=== PATIENT | male | born 1960 | race Caucasian/White ===

== ENCOUNTER 2017-02-18 04:40 | Inpatient (IN) | payer BC ==
[2017-02-18] MEDS ORDERED: SODIUM CHLORIDE 0.9% 500 ML INFUS.BAG IV ONE (05:04)
--- NOTE | 2017-02-18 05:05 | PDOC ---
History of Present Illness - General Stated Complaint: ABD PAIN Time Seen by Provider: 02/18/17 04:48 - History of Present Illness Initial Comments: 02/18/17 04:58 CHIEF COMPLAINT: abd pain HISTORY OF PRESENT ILLNESS: 56 yo M with hx of HTN, HLD, and recurrent alcohol induced pancreatitis presents emergency department with epigastric pain similar to his previous bouts of pancreatitis. Patient admits that he has been drinking again, "a few a day" and had 4-5 beers yesterday. Patient denies any nausea, vomiting, diarrhea, rectal bleeding, fever, shortness of breath, or chest pain. Patient also reports a baseline HR "in the 40s." PAST MEDICAL HISTORY: as per HPI FAMILY HISTORY: Denies SOCIAL HISTORY: Denies tobacco, alcohol, illicit drug use. SURGICAL HISTORY: Denies ALLERGIES: No known drug allergies REVIEW OF SYSTEMS General/Constitutional: Chills. Denies fever. Denies weakness, weight change. HEENT: Denies change in vision. Denies ear pain or discharge. Denies sore throat. Cardiovascular: Denies chest pain or shortness of breath. Respiratory: Denies cough, wheezing, or hemoptysis. Gastrointestinal: Epigastric abdominal pain. Denies nausea, vomiting, diarrhea or constipation. Denies rectal bleeding. Genitourinary: Denies dysuria, frequency, or change in urination. Musculoskeletal: Denies joint or muscle swelling or pain. Denies neck or back pain. Skin and breasts: Denies rash or easy bruising. Neurologic: Denies headache, vertigo, loss of consciousness, or loss of sensation. PHYSICAL EXAM General Appearance: Well-appearing, appropriately dressed. No apparent distress , no intoxication. HEENT: EOMI, PERRLA, normal ENT inspection, normal voice, TMs normal, pharynx normal. No conjunctival pallor. No photophobia, scleral icterus. Neck: Supple. Trachea midline. No tenderness, rigidity, carotid bruit, stridor , lymphadenopathy, or thyromegaly. Respiratory/Chest: Lungs CTAB. No shortness of breath, chest tenderness, respiratory distress, accessory muscle use. No crackles, rales, rhonchi, stridor , wheezing, dullness Cardiovascular: Bradycardic to 40s. RRR. S1, S2. No JVD, murmur, tachycardia. Vascular Pulses: Dorsalis-Pedis (R): 2+, Dorsalis-Pedis (L): 2+ Gastrointestinal/Abdominal: Marked epigastric tenderness. Normal bowel sounds. Abdomen soft, non-distended. No organomegaly, pulsatile mass, guarding, hernia, hepatomegaly, splenomegaly. Musculoskeletal/Extremities: Normal inspection. FROM of all extremities, normal capillary refill. Pelvis Stable. No CVA tenderness. No tenderness to extremities, pedal edema, swelling, erythema or deformity. Integumentary: Appropriate color, dry, warm. 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 Fully oriented, alert. Appropriate mood/affect. Motor strength 5/5. No appreciable EOM palsy, facial droop or sensory deficit. Past History - Past Medical History Allergies/Adverse Reactions: Allergies Allergy/AdvReac Type Severity Reaction Status Date / Time No Known Allergies Allergy Verified 02/18/17 05:17 Home Medications: Ambulatory Orders Propranolol HCl 80 mg PO 02/18/17 Anemia: No Asthma: No Cancer: No Cardiac Disorders: No CVA: No COPD: No CHF: No Dementia: No Diabetes: No GI Disorders: Yes (pancreatitis) Disorders: No HTN: Yes Hypercholesterolemia: Yes Liver Disease: No Suicide Attempt (Hx): No Seizures: No Thyroid Disease: No - Surgical History Abdominal Surgery: No Appendectomy: No Cardiac Surgery: No Cholecystectomy: No Lung Surgery: No Neurologic Surgery: No Orthopedic Surgery: No - Immunization History Td Vaccination: Yes Immunization Up to Date: No - Psycho/Social/Smoking Cessation Hx Anxiety: No Suicidal Ideation: No Smoking Status: No Smoking History: Former smoker Have you smoked in the past 12 months: No Number of Cigarettes Smoked Daily: 0 If you are a former smoker, when did you quit?: LONG TIME AGO Hx Alcohol Use: Yes (quit drinking in Jul) Drug/Substance Use Hx: No Substance Use Type: None Hx Substance Use Treatment: No ED Treatment Course - LABORATORY CBC & Chemistry Diagram: 02/18/17 04:55 02/18/17 04:55 Medical Decision Making - Medical Decision Making 02/18/17 05:36 56 yo M with hx of HTN, HLD, and recurrent alcohol induced pancreatitis presents emergency department with epigastric pain similar to his previous bouts of pancreatitis. Patient is bradycardic but at his baseline. Patient is also hypertensive to 180s/110s. Patient states he has not taken his Valsartan in "maybe two days" -CBC, CMP, lipase -IVF -Valsartan 80 mg po Patient complains of severe pain. -0.5 mg Dilaudid -Atropine at bedside -Abdomen & pelvis CT 02/18/17 06:20 Patient continues to c/o severe pain. BP continues to be in 180s/110s. -1 mg Dilaudid, will reassess BP after administration. Case discussed with MD Orlando covering for PCP Cam. Will admit to med/surg for inpatient services. 02/18/17 07:05 Repeat BP 147/86. Patient stable at time of admission. *DC/Admit/Observation/Transfer Diagnosis at time of Disposition: ETOH abuse Pancreatitis Qualifiers: Chronicity: acute Pancreatitis type: alcohol induced Acute pancreatitis complication: unspecified Qualified Code(s): K85.20 - Alcohol induced acute pancreatitis without necrosis or infection - Discharge Dispostion Admit: Yes - Referrals Referrals: Sharmila Levy MD [Primary Care Provider] -
[2017-02-18] MEDS ORDERED: VALSARTAN 80 MG TABLET (UD) PO ONE (05:25)
[2017-02-18 05:33] LABS: BASOPHIL 0.5 % (0-2.0); EOSINOPHIL 4.2 % (0-4.5); MCH 30.9 pg (25.7-33.7); MCHC 34.5 g/dl (32.0-35.9); MEAN CELL VOLUME 89.7 fl (80-96); MEAN PLT VOLUME 9.7 fl (7.5-11.1); NEUTROPHILS 66.6 % (42.8-82.8); PLATELET COUNT 144 K/MM3 (134-434); RDW 13.5 % (11.9-15.9); WHITE BLOOD COUNT 8.9 K/mm3 (4.0-10.0)
[2017-02-18] MEDS ORDERED: ATROPINE SO4 0.4 MG/1 ML VIAL IVPUSH ONE (05:34)
[2017-02-18] MEDS ORDERED: HYDROmorphone HCL CARPU-JECT 1 MG/1 ML DISP.SYRIN IVPUSH ONE ×2 (05:34→06:42)
[2017-02-18] MEDS ORDERED: VALSARTAN 80 MG TABLET (UD) ONE (05:35)
[2017-02-18] MEDS ORDERED: ATROPINE SULFATE 1 MG/10 ML DISP.SYRIN ONE (05:36)
[2017-02-18] MEDS ORDERED: HYDROmorphone HCL CARPU-JECT 1 MG/1 ML DISP.SYRIN ONE ×3 (05:39→10:27)
[2017-02-18 05:44] LABS: ALBUMIN 4.1 g/dl (3.4-5.0); ANION GAP 12 (8-16); BILIRUBIN,TOTAL 0.6 mg/dL (0.2-1.0); CALCIUM 8.8 mg/dL (8.5-10.1); CO2 23 mmol/L (21-32); CREATININE 1.3 mg/dL (0.7-1.3); GLUCOSE,RANDOM 110 mg/dL (74-106); SGOT/AST 36 U/L (15-37); SGPT/ALT 37 U/L (12-78); TOT PROT 7.2 g/dl (6.4-8.2)
[2017-02-18 05:45] LABS: ALK PHOS 68 U/L (45-117)
[2017-02-18] MEDS ORDERED: HYDROmorphone HCL CARPU-JECT 1 MG/1 ML DISP.SYRIN IVPB PRN (10:11)
[2017-02-18] MEDS ORDERED: SODIUM CHLORIDE 1,000 ML IV SCH (10:15)
[2017-02-18 10:59] VITALS: BMI 38.2
[2017-02-18] MEDS: HEPARIN NA (PORCINE) 5,000 UNITS/ML 1ML VIAL SQ SCH ×2 (11:32→22:09)
--- NOTE | 2017-02-18 12:35 | CON.GI ---
Consult Consult Specialty:: Gastroenterology Referred by:: Dr Levy Reason for Consultation:: Abdominal pain - History of Present Illness Chief Complaint: Severe epigastric pain began last PM reminiscent of previous bouts with pancreatitis History of Present Illness: 56M developed severe epigastric pain radiating into the back with nausea but bno vomiting last evening that awoke him from sleep. He drank a 6 pack of beer earlier in the day. He has a past h/o recurring alcoholic pancreatitis. His last bout was 2 years ago when he managed to quit drinking alcohol for about 9 months. He then started to resume alcohol slowly with a beer daily but has been drinking a six-pack of beer daily for over a year. He had a colonoscopy with my associate Dr Raymundo about 3 years ago which he reports as normal. He also describes having had an EGD that revealed GERD but no varices. He denies ever having had alcoholic hepatitis. He has a past h/o a cyst in the uncinate process of the pancreas for which he was repeated referred for endoscopic ultrasound by Dr. Payton but failed to follow through with it. That cyst is no longer evident of his current CT which does reveal pancreatitis. 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 Cardio/Vascular: Yes: HTN, Hyperlipdemia, Other (MVP, had normal cardiac cath in 01/31) Gastrointestinal: Yes: Gastritis, GERD, Pancreatitis, Other (resolved cyst of the pancreas ) Hepatobiliary: Yes: Other (fattyliver) - Past Surgical History Past Surgical History: Yes: None, Colonoscopy, Upper Endoscopy - Alcohol/Substance Use Hx Alcohol Use: Yes (5-6 BEERS-daily) History of Substance Use: reports: None - Smoking History Smoking history: Former smoker Have you smoked in the past 12 months: No Aproximately how many cigarettes per day: 0 If you are a former smoker, when did you quit?: LONG TIME AGO - Social History Usual Living Arrangement: Alone ADL: Independent 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 Place of : [facility] History of Recent Travel: No Home Medications - Allergies Allergies/Adverse Reactions: Allergies Allergy/AdvReac Type Severity Reaction Status Date / Time No Known Allergies Allergy Verified 02/18/17 05:17 - Home Medications Home Medications: Ambulatory Orders Acetaminophen [Tylenol -] 500 mg PO Q6H PRN 02/18/17 Alprazolam [Xanax] 0.25 mg PO DAILY PRN 02/18/17 Fenofibric Acid (Choline) [Trilipix] 135 mg PO DAILY 02/18/17 Propranolol HCl 80 mg PO 02/18/17 Ranitidine HCl [Zantac] 300 mg PO DAILY 02/18/17 Rosuvastatin Calcium [Crestor] mg PO HS 02/18/17 Valsartan 80 mg PO DAILY 02/18/17 Family Disease History - Family Disease History Family Disease History: Heart Disease: Father ( age 49 of [place]), Other: Mother (alive 85 with OMS) Review of Systems - Review of Systems Constitutional: reports: No Symptoms Eyes: reports: No Symptoms HENT: reports: No Symptoms Neck: reports: No Symptoms Cardiovascular: reports: Chest Pain (had cardiac cath WNL in 01/[address] Fields) Respiratory: reports: No Symptoms Gastrointestinal: reports: Abdominal Pain, Nausea, Other (acid reflux) Genitourinary: reports: No Symptoms Musculoskeletal: reports: No Symptoms Neurological: reports: No Symptoms Psychiatric: reports: No Symptoms Physical Exam-GI Vital Signs: Vital Signs Temperature 97.3 F L 02/18/17 10:30 Pulse Rate 48 L 02/18/17 10:30 Respiratory Rate 18 02/18/17 10:30 Blood Pressure 140/95 02/18/17 10:30 O2 Sat by Pulse Oximetry (%) 97 02/18/17 10:30 CBC,CMP WBC 8.9 K/mm3 (4.0-10.0) D 02/18/17 04:55 RBC 5.16 M/mm3 (4.00-5.60) 02/18/17 04:55 Hgb 16.0 GM/dL (11.7-16.9) D 02/18/17 04:55 Hct 46.3 % (35.4-49) D 02/18/17 04:55 MCV 89.7 fl (80-96) 02/18/17 04:55 MCH 30.9 pg (25.7-33.7) 02/18/17 04:55 MCHC 34.5 g/dl (32.0-35.9) 02/18/17 04:55 RDW 13.5 % (11.9-15.9) D 02/18/17 04:55 Plt Count 144 K/MM3 (134-434) D 02/18/17 04:55 MPV 9.7 fl (7.5-11.1) 02/18/17 04:55 Neutrophils % 66.6 % (42.8-82.8) 02/18/17 04:55 Lymphocytes % 20.7 % (8-40) D 02/18/17 04:55 Monocytes % 8.0 % (3.8-10.2) 02/18/17 04:55 Eosinophils % 4.2 % (0-4.5) D 02/18/17 04:55 Basophils % 0.5 % (0-2.0) 02/18/17 04:55 Sodium 139 mmol/L (136-145) 02/18/17 04:55 Potassium 4.0 mmol/L (3.5-5.1) 02/18/17 04:55 Chloride 104 mmol/L (98-107) 02/18/17 04:55 Carbon Dioxide 23 mmol/L (21-32) 02/18/17 04:55 Anion Gap 12 (8-16) 02/18/17 04:55 BUN 12 mg/dL (7-18) D 02/18/17 04:55 Creatinine 1.3 mg/dL (0.7-1.3) D 02/18/17 04:55 Creat Clearance w eGFR 57.53 (>60) 02/18/17 04:55 Random Glucose 110 mg/dL (74-106) H 02/18/17 04:55 Calcium 8.8 mg/dL (8.5-10.1) 02/18/17 04:55 Total Bilirubin 0.6 mg/dL (0.2-1.0) D 02/18/17 04:55 AST 36 U/L (15-37) D 02/18/17 04:55 ALT 37 U/L (12-78) D 02/18/17 04:55 Alkaline Phosphatase 68 U/L (45-117) 02/18/17 04:55 Total Protein 7.2 g/dl (6.4-8.2) 02/18/17 04:55 Albumin 4.1 g/dl (3.4-5.0) 02/18/17 04:55 Lipase 2966 U/L (73-393) H 02/18/17 04:55 Current Medications Generic Name Dose Route Start Last Admin Trade Name Freq PRN Reason Stop Dose Admin Heparin Sodium (Porcine) 5,000 unit 02/18/17 10:15 02/18/17 11:32 Heparin - SQ 5,000 unit BID MARIA ISABEL Administration Hydromorphone HCl 1 mg 02/18/17 10:11 02/18/17 10:36 Dilaudid Injection - IVPB 1 mg Q4H PRN Administration PAIN Sodium Chloride 1,000 mls @ 75 mls/hr 02/18/17 10:15 02/18/17 11:34 Normal Saline - IV 75 mls/hr ASDIR MARIA ISABEL Administration Constitutional: Yes: Calm Eyes: Yes: Conjunctiva Clear HENT: Yes: Atraumatic Neck: Yes: Supple Cardiovascular: Yes: Regular Rate and Rhythm Respiratory: Yes: CTA Bilaterally ...Auscultate: Yes: Hypoactive Bowel Sounds ...Palpate: Yes: Soft, Tenderness, Epigastium, Other (no masses or peritoneal signs) ...Rectal Exam: Yes: Guaiac Negative, Sphincter Tone Normal Genitourinary: Yes: Other (1+ prostate, normal testicles) Musculoskeletal: Yes: WNL Extremities: Yes: WNL Edema: No Integumentary: Yes: WNL Neurological: Yes: Alert, Oriented ...Motor Strength: WNL Psychiatric: Yes: Alert Labs: Laboratory Tests 09/25/14 02/18/17 02/18/17 07:15 04:55 04:55 Total Bilirubin 0.6 D AST 36 D ALT 37 D Alkaline Phosphatase 68 Lipase 2966 H CA 19-9 Antigen 7 Imaging - Results Cat Scan: Report Reviewed ([facility]ario Name: LEÓN PEGUERO DEPARTMENT OF RADIOLOGY Phys: LeggettNachoHinaluca RUSSELL : 1960 Age: 56 Sex: M [facility] Acct: [id number] Loc: [address] Exam Date: 02/18/17 Status: [place] [address] Unit Number: [id number] EXAM#: TYPE/EXAM: RESULT: CT/ABDOMEN PELVIS CT WITH CONTR Abdomen and pelvis CT (with intravenous contrast) Clinical information: pancreatitis multiplanar imaging was performed following the intravenous administration of nonionic contrast. Oral contrast was not administered. In comparison to an MRI exam of 11/13/2014 note is made of recurrent acute pancreatitis visualization of peripancreatic edema and fluid. Acute pancreatitis had been noted on a CT study of 09/25/2014. A small amount of free fluid is seen within the right paracolic space at the level of the mid to upper pelvis. There is no longer definite visualization of 1.3 cm cystic lesion within the head/uncinate process of the pancreas. Interval development of multifocal low-attenuation is seen within the left or right hepatic lobe which could be on the basis of focal fatty infiltration. No associated mass effect is noted. No evidence of pneumoperitoneum or bowel obstruction. The spleen, gallbladder, and adrenal glands and kidneys demonstrate no discrete abnormality. There is no aortic aneurysm. No definite lymphadenopathy is noted. Mild right basilar subpleural dependent atelectasis. Impression: Acute pancreatitis as described above. In comparison to a 2015 MRI study there is no longer definite visualization of a 1.3 cm pancreatic head/uncinate process cystic structure. Correlation with follow-up MRI is suggested following resolution of acute pancreatitis. Interval development of multifocal hepatic hypodensity is noted which may be on the basis of focal fatty infiltration. MRI follow-up is also suggested in this regard. Reported By: Wero Zuniga MD 02/18/17914 Technologist: Garret Hastings Transcribed Date/Time: 02/18 Animation Producer: Wero Zuniga Printed Date/Time: [ rep prt dt last] [ rep prt tm last] By: [ rep prt user last]) Problem List - Problems (1) Fatty (change of) liver, not elsewhere classified Code(s): K76.0 - FATTY (CHANGE OF) LIVER, NOT ELSEWHERE CLASSIFIED Assessment/Plan The picture is most consistent with recurrent alcoholic pancreatitis. I have again strongly advised León to completely absolutely abstain from any further alcohol intake given the strong likelihood of developing pancreatic insufficiency with diabetes and inability to digest nutrients. Need to watch for alcohol withdrawal. Keep NPO for now. Will increase analgesia and IV fluids. Will check Fibrosure to look for alcoholic liver disease as is suggested by his fatty liver. Continue PPI for GERD. His pancreatic cyst was likely a pseudocyst as it has resolved.
[2017-02-18] MEDS ORDERED: chlordiazePOXIDE HCL 25 MG CAPSULE PO PRN (13:29)
[2017-02-18 13:30] LABS: AMYLASE 195 U/L (25-115)
[2017-02-18] MEDS ORDERED: LACTATED RINGERS SOLUTION 1,000 ML IV SCH ×2 (13:30→19:30)
[2017-02-18] MEDS: chlordiazePOXIDE HCL 25 MG CAPSULE PO SCH ×3 (13:44→22:09)
[2017-02-18] MEDS: HYDROmorphone HCL CARPU-JECT 1 MG/1 ML DISP.SYRIN IVPB PRN ×2 (13:45→19:28)
--- NOTE | 2017-02-18 16:05 | CON.CARD ---
Consult Consult Specialty:: Cardiology Referred by:: Hosptalist Reason for Consultation:: Cardiac evaluation - History of Present Illness Chief Complaint: Abdominal pain History of Present Illness: Patient is a 56 year old male who was previously seen in the Hospital with underlying history of hypertension, mixed dyslipidemia and pancreatitis with ETOH dependency who presents again with epigastric pain after he started drinking ETOH and now again with pancreatitis. He has had cardiac evaluation including cardiac catheterization/coronary angiography recently which was unremarkable. He denies chest pain, shortness of breath or palpitations. He denies paroxysmal nocturnal dyspnea or orthopnea. He denies fever or chills. He denies headache or lightheadedness. Denies nausea, vomiting or diarrhea at this time. Cardiology consultation was called for further evaluation. 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 Cardio/Vascular: Yes: HTN, Hyperlipdemia Gastrointestinal: Yes: Gastritis, GERD, Pancreatitis, Other (resolved cyst of the pancreas ) Hepatobiliary: Yes: Other (fatty liver) - Past Surgical History Past Surgical History: Yes: None, Colonoscopy, Upper Endoscopy - Alcohol/Substance Use Hx Alcohol Use: Yes (5-6 BEERS-daily) History of Substance Use: reports: None - Smoking History Smoking history: Former smoker Have you smoked in the past 12 months: No Aproximately how many cigarettes per day: 0 If you are a former smoker, when did you quit?: LONG TIME AGO - Social History Usual Living Arrangement: Alone ADL: Independent 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 History of Recent Travel: No Home Medications - Allergies Allergies/Adverse Reactions: Allergies Allergy/AdvReac Type Severity Reaction Status Date / Time No Known Allergies Allergy Verified 02/18/17 05:17 - Home Medications Home Medications: Ambulatory Orders Acetaminophen [Tylenol -] 500 mg PO Q6H PRN 02/18/17 Alprazolam [Xanax] 0.25 mg PO DAILY PRN 02/18/17 Fenofibric Acid (Choline) [Trilipix] 135 mg PO DAILY 02/18/17 Propranolol HCl 80 mg PO DAILY 02/18/17 Ranitidine HCl [Zantac] 300 mg PO DAILY 02/18/17 Rosuvastatin Calcium [Crestor] mg PO HS 02/18/17 Valsartan 80 mg PO DAILY 02/18/17 Family Disease History - Family Disease History Family Disease History: Heart Disease: Father ( age 49 of [place]), Other: Mother (alive 85 with OMS) Review of Systems - Review of Systems Constitutional: denies: Chills, Fever Cardiovascular: denies: Chest Pain, Palpitations, Shortness of Breath Respiratory: denies: Cough, Hemoptysis, Orthopnea, PND, SOB, SOB on Exertion Gastrointestinal: reports: Abdominal Pain. denies: Constipation, Diarrhea, Melena, Nausea, Rectal Bleeding, Vomiting Musculoskeletal: denies: Joint Pain Neurological: denies: Dizziness, Headache, Seizure, Syncope Vital Signs: Vital Signs Temperature 98.1 F 02/18/17 15:56 Pulse Rate 50 L 02/18/17 15:56 Respiratory Rate 18 02/18/17 15:56 Blood Pressure 141/76 02/18/17 15:56 O2 Sat by Pulse Oximetry (%) 97 02/18/17 10:30 HENT: Yes: Atraumatic Neck: Yes: Supple Respiratory: Yes: CTA Bilaterally Gastrointestinal: Yes: Normal Bowel Sounds, Soft. No: Tenderness Cardiovascular: Yes: Regular Rate and Rhythm JVD: No Carotid Bruit: No PMI: Non-Displaced Heart Sounds: Yes: S1, S2 Edema: No - Other Data Labs, Other Data: CBCD WBC 8.9 K/mm3 (4.0-10.0) D 02/18/17 04:55 RBC 5.16 M/mm3 (4.00-5.60) 02/18/17 04:55 Hgb 16.0 GM/dL (11.7-16.9) D 02/18/17 04:55 Hct 46.3 % (35.4-49) D 02/18/17 04:55 MCV 89.7 fl (80-96) 02/18/17 04:55 MCHC 34.5 g/dl (32.0-35.9) 02/18/17 04:55 RDW 13.5 % (11.9-15.9) D 02/18/17 04:55 Plt Count 144 K/MM3 (134-434) D 02/18/17 04:55 MPV 9.7 fl (7.5-11.1) 02/18/17 04:55 CMP Sodium 139 mmol/L (136-145) 02/18/17 04:55 Potassium 4.0 mmol/L (3.5-5.1) 02/18/17 04:55 Chloride 104 mmol/L (98-107) 02/18/17 04:55 Carbon Dioxide 23 mmol/L (21-32) 02/18/17 04:55 Anion Gap 12 (8-16) 02/18/17 04:55 BUN 12 mg/dL (7-18) D 02/18/17 04:55 Creatinine 1.3 mg/dL (0.7-1.3) D 02/18/17 04:55 Creat Clearance w eGFR 57.53 (>60) 02/18/17 04:55 Random Glucose 110 mg/dL (74-106) H 02/18/17 04:55 Calcium 8.8 mg/dL (8.5-10.1) 02/18/17 04:55 Total Bilirubin 0.6 mg/dL (0.2-1.0) D 02/18/17 04:55 AST 36 U/L (15-37) D 02/18/17 04:55 ALT 37 U/L (12-78) D 02/18/17 04:55 Alkaline Phosphatase 68 U/L (45-117) 02/18/17 04:55 Total Protein 7.2 g/dl (6.4-8.2) 02/18/17 04:55 Albumin 4.1 g/dl (3.4-5.0) 02/18/17 04:55 Marked sinus bradycardia Imaging - Results Cat Scan: Report Reviewed (Abdominal CT acute pancreatitis) EKG: Report Reviewed Problem List - Problems (1) Alcoholic pancreatitis Code(s): K85.20 - ALCOHOL INDUCED ACUTE PANCREATITIS WITHOUT NECROSIS OR INFCT (2) ETOH abuse Code(s): F10.10 - ALCOHOL ABUSE, UNCOMPLICATED (3) Bradycardia Code(s): R00.1 - BRADYCARDIA, UNSPECIFIED (4) HLD (hyperlipidemia) Code(s): E78.5 - HYPERLIPIDEMIA, UNSPECIFIED (5) HTN (hypertension) Code(s): I10 - ESSENTIAL (PRIMARY) HYPERTENSION Qualifiers: Hypertension type: essential hypertension Qualified Code(s): I10 - Essential (primary) hypertension Assessment/Plan 1. Acute pancreatitis secondary to ETOH dependency 2. Hypertension 3. Hypercholesterolemia PLAN: 1. Keep NPO and keep pancrease at rest 2. Continue Valsartan as tolerated 3. Discontinue Propranolol until further instruction 4. Statin is being held until further instruction 5. GI input to follow Further plans are to follow Urbano Perez MD
--- NOTE | 2017-02-18 19:42 | HP ---
Admitting History and Physical - Primary Care Physician PCP: Sharmila Levy - Admission Chief Complaint: abdominal pain, Alcoholic acute pancreatitis History of Present Illness: 56 yo M with hx of HTN, HLD, and recurrent alcohol induced pancreatitis presented to [facility] emergency department with epigastric pain similar to his previous bouts of pancreatitis. Patient admits that he has been drinking again , "a few a day" and had 4-5 beers yesterday. Patient denies any nausea, vomiting, diarrhea, rectal bleeding, fever, shortness of breath, or chest pain. Patient also reports a baseline HR "in the 40s. Patient is known to non compliant, has not followed up with GI outpatient as recommended and doesn't abstain from drinking alcohol everyday. 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: Yes: Migraine Cardiovascular: Yes: HTN, Hyperlipdemia, Other (MVP, had normal cardiac cath in 01/31) Gastrointestinal: Yes: Gastritis, GERD, Pancreatitis, Other (resolved cyst of the pancreas ) Hepatobiliary: Yes: Other (fattyliver) - Past Surgical History Past Surgical History: Yes: None, Colonoscopy, Upper Endoscopy - Smoking History Smoking history: Former smoker Have you smoked in the past 12 months: No Aproximately how many cigarettes per day: 0 If you are a former smoker, when did you quit?: LONG TIME AGO - Alcohol/Substance Use Hx Alcohol Use: Yes (5-6 BEERS-daily) History of Substance Use: reports: None - Social History ADL: Independent 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 History of Recent Travel: No Home Medications - Allergies Allergies/Adverse Reactions: Allergies Allergy/AdvReac Type Severity Reaction Status Date / Time No Known Allergies Allergy Verified 02/18/17 05:17 - Home Medications Home Medications: Ambulatory Orders Acetaminophen [Tylenol -] 500 mg PO Q6H PRN 02/18/17 Alprazolam [Xanax] 0.25 mg PO DAILY PRN 02/18/17 Fenofibric Acid (Choline) [Trilipix] 135 mg PO DAILY 02/18/17 Propranolol HCl 80 mg PO DAILY 02/18/17 Ranitidine HCl [Zantac] 300 mg PO DAILY 02/18/17 Rosuvastatin Calcium [Crestor] mg PO HS 02/18/17 Valsartan 80 mg PO DAILY 02/18/17 Family Disease History - Family Disease History Family Disease History: Heart Disease: Father ( age 49 of [place]), Other: Mother (alive 85 with OMS) Review of Systems - Review of Systems Constitutional: reports: No Symptoms Eyes: reports: No Symptoms HENT: reports: No Symptoms Neck: reports: No Symptoms Cardiovascular: reports: No Symptoms Respiratory: reports: No Symptoms Gastrointestinal: reports: Abdominal Pain Genitourinary: reports: No Symptoms Breasts: reports: No Symptoms Reported Musculoskeletal: reports: No Symptoms Integumentary: reports: No Symptoms Neurological: reports: No Symptoms Endocrine: reports: No Symptoms Hematology/Lymphatic: reports: No Symptoms Psychiatric: reports: No Symptoms Pain Intensity: 8 Physical Examination Vital Signs: Vital Signs Temperature 98.1 F 02/18/17 15:56 Pulse Rate 50 L 02/18/17 15:56 Respiratory Rate 18 02/18/17 15:56 Blood Pressure 141/76 02/18/17 15:56 O2 Sat by Pulse Oximetry (%) 97 02/18/17 10:30 Constitutional: Yes: Well Nourished, No Distress, Calm Cardiovascular: Yes: Regular Rate and Rhythm Respiratory: Yes: Regular Gastrointestinal: Yes: Normal Bowel Sounds, Tenderness, Epigastrium Edema: No Peripheral Pulses WNL: Yes Neurological: Yes: Alert, Oriented Psychiatric: Yes: Alert, Oriented Problem List - Problems (1) ETOH abuse Code(s): F10.10 - ALCOHOL ABUSE, UNCOMPLICATED (2) Fatty (change of) liver, not elsewhere classified Code(s): K76.0 - FATTY (CHANGE OF) LIVER, NOT ELSEWHERE CLASSIFIED (3) Bradycardia Code(s): R00.1 - BRADYCARDIA, UNSPECIFIED (4) HTN (hypertension) Code(s): I10 - ESSENTIAL (PRIMARY) HYPERTENSION Qualifiers: Hypertension type: essential hypertension Qualified Code(s): I10 - Essential (primary) hypertension (5) Alcoholic pancreatitis Code(s): K85.20 - ALCOHOL INDUCED ACUTE PANCREATITIS WITHOUT NECROSIS OR INFCT Assessment/Plan -NPO -DVT prophylaxis -PPI -IVF -encouragement to abstain from alcohol -Pain management -alcohol withdrawal protocol -restart ARB, would hold BB due to bradycardia
[2017-02-18] MEDS ORDERED: PANTOPRAZOLE SODIUM 40 MG VIAL ONE (21:18)
[2017-02-18] MEDS ORDERED: SODIUM CHLORIDE 100 ML IVPB ONE (21:18)
[2017-02-18] MEDS: PANTOPRAZOLE SODIUM 40 MG in SODIUM CHLORIDE 100 ML IVPB SCH (22:09)
--- NOTE | 2017-02-18 22:10 | EKG ---
Test Reason : Blood Pressure : / mmHG Vent. Rate : 042 BPM Atrial Rate : 042 BPM P-R Int : 162 ms QRS Dur : 086 ms QT Int : 438 ms P-R-T Axes : 022 051 053 degrees QTc Int : 365 ms MARKED SINUS BRADYCARDIA HYPERACUTE T WAVE ABNORMAL ECG WHEN COMPARED WITH ECG OF 06-NOV-2014 11:43, SINUS RHYTHM HAS REPLACED ATRIAL FIBRILLATION Confirmed by TIRSO SIFUENTES MD ([id number]) on 02/18/2017 10:09:46 PM Referred By: Confirmed By:TIRSO SIFUENTES MD
[2017-02-19] MEDS: LACTATED RINGERS SOLUTION 1,000 ML IV SCH ×5 (00:45→16:43)
[2017-02-19] MEDS: chlordiazePOXIDE HCL 25 MG CAPSULE PO SCH ×3 (06:11→17:10)
[2017-02-19] MEDS: HYDROmorphone HCL CARPU-JECT 1 MG/1 ML DISP.SYRIN IVPB PRN ×2 (07:06→20:40)
[2017-02-19 07:43] LABS: FIBROSURE ASH COMMENT SEE FILE COPY
[2017-02-19 07:58] LABS: BASOPHIL 0.2 % (0-2.0); EOSINOPHIL 0.6 % (0-4.5); MCH 30.6 pg (25.7-33.7); MCHC 33.8 g/dl (32.0-35.9); MEAN CELL VOLUME 90.5 fl (80-96); MEAN PLT VOLUME 9.7 fl (7.5-11.1); NEUTROPHILS 74.6 % (42.8-82.8); PLATELET COUNT 93 K/MM3 (134-434); RDW 13.7 % (11.9-15.9); WHITE BLOOD COUNT 5.7 K/mm3 (4.0-10.0)
[2017-02-19 08:45] LABS: C-REACTIVE PROTEIN 12.5 MG/DL (0.00-0.3)
--- NOTE | 2017-02-19 08:49 | PN ---
Progress Note, Physician History of Present Illness: LESS ABD PAIN NOW AFTER PAIN MEDS NO CP OR SOB - Current Medication List Current Medications: Active Medications Chlordiazepoxide HCl (Librium -) 25 mg PO [id number] [facility]ABEL Stop: 02/20/17 05:01 Chlordiazepoxide HCl (Librium -) 15 mg PO [id number] MARIA ISABEL Stop: 02/21/17 05:01 Chlordiazepoxide HCl (Librium -) 25 mg PO Q4H PRN PRN Reason: WITHDRAWAL(CONT SUBST) Stop: 02/21/17 13:28 Heparin Sodium (Porcine) (Heparin -) 5,000 unit SQ BID MARIA ISABEL Last Admin: 02/18/17 22:09 Dose: 5,000 unit Hydromorphone HCl (Dilaudid Injection -) 2 mg IVPB Q4H PRN PRN Reason: PAIN Last Admin: 02/19/17 07:06 Dose: 2 mg Lactated Ringer's (Lactated Ringers Solution) 1,000 mls @ 175 mls/hr IV ASDIR [facility] Stop: 02/19/17 10:30 Last Admin: 02/19/17 06:10 Dose: Not Given Lactated Ringer's (Lactated Ringers Solution) 1,000 mls @ 150 mls/hr IV ASDIR [facility] ISABEL Stop: 02/19/17 16:30 Last Admin: 02/19/17 06:12 Dose: 150 mls/hr Lactated Ringer's (Lactated Ringers Solution) 1,000 mls @ 125 mls/hr IV ASDIR [facility] Pantoprazole Sodium 40 mg/ (Sodium Chloride) 100 mls @ 200 mls/hr IVPB DAILY [facility] Last Admin: 02/18/17 22:09 Dose: 200 mls/hr Valsartan (Diovan -) 80 mg PO DAILY [facility] - Objective Vital Signs: Vital Signs Temperature 99.8 F H 02/19/17 07:26 Pulse Rate 60 02/19/17 07:26 Respiratory Rate 20 02/19/17 07:26 Blood Pressure 142/88 02/19/17 07:26 O2 Sat by Pulse Oximetry (%) 96 02/18/17 21:00 Cardiovascular: Yes: Bradycardia, S1, S2 Respiratory: Yes: Regular, CTA Bilaterally Gastrointestinal: Yes: Normal Bowel Sounds, Soft, Tenderness, Epigastrium Labs: CBC, BMP 02/19/17 06:00 09/05/17 06:00 Problem List - Problems (1) Alcoholic pancreatitis Assessment/Plan: NPO IVF GI ON BOARD MONITOR LABS Code(s): K85.20 - ALCOHOL INDUCED ACUTE PANCREATITIS WITHOUT NECROSIS OR INFCT (2) ETOH abuse Assessment/Plan: ON LIBRIUM MONITOR ABSTINENCE DISCUSSED Code(s): F10.10 - ALCOHOL ABUSE, UNCOMPLICATED (3) Fatty (change of) liver, not elsewhere classified Assessment/Plan: AVOID ETOH COMPLIANCE Code(s): K76.0 - FATTY (CHANGE OF) LIVER, NOT ELSEWHERE CLASSIFIED (4) Bradycardia Assessment/Plan: CARDIO ON BOARD Code(s): R00.1 - BRADYCARDIA, UNSPECIFIED (5) HLD (hyperlipidemia) Assessment/Plan: AWAIT LIPIDS Code(s): E78.5 - HYPERLIPIDEMIA, UNSPECIFIED
[2017-02-19 08:50] LABS: ALBUMIN 2.8 g/dl (3.4-5.0); ALK PHOS 52 U/L (45-117); AMYLASE 617 U/L (25-115); ANION GAP 10 (8-16); BILIRUBIN,TOTAL 1.5 mg/dL (0.2-1.0); CALCIUM 7.8 mg/dL (8.5-10.1); CO2 26 mmol/L (21-32); CREATININE 0.9 mg/dL (0.7-1.3); GLUCOSE,RANDOM 96 mg/dL (74-106); SGOT/AST 24 U/L (15-37); SGPT/ALT 23 U/L (12-78); TOT PROT 5.4 g/dl (6.4-8.2)
[2017-02-19] MEDS ORDERED: SODIUM CHLORIDE 100 ML IVPB ONE (09:29)
[2017-02-19] MEDS ORDERED: PANTOPRAZOLE SODIUM 40 MG VIAL ONE (09:29)
[2017-02-19] MEDS: PANTOPRAZOLE SODIUM 40 MG in SODIUM CHLORIDE 100 ML IVPB SCH (09:33)
[2017-02-19] MEDS: VALSARTAN 80 MG TABLET (UD) PO SCH (09:33)
[2017-02-19] MEDS: HEPARIN NA (PORCINE) 5,000 UNITS/ML 1ML VIAL SQ SCH ×2 (09:33→21:01)
--- NOTE | 2017-02-19 09:37 | PN ---
Progress Note, Physician Chief Complaint: Less abdominal/epigastric pain History of Present Illness: Patient was seen and examined. Awake and alert. Chart was reviewed Denies chest pain, SOB or palpitations - Current Medication List Current Medications: Active Medications Chlordiazepoxide HCl (Librium -) 25 mg PO [id number] MARIA ISABEL Stop: 02/20/17 05:01 Chlordiazepoxide HCl (Librium -) 15 mg PO [id number] MARIA ISABEL Stop: 02/21/17 05:01 Chlordiazepoxide HCl (Librium -) 25 mg PO Q4H PRN PRN Reason: WITHDRAWAL(CONT SUBST) Stop: 02/21/17 13:28 Heparin Sodium (Porcine) (Heparin -) 5,000 unit SQ BID [facility] Last Admin: 02/19/17 09:33 Dose: 5,000 unit Hydromorphone HCl (Dilaudid Injection -) 2 mg IVPB Q4H PRN PRN Reason: PAIN Last Admin: 02/19/17 07:06 Dose: 2 mg Lactated Ringer's (Lactated Ringers Solution) 1,000 mls @ 175 mls/hr IV ASDIR [facility] Stop: 02/19/17 10:30 Last Admin: 02/19/17 06:10 Dose: Not Given Lactated Ringer's (Lactated Ringers Solution) 1,000 mls @ 150 mls/hr IV ASDIR [facility] Stop: 02/19/17 16:30 Last Admin: 02/19/17 06:12 Dose: 150 mls/hr Lactated Ringer's (Lactated Ringers Solution) 1,000 mls @ 125 mls/hr IV ASDIR [facility]CLUD[facility] Pantoprazole Sodium 40 mg/ (Sodium Chloride) 100 mls @ 200 mls/hr IVPB DAILY [facility] Last Admin: 02/19/17 09:33 Dose: 200 mls/hr Valsartan (Diovan -) 80 mg PO DAILY [facility] Last Admin: 02/19/17 09:33 Dose: 80 mg - Objective Vital Signs: Vital Signs Temperature 98.1 F 02/19/17 09:24 Pulse Rate 79 02/19/17 09:24 Respiratory Rate 22 02/19/17 09:24 Blood Pressure 126/83 02/19/17 09:24 O2 Sat by Pulse Oximetry (%) 96 02/18/17 21:00 Neck: Yes: Supple Cardiovascular: Yes: Regular Rate and Rhythm, S1, S2 Respiratory: Yes: CTA Bilaterally Gastrointestinal: Yes: Normal Bowel Sounds, Soft. No: Tenderness Edema: No Labs: CBC, BMP 02/19/17 06:00 02/19/17 06:00 Problem List - Problems (1) Alcoholic pancreatitis Code(s): K85.20 - ALCOHOL INDUCED ACUTE PANCREATITIS WITHOUT NECROSIS OR INFCT Qualifiers: Chronicity: acute Acute pancreatitis complication: unspecified Qualified Code(s): K85.20 - Alcohol induced acute pancreatitis without necrosis or infection (2) ETOH abuse Code(s): F10.10 - ALCOHOL ABUSE, UNCOMPLICATED (3) Bradycardia Code(s): R00.1 - BRADYCARDIA, UNSPECIFIED (4) HLD (hyperlipidemia) Code(s): E78.5 - HYPERLIPIDEMIA, UNSPECIFIED (5) HTN (hypertension) Code(s): I10 - ESSENTIAL (PRIMARY) HYPERTENSION Qualifiers: Hypertension type: essential hypertension Qualified Code(s): I10 - Essential (primary) hypertension Assessment/Plan 1. Acute pancreatitis secondary to ETOH dependency 2. Hypertension 3. Hypercholesterolemia PLAN: 1. Keep NPO and keep pancreas at rest 2. Continue Valsartan as tolerated 3. Discontinue Propranolol until further instruction 4. Statin is being held until further instruction 5. GI input noted 6. Analgesics PRN 7. K supplement Further plans are to follow Urbano Perez MD
--- NOTE | 2017-02-19 13:04 | PN ---
GI Progress Note Subjective: No acute events states that abdominal pain improved somewhat from yesterday but still gets worse when he sits up - Objective Vital Signs: Vital Signs Temperature 98.1 F 02/19/17 09:24 Pulse Rate 79 02/19/17 09:24 Respiratory Rate 22 02/19/17 09:24 Blood Pressure 126/83 02/19/17 09:24 O2 Sat by Pulse Oximetry (%) 93 L 02/19/17 09:00 Constitutional: Calm Eyes: Yes: Sclera Icterus Cardiovascular: Yes: Regular Rate and Rhythm. No: Murmur Respiratory: Yes: CTA Bilaterally Gastrointestinal Inspection: Yes: Scars. No: Distention ...Auscultate: Yes: Normoactive Bowel Sounds ...Palpate: Yes: Tenderness (TTP upper abdomen). No: Guarding, Hepatomegaly, Splenomegaly, Tenderness, Rebound ...Percussion: No: Tympanitic Edema: No Neurological: Yes: Alert, Oriented Labs: CBC, BMP 02/19/17 06:00 02/19/17 06:00 Hepatic Panel Total Bilirubin 1.5 mg/dL (0.2-1.0) H D 02/19/17 06:00 AST 24 U/L (15-37) D 02/19/17 06:00 ALT 23 U/L (12-78) D 02/19/17 06:00 Alkaline Phosphatase 52 U/L (45-117) D 02/19/17 06:00 Albumin 2.8 g/dl (3.4-5.0) L D 02/19/17 06:00 Laboratory Tests 02/19/17 02/19/17 06:00 06:00 Triglycerides 356 H D Total Amylase 617 H D Lipase 3680 H - ....Imaging Cat Scan: Report Reviewed Problem List - Problems (1) Alcoholic pancreatitis Assessment/Plan: Triglycerides are elevated but I suspect not causative of the pancreatitis and likely elevated from his alcohol consumption Still with tenderness to palpation on exam Continue IV hydration NPO Triple phase MRI of abdomen for follow-up of liver findings of multiple hypodensities as suggested by radiologist Urged the need for complete alcohol abstinence. Discussed potantial risks of recurrent pancreatitis including pancreatic insufficiency leading to poor quality of life, multiorgan failure leading to . Code(s): K85.20 - ALCOHOL INDUCED ACUTE PANCREATITIS WITHOUT NECROSIS OR INFCT Qualifiers: Chronicity: acute Acute pancreatitis complication: unspecified Qualified Code(s): K85.20 - Alcohol induced acute pancreatitis without necrosis or infection
[2017-02-19] MEDS ORDERED: PIPERACILLIN/TAZOB 3.375 GM 3.375 GM in DEXTROSE 5%-WATER - 50 ML IVPB ONE (16:15)
[2017-02-19] MEDS ORDERED: ACETAMINOPHEN 325 MG TABLET (FP) PO ONE (16:15)
[2017-02-19] MEDS ORDERED: PIPERACILLIN/TAZOBACTAM 3.375 GM VIAL IVPB ONE (16:16)
[2017-02-19] MEDS ORDERED: DEXTROSE 5%-WATER - 50 ML IVPB ONE (16:17)
--- NOTE | 2017-02-19 17:29 | PN ---
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 cxray cultures ua zosyn suspect can d/c antibiotics studies are reviewed
[2017-02-19] MEDS: PIPERACILLIN/TAZOB 3.375 GM 3.375 GM in DEXTROSE 5%-WATER - 50 ML IVPB SCH (17:53)
[2017-02-19] MEDS ORDERED: PIPERACILLIN/TAZOB 3.375 GM/50 ML PRE-DOCKED IVPB SCH (18:00)
--- NOTE | 2017-02-19 19:10 | CONS ---
INFECTIOUS DISEASE CONSULTATION DATE OF CONSULTATION: DATE OF DICTATION: 02/19/2017 REQUESTING PHYSICIAN: Sharmila Levy MD HISTORY OF PRESENT ILLNESS: This is a 56-year-old man with a prior history of pancreatitis. He was last hospitalized in 2014. He has done well since that time. He resumed drinking alcohol and has been drinking a 6-pack of beer daily for the last year. He presented to the emergency room on the with complaints of severe epigastric pain that started on the . He was found to have pancreatitis. He was evaluated by GI. He was given IV fluids and pain medications. He is n.p.o. I am asked to see him because he spiked a fever of 102.5. He denies headache. He denies sore throat. He notes he has continued abdominal pain. He states that he does not withdraw when he stops drinking and that there is no history of any travel. He has no sick contacts. PAST MEDICAL HISTORY: Notable for migraines, hypertension, hyperlipidemia, gastritis, GERD, pancreatitis. He has a resolved cyst of the pancreas, and he has had colonoscopy in the past. He is a former smoker. He quit many years ago. SOCIAL HISTORY: He lives alone. He drinks alcohol daily, approximately 5-6 beers. 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 There is no history of any travel or sick contacts. ALLERGIES: He has no known drug allergies. MEDICATIONS AT HOME: Include Xanax, fenofibric acid, propranolol, ranitidine, rosuvastatin, and valsartan. He states he takes propranolol for tremor. FAMILY HISTORY: Notable for heart disease and his mother is alive and well. Father at age 49. REVIEW OF SYSTEMS: He reports fevers with sweats. He denies any rigors. He notes his urine is dark. He denies any dysuria. He had a normal bowel movement yesterday. He reports abdominal pain and nausea, has not had any vomiting today. He is awake and alert. PHYSICAL EXAMINATION: Vital Signs: His current temperature is 101.5. T-max is 102.5. Pulse is 86, blood pressure 145/87, respiratory rate is 20, saturating 93% on room air. HEENT: He is normocephalic. His eyes are anicteric. Neck: Supple. He has no thrush or pharyngitis. Lungs: Diminished breath sounds at the bases. Heart: Regular rate and rhythm. Abdomen: Soft. He has mid-epigastric pain on palpation. He has positive bowel sounds. Extremities: without edema. DIAGNOSTIC DATA: White count this morning was 5.7, hemoglobin 15, platelets are 93,000. BUN is 7 and creatinine 0.9. Normal LFTs. CRP of 12.5. Amylase is 617 with a lipase of 3680. No UA or urine culture has been done. No chest x-ray has been sent. CAT scan findings are notable for acute pancreatitis, mild right basilar subpleural atelectasis. He has interval development of multi-focal hepatic hypodensities of unclear etiology. In summary, this is a 56-year-old man with acute pancreatitis, now with fever, possibly inflammatory from pancreatitis, possibly infectious. MRI has been ordered to evaluate these hepatic hypodensities. Would obtain a chest x-ray< UA, urine culture, and blood cultures for completeness. A dose of Zosyn has been ordered; would continue while awaiting the rest of his fever workup and abdominal imaging. ANISHA HERNANDEZ M.D. [id number]
[2017-02-19 20:39] LABS: URINE APPEARANCE SLCLOUDY; URINE BILIRUBIN NEGATIVE (NEGATIVE); URINE BLOOD 1+ (NEGATIVE); URINE COLOR DKYELLOW; URINE GLUCOSE (UA) NEGATIVE (NEGATIVE); URINE KETONE NEGATIVE (NEGATIVE); URINE LEUK ESTERASE NEGATIVE (NEGATIVE); URINE NITRITE NEGATIVE (NEGATIVE); URINE UROBILINOGEN NEGATIVE mg/dL (0.2-1.0)
[2017-02-19 20:40] LABS: URINE PROTEIN 1+ (NEGATIVE)
[2017-02-19 21:06] LABS: URINE BACTERIA RARE /hpf (NONE SEEN); URINE MUCUS RARE; URINE RBC <1 /hpf (0-3); URINE WBC 1 /hpf (3-5)
[2017-02-20] MEDS ORDERED: DEXTROSE 5%-WATER - 50 ML IVPB ONE ×3 (00:03→17:45)
[2017-02-20] MEDS ORDERED: PIPERACILLIN/TAZOBACTAM 3.375 GM VIAL IVPB ONE ×3 (00:03→17:44)
[2017-02-20] MEDS: chlordiazePOXIDE HCL 25 MG CAPSULE PO SCH ×2 (00:10→06:00)
[2017-02-20] MEDS: PIPERACILLIN/TAZOB 3.375 GM 3.375 GM in DEXTROSE 5%-WATER - 50 ML IVPB SCH ×3 (01:07→17:54)
[2017-02-20] MEDS: HYDROmorphone HCL CARPU-JECT 1 MG/1 ML DISP.SYRIN IVPB PRN ×3 (06:02→21:36)
[2017-02-20 08:48] LABS: MCH 30.9 pg (25.7-33.7); MCHC 34.1 g/dl (32.0-35.9); MEAN CELL VOLUME 90.6 fl (80-96); PLATELET COUNT 78 K/MM3 (134-434); RDW 13.3 % (11.9-15.9); WHITE BLOOD COUNT 5.3 K/mm3 (4.0-10.0)
[2017-02-20] MEDS ORDERED: SODIUM CHLORIDE 100 ML IVPB ONE (10:19)
[2017-02-20] MEDS ORDERED: PANTOPRAZOLE SODIUM 40 MG VIAL ONE (10:19)
--- NOTE | 2017-02-20 10:24 | PN ---
Progress Note, Physician Chief Complaint: Less abdominal/epigastric pain Not in distress History of Present Illness: Patient was seen and examined. Awake and alert. Chart was reviewed Denies chest pain, SOB or palpitations - Current Medication List Current Medications: Active Medications Chlordiazepoxide HCl (Librium -) 15 mg PO [id number] [facility]IA ISABEL Stop: 02/21/17 05:01 Chlordiazepoxide HCl (Librium -) 25 mg PO Q4H PRN PRN Reason: WITHDRAWAL(CONT SUBST) Stop: 02/21/17 13:28 Heparin Sodium (Porcine) (Heparin -) 5,000 unit SQ BID [facility]IA ISABEL Last Admin: 02/19/17 21:01 Dose: 5,000 unit Hydromorphone HCl (Dilaudid Injection -) 2 mg IVPB Q4H PRN PRN Reason: PAIN Last Admin: 02/20/17 06:02 Dose: 2 mg Lactated Ringer's (Lactated Ringers Solution) 1,000 mls @ 125 mls/hr IV ASDIR [facility] Last Admin: 02/20/17 00:00 Dose: 125 mls/hr Pantoprazole Sodium 40 mg/ (Sodium Chloride) 100 mls @ 200 mls/hr IVPB DAILY [facility] Last Admin: 02/19/17 09:33 Dose: 200 mls/hr Piperacillin Sod/Tazobactam (Sod 3.375 gm/ Dextrose) 50 mls @ 100 mls/hr IVPB Q8H-IV [facility] ISABEL Last Admin: 02/20/17 01:07 Dose: 100 mls/hr Valsartan (Diovan -) 80 mg PO DAILY [facility] Last Admin: 02/19/17 09:33 Dose: 80 mg - Objective Vital Signs: Vital Signs Temperature 99.0 F 02/20/17 10:15 Pulse Rate 70 02/20/17 10:15 Respiratory Rate 22 02/20/17 10:15 Blood Pressure 131/73 02/20/17 10:15 O2 Sat by Pulse Oximetry (%) 93 L 02/19/17 21:00 Neck: Yes: Supple Cardiovascular: Yes: Regular Rate and Rhythm, S1, S2. No: Murmur Respiratory: Yes: Regular, CTA Bilaterally Gastrointestinal: Yes: Normal Bowel Sounds, Soft. No: Tenderness Edema: No Labs: CBC, BMP 02/20/17 06:30 Problem List - Problems (1) Alcoholic pancreatitis Code(s): K85.20 - ALCOHOL INDUCED ACUTE PANCREATITIS WITHOUT NECROSIS OR INFCT Qualifiers: Chronicity: acute Acute pancreatitis complication: unspecified Qualified Code(s): K85.20 - Alcohol induced acute pancreatitis without necrosis or infection (2) ETOH abuse Code(s): F10.10 - ALCOHOL ABUSE, UNCOMPLICATED (3) Bradycardia Code(s): R00.1 - BRADYCARDIA, UNSPECIFIED (4) HLD (hyperlipidemia) Code(s): E78.5 - HYPERLIPIDEMIA, UNSPECIFIED (5) HTN (hypertension) Code(s): I10 - ESSENTIAL (PRIMARY) HYPERTENSION Qualifiers: Hypertension type: essential hypertension Qualified Code(s): I10 - Essential (primary) hypertension Assessment/Plan 1. Acute pancreatitis secondary to ETOH dependency 2. Hypertension 3. Hypercholesterolemia PLAN: 1. Keep NPO and keep pancreas at rest 2. Continue Valsartan as tolerated 3. Propranolol stopped until further instruction 4. Statin is being held until further instruction 5. Analgesics PRN Further plans are to follow Urbano Perez MD
[2017-02-20] MEDS: chlordiazePOXIDE 5 MG CAPSULE PO SCH ×2 (10:27→17:18)
[2017-02-20] MEDS: VALSARTAN 80 MG TABLET (UD) PO SCH (10:28)
[2017-02-20] MEDS: PANTOPRAZOLE SODIUM 40 MG in SODIUM CHLORIDE 100 ML IVPB SCH (10:29)
[2017-02-20] MEDS: HEPARIN NA (PORCINE) 5,000 UNITS/ML 1ML VIAL SQ SCH ×2 (10:29→21:36)
[2017-02-20 10:45] LABS: ALBUMIN 2.4 g/dl (3.4-5.0); ALK PHOS 49 U/L (45-117); ANION GAP 7 (8-16); BILIRUBIN,TOTAL 2.1 mg/dL (0.2-1.0); C-REACTIVE PROTEIN 25.2 MG/DL (0.00-0.3); CALCIUM 7.5 mg/dL (8.5-10.1); CO2 29 mmol/L (21-32); CREATININE 1.2 mg/dL (0.7-1.3); GLUCOSE,RANDOM 67 mg/dL (74-106); SGOT/AST 57 U/L (15-37); SGPT/ALT 26 U/L (12-78); TOT PROT 4.7 g/dl (6.4-8.2)
[2017-02-20] MEDS ORDERED: ACETAMINOPHEN 1000 MG/100 ML VIAL (NON FORMULARY) IVPB PRN (13:30)
[2017-02-20] MEDS ORDERED: POTASSIUM CHLORIDE ORAL LIQUID 20 MEQ/15 ML PO ONE (13:32)
--- NOTE | 2017-02-20 13:32 | PN ---
GI Progress Note Subjective: Fevers noted States feeling a little better today - Objective Vital Signs: Vital Signs Temperature 99.0 F 02/20/17 10:15 Pulse Rate 70 02/20/17 10:15 Respiratory Rate 22 02/20/17 10:15 Blood Pressure 131/73 02/20/17 10:15 O2 Sat by Pulse Oximetry (%) 97 02/20/17 09:00 Constitutional: Calm Eyes: No: Sclera Icterus Cardiovascular: Yes: Regular Rate and Rhythm Respiratory: Yes: CTA Bilaterally Gastrointestinal Inspection: No: Distention ...Auscultate: Yes: Normoactive Bowel Sounds ...Palpate: Yes: Tenderness (Mild TTP mid abdomen). No: Guarding, Splenomegaly ...Percussion: No: Tympanitic Edema: No Neurological: Yes: Tremors Labs: CBC, BMP 02/20/17 06:30 02/20/17 06:00 Problem List - Problems (1) Alcoholic pancreatitis Assessment/Plan: With suspected alcohol withdrawal Continue NPO, IV hydration. Would increase to 200cc/hr for now, trial of clears in AM if improving ETOH withdrawal precautions Monitor lytes Code(s): K85.20 - ALCOHOL INDUCED ACUTE PANCREATITIS WITHOUT NECROSIS OR INFCT Qualifiers: Chronicity: acute Acute pancreatitis complication: unspecified Qualified Code(s): K85.20 - Alcohol induced acute pancreatitis without necrosis or infection
--- NOTE | 2017-02-20 13:41 | PN ---
Progress Note, Physician Chief Complaint: Abdominal pain, acute pancreatitis - Current Medication List Current Medications: Active Medications Acetaminophen (Ofirmev Injection -) 1,000 mg IVPB Q6H PRN PRN Reason: FEVER OR PAIN Stop: 02/21/17 07:31 Chlordiazepoxide HCl (Librium -) 15 mg PO [id number] [facility]IA ISABEL Stop: 02/21/17 05:01 Last Admin: 02/20/17 10:27 Dose: 15 mg Chlordiazepoxide HCl (Librium -) 25 mg PO Q4H PRN PRN Reason: WITHDRAWAL(CONT SUBST) Stop: 02/21/17 13:28 Heparin Sodium (Porcine) (Heparin -) 5,000 unit SQ BID [facility] Last Admin: 02/20/17 10:29 Dose: 5,000 unit Hydromorphone HCl (Dilaudid Injection -) 2 mg IVPB Q4H PRN PRN Reason: PAIN Last Admin: 02/20/17 06:02 Dose: 2 mg Pantoprazole Sodium 40 mg/ (Sodium Chloride) 100 mls @ 200 mls/hr IVPB DAILY [facility] Last Admin: 02/20/17 10:29 Dose: 200 mls/hr Piperacillin Sod/Tazobactam (Sod 3.375 gm/ Dextrose) 50 mls @ 100 mls/hr IVPB Q8H-IV [facility] Last Admin: 02/20/17 10:28 Dose: 100 mls/hr Lactated Ringer's (Lactated Ringers Solution) 1,000 mls @ 150 mls/hr IV ASDIR [facility] Potassium Chloride (Potassium Chloride Oral Liquid) 40 meq PO ONCE ONE Stop: 02/20/17 13:33 Valsartan (Diovan -) 80 mg PO DAILY [facility] Last Admin: 02/20/17 10:28 Dose: 80 mg - Objective Vital Signs: Vital Signs Temperature 99.0 F 02/20/17 10:15 Pulse Rate 70 02/20/17 10:15 Respiratory Rate 22 02/20/17 10:15 Blood Pressure 131/73 02/20/17 10:15 O2 Sat by Pulse Oximetry (%) 97 02/20/17 09:00 Constitutional: Yes: Well Nourished, No Distress Cardiovascular: Yes: Regular Rate and Rhythm Respiratory: Yes: Regular Gastrointestinal: Yes: Soft, Abdomen, Obese, Hyperactive Bowel Sounds, Tenderness, Epigastrium Genitourinary: Yes: WNL Musculoskeletal: Yes: WNL Edema: No Peripheral Pulses WNL: Yes Neurological: Yes: Alert, Oriented Psychiatric: Yes: Alert, Oriented Labs: CBC, BMP 02/20/17 06:30 02/20/17 06:00 Problem List - Problems (1) ETOH abuse Code(s): F10.10 - ALCOHOL ABUSE, UNCOMPLICATED (2) Fatty (change of) liver, not elsewhere classified Code(s): K76.0 - FATTY (CHANGE OF) LIVER, NOT ELSEWHERE CLASSIFIED (3) Bradycardia Code(s): R00.1 - BRADYCARDIA, UNSPECIFIED (4) HTN (hypertension) Code(s): I10 - ESSENTIAL (PRIMARY) HYPERTENSION Qualifiers: Hypertension type: essential hypertension Qualified Code(s): I10 - Essential (primary) hypertension (5) Alcoholic pancreatitis Code(s): K85.20 - ALCOHOL INDUCED ACUTE PANCREATITIS WITHOUT NECROSIS OR INFCT Qualifiers: Chronicity: acute Acute pancreatitis complication: unspecified Qualified Code(s): K85.20 - Alcohol induced acute pancreatitis without necrosis or infection Assessment/Plan -still NPO, may start clear liquids in AM as per GI -DVT prophylaxis -PPI -IVF increased to 150cc/hr, -replenish Potassium with IV KCl -encouragement to abstain from alcohol, he has never joined AA, doesn't want to , thinks he can quit alcohol if he wants to. But at this time he doesn't wan't to. Says, he has a stressful job and he enjoys drinking after work. Explained the consequences, he is not sure about quitting at this time. -Pain management- abdominal pain is better. -alcohol withdrawal protocol -restart ARB, would hold BB due to bradycardia -fevers likely due to inflammatory, seen by ID -Acetaminophen prn for fever over 100.0F
[2017-02-20] MEDS: LACTATED RINGERS SOLUTION 1,000 ML IV SCH ×3 (13:53→17:55)
[2017-02-20] MEDS ORDERED: PT OWN MED DRAWER 7, Y5N ONE (13:58)
--- NOTE | 2017-02-20 15:56 | PN ---
Progress Note (short form) - Note Progress Note: feels about the same, pain unchanged Vital Signs Period Temp Pulse Resp BP Sys/Ojeda Pulse Ox Last 24 Hr 98.1 F-101.5 F 70-88 18-22 119-145/73-87 93-97 cor-rrr lungs clear abd soft, midepigastric tenderness to palpation ext no edema CBC, BMP 02/20/17 06:30 02/20/17 06:00 cultures pending mri- pancreatitis, fatty liver a/p fevers ?inflammatory from pancreatitis or infectious? cxray left lung atelectasis cultures ua zosyn suspect can d/c antibiotics after studies are reviewed progressive thrombocytopenia suspect seondary to pancreatitis but will ask hematology to see-predates zosyn f/u cultures can probably stop zosyn in am
[2017-02-21] MEDS ORDERED: PIPERACILLIN/TAZOBACTAM 3.375 GM VIAL IVPB ONE ×3 (00:10→17:31)
[2017-02-21] MEDS ORDERED: DEXTROSE 5%-WATER - 50 ML IVPB ONE ×3 (00:10→17:31)
[2017-02-21] MEDS: chlordiazePOXIDE 5 MG CAPSULE PO SCH ×2 (00:37→05:50)
[2017-02-21] MEDS: LACTATED RINGERS SOLUTION 1,000 ML IV SCH ×3 (00:41→10:16)
[2017-02-21] MEDS: PIPERACILLIN/TAZOB 3.375 GM 3.375 GM in DEXTROSE 5%-WATER - 50 ML IVPB SCH ×3 (01:00→18:00)
[2017-02-21] MEDS: HYDROmorphone HCL CARPU-JECT 1 MG/1 ML DISP.SYRIN IVPB PRN (05:50)
[2017-02-21] MEDS: ACETAMINOPHEN 325 MG TABLET (FP) PO PRN ×2 (06:38→15:40)
[2017-02-21 08:02] LABS: INR 1.26 (0.82-1.09); PROTHROMBIN TIME (PATIENT) 13.9 SEC (9.98-11.88)
[2017-02-21 08:05] LABS: ACTIVATED PTT 38.2 SECONDS (26.9-34.4)
[2017-02-21 08:17] LABS: LDH 184 U/L (87-241)
[2017-02-21 09:40] LABS: BASOPHIL 0.5 % (0-2.0); EOSINOPHIL 2.8 % (0-4.5); MCH 30.9 pg (25.7-33.7); MCHC 33.9 g/dl (32.0-35.9); MEAN CELL VOLUME 91.1 fl (80-96); NEUTROPHILS 68.2 % (42.8-82.8); PLATELET COUNT 80 K/MM3 (134-434); RDW 13.5 % (11.9-15.9); WHITE BLOOD COUNT 4.7 K/mm3 (4.0-10.0)
[2017-02-21] MEDS ORDERED: PANTOPRAZOLE SODIUM 40 MG VIAL ONE (09:51)
[2017-02-21] MEDS ORDERED: SODIUM CHLORIDE 100 ML IVPB ONE (09:52)
--- NOTE | 2017-02-21 09:54 | PN ---
GI Progress Note Subjective: No acute events Abdominal pain somewhat improved - Objective Vital Signs: Vital Signs Temperature 99.6 F 02/20/17 22:00 Pulse Rate 73 02/20/17 22:00 Respiratory Rate 20 02/20/17 22:00 Blood Pressure 123/73 02/20/17 22:00 O2 Sat by Pulse Oximetry (%) 94 L 02/20/17 21:00 Constitutional: Calm Eyes: No: Sclera Icterus Cardiovascular: Yes: Regular Rate and Rhythm Respiratory: Yes: CTA Bilaterally Gastrointestinal Inspection: No: Distention ...Auscultate: Yes: Normoactive Bowel Sounds ...Palpate: Yes: Tenderness (Mild TTP upper abdomen) ...Percussion: No: Tympanitic Edema: No Neurological: Yes: Alert, Oriented Labs: CBC, [facility] 02/21/17 06:00 INR, PTT INR 1.26 (0.82-1.09) H 02/21/17 06:00 CBC, [facility] 02/21/17 06:00 Hepatic Panel Total Bilirubin 2.1 mg/dL (0.2-1.0) H D 02/20/17 06:00 AST 57 U/L (15-37) H D 02/20/17 06:00 ALT 26 U/L (12-78) 02/20/17 06:00 Alkaline Phosphatase 49 U/L (45-117) 02/20/17 06:00 Albumin 2.4 g/dl (3.4-5.0) L 02/20/17 06:00 Laboratory Tests 02/20/17 02/21/17 06:00 06:00 C-Reactive Protein 25.2 H D Pending Problem List - Problems (1) Alcoholic pancreatitis Assessment/Plan: Clinical improvement: Trial of clears today then advance to full liquids Platelet count improved today. heme eval requested Decreased fluids to 100 cc/hr Code(s): K85.20 - ALCOHOL INDUCED ACUTE PANCREATITIS WITHOUT NECROSIS OR INFCT Qualifiers: Chronicity: acute Acute pancreatitis complication: unspecified Qualified Code(s): K85.20 - Alcohol induced acute pancreatitis without necrosis or infection
[2017-02-21 09:56] LABS: ALBUMIN 2.2 g/dl (3.4-5.0); ANION GAP 11 (8-16); BILIRUBIN,TOTAL 2.2 mg/dL (0.2-1.0); CALCIUM 7.4 mg/dL (8.5-10.1); CO2 24 mmol/L (21-32); CREATININE 1.1 mg/dL (0.7-1.3); GLUCOSE,RANDOM 68 mg/dL (74-106); SGOT/AST 44 U/L (15-37); SGPT/ALT 26 U/L (12-78); TOT PROT 4.8 g/dl (6.4-8.2)
[2017-02-21 10:02] LABS: ALK PHOS 53 U/L (45-117); C-REACTIVE PROTEIN 31.8 MG/DL (0.00-0.3)
[2017-02-21] MEDS: HEPARIN NA (PORCINE) 5,000 UNITS/ML 1ML VIAL SQ SCH ×2 (10:08→22:59)
[2017-02-21] MEDS: VALSARTAN 80 MG TABLET (UD) PO SCH (10:08)
[2017-02-21] MEDS: PANTOPRAZOLE SODIUM 40 MG in SODIUM CHLORIDE 100 ML IVPB SCH (10:11)
[2017-02-21 10:51] LABS: MAGNESIUM 1.8 mg/dL (1.8-2.4)
--- NOTE | 2017-02-21 11:00 | PN ---
Progress Note (short form) - Note Progress Note: ID Zosyn Selected Entries 02/20/17 02/20/17 16:30 22:00 Temperature 102 F H 99.6 F Pulse Rate 73 Respiratory 20 Rate Blood Pressure 123/73 Abd Soft tender Microbiology 02/19/17 19:05 Urine - Urine Clean Catch Urine Culture - Final NO GROWTH OBTAINED 02/19/17 16:48 Blood - Peripheral Venous Blood Culture - Preliminary NO GROWTH OBTAINED AFTER 24 HOURS, INCUBATION TO CONTINUE FOR 4 DAYS. 02/19/17 16:20 Blood - Peripheral Venous Blood Culture - Preliminary NO GROWTH OBTAINED AFTER 24 HOURS, INCUBATION TO CONTINUE FOR 4 DAYS. Laboratory Tests 02/21/17 02/21/17 06:00 06:00 WBC 4.7 Hgb 12.2 Hct 35.8 Plt Count 80 L BUN 8 Creatinine 1.1 Creat Clearance w eGFR > 60 AST 44 H D ALT 26 Alkaline Phosphatase 53 Assessment Alcoholic pancreatitis / fever Plan Continue current antibiotic
[2017-02-21 11:06] LABS: ALPHA 2 MACROGLOBULINS,QN 149 mg/dL (110-276); BILIRUBIN TOTAL 0.8 mg/dL (0.0-1.2); FIBROSIS SCORE- 0.48 (0.00-0.21); GGT= 116 IU/L (0-65); GLUCOSE SERUM 88 mg/dL (65-99); HAPTOGLOBIN= 143 mg/dL (34-200); HEIGHT 73 Inches (.); HEIGHT. 73 Inches (.); TRIGLYCERIDES= 363 mg/dL (0-149); WEIGHT. 190 LBS (.)
--- NOTE | 2017-02-21 11:39 | PN ---
Progress Note, Physician Chief Complaint: Less abdominal/epigastric pain Not in distress History of Present Illness: Patient was seen and examined. Awake and alert. Chart was reviewed Denies chest pain, SOB or palpitations - Current Medication List Current Medications: Active Medications Acetaminophen (Ofirmev Injection -) 1,000 mg IVPB Q6H PRN PRN Reason: FEVER OR PAIN Stop: 02/21/17 07:31 Acetaminophen (Tylenol -) 650 mg PO Q6H PRN PRN Reason: FEVER Last Admin: 02/21/17 06:38 Dose: 650 mg Chlordiazepoxide HCl (Librium -) 25 mg PO Q4H PRN PRN Reason: WITHDRAWAL(CONT SUBST) Stop: 02/21/17 13:28 Last Admin: 02/20/17 13:53 Dose: 25 mg Heparin Sodium (Porcine) (Heparin -) 5,000 unit SQ BID [facility] Last Admin: 02/21/17 10:08 Dose: 5,000 unit Hydromorphone HCl (Dilaudid Injection -) 2 mg IVPB Q4H PRN PRN Reason: PAIN Last Admin: 02/21/17 05:50 Dose: 2 mg Pantoprazole Sodium 40 mg/ (Sodium Chloride) 100 mls @ 200 mls/hr IVPB DAILY [facility] Last Admin: 02/21/17 10:11 Dose: 200 mls/hr Piperacillin Sod/Tazobactam (Sod 3.375 gm/ Dextrose) 50 mls @ 100 mls/hr IVPB Q8H-IV [facility] Last Admin: 02/21/17 10:12 Dose: 100 mls/hr Lactated Ringer's (Lactated Ringers Solution) 1,000 mls @ 100 mls/hr IV ASDIR [facility] Last Admin: 02/21/17 10:16 Dose: 100 mls/hr Potassium Chloride (Potassium Chloride Oral Liquid) 40 meq PO ONCE ONE Stop: 02/21/17 10:16 Valsartan (Diovan -) 80 mg PO DAILY [facility] Last Admin: 02/21/17 10:08 Dose: 80 mg - Objective Vital Signs: Vital Signs Temperature 99.6 F 02/20/17 22:00 Pulse Rate 73 02/20/17 22:00 Respiratory Rate 20 02/20/17 22:00 Blood Pressure 123/73 02/20/17 22:00 O2 Sat by Pulse Oximetry (%) 94 L 02/20/17 21:00 Neck: Yes: Supple Cardiovascular: Yes: Regular Rate and Rhythm, S1, S2. No: Murmur Respiratory: Yes: CTA Bilaterally Gastrointestinal: Yes: Normal Bowel Sounds, Soft. No: Tenderness Edema: No Labs: CBC, BMP 02/21/17 06:00 02/21/17 06:00 INR, PTT INR 1.26 (0.82-1.09) H 02/21/17 06:00 Problem List - Problems (1) Alcoholic pancreatitis Code(s): K85.20 - ALCOHOL INDUCED ACUTE PANCREATITIS WITHOUT NECROSIS OR INFCT Qualifiers: Chronicity: acute Acute pancreatitis complication: unspecified Qualified Code(s): K85.20 - Alcohol induced acute pancreatitis without necrosis or infection (2) ETOH abuse Code(s): F10.10 - ALCOHOL ABUSE, UNCOMPLICATED (3) Bradycardia Code(s): R00.1 - BRADYCARDIA, UNSPECIFIED (4) HLD (hyperlipidemia) Code(s): E78.5 - HYPERLIPIDEMIA, UNSPECIFIED (5) HTN (hypertension) Code(s): I10 - ESSENTIAL (PRIMARY) HYPERTENSION Qualifiers: Hypertension type: essential hypertension Qualified Code(s): I10 - Essential (primary) hypertension Assessment/Plan 1. Acute pancreatitis secondary to ETOH dependency 2. Hypertension 3. Hypercholesterolemia PLAN: 1. Keep NPO and keep pancreas at rest - advance diet as per GI service 2. Continue Valsartan as tolerated 3. Propranolol stopped until further instruction - he states that it was started for tremors. Will decide whether to restart it. 4. Statin is being held until further instruction 5. Analgesics PRN 6. Patient received tylenol for fever. If continues to have fever, he will probably need further fever work up. Continue antibiotic coverage Further plans are to follow Urbano Perez MD
--- NOTE | 2017-02-21 12:09 | PN ---
Progress Note, Physician Chief Complaint: patient had temp 102 last nite got tylenol today on clear liquid diet to continue iv abx - Current Medication List Current Medications: Active Medications Acetaminophen (Ofirmev Injection -) 1,000 mg IVPB Q6H PRN PRN Reason: FEVER OR PAIN Stop: 02/21/17 07:31 Acetaminophen (Tylenol -) 650 mg PO Q6H PRN PRN Reason: FEVER Last Admin: 02/21/17 06:38 Dose: 650 mg Chlordiazepoxide HCl (Librium -) 25 mg PO Q4H PRN PRN Reason: WITHDRAWAL(CONT SUBST) Stop: 02/21/17 13:28 Last Admin: 02/20/17 13:53 Dose: 25 mg Heparin Sodium (Porcine) (Heparin -) 5,000 unit SQ BID [facility] Last Admin: 02/21/17 10:08 Dose: 5,000 unit Hydromorphone HCl (Dilaudid Injection -) 2 mg IVPB Q4H PRN PRN Reason: PAIN Last Admin: 02/21/17 05:50 Dose: 2 mg Pantoprazole Sodium 40 mg/ (Sodium Chloride) 100 mls @ 200 mls/hr IVPB DAILY [facility] Last Admin: 02/21/17 10:11 Dose: 200 mls/hr Piperacillin Sod/Tazobactam (Sod 3.375 gm/ Dextrose) 50 mls @ 100 mls/hr IVPB Q8H-IV [facility] Last Admin: 02/21/17 10:12 Dose: 100 mls/hr Lactated Ringer's (Lactated Ringers Solution) 1,000 mls @ 100 mls/hr IV ASDIR [facility] Last Admin: 02/21/17 10:16 Dose: 100 mls/hr Potassium Chloride (Potassium Chloride Oral Liquid) 40 meq PO ONCE ONE Stop: 02/21/17 10:16 Valsartan (Diovan -) 80 mg PO DAILY [facility] Last Admin: 02/21/17 10:08 Dose: 80 mg - Objective Vital Signs: Vital Signs Temperature 99.6 F 02/20/17 22:00 Pulse Rate 73 02/20/17 22:00 Respiratory Rate 20 02/20/17 22:00 Blood Pressure 123/73 02/20/17 22:00 O2 Sat by Pulse Oximetry (%) 94 L 02/20/17 21:00 Constitutional: Yes: Calm Neck: Yes: Trachea Midline Cardiovascular: Yes: Regular Rate and Rhythm, S1, S2 Respiratory: Yes: CTA Bilaterally Gastrointestinal: Yes: Normal Bowel Sounds, Soft Edema: No Neurological: Yes: Alert, Oriented Labs: CBC, BMP 02/21/17 06:00 02/21/17 06:00 INR, PTT INR 1.26 (0.82-1.09) H 02/21/17 06:00 Problem List - Problems (1) Hypokalemia Assessment/Plan: repleted recheck in am l mgnesium is ok Code(s): E87.6 - HYPOKALEMIA (2) Alcoholic pancreatitis Assessment/Plan: clear liquid diet per GI ivf rate now 100cc /hr Code(s): K85.20 - ALCOHOL INDUCED ACUTE PANCREATITIS WITHOUT NECROSIS OR INFCT Qualifiers: Chronicity: acute Acute pancreatitis complication: unspecified Qualified Code(s): K85.20 - Alcohol induced acute pancreatitis without necrosis or infection (3) HLD (hyperlipidemia) Assessment/Plan: statin held for now given inc Code(s): E78.5 - HYPERLIPIDEMIA, UNSPECIFIED (4) HTN (hypertension) Assessment/Plan: diovan Code(s): I10 - ESSENTIAL (PRIMARY) HYPERTENSION Qualifiers: Hypertension type: essential hypertension Qualified Code(s): I10 - Essential (primary) hypertension (5) ETOH abuse Assessment/Plan: librium protocol Code(s): F10.10 - ALCOHOL ABUSE, UNCOMPLICATED (6) Thrombocytopenia Assessment/Plan: platelet improved a little heme eval Code(s): D69.6 - THROMBOCYTOPENIA, UNSPECIFIED (7) Fever Assessment/Plan: elevated C RP ID on case iv negro Code(s): R50.9 - FEVER, UNSPECIFIED
--- NOTE | 2017-02-21 12:30 | CONSULT ---
Consult Consult Specialty:: Hematology/Oncology Reason for Consultation:: thrombocytopenia - History of Present Illness History of Present Illness: 56 yo M with hx of HTN, HLD, and recurrent alcohol induced pancreatitis presented to [facility] emergency department with epigastric pain similar to his previous bouts of pancreatitis. followed by GI. Paresh called for thrombocytopenia. Pt seen and examined. family at bedside. Pt denies any complains. no bleeding. 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 Cardio/Vascular: Yes: HTN, Hyperlipdemia Gastrointestinal: Yes: Gastritis, GERD, Pancreatitis, Other (resolved cyst of the pancreas ) Hepatobiliary: Yes: Other (fatty liver) - Past Surgical History Past Surgical History: Yes: None, Colonoscopy, Upper Endoscopy - Alcohol/Substance Use Hx Alcohol Use: Yes (5-6 BEERS-daily) History of Substance Use: reports: None - Smoking History Smoking history: Former smoker Have you smoked in the past 12 months: No Aproximately how many cigarettes per day: 0 If you are a former smoker, when did you quit?: LONG TIME AGO - Social History Usual Living Arrangement: Alone ADL: Independent 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 History of Recent Travel: No Home Medications - Allergies Allergies/Adverse Reactions: Allergies Allergy/AdvReac Type Severity Reaction Status Date / Time No Known Allergies Allergy Verified 02/18/17 05:17 - Home Medications Home Medications: Ambulatory Orders Acetaminophen [Tylenol -] 500 mg PO Q6H PRN 02/18/17 Alprazolam [Xanax] 0.25 mg PO DAILY PRN 02/18/17 Fenofibric Acid (Choline) [Trilipix] 135 mg PO DAILY 02/18/17 Propranolol HCl 80 mg PO DAILY 02/18/17 Ranitidine HCl [Zantac] 300 mg PO DAILY 02/18/17 Rosuvastatin Calcium [Crestor] mg PO HS 02/18/17 Valsartan 80 mg PO DAILY 02/18/17 Family Disease History - Family Disease History Family Disease History: Heart Disease: Father ( age 49 of [place]), Other: Mother (alive 85 with OMS) Review of Systems - Review of Systems Constitutional: reports: Weakness. denies: Fever, Lethargy HENT: denies: Difficult Swallowing Neck: denies: Lumps Respiratory: denies: Cough, Exercise Intolerance Gastrointestinal: reports: Abdominal Pain Neurological: denies: Change in LOC Endocrine: reports: Other Hematology/Lymphatic: denies: Easily Bruised, Excessive Bleeding, Swollen Glands Physical Exam Vital Signs: Vital Signs Temperature 99.6 F 02/20/17 22:00 Pulse Rate 73 02/20/17 22:00 Respiratory Rate 20 02/20/17 22:00 Blood Pressure 123/73 02/20/17 22:00 O2 Sat by Pulse Oximetry (%) 94 L 02/20/17 21:00 Constitutional: Yes: Calm Eyes: No: Sclera Icterus HENT: Yes: Atraumatic, Normocephalic Neck: Yes: Supple, Trachea Midline Cardiovascular: Yes: Regular Rate and Rhythm Respiratory: Yes: Regular, CTA Bilaterally Gastrointestinal: Yes: Normal Bowel Sounds, Soft. No: Hepatomegaly, Splenomegaly Extremities: Yes: WNL Edema: No Labs: CBC, BMP 02/21/17 06:00 02/21/17 06:00 Imaging - Results Cat Scan: Report Reviewed MRI: Report Reviewed Problem List - Problems (1) Alcoholic pancreatitis Code(s): K85.20 - ALCOHOL INDUCED ACUTE PANCREATITIS WITHOUT NECROSIS OR INFCT Qualifiers: Chronicity: acute Acute pancreatitis complication: unspecified Qualified Code(s): K85.20 - Alcohol induced acute pancreatitis without necrosis or infection (2) ETOH abuse Code(s): F10.10 - ALCOHOL ABUSE, UNCOMPLICATED (3) Thrombocytopenia Code(s): D69.6 - THROMBOCYTOPENIA, UNSPECIFIED Assessment/Plan Thrombocytopenia alcohol intoxication acute alcohol induced pancreatitis -likely etiology of thrombocytopenia is alcohol induced, expect to trend up. -no evidence of hemolysis, HIT is unlikely. Nl B12 and folate. -advised on abstinence. -at risk for alcohol with-drawl. -will follow
[2017-02-21] MEDS ORDERED: POTASSIUM CHLORIDE ORAL LIQUID 20 MEQ/15 ML PO ONE (14:45)
[2017-02-21] MEDS: chlordiazePOXIDE HCL 25 MG CAPSULE PO PRN (17:25)
[2017-02-21] MEDS: HYDROmorphone HCL CARPU-JECT 2 MG/1 ML DISP.SYRIN IVPB PRN (18:46)
[2017-02-22] MEDS ORDERED: PIPERACILLIN/TAZOBACTAM 3.375 GM VIAL IVPB ONE ×3 (01:12→17:49)
[2017-02-22] MEDS ORDERED: DEXTROSE 5%-WATER - 50 ML IVPB ONE ×3 (01:12→17:49)
[2017-02-22] MEDS: PIPERACILLIN/TAZOB 3.375 GM 3.375 GM in DEXTROSE 5%-WATER - 50 ML IVPB SCH ×3 (01:19→18:08)
[2017-02-22] MEDS: HYDROmorphone HCL CARPU-JECT 2 MG/1 ML DISP.SYRIN IVPB PRN ×2 (06:22→22:20)
[2017-02-22 08:03] LABS: BASOPHIL 0.6 % (0-2.0); EOSINOPHIL 4.3 % (0-4.5); MCH 31.1 pg (25.7-33.7); MCHC 34.4 g/dl (32.0-35.9); MEAN CELL VOLUME 90.5 fl (80-96); MEAN PLT VOLUME 9.8 fl (7.5-11.1); NEUTROPHILS 63.1 % (42.8-82.8); PLATELET COUNT 95 K/MM3 (134-434); RDW 13.6 % (11.9-15.9); WHITE BLOOD COUNT 4.8 K/mm3 (4.0-10.0)
[2017-02-22 08:20] LABS: ALBUMIN 2.2 g/dl (3.4-5.0); ALK PHOS 70 U/L (45-117); ANION GAP 10 (8-16); BILIRUBIN,TOTAL 1.8 mg/dL (0.2-1.0); CALCIUM 7.8 mg/dL (8.5-10.1); CO2 25 mmol/L (21-32); GLUCOSE,RANDOM 87 mg/dL (74-106); SGOT/AST 128 U/L (15-37); SGPT/ALT 53 U/L (12-78); TOT PROT 4.9 g/dl (6.4-8.2)
--- NOTE | 2017-02-22 09:26 | PN ---
Progress Note, Physician Chief Complaint: Less abdominal/epigastric pain Not in distress, but had complained of a little more epigastric pain earlier History of Present Illness: Patient was seen and examined. Awake and alert. Chart was reviewed Denies chest pain, SOB or palpitations - Current Medication List Current Medications: Active Medications Acetaminophen (Tylenol -) 650 mg PO Q6H PRN PRN Reason: FEVER Last Admin: 02/21/17 15:40 Dose: 650 mg Chlordiazepoxide HCl (Librium -) 25 mg PO Q4H PRN PRN Reason: WITHDRAWAL(CONT SUBST) Last Admin: 02/21/17 17:25 Dose: 25 mg Heparin Sodium (Porcine) (Heparin -) 5,000 unit SQ BID [facility] Last Admin: 02/21/17 22:59 Dose: Not Given Hydromorphone HCl (Dilaudid Injection -) 2 mg IVPB Q4H PRN PRN Reason: PAIN Last Admin: 02/22/17 06:22 Dose: 2 mg Pantoprazole Sodium 40 mg/ (Sodium Chloride) 100 mls @ 200 mls/hr IVPB DAILY [facility] Last Admin: 02/21/17 10:11 Dose: 200 mls/hr Piperacillin Sod/Tazobactam (Sod 3.375 gm/ Dextrose) 50 mls @ 100 mls/hr IVPB Q8H-IV [facility] Last Admin: 02/22/17 01:19 Dose: 100 mls/hr Lactated Ringer's (Lactated Ringers Solution) 1,000 mls @ 100 mls/hr IV ASDIR [facility] Last Admin: 02/21/17 10:16 Dose: 100 mls/hr Valsartan (Diovan -) 80 mg PO DAILY [facility] Last Admin: 02/21/17 10:08 Dose: 80 mg - Objective Vital Signs: Vital Signs Temperature 99.1 F 02/22/17 06:50 Pulse Rate 64 02/22/17 06:50 Respiratory Rate 20 02/22/17 06:50 Blood Pressure 146/90 02/22/17 06:50 O2 Sat by Pulse Oximetry (%) 94 L 02/21/17 21:00 Neck: Yes: Supple Cardiovascular: Yes: Regular Rate and Rhythm, S1, S2 Respiratory: Yes: CTA Bilaterally Gastrointestinal: Yes: Normal Bowel Sounds, Soft. No: Tenderness Edema: No Labs: CBC, BMP 02/22/17 06:00 02/22/17 06:00 INR, PTT INR 1.26 (0.82-1.09) H 02/21/17 06:00 Problem List - Problems (1) Alcoholic pancreatitis Code(s): K85.20 - ALCOHOL INDUCED ACUTE PANCREATITIS WITHOUT NECROSIS OR INFCT Qualifiers: Chronicity: acute Acute pancreatitis complication: unspecified Qualified Code(s): K85.20 - Alcohol induced acute pancreatitis without necrosis or infection (2) ETOH abuse Code(s): F10.10 - ALCOHOL ABUSE, UNCOMPLICATED (3) Bradycardia Code(s): R00.1 - BRADYCARDIA, UNSPECIFIED (4) HLD (hyperlipidemia) Code(s): E78.5 - HYPERLIPIDEMIA, UNSPECIFIED (5) HTN (hypertension) Code(s): I10 - ESSENTIAL (PRIMARY) HYPERTENSION Qualifiers: Hypertension type: essential hypertension Qualified Code(s): I10 - Essential (primary) hypertension Assessment/Plan 1. Acute pancreatitis secondary to ETOH dependency 2. Hypertension 3. Hypercholesterolemia PLAN: 1. Advance diet as per GI service - currently getting clear fluid 2. Continue Valsartan as tolerated - if blood pressure remains elevated, consider increasing dose 3. Propranolol stopped until further instruction - he states that it was started for tremors. Will decide whether to restart it. 4. Statin is being held until further instruction 5. Analgesics PRN 6. Patient received tylenol for fever earlier. Still had low grade. If continues to have fever, he will probably need further fever work up. Continue antibiotic coverage Further plans are to follow Urbano Perez MD
--- NOTE | 2017-02-22 10:21 | PN ---
Progress Note, Physician Chief Complaint: patient continues to have fever and abdominal pain abdominal pain only relieved by pain meds once it wears off he is in severe pain again on clear liquid diet currently calm in bed got his pain medication earlier and thus has no pain right now - Current Medication List Current Medications: Active Medications Acetaminophen (Tylenol -) 650 mg PO Q6H PRN PRN Reason: FEVER Last Admin: 02/21/17 15:40 Dose: 650 mg Chlordiazepoxide HCl (Librium -) 25 mg PO Q4H PRN PRN Reason: WITHDRAWAL(CONT SUBST) Last Admin: 02/21/17 17:25 Dose: 25 mg Heparin Sodium (Porcine) (Heparin -) 5,000 unit SQ BID [facility] Last Admin: 02/21/17 22:59 Dose: Not Given Hydromorphone HCl (Dilaudid Injection -) 2 mg IVPB Q4H PRN PRN Reason: PAIN Last Admin: 02/22/17 06:22 Dose: 2 mg Pantoprazole Sodium 40 mg/ (Sodium Chloride) 100 mls @ 200 mls/hr IVPB DAILY [facility] Last Admin: 02/21/17 10:11 Dose: 200 mls/hr Piperacillin Sod/Tazobactam (Sod 3.375 gm/ Dextrose) 50 mls @ 100 mls/hr IVPB Q8H-IV [facility] Last Admin: 02/22/17 01:19 Dose: 100 mls/hr Lactated Ringer's (Lactated Ringers Solution) 1,000 mls @ 100 mls/hr IV ASDIR [facility] Last Admin: 02/21/17 10:16 Dose: 100 mls/hr Valsartan (Diovan -) 80 mg PO DAILY [facility] Last Admin: 02/21/17 10:08 Dose: 80 mg - Objective Vital Signs: Vital Signs Temperature 99.1 F 02/22/17 06:50 Pulse Rate 64 02/22/17 06:50 Respiratory Rate 20 02/22/17 06:50 Blood Pressure 146/90 02/22/17 06:50 O2 Sat by Pulse Oximetry (%) 94 L 02/21/17 21:00 Constitutional: Yes: Calm Neck: Yes: Trachea Midline Cardiovascular: Yes: Regular Rate and Rhythm, S1, S2 Respiratory: Yes: CTA Bilaterally Gastrointestinal: Yes: Normal Bowel Sounds, Soft Neurological: Yes: Alert, Oriented, Tremors (of hands) Labs: CBC, BMP 02/22/17 06:00 02/22/17 06:00 INR, PTT INR 1.26 (0.82-1.09) H 02/21/17 06:00 Problem List - Problems (1) Fever Assessment/Plan: elevated C RP ID on case iv negro continues to have fever 101-102 will reimage the abdomen given the patient is adalberto much pain ( off the pain meds ) to r/p pancreatic abscess Code(s): R50.9 - FEVER, UNSPECIFIED (2) Hypokalemia Assessment/Plan: 3.4 today will give extra 20meq now Code(s): E87.6 - HYPOKALEMIA (3) Alcoholic pancreatitis Assessment/Plan: clear liquid diet per GI ivf rate now 100cc /hr will reimage the abdomen and r/p pancreatic abscess Code(s): K85.20 - ALCOHOL INDUCED ACUTE PANCREATITIS WITHOUT NECROSIS OR INFCT Qualifiers: Chronicity: acute Acute pancreatitis complication: unspecified Qualified Code(s): K85.20 - Alcohol induced acute pancreatitis without necrosis or infection (4) HLD (hyperlipidemia) Assessment/Plan: statin held for now given inc Code(s): E78.5 - HYPERLIPIDEMIA, UNSPECIFIED (5) HTN (hypertension) Assessment/Plan: diovan Code(s): I10 - ESSENTIAL (PRIMARY) HYPERTENSION Qualifiers: Hypertension type: essential hypertension Qualified Code(s): I10 - Essential (primary) hypertension (6) ETOH abuse Assessment/Plan: librium protocol Code(s): F10.10 - ALCOHOL ABUSE, UNCOMPLICATED (7) Thrombocytopenia Assessment/Plan: platelet count improving heme eval noted Code(s): D69.6 - THROMBOCYTOPENIA, UNSPECIFIED (8) Tremor Assessment/Plan: hand tremor currently on librium propanolol on hold for now Code(s): R25.1 - TREMOR, UNSPECIFIED
[2017-02-22] MEDS ORDERED: PANTOPRAZOLE SODIUM 40 MG VIAL ONE (10:36)
[2017-02-22] MEDS ORDERED: SODIUM CHLORIDE 100 ML IVPB ONE (10:36)
[2017-02-22] MEDS: VALSARTAN 80 MG TABLET (UD) PO SCH (10:45)
[2017-02-22] MEDS: HEPARIN NA (PORCINE) 5,000 UNITS/ML 1ML VIAL SQ SCH ×2 (10:45→22:09)
[2017-02-22] MEDS ORDERED: POTASSIUM CHLORIDE TABS 20 MEQ TABLET.ER (FP) PO ONE (10:45)
[2017-02-22] MEDS: PANTOPRAZOLE SODIUM 40 MG in SODIUM CHLORIDE 100 ML IVPB SCH ×2 (10:46→20:00)
[2017-02-22] MEDS ORDERED: LACTATED RINGERS SOLUTION 1,000 ML IV SCH ×2 (10:47→21:00)
--- NOTE | 2017-02-22 10:49 | PN ---
Progress Note (short form) - Note Progress Note: feels about the same, pain unchanged continued fevers no sob requiring dilaudid Vital Signs Period Temp Pulse Resp BP Sys/Ojeda Pulse Ox Last 24 Hr 99.1 F-102.3 F 64-79 20-20 140-146/77-90 94 cor-rrr llungs clear abd soft,nt (just got pain meds) ext no edema CBC, BMP 02/22/17 06:00 02/22/17 06:00 Microbiology 02/19/17 16:20 Blood - Peripheral Venous Blood Culture - Preliminary NO GROWTH OBTAINED AFTER 48 HOURS, INCUBATION TO CONTINUE FOR 3 DAYS. 02/19/17 16:48 Blood - Peripheral Venous Blood Culture - Preliminary NO GROWTH OBTAINED AFTER 48 HOURS, INCUBATION TO CONTINUE FOR 3 DAYS. 02/19/17 19:05 Urine - Urine Clean Catch Urine Culture - Final NO GROWTH OBTAINED CRP 31 Current Medications Acetaminophen (Tylenol -) 650 mg PO Q6H PRN PRN Reason: FEVER Last Admin: 02/21/17 15:40 Dose: 650 mg Chlordiazepoxide HCl (Librium -) 25 mg PO Q4H PRN PRN Reason: WITHDRAWAL(CONT SUBST) Last Admin: 02/21/17 17:25 Dose: 25 mg Heparin Sodium (Porcine) (Heparin -) 5,000 unit SQ BID [facility] Last Admin: 02/21/17 22:59 Dose: Not Given Hydromorphone HCl (Dilaudid Injection -) 2 mg IVPB Q4H PRN PRN Reason: PAIN Last Admin: 02/22/17 06:22 Dose: 2 mg Pantoprazole Sodium 40 mg/ (Sodium Chloride) 100 mls @ 200 mls/hr IVPB DAILY [facility] Last Admin: 02/21/17 10:11 Dose: 200 mls/hr Piperacillin Sod/Tazobactam (Sod 3.375 gm/ Dextrose) 50 mls @ 100 mls/hr IVPB Q8H-IV [facility] Last Admin: 02/22/17 01:19 Dose: 100 mls/hr Lactated Ringer's (Lactated Ringers Solution) 1,000 mls @ 100 mls/hr IV ASDIR [facility] Last Admin: 02/21/17 10:16 Dose: 100 mls/hr Potassium Chloride (K-Dur -) 20 meq PO ONCE ONE Stop: 02/22/17 10:46 Valsartan (Diovan -) 80 mg PO DAILY [facility] Last Admin: 02/21/17 10:08 Dose: 80 mg a/p continued fevers - ?inflammatory from pancreatitis or infectious- r/o pancreatic abscess d/w Dr Farmer and GI- will get ct of abd/pelvis with contrast to r/o pancreatic abscess cxray left lung atelectasis continue zosyn for now thrombocytopenia improved etoh use
[2017-02-22] MEDS: LACTATED RINGERS SOLUTION 1,000 ML IV SCH (10:52)
--- NOTE | 2017-02-22 11:00 | PN ---
GI Progress Note Subjective: Complains of continued pain that is alleviated temporarily by IV analgesia No Vomiting He has had continued fevers - Objective Vital Signs: Vital Signs Temperature 99.1 F 02/22/17 06:50 Pulse Rate 64 02/22/17 06:50 Respiratory Rate 20 02/22/17 06:50 Blood Pressure 146/90 02/22/17 06:50 O2 Sat by Pulse Oximetry (%) 94 L 02/21/17 21:00 Constitutional: Calm Eyes: No: Sclera Icterus Cardiovascular: Yes: Regular Rate and Rhythm Respiratory: Yes: CTA Bilaterally Gastrointestinal Inspection: No: Distention ...Auscultate: Yes: Normoactive Bowel Sounds ...Palpate: Yes: Tenderness ...Percussion: No: Tympanitic Edema: No Neurological: Yes: Alert, Oriented Labs: CBC, BMP 02/22/17 06:00 02/22/17 06:00 INR, PTT INR 1.26 (0.82-1.09) H 02/21/17 06:00 Laboratory Tests 02/21/17 06:00 C-Reactive Protein 31.8 H D Problem List - Problems (1) Alcoholic pancreatitis Assessment/Plan: Patient remains stable however with continued fevers and pain. Not tachycardic with his fevers however his baseline HR in the past pre beta blockade has been bradycardic in the 40's-50's. I suspect 70's-80's is relative tachycardia for Mr. Burdick I have increased his IV hydration to 200cc/hr for 2 more liters followed by 150cc/hr Repeat CT scan of the abdomen has been ordered with and without contrast I explained to Mr. Burdick that if pain persists and CT scan reveals worsening pancreatitis, enteral feeding tube placement may need to be considered for saturday. Consider detox eval Changed to NPO Code(s): K85.20 - ALCOHOL INDUCED ACUTE PANCREATITIS WITHOUT NECROSIS OR INFCT Qualifiers: Chronicity: acute Acute pancreatitis complication: unspecified Qualified Code(s): K85.20 - Alcohol induced acute pancreatitis without necrosis or infection
[2017-02-22 11:06] LABS: C-REACTIVE PROTEIN 25.8 MG/DL (0.00-0.3)
[2017-02-22 11:55] LABS: MAGNESIUM 1.9 mg/dL (1.8-2.4); PHOSPHOROUS 1.2 mg/dL (2.5-4.9)
[2017-02-22] MEDS: THIAMINE HCL 100 MG TABLET (FP) PO SCH (12:00)
[2017-02-22] MEDS: FOLIC ACID 1 MG TABLET (FP) PO SCH (12:00)
[2017-02-22] MEDS: SODIUM CHLORIDE 1,000 ML IV SCH ×2 (12:03→20:30)
[2017-02-22 15:31] LABS: URINE APPEARANCE CLEAR; URINE BILIRUBIN NEGATIVE (NEGATIVE); URINE BLOOD 1+ (NEGATIVE); URINE COLOR YELLOW; URINE GLUCOSE (UA) NEGATIVE (NEGATIVE); URINE KETONE NEGATIVE (NEGATIVE); URINE LEUK ESTERASE NEGATIVE (NEGATIVE); URINE NITRITE NEGATIVE (NEGATIVE); URINE PROTEIN NEGATIVE (NEGATIVE); URINE UROBILINOGEN NEGATIVE mg/dL (0.2-1.0)
[2017-02-22 15:37] LABS: URINE MUCUS RARE; URINE WBC 1 /hpf (3-5)
[2017-02-22] MEDS: ACETAMINOPHEN 325 MG TABLET (FP) PO PRN (16:51)
--- NOTE | 2017-02-22 19:08 | CONSULT ---
Consult Detox [facility] Reason for Current Admission/Consult: Male pt with h/o chronic alcoholism admitted with acute pancreatitis. - History History of Present Illness: 56 y/o m pt with h/o chronic alcohol dependency . pt reports drinking coors beer 5-6 cans, !2 oz cans or greater /d. Pt states, having pancreatitis monthly x 7 months in 2014. He stopped drinking x 9 months . He felt he was doing better and started drinking again -1 can of beer /d, then he gradually advanced to 5-6 cans /d. 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 - Past Surgical History Past Surgical History: Yes: None, Colonoscopy, Upper Endoscopy - Significant Medical Findings: 56 y/o m pt aox3 , w/o hallucinations no diaphoresis no tremors at present CIWA Score - CIWA Score Nausea/Vomitin-Mild Nausea/No Vomiting Muscle Tremors: 1-None Visible, but [place] Anxiety: 1-Mildly Anxious Agitation: 0-Normal Activity Paroxysmal Sweats: 1-Minimal Palms Moist Orientation: 0-Oriented Tacttile Disturbances: 1-Very Mild Itch/Numbness Auditory Disturbances: 0-None Visual Disturbances: 0-None Headache: 0-None Present CIWA-Ar Total Score: 5 Assessment Plan - Diagnosis (1) Tremor Status: Chronic Comment: h/o essential tremors on propanolol . (2) Acute pancreatitis Status: Acute Qualifiers: Pancreatitis type: alcohol induced (3) HLD (hyperlipidemia) Status: Chronic (4) HTN (hypertension) Status: Chronic Qualifiers: Hypertension type: essential hypertension Qualified Code(s): I10 - Essential (primary) hypertension (5) Chronic alcoholism Status: Chronic Comment: pt has been treated with librium for alcohol detox and is presently on librium 25mg po q 6h prn .no further detox protocol indicated . p t states he doesn't want librium feels he can stop alcohol at any time . States tremors were not alcohol related but essential tremor. pt refuses any form of in pt or out pt rehab or treatment program for alcohol dependency. - Plan Plan: can cont. librium prn if needed . pt refused treatment for chronic alcoholism once he is d/c'ed . if pt. re considers he may be referred to [facility]/ new focus for tx. - Medication Detox Regimen/Protocol: Not Applicable
[2017-02-23 00:06] LABS: A/G RATIO 0.9 (0.7-1.7); ALBUMIN 2.1 g/dL (2.9-4.4); ALPHA-1-GLOBULIN 0.4 g/dL (0.0-0.4); BETA GLOBULIN 0.6 g/dL (0.7-1.3); GAMMA GLOBULIN 0.4 g/dL (0.4-1.8); GLOBULIN, TOTAL 2.4 g/dL (2.2-3.9); M-SPIKE Not Observed g/dL (Not Observed); TOTAL PROTEIN 4.5 g/dL (6.0-8.5)
[2017-02-23] MEDS ORDERED: PIPERACILLIN/TAZOBACTAM 3.375 GM VIAL IVPB ONE ×4 (01:19→22:05)
[2017-02-23] MEDS ORDERED: DEXTROSE 5%-WATER - 50 ML IVPB ONE ×4 (01:20→22:06)
[2017-02-23] MEDS: PIPERACILLIN/TAZOB 3.375 GM 3.375 GM in DEXTROSE 5%-WATER - 50 ML IVPB SCH ×3 (01:51→17:29)
[2017-02-23] MEDS: SODIUM CHLORIDE 1,000 ML IV SCH ×4 (01:52→23:02)
[2017-02-23] MEDS ORDERED: VALSARTAN 160 MG TABLET (UD) PO ONE (07:00)
[2017-02-23 08:02] LABS: BASOPHIL 0.5 % (0-2.0); EOSINOPHIL 4.4 % (0-4.5); MCHC 34.4 g/dl (32.0-35.9); MEAN CELL VOLUME 90.2 fl (80-96); MEAN PLT VOLUME 9.6 fl (7.5-11.1); NEUTROPHILS 68.4 % (42.8-82.8); PLATELET COUNT 113 K/MM3 (134-434); RDW 13.5 % (11.9-15.9); WHITE BLOOD COUNT 5.6 K/mm3 (4.0-10.0)
--- NOTE | 2017-02-23 08:08 | PN ---
Progress Note, Physician - Current Medication List Current Medications: Active Medications Acetaminophen (Tylenol -) 650 mg PO Q6H PRN PRN Reason: FEVER Last Admin: 02/22/17 16:51 Dose: 650 mg Chlordiazepoxide HCl (Librium -) 25 mg PO Q4H PRN PRN Reason: WITHDRAWAL(CONT SUBST) Last Admin: 02/21/17 17:25 Dose: 25 mg Folic Acid (Folic Acid -) 1 mg PO DAILY [facility] Last Admin: 02/22/17 12:00 Dose: 1 mg Heparin Sodium (Porcine) (Heparin -) 5,000 unit SQ BID [facility] Last Admin: 02/22/17 22:09 Dose: 5,000 unit Hydromorphone HCl (Dilaudid Injection -) 2 mg IVPB Q4H PRN PRN Reason: PAIN Last Admin: 02/22/17 22:20 Dose: 2 mg Pantoprazole Sodium 40 mg/ (Sodium Chloride) 100 mls @ 200 mls/hr IVPB DAILY [facility] Last Admin: 02/22/17 10:46 Dose: 200 mls/hr Piperacillin Sod/Tazobactam (Sod 3.375 gm/ Dextrose) 50 mls @ 100 mls/hr IVPB Q8H-IV [facility] Last Admin: 02/23/17 01:51 Dose: 100 mls/hr Sodium Chloride (Normal Saline -) 1,000 mls @ 200 mls/hr IV ASDIR [facility] Stop: 02/23/17 16:29 Last Admin: 02/22/17 20:30 Dose: 200 mls/hr Sodium Chloride (Normal Saline -) 1,000 mls @ 150 mls/hr IV ASDIR [facility] Last Admin: 02/23/17 01:52 Dose: 150 mls/hr Thiamine HCl (Vitamin B1 -) 100 mg PO DAILY [facility] Last Admin: 02/22/17 12:00 Dose: 100 mg Valsartan (Diovan -) 80 mg PO DAILY [facility] Last Admin: 02/22/17 10:45 Dose: 80 mg - Objective Vital Signs: Vital Signs Temperature 100.3 F H 02/23/17 06:00 Pulse Rate 74 02/23/17 06:30 Respiratory Rate 20 02/23/17 06:00 Blood Pressure 177/100 02/23/17 06:30 O2 Sat by Pulse Oximetry (%) 97 02/22/17 20:32 Labs: INR, PTT INR 1.26 (0.82-1.09) H 02/21/17 06:00 Problem List - Problems (1) Alcoholic pancreatitis Code(s): K85.20 - ALCOHOL INDUCED ACUTE PANCREATITIS WITHOUT NECROSIS OR INFCT Qualifiers: Chronicity: acute Acute pancreatitis complication: unspecified Qualified Code(s): K85.20 - Alcohol induced acute pancreatitis without necrosis or infection (2) ETOH abuse Code(s): F10.10 - ALCOHOL ABUSE, UNCOMPLICATED (3) Fatty (change of) liver, not elsewhere classified Code(s): K76.0 - FATTY (CHANGE OF) LIVER, NOT ELSEWHERE CLASSIFIED (4) Bradycardia Code(s): R00.1 - BRADYCARDIA, UNSPECIFIED (5) HLD (hyperlipidemia) Code(s): E78.5 - HYPERLIPIDEMIA, UNSPECIFIED Assessment/Plan - Problems (1) Fever Assessment/Plan: elevated CRP ID on case iv negro continues to have fever CT abdomen done given the patients pain ( off the pain meds) to r/0 pancreatic abscess--results pending Code(s): R50.9 - FEVER, UNSPECIFIED (2) Hypokalemia Assessment/Plan: follow labs and correct Code(s): E87.6 - HYPOKALEMIA (3) Alcoholic pancreatitis Assessment/Plan: clear liquid diet per GI ivf rate now 100cc /hr ct of the abdomen and r/p pancreatic abscess Code(s): K85.20 - ALCOHOL INDUCED ACUTE PANCREATITIS WITHOUT NECROSIS OR INFCT Qualifiers: Chronicity: acute Acute pancreatitis complication: unspecified Qualified Code(s): K85.20 - Alcohol induced acute pancreatitis without necrosis or infection (4) HLD (hyperlipidemia) Assessment/Plan: statin and fenofibrate resumed Code(s): E78.5 - HYPERLIPIDEMIA, UNSPECIFIED (5) HTN (hypertension) Assessment/Plan: diovan increased resume propanolol Code(s): I10 - ESSENTIAL (PRIMARY) HYPERTENSION Qualifiers: Hypertension type: essential hypertension Qualified Code(s): I10 - Essential (primary) hypertension (6) ETOH abuse Assessment/Plan: librium protocol Code(s): F10.10 - ALCOHOL ABUSE, UNCOMPLICATED (7) Thrombocytopenia Assessment/Plan: platelet count improving heme eval noted Code(s): D69.6 - THROMBOCYTOPENIA, UNSPECIFIED (8) Tremor Assessment/Plan: hand tremor currently on librium propanolol resumed Code(s): R25.1 - TREMOR, UNSPECIFIED
[2017-02-23 08:29] LABS: ALBUMIN 2.2 g/dl (3.4-5.0); ALK PHOS 76 U/L (45-117); ANION GAP 12 (8-16); BILIRUBIN,TOTAL 1.6 mg/dL (0.2-1.0); CALCIUM 7.6 mg/dL (8.5-10.1); CO2 22 mmol/L (21-32); GLUCOSE,RANDOM 82 mg/dL (74-106); SGOT/AST 75 U/L (15-37); SGPT/ALT 50 U/L (12-78); TOT PROT 5.2 g/dl (6.4-8.2)
[2017-02-23] MEDS ORDERED: PANTOPRAZOLE SODIUM 40 MG VIAL ONE (08:32)
[2017-02-23] MEDS ORDERED: SODIUM CHLORIDE 100 ML IVPB ONE (08:33)
[2017-02-23] MEDS: HYDROmorphone HCL CARPU-JECT 2 MG/1 ML DISP.SYRIN IVPB PRN (08:41)
[2017-02-23 09:31] LABS: AMYLASE 95 U/L (25-115); CHOLESTEROL 231 mg/dL (50-200)
[2017-02-23 09:39] LABS: C-REACTIVE PROTEIN 22.7 MG/DL (0.00-0.3)
[2017-02-23] MEDS: PANTOPRAZOLE SODIUM 40 MG in SODIUM CHLORIDE 100 ML IVPB SCH (09:51)
[2017-02-23] MEDS: HEPARIN NA (PORCINE) 5,000 UNITS/ML 1ML VIAL SQ SCH ×2 (09:51→23:02)
[2017-02-23] MEDS: THIAMINE HCL 100 MG TABLET (FP) PO SCH (09:51)
[2017-02-23] MEDS: FOLIC ACID 1 MG TABLET (FP) PO SCH (09:51)
[2017-02-23] MEDS: VALSARTAN 80 MG TABLET (UD) PO SCH ×3 (10:07→10:20)
--- NOTE | 2017-02-23 11:50 | PN ---
Progress Note, Physician History of Present Illness: Awake, alert No c/o abdominal pain at present (just received anagesics) No N/V + loose BMs Remains febrile WBC WNL CT A/P done, report pending - Current Medication List Current Medications: Active Medications Acetaminophen (Tylenol -) 650 mg PO Q6H PRN PRN Reason: FEVER Last Admin: 02/22/17 16:51 Dose: 650 mg Chlordiazepoxide HCl (Librium -) 25 mg PO Q4H PRN PRN Reason: WITHDRAWAL(CONT SUBST) Last Admin: 02/21/17 17:25 Dose: 25 mg Fenofibric Acid (Trilipix -) 135 mg PO DAILY [facility] Folic Acid (Folic Acid -) 1 mg PO DAILY [facility] Last Admin: 02/23/17 09:51 Dose: 1 mg Heparin Sodium (Porcine) (Heparin -) 5,000 unit SQ BID [facility] Last Admin: 02/23/17 09:51 Dose: 5,000 unit Hydromorphone HCl (Dilaudid Injection -) 2 mg IVPB Q4H PRN PRN Reason: PAIN Last Admin: 02/23/17 08:41 Dose: 2 mg Pantoprazole Sodium 40 mg/ (Sodium Chloride) 100 mls @ 200 mls/hr IVPB DAILY [facility] Last Admin: 02/23/17 09:51 Dose: 200 mls/hr Piperacillin Sod/Tazobactam (Sod 3.375 gm/ Dextrose) 50 mls @ 100 mls/hr IVPB Q8H-IV [facility] Last Admin: 02/23/17 09:50 Dose: 100 mls/hr Sodium Chloride (Normal Saline -) 1,000 mls @ 200 mls/hr IV ASDIR [facility] Stop: 02/23/17 16:29 Last Admin: 02/22/17 20:30 Dose: 200 mls/hr Sodium Chloride (Normal Saline -) 1,000 mls @ 150 mls/hr IV ASDIR [facility] Last Admin: 02/23/17 01:52 Dose: 150 mls/hr Propranolol HCl (Inderal La -) 80 mg PO DAILY [facility] Last Admin: 02/23/17 10:08 Dose: 80 mg Rosuvastatin Calcium (Crestor -) 5 mg PO HS [facility] Thiamine HCl (Vitamin B1 -) 100 mg PO DAILY [facility] Last Admin: 02/23/17 09:51 Dose: 100 mg Valsartan (Diovan -) 160 mg PO DAILY [facility] Last Admin: 02/23/17 10:20 Dose: Not Given - Objective Vital Signs: Vital Signs Temperature 100.3 F H 02/23/17 06:00 Pulse Rate 74 02/23/17 06:30 Respiratory Rate 20 02/23/17 06:00 Blood Pressure 177/100 02/23/17 06:30 O2 Sat by Pulse Oximetry (%) 97 02/22/17 20:32 Constitutional: Yes: No Distress Eyes: Yes: Conjunctiva Clear Cardiovascular: Yes: Regular Rate and Rhythm, S1, S2 Respiratory: Yes: CTA Bilaterally Gastrointestinal: Yes: Normal Bowel Sounds, Soft. No: Tenderness Edema: No Labs: CBC, BMP 02/23/17 06:00 02/23/17 06:00 INR, PTT INR 1.26 (0.82-1.09) H 02/21/17 06:00 Assessment/Plan Pancreatitis Fever Repeat BC no growth CT pending Continue empiric zosyn
[2017-02-23] MEDS ORDERED: PT OWN MED DRAWER 7, Y5N ONE ×2 (15:32→17:22)
--- NOTE | 2017-02-23 16:09 | PN ---
Progress Note (short form) - Note Progress Note: Chief Complaint: Events noted, notes reviewed, continues to report persistent abdominal/epigastric pain severity of which has decreased, not resolved History of Present Illness: Seen and examined. Events noted, notes reviewed, continues to report persistent abdominal/epigastric pain severity of which has decreased, not resolved - Current Medication List Current Medications Acetaminophen (Tylenol -) 650 mg PO Q6H PRN PRN Reason: FEVER Last Admin: 02/22/17 16:51 Dose: 650 mg Chlordiazepoxide HCl (Librium -) 25 mg PO Q4H PRN PRN Reason: WITHDRAWAL(CONT SUBST) Last Admin: 02/21/17 17:25 Dose: 25 mg Fenofibric Acid (Trilipix -) 135 mg PO DAILY [facility] Folic Acid (Folic Acid -) 1 mg PO DAILY [facility] Last Admin: 02/23/17 09:51 Dose: 1 mg Heparin Sodium (Porcine) (Heparin -) 5,000 unit SQ BID [facility] Last Admin: 02/23/17 09:51 Dose: 5,000 unit Hydromorphone HCl (Dilaudid Injection -) 2 mg IVPB Q4H PRN PRN Reason: PAIN Last Admin: 02/23/17 08:41 Dose: 2 mg Pantoprazole Sodium 40 mg/ (Sodium Chloride) 100 mls @ 200 mls/hr IVPB DAILY [facility] Last Admin: 02/23/17 09:51 Dose: 200 mls/hr Piperacillin Sod/Tazobactam (Sod 3.375 gm/ Dextrose) 50 mls @ 100 mls/hr IVPB Q8H-IV [facility] Last Admin: 02/23/17 09:50 Dose: 100 mls/hr Sodium Chloride (Normal Saline -) 1,000 mls @ 200 mls/hr IV ASDIR [facility] Stop: 02/23/17 16:29 Last Admin: 02/23/17 15:22 Dose: Not Given Sodium Chloride (Normal Saline -) 1,000 mls @ 150 mls/hr IV ASDIR [facility] Last Admin: 02/23/17 01:52 Dose: 150 mls/hr Propranolol HCl (Inderal La -) 80 mg PO DAILY [facility] Last Admin: 02/23/17 10:08 Dose: 80 mg Rosuvastatin Calcium (Crestor -) 5 mg PO HS [facility] Thiamine HCl (Vitamin B1 -) 100 mg PO DAILY [facility] Last Admin: 02/23/17 09:51 Dose: 100 mg Valsartan (Diovan -) 160 mg PO DAILY [facility] Last Admin: 02/23/17 10:20 Dose: Not Given - Objective Vital Signs: Last Vital Signs Temp Pulse Resp BP Pulse Ox 99.8 F H 68 18 149/86 97 02/23/17 10:00 02/23/17 10:00 02/23/17 10:00 02/23/17 10:00 02/22/17 20:32 Intake & Output 02/20/17 02/21/17 02/22/17 02/23/17 23:59 23:59 23:59 23:59 Intake Total 2975 2850 1790 2300 Output Total 1100 Balance 2975 2850 1790 1200 Neck: Supple Cardiovascular: S1 S2 Regular Rate and Rhythm Respiratory: Cear to A&P Bilaterally Gastrointestinal: Soft Normal Bowel Sounds Ext: No Edema Labs: CBC, BMP 02/23/17 06:00 02/23/17 06:00 Assessment/Plan ASSESSMENT: 1. Acute pancreatitis secondary to ETOH abuse/dependency (history of recurrent pancreatitis) 2. Asymptomatic sinus bradycardia 3. Hypertension 4. Hypercholesterolemia PLAN: 1. Continue Valsartan and titrate as needed and tolerated 2. Continue Propranolol as outlined above long standing history of asymptomatic sinus bradycardia 3. Continue Crestor 4. Analgesics as per the primary team Davina Fields MD
--- NOTE | 2017-02-23 16:18 | PN ---
GI Progress Note Subjective: GASTROENTEROLOGY (FOR DIGIORNO) TAKING PAIN MEDS EVERY 4 HOURS PAIN MEDS OFFER GOOD RELIEF OF PAIN MADE NPO YESTERDAY CT SCAN DONE YESTERDAY BUT NOT READING OF YET SEEN BY REHAB MD HAD FEVER TODAY - Objective Vital Signs: Vital Signs Temperature 99.8 F H 02/23/17 10:00 Pulse Rate 68 02/23/17 10:00 Respiratory Rate 18 02/23/17 10:00 Blood Pressure 149/86 02/23/17 10:00 O2 Sat by Pulse Oximetry (%) 97 02/22/17 20:32 Constitutional: No Distress Eyes: Yes: WNL HENT: Yes: WNL Cardiovascular: Yes: WNL Respiratory: Yes: WNL, Other (DECREASED SOUNDS AT BASE) ...Auscultate: Yes: Normoactive Bowel Sounds ...Palpate: Yes: Other (VERY MILD TENDERNESS EPIGASTRIC AND LUQ NO GUARDING OR REBOUND) Musculoskeletal: Yes: WNL Extremities: Yes: WNL Labs: CBC, BMP 02/23/17 06:00 02/23/17 06:00 INR, PTT INR 1.26 (0.82-1.09) H 02/21/17 06:00 Laboratory Tests 02/21/17 02/21/17 02/22/17 06:00 06:00 06:00 WBC RBC Hgb Hct MCV MCH MCHC RDW Plt Count MPV Neutrophils % Lymphocytes % Monocytes % Eosinophils % Basophils % Retic Count 1.55 H Haptoglobin 285 H Sodium Potassium Chloride Carbon Dioxide Anion Gap BUN Creatinine Creat Clearance w eGFR Random Glucose Calcium Total Bilirubin AST ALT Alkaline Phosphatase C-Reactive Protein 25.8 H D Triglycerides Lipase 418 H 02/23/17 02/23/17 06:00 06:00 WBC 5.6 RBC 3.81 L Hgb 11.8 Hct 34.4 L MCV 90.2 MCH 31.0 MCHC 34.4 RDW 13.5 Plt Count 113 L MPV 9.6 Neutrophils % 68.4 Lymphocytes % 15.4 Monocytes % 11.3 H Eosinophils % 4.4 Basophils % 0.5 Retic Count Haptoglobin Sodium 141 Potassium 3.5 Chloride 107 Carbon Dioxide 22 Anion Gap 12 BUN 4 L Creatinine 1.0 Creat Clearance w eGFR > 60 Random Glucose 82 Calcium 7.6 L Total Bilirubin 1.6 H AST 75 H D ALT 50 Alkaline Phosphatase 76 C-Reactive Protein 22.7 H D Triglycerides 524 H D Lipase 401 H - ....Imaging Cat Scan: Pending Problem List - Problems (1) Alcoholic pancreatitis Assessment/Plan: AWAIT CT SCAN READING THAT WAS DONE YESTERDAY STABLE NOW NPO AND IS STABLE BUT STILL WITH LOW GRADE TEMP CONTINUE SAME NEXT STEP BASED ON CT SCAN READING TANYA GAMBLE MD Code(s): K85.20 - ALCOHOL INDUCED ACUTE PANCREATITIS WITHOUT NECROSIS OR INFCT Qualifiers: Chronicity: acute Acute pancreatitis complication: unspecified Qualified Code(s): K85.20 - Alcohol induced acute pancreatitis without necrosis or infection (2) ETOH abuse Code(s): F10.10 - ALCOHOL ABUSE, UNCOMPLICATED (3) Fever Code(s): R50.9 - FEVER, UNSPECIFIED
[2017-02-23] MEDS: FENOFIBRIC ACID 135 MG CAP PO SCH (17:30)
[2017-02-23] MEDS: ACETAMINOPHEN 325 MG TABLET (FP) PO PRN (17:30)
[2017-02-23] MEDS: ROSUVASTATIN CA 5 MG TABLET (FP) PO SCH (23:03)
[2017-02-24] MEDS: PIPERACILLIN/TAZOB 3.375 GM 3.375 GM in DEXTROSE 5%-WATER - 50 ML IVPB SCH ×2 (02:13→10:10)
[2017-02-24] MEDS: ACETAMINOPHEN 325 MG TABLET (FP) PO PRN (05:43)
[2017-02-24 08:16] LABS: BASOPHIL 0.5 % (0-2.0); EOSINOPHIL 2.4 % (0-4.5); MCHC 34.1 g/dl (32.0-35.9); MEAN CELL VOLUME 90.7 fl (80-96); MEAN PLT VOLUME 9.1 fl (7.5-11.1); NEUTROPHILS 67.7 % (42.8-82.8); PLATELET COUNT 139 K/MM3 (134-434); RDW 13.9 % (11.9-15.9); WHITE BLOOD COUNT 6.2 K/mm3 (4.0-10.0)
[2017-02-24 08:38] LABS: ALBUMIN 2.2 g/dl (3.4-5.0); ALK PHOS 71 U/L (45-117); AMYLASE 74 U/L (25-115); ANION GAP 11 (8-16); BILIRUBIN,TOTAL 1.1 mg/dL (0.2-1.0); CALCIUM 7.8 mg/dL (8.5-10.1); CO2 23 mmol/L (21-32); CREATININE 0.9 mg/dL (0.7-1.3); GLUCOSE,RANDOM 79 mg/dL (74-106); SGOT/AST 45 U/L (15-37); SGPT/ALT 38 U/L (12-78); TOT PROT 5.2 g/dl (6.4-8.2)
--- NOTE | 2017-02-24 09:53 | PN ---
Progress Note, Physician History of Present Illness: LESS ABD PAIN NOW AFTER PAIN MEDS NO CP OR SOB - Current Medication List Current Medications: Active Medications Acetaminophen (Tylenol -) 650 mg PO Q6H PRN PRN Reason: FEVER Last Admin: 02/24/17 05:43 Dose: 650 mg Chlordiazepoxide HCl (Librium -) 25 mg PO Q4H PRN PRN Reason: WITHDRAWAL(CONT SUBST) Last Admin: 02/21/17 17:25 Dose: 25 mg Fenofibric Acid (Trilipix -) 135 mg PO DAILY [facility] Last Admin: 02/23/17 17:30 Dose: 135 mg Folic Acid (Folic Acid -) 1 mg PO DAILY [facility] Last Admin: 02/23/17 09:51 Dose: 1 mg Heparin Sodium (Porcine) (Heparin -) 5,000 unit SQ BID [facility] Last Admin: 02/23/17 23:02 Dose: 5,000 unit Hydromorphone HCl (Dilaudid Injection -) 2 mg IVPB Q4H PRN PRN Reason: PAIN Last Admin: 02/23/17 08:41 Dose: 2 mg Pantoprazole Sodium 40 mg/ (Sodium Chloride) 100 mls @ 200 mls/hr IVPB DAILY [facility] Last Admin: 02/23/17 09:51 Dose: 200 mls/hr Piperacillin Sod/Tazobactam (Sod 3.375 gm/ Dextrose) 50 mls @ 100 mls/hr IVPB Q8H-IV [facility] Last Admin: 02/24/17 02:13 Dose: 100 mls/hr Sodium Chloride (Normal Saline -) 1,000 mls @ 150 mls/hr IV ASDIR [facility] Last Admin: 02/23/17 23:02 Dose: 150 mls/hr Propranolol HCl (Inderal La -) 80 mg PO DAILY [facility] Last Admin: 02/23/17 10:08 Dose: 80 mg Rosuvastatin Calcium (Crestor -) 5 mg PO HS [facility] Last Admin: 02/23/17 23:03 Dose: Not Given Thiamine HCl (Vitamin B1 -) 100 mg PO DAILY [facility] Last Admin: 02/23/17 09:51 Dose: 100 mg Valsartan (Diovan -) 160 mg PO DAILY [facility] Last Admin: 02/23/17 10:20 Dose: Not Given - Objective Vital Signs: Vital Signs Temperature 102.1 F H 02/24/17 05:44 Pulse Rate 62 09/10/17 05:44 Respiratory Rate 20 02/24/17 05:44 Blood Pressure 156/95 02/24/17 05:44 O2 Sat by Pulse Oximetry (%) 97 02/22/17 20:32 Cardiovascular: Yes: Regular Rate and Rhythm Respiratory: Yes: Regular, CTA Bilaterally Gastrointestinal: Yes: Normal Bowel Sounds, Soft. No: Tenderness Labs: CBC, BMP 02/24/17 06:00 02/24/17 06:45 INR, PTT INR 1.26 (0.82-1.09) H 02/21/17 06:00 Problem List - Problems (1) Alcoholic pancreatitis Assessment/Plan: NPO---CLEAR CT SCAN D/W RADIOLOGIST--NO ABSCESS IVF GI ON BOARD MONITOR LABS Code(s): K85.20 - ALCOHOL INDUCED ACUTE PANCREATITIS WITHOUT NECROSIS OR INFCT Qualifiers: Chronicity: acute Acute pancreatitis complication: unspecified Qualified Code(s): K85.20 - Alcohol induced acute pancreatitis without necrosis or infection (2) ETOH abuse Assessment/Plan: ON LIBRIUM MONITOR ABSTINENCE DISCUSSED Code(s): F10.10 - ALCOHOL ABUSE, UNCOMPLICATED (3) Fatty (change of) liver, not elsewhere classified Assessment/Plan: AVOID ETOH COMPLIANCE Code(s): K76.0 - FATTY (CHANGE OF) LIVER, NOT ELSEWHERE CLASSIFIED (4) Bradycardia Assessment/Plan: CARDIO ON BOARD Code(s): R00.1 - BRADYCARDIA, UNSPECIFIED (5) HLD (hyperlipidemia) Assessment/Plan: AWAIT LIPIDS Code(s): E78.5 - HYPERLIPIDEMIA, UNSPECIFIED
[2017-02-24] MEDS ORDERED: PANTOPRAZOLE SODIUM 40 MG VIAL ONE (09:56)
[2017-02-24] MEDS ORDERED: PIPERACILLIN/TAZOBACTAM 3.375 GM VIAL IVPB ONE (09:56)
[2017-02-24] MEDS ORDERED: PT OWN MED DRAWER 7, Y5N ONE ×2 (09:56→21:08)
[2017-02-24] MEDS ORDERED: SODIUM CHLORIDE 100 ML IVPB ONE (09:56)
[2017-02-24] MEDS ORDERED: DEXTROSE 5%-WATER - 50 ML IVPB ONE (09:57)
[2017-02-24] MEDS: FOLIC ACID 1 MG TABLET (FP) PO SCH (10:09)
[2017-02-24] MEDS: THIAMINE HCL 100 MG TABLET (FP) PO SCH (10:09)
[2017-02-24] MEDS: VALSARTAN 80 MG TABLET (UD) PO SCH (10:09)
[2017-02-24] MEDS: FENOFIBRIC ACID 135 MG CAP PO SCH (10:10)
[2017-02-24] MEDS: PANTOPRAZOLE SODIUM 40 MG in SODIUM CHLORIDE 100 ML IVPB SCH (10:10)
[2017-02-24] MEDS: HEPARIN NA (PORCINE) 5,000 UNITS/ML 1ML VIAL SQ SCH ×2 (10:10→21:24)
--- NOTE | 2017-02-24 12:35 | PN ---
GI Progress Note Subjective: GASTROENTEROLOGY (FOR DIGIORNO) CALLED BY NURSE ABOUT CT SCAN READING. NO READING IN COMPUTER. HAD TO CALL TO RADIOLOGY DEPARTMENT TO GET PAPER REPORT FROM [facility] [employer] ARCHITECT, FAXED REPORT FROM RADIOLOGY STATES "POSSIBLITY OF EVOLVING ABSCESS..WITH A FLUID COLLECTION APROXIMATELY 4.4CM IN DIAMETER". PATIENT FEELS A LITTLE BETTER STILL HAS FEVER THIS AM OF 102 - Objective Vital Signs: Vital Signs Temperature 102.1 F H 02/24/17 05:44 Pulse Rate 62 02/24/17 05:44 Respiratory Rate 20 02/24/17 05:44 Blood Pressure 156/95 02/24/17 05:44 O2 Sat by Pulse Oximetry (%) 97 02/22/17 20:32 Constitutional: No Distress Eyes: Yes: Conjunctiva Clear HENT: Yes: Atraumatic Cardiovascular: Yes: Regular Rate and Rhythm Respiratory: Yes: Regular Gastrointestinal Inspection: Yes: WNL ...Auscultate: Yes: Normoactive Bowel Sounds ...Palpate: Yes: Tenderness (LESS TENDER TODAY) Extremities: Yes: WNL Labs: CBC, BMP 02/24/17 06:00 02/24/17 06:45 INR, PTT INR 1.26 (0.82-1.09) H 02/21/17 06:00 Laboratory Tests 02/23/17 02/24/17 06:00 06:45 Lipase 401 H 315 Problem List - Problems (1) Pancreatic abscess Assessment/Plan: THE CT SCAN REPORT IS NOW AVAILABLE IN THE PAPER CHART. . THERE IS A SUGGESTION OF PANCREATIC ABSCESS AND WITH THE CLINICAL SCENARIO, I WILL TREAT IT SUCH: I HAVE ADDED METRONIDAZOLE AND SPOKE WITH DR KELLY TO CHANGE TO ANOTHER ANTIBIOTIC SUCH A CEFEPINE FOR BETTER PANCREATIC PENETRATION. I WOULD NOT DRAIN THIS FLUID COLLECTION BUT PLACE ON ANTIBIOTICS AND OBSERVE. PLACING A NEEDLE IN THE COLLECTION FOR CULTURE WILL PROBABLY HAVE A LOW YIELD GIVEN HE HAS BEEN ON ABX. I WOULD REPEAT THE CT SCAN IN ONE WEEK. I HAVE DISCUSSED THIS WITH THE PATIENT AND HER AGREES WITHY THE PLAN. Code(s): K85.90 - ACUTE PANCREATITIS WITHOUT NECROSIS OR INFECTION, UNSP (2) Fluid collection of pancreas Code(s): K86.89 - OTHER SPECIFIED DISEASES OF PANCREAS (3) Alcoholic pancreatitis Code(s): K85.20 - ALCOHOL INDUCED ACUTE PANCREATITIS WITHOUT NECROSIS OR INFCT Qualifiers: Chronicity: acute Acute pancreatitis complication: unspecified Qualified Code(s): K85.20 - Alcohol induced acute pancreatitis without necrosis or infection (4) ETOH abuse Code(s): F10.10 - ALCOHOL ABUSE, UNCOMPLICATED (5) Fever Code(s): R50.9 - FEVER, UNSPECIFIED
--- NOTE | 2017-02-24 12:41 | PN ---
Progress Note (short form) - Note Progress Note: Chief Complaint: Events noted, notes reviewed, continues to report persistent abdominal/epigastric pain severity of which has decreased, not resolved History of Present Illness: Seen and examined. Events noted, notes reviewed, continues to report persistent abdominal/epigastric pain severity of which has decreased, not resolved GI note noted - Current Medication List Current Medications Acetaminophen (Tylenol -) 650 mg PO Q6H PRN PRN Reason: FEVER Last Admin: 02/24/17 05:43 Dose: 650 mg Chlordiazepoxide HCl (Librium -) 25 mg PO Q4H PRN PRN Reason: WITHDRAWAL(CONT SUBST) Last Admin: 02/21/17 17:25 Dose: 25 mg Fenofibric Acid (Trilipix -) 135 mg PO DAILY [facility] Last Admin: 02/24/17 10:10 Dose: 135 mg Folic Acid (Folic Acid -) 1 mg PO DAILY [facility] Last Admin: 02/24/17 10:09 Dose: 1 mg Heparin Sodium (Porcine) (Heparin -) 5,000 unit SQ BID [facility] Last Admin: 02/24/17 10:10 Dose: 5,000 unit Hydromorphone HCl (Dilaudid Injection -) 2 mg IVPB Q4H PRN PRN Reason: PAIN Last Admin: 02/23/17 08:41 Dose: 2 mg Pantoprazole Sodium 40 mg/ (Sodium Chloride) 100 mls @ 200 mls/hr IVPB DAILY [facility] Last Admin: 02/24/17 10:10 Dose: 200 mls/hr Piperacillin Sod/Tazobactam (Sod 3.375 gm/ Dextrose) 50 mls @ 100 mls/hr IVPB Q8H-IV [facility] Last Admin: 02/24/17 10:10 Dose: 100 mls/hr Sodium Chloride (Normal Saline -) 1,000 mls @ 150 mls/hr IV ASDIR [facility] Last Admin: 02/23/17 23:02 Dose: 150 mls/hr Metronidazole (Flagyl 500mg Premixed Ivpb -) 100 mls @ 100 mls/hr IVPB Q8H-IV [facility] Propranolol HCl (Inderal La -) 80 mg PO DAILY [facility] Last Admin: 02/24/17 10:09 Dose: 80 mg Rosuvastatin Calcium (Crestor -) 5 mg PO HS [facility] Last Admin: 02/23/17 23:03 Dose: Not Given Thiamine HCl (Vitamin B1 -) 100 mg PO DAILY [facility] Last Admin: 02/24/17 10:09 Dose: 100 mg Valsartan (Diovan -) 160 mg PO DAILY [facility] Last Admin: 02/24/17 10:09 Dose: 160 mg - Objective Vital Signs: Last Vital Signs Temp Pulse Resp BP Pulse Ox 102.1 F H 62 20 156/95 97 02/24/17 05:44 02/24/17 05:44 02/24/17 05:44 02/24/17 05:44 02/22/17 20:32 Intake & Output 02/21/17 02/22/17 02/23/17 02/24/17 23:59 23:59 23:59 23:59 Intake Total 2850 1790 5600 Output Total 1100 Balance 2850 1790 4500 Neck: Supple Negative JVD No Bruit Cardiovascular: S1 S2 Regular Rate and Rhythm Respiratory: Clear to A&P Bilaterally Gastrointestinal: Soft Normal Bowel Sounds Ext: No Edema Labs: CBC, BMP 02/24/17 06:00 02/24/17 06:45 Hepatic Panel Total Bilirubin 1.1 mg/dL (0.2-1.0) H D 02/24/17 06:45 AST 45 U/L (15-37) H D 02/24/17 06:45 ALT 38 U/L (12-78) D 02/24/17 06:45 Alkaline Phosphatase 71 U/L (45-117) 02/24/17 06:45 Albumin 2.2 g/dl (3.4-5.0) L 02/24/17 06:45 INR, PTT INR 1.26 (0.82-1.09) H 02/21/17 06:00 Assessment/Plan ASSESSMENT: 1. Acute pancreatitis secondary to ETOH abuse/dependency (history of recurrent pancreatitis), possible abscess formation 2. Asymptomatic sinus bradycardia 3. Hypertension 4. Hypercholesterolemia PLAN: 1. Continue Valsartan and titrate as needed and as tolerated 2. Continue Propranolol (as outlined in prior notes history of asymptomatic sinus bradycardia) 3. Continue Crestor 4. Analgesics as per the primary team 5. Further plans as per GI in reference to the above noted finding of possible pancreatic abscess formation Davina Fields MD
[2017-02-24] MEDS: HYDROmorphone HCL CARPU-JECT 2 MG/1 ML DISP.SYRIN IVPB PRN ×2 (12:58→21:23)
[2017-02-24] MEDS: chlordiazePOXIDE HCL 25 MG CAPSULE PO PRN (13:01)
[2017-02-24] MEDS: METRONIDAZOLE 500 MG PREMIXED 100 ML IVPB SCH ×2 (13:28→17:57)
--- NOTE | 2017-02-24 16:12 | PN ---
Progress Note, Physician History of Present Illness: Febrile to 102 No c/o abdo pain ( just medicated for pain ) CT report (verbal) noted - Current Medication List Current Medications: Active Medications Acetaminophen (Tylenol -) 650 mg PO Q6H PRN PRN Reason: FEVER Last Admin: 02/24/17 05:43 Dose: 650 mg Fenofibric Acid (Trilipix -) 135 mg PO DAILY [facility] Last Admin: 02/24/17 10:10 Dose: 135 mg Folic Acid (Folic Acid -) 1 mg PO DAILY [facility] Last Admin: 02/24/17 10:09 Dose: 1 mg Heparin Sodium (Porcine) (Heparin -) 5,000 unit SQ BID [facility] Last Admin: 02/24/17 10:10 Dose: 5,000 unit Pantoprazole Sodium 40 mg/ (Sodium Chloride) 100 mls @ 200 mls/hr IVPB DAILY [facility] Last Admin: 02/24/17 10:10 Dose: 200 mls/hr Piperacillin Sod/Tazobactam (Sod 3.375 gm/ Dextrose) 50 mls @ 100 mls/hr IVPB Q8H-IV [facility] Last Admin: 02/24/17 10:10 Dose: 100 mls/hr Sodium Chloride (Normal Saline -) 1,000 mls @ 150 mls/hr IV ASDIR [facility] Last Admin: 02/23/17 23:02 Dose: 150 mls/hr Metronidazole (Flagyl 500mg Premixed Ivpb -) 100 mls @ 100 mls/hr IVPB Q8H-IV [facility] Last Admin: 02/24/17 13:28 Dose: 100 mls/hr Propranolol HCl (Inderal La -) 80 mg PO DAILY [facility] Last Admin: 02/24/17 10:09 Dose: 80 mg Rosuvastatin Calcium (Crestor -) 5 mg PO HS [facility] Last Admin: 02/23/17 23:03 Dose: Not Given Thiamine HCl (Vitamin B1 -) 100 mg PO DAILY [facility] Last Admin: 02/24/17 10:09 Dose: 100 mg Valsartan (Diovan -) 160 mg PO DAILY [facility] Last Admin: 02/24/17 10:09 Dose: 160 mg - Objective Vital Signs: Vital Signs Temperature 99.3 F 02/24/17 09:00 Pulse Rate 52 L 02/24/17 09:00 Respiratory Rate 20 02/24/17 09:00 Blood Pressure 150/94 02/24/17 09:00 O2 Sat by Pulse Oximetry (%) 97 02/22/17 20:32 Constitutional: Yes: No Distress Eyes: Yes: Conjunctiva Clear Cardiovascular: Yes: Regular Rate and Rhythm, S1, S2 Respiratory: Yes: CTA Bilaterally Gastrointestinal: Yes: Normal Bowel Sounds, Soft. No: Tenderness Edema: No Labs: CBC, BMP 02/24/17 06:00 02/24/17 06:45 INR, PTT INR 1.26 (0.82-1.09) H 02/21/17 06:00 Assessment/Plan Pancreatitis Persistant Fever Possible abscess/infected pseudocyst Repeat BC no growth Discussed with GI Substitute imipenem
[2017-02-24] MEDS: IMIPENEM/CILASTATIN SODIUM 500 MG in SODIUM CHLORIDE 100 ML IVPB SCH (17:16)
[2017-02-24] MEDS: ROSUVASTATIN CA 5 MG TABLET (FP) PO SCH (22:00)
[2017-02-25] MEDS: SODIUM CHLORIDE 1,000 ML IV SCH ×4 (01:25→22:07)
[2017-02-25] MEDS: METRONIDAZOLE 500 MG PREMIXED 100 ML IVPB SCH ×3 (01:26→18:25)
[2017-02-25] MEDS: IMIPENEM/CILASTATIN SODIUM 500 MG in SODIUM CHLORIDE 100 ML IVPB SCH ×3 (02:00→18:25)
[2017-02-25 08:04] LABS: BASOPHIL 0.9 % (0-2.0); EOSINOPHIL 2.9 % (0-4.5); MCHC 34.4 g/dl (32.0-35.9); MEAN CELL VOLUME 90.1 fl (80-96); MEAN PLT VOLUME 8.5 fl (7.5-11.1); NEUTROPHILS 65.6 % (42.8-82.8); PLATELET COUNT 166 K/MM3 (134-434); RDW 13.7 % (11.9-15.9); WHITE BLOOD COUNT 5.9 K/mm3 (4.0-10.0)
[2017-02-25 08:20] LABS: ALBUMIN 2.1 g/dl (3.4-5.0); ANION GAP 10 (8-16); BILIRUBIN,TOTAL 0.7 mg/dL (0.2-1.0); CALCIUM 7.6 mg/dL (8.5-10.1); CO2 25 mmol/L (21-32); CREATININE 0.9 mg/dL (0.7-1.3); GLUCOSE,RANDOM 85 mg/dL (74-106); SGOT/AST 30 U/L (15-37); SGPT/ALT 30 U/L (12-78)
[2017-02-25 08:21] LABS: ALK PHOS 75 U/L (45-117)
[2017-02-25] MEDS ORDERED: PT OWN MED DRAWER 7, Y5N ONE ×4 (08:36→18:23)
[2017-02-25] MEDS: HYDROmorphone HCL CARPU-JECT 2 MG/1 ML DISP.SYRIN IVPB PRN ×3 (08:52→23:47)
[2017-02-25] MEDS ORDERED: PANTOPRAZOLE SODIUM 40 MG VIAL ONE (09:12)
[2017-02-25] MEDS ORDERED: SODIUM CHLORIDE 100 ML IVPB ONE (09:12)
[2017-02-25] MEDS: VALSARTAN 80 MG TABLET (UD) PO SCH (09:17)
[2017-02-25] MEDS: PANTOPRAZOLE SODIUM 40 MG in SODIUM CHLORIDE 100 ML IVPB SCH (09:17)
[2017-02-25] MEDS: FOLIC ACID 1 MG TABLET (FP) PO SCH (09:18)
[2017-02-25] MEDS: HEPARIN NA (PORCINE) 5,000 UNITS/ML 1ML VIAL SQ SCH ×2 (09:18→21:12)
[2017-02-25] MEDS: FENOFIBRIC ACID 135 MG CAP PO SCH (09:19)
[2017-02-25] MEDS: THIAMINE HCL 100 MG TABLET (FP) PO SCH (09:20)
--- NOTE | 2017-02-25 10:44 | PN ---
GI Progress Note Subjective: No acute events Mr. Burdick states that when he gets pain medication, the pain in his abdomen and back improves Repeat CT scan revealed peripancreatic fluid w/ ? developing collection at pancreatic tail He was started on clear liquids last night and seems to be tolerating - Objective Vital Signs: Vital Signs Temperature 99.5 F 02/25/17 06:00 Pulse Rate 61 02/25/17 06:00 Respiratory Rate 20 02/25/17 06:00 Blood Pressure 153/97 02/25/17 06:00 O2 Sat by Pulse Oximetry (%) 97 02/22/17 20:32 Constitutional: Calm Cardiovascular: Yes: Bradycardia Respiratory: Yes: CTA Bilaterally Gastrointestinal Inspection: No: Distention ...Auscultate: Yes: Normoactive Bowel Sounds ...Palpate: Yes: Soft. No: Guarding, Tenderness, Tenderness, Rebound ...Percussion: No: Tympanitic Edema: No Neurological: Yes: Alert, Oriented Labs: CBC, BMP 02/25/17 07:15 02/25/17 07:15 INR, PTT INR 1.26 (0.82-1.09) H 02/21/17 06:00 Problem List - Problems (1) Alcoholic pancreatitis Assessment/Plan: ? of evolving fluid collection at pancreatic tail. This will need to be followed closely Abdominal exam benign however this was after analgesia this morning. Seems to be tolerating clear liquids. If continued pain, fevers, post pyloric feeding tube. This was discussed with Mr. Burdick AM labs Code(s): K85.20 - ALCOHOL INDUCED ACUTE PANCREATITIS WITHOUT NECROSIS OR INFCT Qualifiers: Chronicity: acute Acute pancreatitis complication: unspecified Qualified Code(s): K85.20 - Alcohol induced acute pancreatitis without necrosis or infection
[2017-02-25 11:13] LABS: C-REACTIVE PROTEIN 17.9 MG/DL (0.00-0.3)
--- NOTE | 2017-02-25 11:26 | PN ---
Progress Note, Physician History of Present Illness: Low grade fevers, tolerating clear liquid diet, still with some epigastric pain requiring analgesia. - Current Medication List Current Medications: Active Medications Acetaminophen (Tylenol -) 650 mg PO Q6H PRN PRN Reason: FEVER Last Admin: 02/24/17 05:43 Dose: 650 mg Fenofibric Acid (Trilipix -) 135 mg PO DAILY [facility] Last Admin: 02/25/17 09:19 Dose: 135 mg Folic Acid (Folic Acid -) 1 mg PO DAILY [facility] Last Admin: 02/25/17 09:18 Dose: 1 mg Hydromorphone HCl (Dilaudid Injection -) 2 mg IVPB Q4H PRN PRN Reason: PAIN Last Admin: 02/25/17 08:52 Dose: 2 mg Pantoprazole Sodium 40 mg/ (Sodium Chloride) 100 mls @ 200 mls/hr IVPB DAILY [facility] Last Admin: 02/25/17 09:17 Dose: 200 mls/hr Sodium Chloride (Normal Saline -) 1,000 mls @ 150 mls/hr IV ASDIR [facility] Last Admin: 02/25/17 08:01 Dose: Not Given Metronidazole (Flagyl 500mg Premixed Ivpb -) 100 mls @ 100 mls/hr IVPB Q8H-IV [facility] Last Admin: 02/25/17 09:16 Dose: 100 mls/hr Imipenem/Cilastatin Sodium 500 (mg/ Sodium Chloride) 100 mls @ 100 mls/hr IVPB Q8H-IV [facility] PRN Reason: Protocol Last Admin: 02/25/17 09:16 Dose: 100 mls/hr Propranolol HCl (Inderal La -) 80 mg PO DAILY [facility] Last Admin: 02/25/17 09:18 Dose: 80 mg Rosuvastatin Calcium (Crestor -) 5 mg PO HS [facility] Last Admin: 02/24/17 22:00 Dose: Not Given Thiamine HCl (Vitamin B1 -) 100 mg PO DAILY [facility] Last Admin: 02/25/17 09:20 Dose: 100 mg Valsartan (Diovan -) 160 mg PO DAILY [facility] Last Admin: 02/25/17 09:17 Dose: 160 mg - Objective Vital Signs: Vital Signs Temperature 99.2 F 02/25/17 10:00 Pulse Rate 67 02/25/17 10:00 Respiratory Rate 20 02/25/17 10:00 Blood Pressure 148/91 09/11/17 10:00 O2 Sat by Pulse Oximetry (%) 97 02/22/17 20:32 Constitutional: Yes: No Distress, Calm Neck: Yes: Supple Cardiovascular: Yes: Regular Rate and Rhythm Respiratory: Yes: Regular, Diminished Gastrointestinal: Yes: Soft, Hypoactive Bowel Sounds, Tenderness, Epigastrium Edema: No Labs: CBC, BMP 02/25/17 07:15 02/25/17 07:15 INR, PTT INR 1.26 (0.82-1.09) H 02/21/17 06:00 Problem List - Problems (1) Alcoholic pancreatitis Code(s): K85.20 - ALCOHOL INDUCED ACUTE PANCREATITIS WITHOUT NECROSIS OR INFCT Qualifiers: Chronicity: acute Acute pancreatitis complication: unspecified Qualified Code(s): K85.20 - Alcohol induced acute pancreatitis without necrosis or infection (2) Fluid collection of pancreas Code(s): K86.89 - OTHER SPECIFIED DISEASES OF PANCREAS (3) Chronic alcoholism Code(s): F10.20 - ALCOHOL DEPENDENCE, UNCOMPLICATED (4) HLD (hyperlipidemia) Code(s): E78.5 - HYPERLIPIDEMIA, UNSPECIFIED Qualifiers: Hyperlipidemia type: mixed hyperlipidemia Qualified Code(s): E78.2 - Mixed hyperlipidemia (5) HTN (hypertension) Code(s): I10 - ESSENTIAL (PRIMARY) HYPERTENSION Qualifiers: Hypertension type: essential hypertension Qualified Code(s): I10 - Essential (primary) hypertension (6) Hypokalemia Code(s): E87.6 - HYPOKALEMIA Assessment/Plan 1. Acute pancreatitis secondary to ETOH abuse/dependency (history of recurrent pancreatitis), with possible abscess formation 2. Asymptomatic sinus bradycardia 3. Hypertension 4. Mixed Hyperlipidemia PLAN: 1. Continue Valsartan 160 qd and titrate as needed 2. Continue Propranolol 80 qd (as outlined in prior notes history of asymptomatic sinus bradycardia) 3. Continue Crestor 5 qhs and Trilipix 135 qd 4. Analgesics and diet as per the primary team, replete K 5. Abx course per GI and ID in reference to the above noted finding of possible pancreatic abscess formation
[2017-02-25] MEDS ORDERED: POTASSIUM CHLORIDE ORAL LIQUID 20 MEQ/15 ML PO ONE (11:37)
--- NOTE | 2017-02-25 12:49 | PN ---
Progress Note (short form) - Note Progress Note: feels about the same, pain unchanged less fevers tolerating clears no vomiting Vital Signs Period Temp Pulse Resp BP Sys/Ojeda Pulse Ox Last 24 Hr 97.7 F-99.5 F 61-68 20-20 141-153/76-97 cor-rrr lungs clear abd soft, midepigastric discomfort to palpation ext no edema CBC, BMP 02/25/17 07:15 02/25/17 07:15 Microbiology 02/22/17 10:50 Blood - Peripheral Venous Blood Culture - Preliminary NO GROWTH OBTAINED AFTER 72 HOURS, INCUBATION TO CONTINUE FOR 2 DAYS. 02/22/17 10:45 Blood - Peripheral Venous Blood Culture - Preliminary NO GROWTH OBTAINED AFTER 72 HOURS, INCUBATION TO CONTINUE FOR 2 DAYS. 02/19/17 16:20 Blood - Peripheral Venous Blood Culture - Final NO GROWTH AFTER 5 DAYS INCUBATION 02/19/17 16:48 Blood - Peripheral Venous Blood Culture - Final NO GROWTH AFTER 5 DAYS INCUBATION 02/22/17 15:00 Urine - Urine Clean Catch Urine Culture - Final NO GROWTH OBTAINED 02/19/17 19:05 Urine - Urine Clean Catch Urine Culture - Final NO GROWTH OBTAINED Laboratory Tests 02/19/17 02/20/17 02/21/17 06:00 06:00 06:00 C-Reactive Protein 12.5 H 25.2 H D 31.8 H D 02/22/17 02/23/17 02/25/17 06:00 06:00 07:15 C-Reactive Protein 25.8 H D 22.7 H D 17.9 H D Current Medications Acetaminophen (Tylenol -) 650 mg PO Q6H PRN PRN Reason: FEVER Last Admin: 02/24/17 05:43 Dose: 650 mg Fenofibric Acid (Trilipix -) 135 mg PO DAILY [facility] Last Admin: 02/25/17 09:19 Dose: 135 mg Folic Acid (Folic Acid -) 1 mg PO DAILY [facility] Last Admin: 02/25/17 09:18 Dose: 1 mg Hydromorphone HCl (Dilaudid Injection -) 2 mg IVPB Q4H PRN PRN Reason: PAIN Last Admin: 02/25/17 08:52 Dose: 2 mg Pantoprazole Sodium 40 mg/ (Sodium Chloride) 100 mls @ 200 mls/hr IVPB DAILY [facility] Last Admin: 02/25/17 09:17 Dose: 200 mls/hr Sodium Chloride (Normal Saline -) 1,000 mls @ 150 mls/hr IV ASDIR [facility] Last Admin: 02/25/17 08:01 Dose: Not Given Metronidazole (Flagyl 500mg Premixed Ivpb -) 100 mls @ 100 mls/hr IVPB Q8H-IV [facility] Last Admin: 02/25/17 09:16 Dose: 100 mls/hr Imipenem/Cilastatin Sodium 500 (mg/ Sodium Chloride) 100 mls @ 100 mls/hr IVPB Q8H-IV [facility] PRN Reason: Protocol Last Admin: 02/25/17 09:16 Dose: 100 mls/hr Propranolol HCl (Inderal La -) 80 mg PO DAILY [facility] Last Admin: 02/25/17 09:18 Dose: 80 mg Rosuvastatin Calcium (Crestor -) 5 mg PO HS [facility] Last Admin: 02/24/17 22:00 Dose: Not Given Thiamine HCl (Vitamin B1 -) 100 mg PO DAILY [facility] Last Admin: 02/25/17 09:20 Dose: 100 mg Valsartan (Diovan -) 160 mg PO DAILY [facility] Last Admin: 02/25/17 09:17 Dose: [address] scan- ?collection tail of pancreas a/p pancreatitis- suspect improving with decreasing crp and resolved thrombocytopenia on imipenem, repeat imaging per GI etoh use Problem List - Problems (1) Alcoholic pancreatitis Code(s): K85.20 - ALCOHOL INDUCED ACUTE PANCREATITIS WITHOUT NECROSIS OR INFCT Qualifiers: Chronicity: acute Acute pancreatitis complication: unspecified Qualified Code(s): K85.20 - Alcohol induced acute pancreatitis without necrosis or infection (2) Fever Code(s): R50.9 - FEVER, UNSPECIFIED
--- NOTE | 2017-02-25 16:52 | PN ---
Progress Note (short form) - Note Progress Note: Along with a CBC/CMP/CRP, magnesium and phosphorous were ordered for the morning (last phosphorous level was 1.2). If they are low, will need repletion by PMD. If clinically improved, advance to full liquids Problem List - Problems (1) Alcoholic pancreatitis Code(s): K85.20 - ALCOHOL INDUCED ACUTE PANCREATITIS WITHOUT NECROSIS OR INFCT Qualifiers: Chronicity: acute Acute pancreatitis complication: unspecified Qualified Code(s): K85.20 - Alcohol induced acute pancreatitis without necrosis or infection
[2017-02-25] MEDS ORDERED: VALSARTAN 160 MG TABLET (UD) PO ONE (19:00)
--- NOTE | 2017-02-25 20:02 | PN ---
Progress Note, Physician Chief Complaint: Abdominal pain, acute pancreatitis, pancreatic abscess? History of Present Illness: NAD, hx of etoh use, pain improved upon analgesia admin, mid epigastric pain, CT abd showed possible abscess at pancreatic tail. seen by GI on IV abx low grade temps asymptomatic bradycardia, seen by Cardiology tolerating clear liquids - Current Medication List Current Medications: Active Medications Acetaminophen (Tylenol -) 650 mg PO Q6H PRN PRN Reason: FEVER Last Admin: 02/24/17 05:43 Dose: 650 mg Fenofibric Acid (Trilipix -) 135 mg PO DAILY [facility] Last Admin: 02/25/17 09:19 Dose: 135 mg Folic Acid (Folic Acid -) 1 mg PO DAILY [facility] Last Admin: 02/25/17 09:18 Dose: 1 mg Hydromorphone HCl (Dilaudid Injection -) 2 mg IVPB Q4H PRN PRN Reason: PAIN Last Admin: 02/25/17 17:10 Dose: 2 mg Pantoprazole Sodium 40 mg/ (Sodium Chloride) 100 mls @ 200 mls/hr IVPB DAILY [facility] Last Admin: 02/25/17 09:17 Dose: 200 mls/hr Sodium Chloride (Normal Saline -) 1,000 mls @ 75 mls/hr IV ASDIR [facility] Last Admin: 02/25/17 14:48 Dose: 150 mls/hr Metronidazole (Flagyl 500mg Premixed Ivpb -) 100 mls @ 100 mls/hr IVPB Q8H-IV [facility] Last Admin: 02/25/17 18:25 Dose: 100 mls/hr Imipenem/Cilastatin Sodium 500 (mg/ Sodium Chloride) 100 mls @ 100 mls/hr IVPB Q8H-IV [facility] PRN Reason: Protocol Last Admin: 02/25/17 18:25 Dose: 100 mls/hr Propranolol HCl (Inderal La -) 80 mg PO DAILY [facility] Last Admin: 02/25/17 09:18 Dose: 80 mg Rosuvastatin Calcium (Crestor -) 5 mg PO HS [facility] Last Admin: 02/24/17 22:00 Dose: Not Given Thiamine HCl (Vitamin B1 -) 100 mg PO DAILY [facility] Last Admin: 02/25/17 09:20 Dose: 100 mg Valsartan (Diovan -) 160 mg PO DAILY [facility] Last Admin: 02/25/17 09:17 Dose: 160 mg - Objective Vital Signs: Vital Signs Temperature 99.6 F 02/25/17 18:00 Pulse Rate 54 L 02/25/17 18:00 Respiratory Rate 20 02/25/17 18:00 Blood Pressure 155/107 02/25/17 18:00 O2 Sat by Pulse Oximetry (%) 95 02/25/17 09:00 Constitutional: Yes: Well Nourished, No Distress, Calm Cardiovascular: Yes: Bradycardia Respiratory: Yes: Regular Gastrointestinal: Yes: Normal Bowel Sounds, Soft, Tenderness, Epigastrium Genitourinary: Yes: WNL Musculoskeletal: Yes: WNL Extremities: Yes: WNL Edema: No Peripheral Pulses WNL: Yes Neurological: Yes: Alert, Oriented Psychiatric: Yes: Alert, Oriented Labs: CBC, BMP 02/25/17 07:15 02/25/17 07:15 INR, PTT INR 1.26 (0.82-1.09) H 02/21/17 06:00 Problem List - Problems (1) ETOH abuse Code(s): F10.10 - ALCOHOL ABUSE, UNCOMPLICATED (2) Fatty (change of) liver, not elsewhere classified Code(s): K76.0 - FATTY (CHANGE OF) LIVER, NOT ELSEWHERE CLASSIFIED (3) Bradycardia Code(s): R00.1 - BRADYCARDIA, UNSPECIFIED (4) HTN (hypertension) Code(s): I10 - ESSENTIAL (PRIMARY) HYPERTENSION Qualifiers: Hypertension type: essential hypertension Qualified Code(s): I10 - Essential (primary) hypertension (5) Alcoholic pancreatitis Code(s): K85.20 - ALCOHOL INDUCED ACUTE PANCREATITIS WITHOUT NECROSIS OR INFCT Qualifiers: Chronicity: acute Acute pancreatitis complication: unspecified Qualified Code(s): K85.20 - Alcohol induced acute pancreatitis without necrosis or infection (6) Pancreatic abscess Code(s): K85.90 - ACUTE PANCREATITIS WITHOUT NECROSIS OR INFECTION, UNSP Assessment/Plan -clear liquids, advance diet as per GI -DVT prophylaxis -PPI -IVF -IV abx -replenish Potassium with KCl po -Pain management- abdominal pain is better. -alcohol withdrawal protocol- seen by psychiatry to establish need for rehabilitation- patient refuses at this time -bradycardia addressed by cardiology, appreciated -fevers likely due to inflammatory, seen by ID -Acetaminophen prn for fever over 100.0F
[2017-02-25] MEDS: ROSUVASTATIN CA 5 MG TABLET (FP) PO SCH (21:12)
[2017-02-26] MEDS: IMIPENEM/CILASTATIN SODIUM 500 MG in SODIUM CHLORIDE 100 ML IVPB SCH ×3 (01:07→17:36)
[2017-02-26] MEDS: METRONIDAZOLE 500 MG PREMIXED 100 ML IVPB SCH ×3 (01:47→17:36)
[2017-02-26 07:26] LABS: BASOPHIL 0.8 % (0-2.0); EOSINOPHIL 3.5 % (0-4.5); MCH 30.8 pg (25.7-33.7); MEAN CELL VOLUME 90.5 fl (80-96); MEAN PLT VOLUME 8.7 fl (7.5-11.1); NEUTROPHILS 60.4 % (42.8-82.8); PLATELET COUNT 175 K/MM3 (134-434); RDW 14.3 % (11.9-15.9); WHITE BLOOD COUNT 5.6 K/mm3 (4.0-10.0)
[2017-02-26 08:00] LABS: ALBUMIN 2.2 g/dl (3.4-5.0); ALK PHOS 67 U/L (45-117); ANION GAP 9 (8-16); BILIRUBIN,TOTAL 0.9 mg/dL (0.2-1.0); C-REACTIVE PROTEIN 16.2 MG/DL (0.00-0.3); CALCIUM 7.7 mg/dL (8.5-10.1); CO2 26 mmol/L (21-32); CREATININE 0.8 mg/dL (0.7-1.3); GLUCOSE,RANDOM 85 mg/dL (74-106); SGOT/AST 21 U/L (15-37); SGPT/ALT 23 U/L (12-78); TOT PROT 4.9 g/dl (6.4-8.2)
[2017-02-26] MEDS ORDERED: PANTOPRAZOLE SODIUM 40 MG VIAL ONE (08:42)
[2017-02-26] MEDS ORDERED: SODIUM CHLORIDE 100 ML IVPB ONE (08:43)
[2017-02-26] MEDS: HYDROmorphone HCL CARPU-JECT 2 MG/1 ML DISP.SYRIN IVPB PRN ×2 (09:22→16:22)
[2017-02-26] MEDS: HEPARIN NA (PORCINE) 5,000 UNITS/ML 1ML VIAL SQ SCH ×2 (09:24→21:16)
[2017-02-26] MEDS: POTASSIUM CHLORIDE TABS 20 MEQ TABLET.ER (FP) PO SCH (09:24)
[2017-02-26] MEDS: VALSARTAN 80 MG TABLET (UD) PO SCH (09:24)
[2017-02-26] MEDS: FOLIC ACID 1 MG TABLET (FP) PO SCH (09:24)
[2017-02-26] MEDS: THIAMINE HCL 100 MG TABLET (FP) PO SCH (09:25)
[2017-02-26] MEDS: PANTOPRAZOLE SODIUM 40 MG in SODIUM CHLORIDE 100 ML IVPB SCH (09:25)
[2017-02-26] MEDS: FENOFIBRIC ACID 135 MG CAP PO SCH (09:29)
--- NOTE | 2017-02-26 12:21 | PN ---
Progress Note, Physician Chief Complaint: Abdominal pain, acute pancreatitis, pancreatic abscess? History of Present Illness: NAD, hx of etoh use, pain improved upon analgesia admin, mid epigastric pain, CT abd showed possible abscess at pancreatic tail. seen by GI on IV abx still having low grade temps asymptomatic bradycardia, seen by Cardiology Complains of abdominal pain after consuming clear liquids requiring pain medication denies nausea, vomiting, has diarrhea-watery OOB independently - Current Medication List Current Medications: Active Medications Acetaminophen (Tylenol -) 650 mg PO Q6H PRN PRN Reason: FEVER Last Admin: 02/24/17 05:43 Dose: 650 mg Fenofibric Acid (Trilipix -) 135 mg PO DAILY [facility] Last Admin: 02/26/17 09:29 Dose: 135 mg Folic Acid (Folic Acid -) 1 mg PO DAILY [facility] Last Admin: 02/26/17 09:24 Dose: 1 mg Heparin Sodium (Porcine) (Heparin -) 5,000 unit SQ BID [facility] Last Admin: 02/26/17 09:24 Dose: 5,000 unit Hydromorphone HCl (Dilaudid Injection -) 2 mg IVPB Q4H PRN PRN Reason: PAIN Last Admin: 02/26/17 09:22 Dose: 2 mg Pantoprazole Sodium 40 mg/ (Sodium Chloride) 100 mls @ 200 mls/hr IVPB DAILY [facility] Last Admin: 02/26/17 09:25 Dose: 200 mls/hr Sodium Chloride (Normal Saline -) 1,000 mls @ 75 mls/hr IV ASDIR [facility] Last Admin: 02/25/17 22:07 Dose: Not Given Metronidazole (Flagyl 500mg Premixed Ivpb -) 100 mls @ 100 mls/hr IVPB Q8H-IV [facility] Last Admin: 02/26/17 09:24 Dose: 100 mls/hr Imipenem/Cilastatin Sodium 500 (mg/ Sodium Chloride) 100 mls @ 100 mls/hr IVPB Q8H-IV [facility] PRN Reason: Protocol Last Admin: 02/26/17 12:02 Dose: 100 mls/hr Potassium Chloride (K-Dur -) 40 meq PO DAILY [facility] Last Admin: 02/26/17 09:24 Dose: 40 meq Propranolol HCl (Inderal La -) 80 mg PO DAILY [facility] Last Admin: 02/26/17 09:25 Dose: 80 mg Rosuvastatin Calcium (Crestor -) 5 mg PO [facility] Last Admin: 02/25/17 21:12 Dose: 5 mg Thiamine HCl (Vitamin B1 -) 100 mg PO DAILY [facility] Last Admin: 02/26/17 09:25 Dose: 100 mg Valsartan (Diovan -) 160 mg PO DAILY [facility] Last Admin: 02/26/17 09:24 Dose: 160 mg - Objective Vital Signs: Vital Signs Temperature 99.7 F H 02/26/17 12:14 Pulse Rate 60 02/26/17 12:14 Respiratory Rate 20 02/26/17 12:14 Blood Pressure 155/98 02/26/17 12:14 O2 Sat by Pulse Oximetry (%) 95 02/26/17 09:00 Constitutional: Yes: Well Nourished, No Distress, Calm Cardiovascular: Yes: Regular Rate and Rhythm Respiratory: Yes: Regular Gastrointestinal: Yes: Tenderness, Epigastrium Musculoskeletal: Yes: WNL Extremities: Yes: WNL Edema: No Peripheral Pulses WNL: Yes Neurological: Yes: Alert, Oriented Psychiatric: Yes: Alert, Oriented Labs: CBC, BMP 02/26/17 06:00 02/26/17 06:00 INR, PTT INR 1.26 (0.82-1.09) H 02/21/17 06:00 Problem List - Problems (1) ETOH abuse Code(s): F10.10 - ALCOHOL ABUSE, UNCOMPLICATED (2) Fatty (change of) liver, not elsewhere classified Code(s): K76.0 - FATTY (CHANGE OF) LIVER, NOT ELSEWHERE CLASSIFIED (3) Bradycardia Code(s): R00.1 - BRADYCARDIA, UNSPECIFIED (4) HTN (hypertension) Code(s): I10 - ESSENTIAL (PRIMARY) HYPERTENSION Qualifiers: Hypertension type: essential hypertension Qualified Code(s): I10 - Essential (primary) hypertension (5) Alcoholic pancreatitis Code(s): K85.20 - ALCOHOL INDUCED ACUTE PANCREATITIS WITHOUT NECROSIS OR INFCT Qualifiers: Chronicity: acute Acute pancreatitis complication: unspecified Qualified Code(s): K85.20 - Alcohol induced acute pancreatitis without necrosis or infection (6) Pancreatic abscess Code(s): K85.90 - ACUTE PANCREATITIS WITHOUT NECROSIS OR INFECTION, UNSP Assessment/Plan -clear liquids, advance diet as per GI -DVT prophylaxis -PPI -IVF -IV abx -replenish Potassium with KCl po -Pain management- abdominal pain this am after consuming clear liquids. -alcohol withdrawal protocol- seen by psychiatry to establish need for rehabilitation- patient refuses at this time -bradycardia addressed by cardiology, appreciated -fevers likely due to inflammatory, seen by ID -Acetaminophen prn for fever over 100.0F -GI suggesting post pyloric feeding tube if abdominal pain and fevers continue.
--- NOTE | 2017-02-26 12:37 | PN ---
GI Progress Note Subjective: States that he wakes up with pain, the pain medication helps alleviate it for a short time and that he had more pain this morning after having his clear liquid breakfast. Temp 100 overnight - Objective Vital Signs: Vital Signs Temperature 99.7 F H 02/26/17 12:14 Pulse Rate 60 02/26/17 12:14 Respiratory Rate 20 02/26/17 12:14 Blood Pressure 155/98 02/26/17 12:14 O2 Sat by Pulse Oximetry (%) 95 02/26/17 09:00 Constitutional: Calm Eyes: No: Sclera Icterus Cardiovascular: Yes: Bradycardia. No: Murmur Respiratory: Yes: CTA Bilaterally Gastrointestinal Inspection: No: Distention ...Auscultate: Yes: Normoactive Bowel Sounds ...Palpate: Yes: Tenderness (TTP in epigastrium). No: Guarding, Splenomegaly Edema: No Neurological: Yes: Alert, Oriented Labs: CBC, BMP 02/26/17 06:00 02/26/17 06:00 INR, PTT INR 1.26 (0.82-1.09) H 02/21/17 06:00 Laboratory Tests 02/22/17 02/23/17 02/25/17 06:00 06:00 07:15 C-Reactive Protein 25.8 H D 22.7 H D 17.9 H D 02/26/17 06:00 C-Reactive Protein 16.2 H D Problem List - Problems (1) Alcoholic pancreatitis Assessment/Plan: with unorganized fluid collection on recent CT scan. No obvious necrosis noted While CRP is alma trending in a downward direction and WBC remains normal, Mr. Burdick still complains of epigastric pain that worsened after clear liquids. As I explained to him last week, given the prolonged nature of continued pain, development of pain after clear liquid diet and worsened CT scan findings, endoscopically placed post-pyloric feeding tube should be considered as a means of Mr. Burdick obtaining the necessary nutrition while resting the pancreas. I explained that nutrition is a palumbo element to continued recovery from pancreatitis. While I offered to perform this today, he seemed frustrated regarding the matter and asked to speak to both Dr. Avelar and Dr. Bingham prior to making a decision. he called Dr. Levy's office himself and I spoke to Dr. Bingham directly regarding this. Dr. Bingham advised that he would speak to Mr. Burdick later today. For now: Continue clears if he can tolerate. Added clear ensure to his diet. Post pyloric feeding tube if Mr. Burdick is amenable I again reenfocred the need for continued alcophol cessation. Mr. Burdick said "that would be hard". Consider a psych evaluation for further management of his alcoholism Code(s): K85.20 - ALCOHOL INDUCED ACUTE PANCREATITIS WITHOUT NECROSIS OR INFCT Qualifiers: Chronicity: acute Acute pancreatitis complication: unspecified Qualified Code(s): K85.20 - Alcohol induced acute pancreatitis without necrosis or infection
[2017-02-26 13:03] LABS: AMYLASE 63 U/L (25-115)
[2017-02-26] MEDS: amLODIPine BESYLATE 5 MG TABLET (FP) PO SCH (13:56)
--- NOTE | 2017-02-26 14:23 | PN ---
Progress Note (short form) - Note Progress Note: feels about the same, pain unchanged less fevers tolerating clears no vomiting no SOB Vital Signs Period Temp Pulse Resp BP Sys/Ojeda Pulse Ox Last 24 Hr 98.4 F-100.0 F 54-66 18-20 151-174/90-107 95-95 cor-rrr lungs clear abd soft,nt ext no edema CBC, BMP 02/26/17 06:00 02/26/17 06:00 Laboratory Tests 02/19/17 02/20/17 02/20/17 06:00 06:00 06:30 Plt Count 78 L C-Reactive Protein 12.5 H 25.2 H D 02/21/17 02/22/17 02/23/17 06:00 06:00 06:00 Plt Count C-Reactive Protein 31.8 H D 25.8 H D 22.7 H D 02/25/17 02/26/17 07:15 06:00 Plt Count C-Reactive Protein 17.9 H D 16.2 H D Current Medications Acetaminophen (Tylenol -) 650 mg PO Q6H PRN PRN Reason: FEVER Last Admin: 02/24/17 05:43 Dose: 650 mg Fenofibric Acid (Trilipix -) 135 mg PO DAILY [facility] Last Admin: 02/25/17 09:19 Dose: 135 mg Folic Acid (Folic Acid -) 1 mg PO DAILY [facility] Last Admin: 02/25/17 09:18 Dose: 1 mg Hydromorphone HCl (Dilaudid Injection -) 2 mg IVPB Q4H PRN PRN Reason: PAIN Last Admin: 02/25/17 08:52 Dose: 2 mg Pantoprazole Sodium 40 mg/ (Sodium Chloride) 100 mls @ 200 mls/hr IVPB DAILY [facility] Last Admin: 02/25/17 09:17 Dose: 200 mls/hr Sodium Chloride (Normal Saline -) 1,000 mls @ 150 mls/hr IV ASDIR [facility] Last Admin: 02/25/17 08:01 Dose: Not Given Metronidazole (Flagyl 500mg Premixed Ivpb -) 100 mls @ 100 mls/hr IVPB Q8H-IV [facility] Last Admin: 02/25/17 09:16 Dose: 100 mls/hr Imipenem/Cilastatin Sodium 500 (mg/ Sodium Chloride) 100 mls @ 100 mls/hr IVPB Q8H-IV [facility] PRN Reason: Protocol Last Admin: 02/25/17 09:16 Dose: 100 mls/hr Propranolol HCl (Inderal La -) 80 mg PO DAILY [facility] Last Admin: 02/25/17 09:18 Dose: 80 mg Rosuvastatin Calcium (Crestor -) 5 mg PO HS [facility] Last Admin: 02/24/17 22:00 Dose: Not Given Thiamine HCl (Vitamin B1 -) 100 mg PO DAILY [facility] Last Admin: 02/25/17 09:20 Dose: 100 mg Valsartan (Diovan -) 160 mg PO DAILY [facility] Last Admin: 02/25/17 09:17 Dose: [address] scan- ?collection tail of pancreas a/p pancreatitis- suspect improving with decreasing crp and resolved thrombocytopenia on imipenem, repeat imaging per GI etoh use Problem List - Problems (1) Alcoholic pancreatitis Code(s): K85.20 - ALCOHOL INDUCED ACUTE PANCREATITIS WITHOUT NECROSIS OR INFCT Qualifiers: Chronicity: acute Acute pancreatitis complication: unspecified Qualified Code(s): K85.20 - Alcohol induced acute pancreatitis without necrosis or infection (2) Fever Code(s): R50.9 - FEVER, UNSPECIFIED
--- NOTE | 2017-02-26 14:55 | PN ---
Progress Note (short form) - Note Progress Note: patient seen and examined. chart reviewed. c/o pain. On abx. Constitutional: Yes: Calm Eyes: No: Sclera Icterus HENT: Yes: Atraumatic, Normocephalic Neck: Yes: Supple, Trachea Midline Cardiovascular: Yes: Regular Rate and Rhythm Respiratory: Yes: Regular, CTA Bilaterally Gastrointestinal: Yes: Normal Bowel Sounds, +TTP. No: Hepatomegaly, Splenomegaly Extremities: Yes: WNL Edema: No Last Vital Signs Temp Pulse Resp BP Pulse Ox 99.7 F H 60 20 155/98 95 02/26/17 12:14 02/26/17 12:14 02/26/17 12:14 02/26/17 12:14 02/26/17 09:00 CBC, BMP 02/26/17 06:00 02/26/17 06:00 Current Medications Generic Name Dose Route Start Last Admin Trade Name Freq PRN Reason Stop Dose Admin Acetaminophen 650 mg 02/20/17 17:24 02/24/17 05:43 Tylenol - PO 650 mg Q6H PRN Administration FEVER Amlodipine Besylate 5 mg 02/26/17 12:30 02/26/17 13:56 Norvasc - PO 5 mg DAILY [facility] Administration Fenofibric Acid 135 mg 02/23/17 11:00 02/26/17 09:29 Trilipix - PO 135 mg DAILY [facility] Administration Folic Acid 1 mg 02/22/17 11:30 02/26/17 09:24 Folic Acid - PO 1 mg DAILY [facility] Administration Heparin Sodium (Porcine) 5,000 unit 02/25/17 22:00 02/26/17 09:24 Heparin - SQ 5,000 unit BID [facility] Administration Hydromorphone HCl 2 mg 02/24/17 21:14 02/26/17 09:22 Dilaudid Injection - IVPB 2 mg Q4H PRN Administration PAIN Pantoprazole Sodium 40 mg/ 100 mls @ 200 mls/hr 02/18/17 20:00 02/26/17 09:25 Sodium Chloride IVPB 200 mls/hr DAILY [facility] Administration Sodium Chloride 1,000 mls @ 75 mls/hr 02/22/17 20:00 02/25/17 22:07 Normal Saline - IV Not Given ASDIR [facility] Metronidazole 100 mls @ 100 mls/hr 02/24/17 12:00 02/26/17 09:24 Flagyl 500mg Premixed Ivpb - IVPB 100 mls/hr Q8H-IV [facility] Administration Imipenem/Cilastatin Sodium 500 100 mls @ 100 mls/hr 02/24/17 18:00 02/26/17 12: 02 mg/ Sodium Chloride IVPB 100 mls/hr Q8H-IV [facility] Administration Protocol Potassium Chloride 40 meq 02/26/17 10:00 02/26/17 09:24 K-Dur - PO 40 meq DAILY [facility] Administration Propranolol HCl 80 mg 02/23/17 10:00 02/26/17 09:25 Inderal La - PO 80 mg DAILY [facility] Administration Rosuvastatin Calcium 5 mg 02/23/17 22:00 02/25/17 21:12 Crestor - PO 5 mg HS [facility] Administration Thiamine HCl 100 mg 02/22/17 11:30 02/26/17 09:25 Vitamin B1 - PO 100 mg DAILY [facility] Administration Valsartan 160 mg 02/23/17 09:00 02/26/17 09:24 Diovan - PO 160 mg DAILY [facility] Administration Assessment/Plan: Thrombocytopenia alcohol intoxication acute alcohol induced pancreatitis Poor nutrition -thrombocytopenia, resolved. -no evidence of hemolysis, HIT is unlikely. Nl B12 and folate. -spleen unremarkable in the CT scan -advised on abstinence. -monitor Hgb, likely decreased in the acute setting, continue to monitor for now. -ID/GI notes noted. Problem List - Problems (1) Alcoholic pancreatitis Code(s): K85.20 - ALCOHOL INDUCED ACUTE PANCREATITIS WITHOUT NECROSIS OR INFCT Qualifiers: Chronicity: acute Acute pancreatitis complication: unspecified Qualified Code(s): K85.20 - Alcohol induced acute pancreatitis without necrosis or infection (2) ETOH abuse Code(s): F10.10 - ALCOHOL ABUSE, UNCOMPLICATED (3) Thrombocytopenia Code(s): D69.6 - THROMBOCYTOPENIA, UNSPECIFIED
[2017-02-26] MEDS ORDERED: PT OWN MED DRAWER 7, Y5N ONE ×2 (17:18→20:37)
--- NOTE | 2017-02-26 18:14 | PN ---
Progress Note, Physician Chief Complaint: Intermittent abdominal/epigastric pain Fluid collection suggests abscess History of Present Illness: Patient was seen and examined. Awake and alert. Chart was reviewed Denies chest pain, SOB or palpitations As outlined above - Current Medication List Current Medications: Active Medications Acetaminophen (Tylenol -) 650 mg PO Q6H PRN PRN Reason: FEVER Last Admin: 02/24/17 05:43 Dose: 650 mg Amlodipine Besylate (Norvasc -) 5 mg PO DAILY [facility] Last Admin: 02/26/17 13:56 Dose: 5 mg Fenofibric Acid (Trilipix -) 135 mg PO DAILY [facility] Last Admin: 02/26/17 09:29 Dose: 135 mg Folic Acid (Folic Acid -) 1 mg PO DAILY [facility] Last Admin: 02/26/17 09:24 Dose: 1 mg Heparin Sodium (Porcine) (Heparin -) 5,000 unit SQ BID [facility] Last Admin: 02/26/17 09:24 Dose: 5,000 unit Hydromorphone HCl (Dilaudid Injection -) 2 mg IVPB Q4H PRN PRN Reason: PAIN Last Admin: 02/26/17 16:22 Dose: 2 mg Pantoprazole Sodium 40 mg/ (Sodium Chloride) 100 mls @ 200 mls/hr IVPB DAILY [facility] Last Admin: 02/26/17 09:25 Dose: 200 mls/hr Sodium Chloride (Normal Saline -) 1,000 mls @ 75 mls/hr IV ASDIR [facility] Last Admin: 02/25/17 22:07 Dose: Not Given Metronidazole (Flagyl 500mg Premixed Ivpb -) 100 mls @ 100 mls/hr IVPB Q8H-IV [facility] Last Admin: 02/26/17 17:36 Dose: 100 mls/hr Imipenem/Cilastatin Sodium 500 (mg/ Sodium Chloride) 100 mls @ 100 mls/hr IVPB Q8H-IV [facility] PRN Reason: Protocol Last Admin: 02/26/17 17:36 Dose: 100 mls/hr Potassium Chloride (K-Dur -) 40 meq PO DAILY [facility] Last Admin: 02/26/17 09:24 Dose: 40 meq Propranolol HCl (Inderal La -) 80 mg PO DAILY [facility] Last Admin: 02/26/17 09:25 Dose: 80 mg Rosuvastatin Calcium (Crestor -) 5 mg PO HS [facility] Last Admin: 02/25/17 21:12 Dose: 5 mg Thiamine HCl (Vitamin B1 -) 100 mg PO DAILY [facility] Last Admin: 02/26/17 09:25 Dose: 100 mg Valsartan (Diovan -) 160 mg PO DAILY [facility] Last Admin: 02/26/17 09:24 Dose: 160 mg - Objective Vital Signs: Vital Signs Temperature 100 F H 02/26/17 17:21 Pulse Rate 67 02/26/17 17:21 Respiratory Rate 20 02/26/17 17:21 Blood Pressure 145/88 02/26/17 17:21 O2 Sat by Pulse Oximetry (%) 95 02/26/17 09:00 Neck: Yes: Supple Cardiovascular: Yes: Regular Rate and Rhythm, S1, S2 Respiratory: Yes: CTA Bilaterally Gastrointestinal: Yes: Normal Bowel Sounds, Soft. No: Tenderness Edema: No Additional Findings/Remarks: - Review of Systems Constitutional: denies: Chills, Fever Cardiovascular: denies: Chest Pain, Palpitations, Shortness of Breath Respiratory: denies: Cough, Hemoptysis, Orthopnea, PND, SOB, SOB on Exertion Gastrointestinal: reports: Abdominal Pain. denies: Constipation, Diarrhea, Melena, Nausea, Rectal Bleeding, Vomiting Musculoskeletal: denies: Joint Pain Neurological: denies: Dizziness, Headache, Seizure, Syncope Labs: CBC, BMP 02/26/17 06:00 02/26/17 06:00 Problem List - Problems (1) Alcoholic pancreatitis Code(s): K85.20 - ALCOHOL INDUCED ACUTE PANCREATITIS WITHOUT NECROSIS OR INFCT Qualifiers: Chronicity: acute Acute pancreatitis complication: unspecified Qualified Code(s): K85.20 - Alcohol induced acute pancreatitis without necrosis or infection (2) ETOH abuse Code(s): F10.10 - ALCOHOL ABUSE, UNCOMPLICATED (3) Bradycardia Code(s): R00.1 - BRADYCARDIA, UNSPECIFIED (4) HLD (hyperlipidemia) Code(s): E78.5 - HYPERLIPIDEMIA, UNSPECIFIED Qualifiers: Hyperlipidemia type: mixed hyperlipidemia Qualified Code(s): E78.2 - Mixed hyperlipidemia (5) HTN (hypertension) Code(s): I10 - ESSENTIAL (PRIMARY) HYPERTENSION Qualifiers: Hypertension type: essential hypertension Qualified Code(s): I10 - Essential (primary) hypertension Assessment/Plan 1. Acute pancreatitis secondary to ETOH dependency now with probable abscess and fluid collection 2. Hypertension 3. Hypercholesterolemia PLAN: 1. GI input noted. Possible further intervention to be decided 2. Continue Valsartan as tolerated - Also patient was given Amlodipine ( uptitrate as needed) 3. Currently restarted on Propranolol - monitor HR 4. Currently patient is on Crestor. 5. Analgesics PRN 6. Continue antibiotic coverage Further plans are to follow Urbano Perez MD
[2017-02-26] MEDS: SODIUM CHLORIDE 1,000 ML IV SCH ×2 (21:09→21:13)
[2017-02-26] MEDS: ROSUVASTATIN CA 5 MG TABLET (FP) PO SCH (22:13)
[2017-02-27] MEDS: IMIPENEM/CILASTATIN SODIUM 500 MG in SODIUM CHLORIDE 100 ML IVPB SCH ×3 (01:30→17:17)
[2017-02-27] MEDS: HYDROmorphone HCL CARPU-JECT 2 MG/1 ML DISP.SYRIN IVPB PRN ×3 (02:04→20:02)
[2017-02-27] MEDS: METRONIDAZOLE 500 MG PREMIXED 100 ML IVPB SCH ×3 (02:35→17:18)
--- NOTE | 2017-02-27 08:11 | PN ---
Progress Note, Physician History of Present Illness: INTERMITTENT PAIN AFTER EATING NO CP OR SOB - Current Medication List Current Medications: Active Medications Acetaminophen (Tylenol -) 650 mg PO Q6H PRN PRN Reason: FEVER Last Admin: 02/24/17 05:43 Dose: 650 mg Amlodipine Besylate (Norvasc -) 5 mg PO DAILY [facility] Last Admin: 02/26/17 13:56 Dose: 5 mg Fenofibric Acid (Trilipix -) 135 mg PO DAILY [facility] Last Admin: 02/26/17 09:29 Dose: 135 mg Folic Acid (Folic Acid -) 1 mg PO DAILY [facility] Last Admin: 02/26/17 09:24 Dose: 1 mg Heparin Sodium (Porcine) (Heparin -) 5,000 unit SQ BID [facility] Last Admin: 02/26/17 21:16 Dose: 5,000 unit Hydromorphone HCl (Dilaudid Injection -) 2 mg IVPB Q4H PRN PRN Reason: PAIN Last Admin: 02/27/17 02:04 Dose: 2 mg Pantoprazole Sodium 40 mg/ (Sodium Chloride) 100 mls @ 200 mls/hr IVPB DAILY [facility] Last Admin: 02/26/17 09:25 Dose: 200 mls/hr Sodium Chloride (Normal Saline -) 1,000 mls @ 75 mls/hr IV ASDIR [facility] Last Admin: 02/26/17 21:13 Dose: Not Given Metronidazole (Flagyl 500mg Premixed Ivpb -) 100 mls @ 100 mls/hr IVPB Q8H-IV [facility] Last Admin: 02/27/17 02:35 Dose: 100 mls/hr Imipenem/Cilastatin Sodium 500 (mg/ Sodium Chloride) 100 mls @ 100 mls/hr IVPB Q8H-IV [facility] PRN Reason: Protocol Last Admin: 02/27/17 01:30 Dose: 100 mls/hr Potassium Chloride (K-Dur -) 40 meq PO DAILY [facility] Last Admin: 02/26/17 09:24 Dose: 40 meq Propranolol HCl (Inderal La -) 80 mg PO DAILY [facility] Last Admin: 02/26/17 09:25 Dose: 80 mg Rosuvastatin Calcium (Crestor -) 5 mg PO HS [facility] Last Admin: 02/26/17 22:13 Dose: 5 mg Thiamine HCl (Vitamin B1 -) 100 mg PO DAILY [facility] Last Admin: 02/26/17 09:25 Dose: 100 mg Valsartan (Diovan -) 160 mg PO DAILY [facility] Last Admin: 02/26/17 09:24 Dose: 160 mg - Objective Vital Signs: Vital Signs Temperature 97.8 F 02/27/17 06:45 Pulse Rate 53 L 02/27/17 06:45 Respiratory Rate 18 02/27/17 06:45 Blood Pressure 145/91 02/27/17 06:45 O2 Sat by Pulse Oximetry (%) 96 02/26/17 21:00 Cardiovascular: Yes: Regular Rate and Rhythm Respiratory: Yes: Regular, CTA Bilaterally Gastrointestinal: Yes: Normal Bowel Sounds, Soft, Tenderness, Epigastrium Edema: No Labs: CBC, BMP 02/26/17 06:00 02/26/17 06:00 INR, PTT INR 1.26 (0.82-1.09) H 02/21/17 06:00 Problem List - Problems (1) Alcoholic pancreatitis Assessment/Plan: NPO--- CT SCAN D/W RADIOLOGIST--NO ABSCESS--FLUID AROUND PANCREAS IVF/AV ABX GI ON BOARD with unorganized fluid collection on recent CT scan. No obvious necrosis noted While CRP is alma trending in a downward direction and WBC remains normal, Mr. Burdick still complains of epigastric pain that worsened after clear liquids. As I explained to him last week, given the prolonged nature of continued pain, development of pain after clear liquid diet and worsened CT scan findings, endoscopically placed post-pyloric feeding tube should be considered as a means of Mr. Burdick obtaining the necessary nutrition while resting the pancreas. I explained that nutrition is a palumbo element to continued recovery from pancreatitis MONITOR LABS Code(s): K85.20 - ALCOHOL INDUCED ACUTE PANCREATITIS WITHOUT NECROSIS OR INFCT Qualifiers: Chronicity: acute Acute pancreatitis complication: unspecified Qualified Code(s): K85.20 - Alcohol induced acute pancreatitis without necrosis or infection (2) ETOH abuse Assessment/Plan: MONITOR ABSTINENCE DISCUSSED Code(s): F10.10 - ALCOHOL ABUSE, UNCOMPLICATED (3) Fatty (change of) liver, not elsewhere classified Assessment/Plan: AVOID ETOH COMPLIANCE Code(s): K76.0 - FATTY (CHANGE OF) LIVER, NOT ELSEWHERE CLASSIFIED (4) Bradycardia Assessment/Plan: CARDIO ON BOARD Code(s): R00.1 - BRADYCARDIA, UNSPECIFIED (5) HLD (hyperlipidemia) Assessment/Plan: AWAIT LIPIDS Code(s): E78.5 - HYPERLIPIDEMIA, UNSPECIFIED Qualifiers: Hyperlipidemia type: mixed hyperlipidemia Qualified Code(s): E78.2 - Mixed hyperlipidemia (6) HTN (hypertension) Assessment/Plan: MONITOR ON CURRENT MEDS NORVASC ADDED Code(s): I10 - ESSENTIAL (PRIMARY) HYPERTENSION Qualifiers: Hypertension type: essential hypertension Qualified Code(s): I10 - Essential (primary) hypertension
[2017-02-27] MEDS ORDERED: PT OWN MED DRAWER 7, Y5N ONE ×3 (09:10→21:59)
[2017-02-27] MEDS: VALSARTAN 80 MG TABLET (UD) PO SCH (09:18)
[2017-02-27] MEDS: POTASSIUM CHLORIDE TABS 20 MEQ TABLET.ER (FP) PO SCH (09:19)
[2017-02-27] MEDS: amLODIPine BESYLATE 5 MG TABLET (FP) PO SCH (09:19)
[2017-02-27] MEDS: THIAMINE HCL 100 MG TABLET (FP) PO SCH (09:19)
[2017-02-27] MEDS: FOLIC ACID 1 MG TABLET (FP) PO SCH (09:20)
[2017-02-27] MEDS: PANTOPRAZOLE SODIUM 40 MG in SODIUM CHLORIDE 100 ML IVPB SCH (09:20)
[2017-02-27] MEDS: FENOFIBRIC ACID 135 MG CAP PO SCH (09:20)
[2017-02-27] MEDS: HEPARIN NA (PORCINE) 5,000 UNITS/ML 1ML VIAL SQ SCH ×2 (09:21→22:01)
[2017-02-27] MEDS: SODIUM CHLORIDE 1,000 ML IV SCH (10:00)
[2017-02-27 10:25] LABS: BASOPHIL 0.6 % (0-2.0); EOSINOPHIL 3.3 % (0-4.5); MCH 30.4 pg (25.7-33.7); MCHC 33.6 g/dl (32.0-35.9); MEAN CELL VOLUME 90.5 fl (80-96); MEAN PLT VOLUME 8.3 fl (7.5-11.1); NEUTROPHILS 65.4 % (42.8-82.8); PLATELET COUNT 203 K/MM3 (134-434); RDW 14.5 % (11.9-15.9); WHITE BLOOD COUNT 5.3 K/mm3 (4.0-10.0)
[2017-02-27 10:55] LABS: ANION GAP 10 (8-16); CO2 26 mmol/L (21-32); CREATININE 0.9 mg/dL (0.7-1.3); GLUCOSE,RANDOM 90 mg/dL (74-106)
--- NOTE | 2017-02-27 11:50 | PN ---
Progress Note, Physician History of Present Illness: Continued post-prandial epigastric pain requiring analgesia. - Current Medication List Current Medications: Active Medications Acetaminophen (Tylenol -) 650 mg PO Q6H PRN PRN Reason: FEVER Last Admin: 02/24/17 05:43 Dose: 650 mg Amlodipine Besylate (Norvasc -) 5 mg PO DAILY [facility] Last Admin: 02/27/17 09:19 Dose: 5 mg Fenofibric Acid (Trilipix -) 135 mg PO DAILY [facility] Last Admin: 02/27/17 09:20 Dose: 135 mg Folic Acid (Folic Acid -) 1 mg PO DAILY [facility] Last Admin: 02/27/17 09:20 Dose: 1 mg Heparin Sodium (Porcine) (Heparin -) 5,000 unit SQ BID [facility] Last Admin: 02/27/17 09:21 Dose: Not Given Hydromorphone HCl (Dilaudid Injection -) 2 mg IVPB Q4H PRN PRN Reason: PAIN Last Admin: 02/27/17 09:28 Dose: 2 mg Pantoprazole Sodium 40 mg/ (Sodium Chloride) 100 mls @ 200 mls/hr IVPB DAILY [facility] Last Admin: 02/27/17 09:20 Dose: 200 mls/hr Metronidazole (Flagyl 500mg Premixed Ivpb -) 100 mls @ 100 mls/hr IVPB Q8H-IV [facility] Last Admin: 02/27/17 09:17 Dose: 100 mls/hr Imipenem/Cilastatin Sodium 500 (mg/ Sodium Chloride) 100 mls @ 100 mls/hr IVPB Q8H-IV [facility] PRN Reason: Protocol Last Admin: 02/27/17 09:20 Dose: 100 mls/hr Sodium Chloride (Normal Saline -) 1,000 mls @ 150 mls/hr IV ASDIR [facility] Potassium Chloride (K-Dur -) 40 meq PO DAILY [facility] Last Admin: 02/27/17 09:19 Dose: 40 meq Propranolol HCl (Inderal La -) 80 mg PO DAILY [facility] Last Admin: 02/27/17 09:18 Dose: 80 mg Rosuvastatin Calcium (Crestor -) 5 mg PO HS [facility] Last Admin: 02/26/17 22:13 Dose: 5 mg Thiamine HCl (Vitamin B1 -) 100 mg PO DAILY [facility] Last Admin: 02/27/17 09:19 Dose: 100 mg Valsartan (Diovan -) 160 mg PO DAILY [facility] Last Admin: 02/27/17 09:18 Dose: 160 mg - Objective Vital Signs: Vital Signs Temperature 97.8 F 02/27/17 06:45 Pulse Rate 53 L 02/27/17 06:45 Respiratory Rate 18 02/27/17 06:45 Blood Pressure 145/91 02/27/17 06:45 O2 Sat by Pulse Oximetry (%) 96 02/27/17 09:00 Constitutional: Yes: No Distress, Calm Neck: Yes: Supple Cardiovascular: Yes: Regular Rate and Rhythm Respiratory: Yes: Regular, Diminished Gastrointestinal: Yes: Soft, Hypoactive Bowel Sounds, Tenderness, Epigastrium Edema: No Labs: CBC, BMP 02/27/17 09:53 02/27/17 09:53 INR, PTT INR 1.26 (0.82-1.09) H 02/21/17 06:00 Problem List - Problems (1) Alcoholic pancreatitis Code(s): K85.20 - ALCOHOL INDUCED ACUTE PANCREATITIS WITHOUT NECROSIS OR INFCT Qualifiers: Chronicity: acute Acute pancreatitis complication: unspecified Qualified Code(s): K85.20 - Alcohol induced acute pancreatitis without necrosis or infection (2) Fluid collection of pancreas Code(s): K86.89 - OTHER SPECIFIED DISEASES OF PANCREAS (3) Chronic alcoholism Code(s): F10.20 - ALCOHOL DEPENDENCE, UNCOMPLICATED (4) HLD (hyperlipidemia) Code(s): E78.5 - HYPERLIPIDEMIA, UNSPECIFIED Qualifiers: Hyperlipidemia type: mixed hyperlipidemia Qualified Code(s): E78.2 - Mixed hyperlipidemia (5) HTN (hypertension) Code(s): I10 - ESSENTIAL (PRIMARY) HYPERTENSION Qualifiers: Hypertension type: essential hypertension Qualified Code(s): I10 - Essential (primary) hypertension (6) Hypokalemia Code(s): E87.6 - HYPOKALEMIA Assessment/Plan 1. Acute pancreatitis secondary to ETOH abuse/dependency (history of recurrent pancreatitis), with possible abscess formation 2. Hypertension 3. Mixed Hyperlipidemia PLAN: 1. Continue Valsartan 160 qd and titrate as needed 2. Continue Propranolol 80 qd (as outlined in prior notes history of asymptomatic sinus bradycardia) 3. Continue Crestor 5 qhs and Trilipix 135 qd 4. Analgesics and diet as per the primary team, replete K 5. Abx course per GI and ID in reference to the above noted finding of possible pancreatic abscess formation, planned for post-pyloric feeding to rest pancreas
--- NOTE | 2017-02-27 12:38 | PN ---
Progress Note (short form) - Note Progress Note: Patient amenable to enteral tube placement. Continued abdominal pain, pain after clear liquid diet / tenderness to palpation in the upper abdomen. We discussed potential risks of the procedure like but not limited to bleeding, perforation requiring surgery to repair, infection, sedation medication effects all of which could be potentially life threatening. Problem List - Problems (1) Alcoholic pancreatitis Code(s): K85.20 - ALCOHOL INDUCED ACUTE PANCREATITIS WITHOUT NECROSIS OR INFCT Qualifiers: Chronicity: acute Acute pancreatitis complication: unspecified Qualified Code(s): K85.20 - Alcohol induced acute pancreatitis without necrosis or infection
[2017-02-27] MEDS ORDERED: PROPOFOL 20 ML ONE ×2 (12:50)
[2017-02-27] MEDS ORDERED: LIDOCAINE HCL/PF 2% SDV 5ML VIAL ONE (12:50)
--- NOTE | 2017-02-27 13:32 | PN ---
Progress Note (short form) - Note Progress Note: EGD complete Enteral tube endoscopically guided into 3rd portion duodenum Problem List - Problems (1) Alcoholic pancreatitis Code(s): K85.20 - ALCOHOL INDUCED ACUTE PANCREATITIS WITHOUT NECROSIS OR INFCT Qualifiers: Chronicity: acute Acute pancreatitis complication: unspecified Qualified Code(s): K85.20 - Alcohol induced acute pancreatitis without necrosis or infection
--- NOTE | 2017-02-27 16:02 | PN ---
Progress Note (short form) - Note Progress Note: Spoke with Dr. Whitney re: enteral tube position. appeared to be terminating at the level of the junction of 1st/2nd portion duodenum. Stylet removed and orders placed to initiate tube feeds Problem List - Problems (1) Alcoholic pancreatitis Code(s): K85.20 - ALCOHOL INDUCED ACUTE PANCREATITIS WITHOUT NECROSIS OR INFCT Qualifiers: Chronicity: acute Acute pancreatitis complication: unspecified Qualified Code(s): K85.20 - Alcohol induced acute pancreatitis without necrosis or infection
[2017-02-27] MEDS: BENZOCAINE/MENTH/CETYLPYRD CL 1 EACH LOZENGE MM PRN (17:18)
[2017-02-27] MEDS: ROSUVASTATIN CA 5 MG TABLET (FP) PO SCH (22:01)
[2017-02-28] MEDS: IMIPENEM/CILASTATIN SODIUM 500 MG in SODIUM CHLORIDE 100 ML IVPB SCH ×5 (01:37→21:24)
[2017-02-28] MEDS: METRONIDAZOLE 500 MG PREMIXED 100 ML IVPB SCH ×2 (02:15→09:37)
[2017-02-28] MEDS: ACETAMINOPHEN 325 MG TABLET (FP) PO PRN (02:43)
[2017-02-28] MEDS: SODIUM CHLORIDE 1,000 ML IV SCH ×2 (02:57→15:42)
--- NOTE | 2017-02-28 08:37 | PN ---
Progress Note, Physician - Current Medication List Current Medications: Active Medications Acetaminophen (Tylenol -) 650 mg PO Q6H PRN PRN Reason: FEVER Last Admin: 02/28/17 02:43 Dose: 650 mg Amlodipine Besylate (Norvasc -) 5 mg PO DAILY [facility] Last Admin: 02/27/17 09:19 Dose: 5 mg Benzocaine/Menthol (Cepacol Lozenge -) 1 each MM Q6H PRN PRN Reason: SORE THROAT Last Admin: 02/27/17 17:18 Dose: 1 each Fenofibric Acid (Trilipix -) 135 mg PO DAILY [facility] Last Admin: 02/27/17 09:20 Dose: 135 mg Folic Acid (Folic Acid -) 1 mg PO DAILY [facility] Last Admin: 02/27/17 09:20 Dose: 1 mg Heparin Sodium (Porcine) (Heparin -) 5,000 unit SQ BID [facility] Last Admin: 02/27/17 22:01 Dose: 5,000 unit Pantoprazole Sodium 40 mg/ (Sodium Chloride) 100 mls @ 200 mls/hr IVPB DAILY [facility] Last Admin: 02/27/17 09:20 Dose: 200 mls/hr Metronidazole (Flagyl 500mg Premixed Ivpb -) 100 mls @ 100 mls/hr IVPB Q8H-IV [facility] Last Admin: 02/28/17 02:15 Dose: 100 mls/hr Imipenem/Cilastatin Sodium 500 (mg/ Sodium Chloride) 100 mls @ 100 mls/hr IVPB Q8H-IV [facility] PRN Reason: Protocol Last Admin: 02/28/17 01:37 Dose: 100 mls/hr Sodium Chloride (Normal Saline -) 1,000 mls @ 150 mls/hr IV ASDIR [facility] Last Admin: 02/28/17 02:57 Dose: 150 mls/hr Potassium Chloride (K-Dur -) 40 meq PO DAILY [facility] Last Admin: 02/27/17 09:19 Dose: 40 meq Propranolol HCl (Inderal La -) 80 mg PO DAILY [facility] Last Admin: 02/27/17 09:18 Dose: 80 mg Rosuvastatin Calcium (Crestor -) 5 mg PO HS [facility] Last Admin: 02/27/17 22:01 Dose: 5 mg Thiamine HCl (Vitamin B1 -) 100 mg PO DAILY [facility] Last Admin: 02/27/17 09:19 Dose: 100 mg Valsartan (Diovan -) 160 mg PO DAILY [facility] Last Admin: 02/27/17 09:18 Dose: 160 mg - Objective Vital Signs: Vital Signs Temperature 97.6 F 02/28/17 06:00 Pulse Rate 62 02/28/17 06:00 Respiratory Rate 18 02/28/17 06:00 Blood Pressure 140/81 02/28/17 06:00 O2 Sat by Pulse Oximetry (%) 97 02/27/17 21:00 Cardiovascular: Yes: Regular Rate and Rhythm Respiratory: Yes: Regular, CTA Bilaterally Gastrointestinal: Yes: Normal Bowel Sounds, Soft, Tenderness, Epigastrium ( minimal) Labs: CBC, BMP 02/27/17 09:53 02/27/17 09:53 INR, PTT INR 1.26 (0.82-1.09) H 02/21/17 06:00 Problem List - Problems (1) Alcoholic pancreatitis Code(s): K85.20 - ALCOHOL INDUCED ACUTE PANCREATITIS WITHOUT NECROSIS OR INFCT Qualifiers: Chronicity: acute Acute pancreatitis complication: unspecified Qualified Code(s): K85.20 - Alcohol induced acute pancreatitis without necrosis or infection (2) ETOH abuse Code(s): F10.10 - ALCOHOL ABUSE, UNCOMPLICATED (3) Fatty (change of) liver, not elsewhere classified Code(s): K76.0 - FATTY (CHANGE OF) LIVER, NOT ELSEWHERE CLASSIFIED (4) Bradycardia Code(s): R00.1 - BRADYCARDIA, UNSPECIFIED (5) HLD (hyperlipidemia) Code(s): E78.5 - HYPERLIPIDEMIA, UNSPECIFIED Qualifiers: Hyperlipidemia type: mixed hyperlipidemia Qualified Code(s): E78.2 - Mixed hyperlipidemia (6) HTN (hypertension) Code(s): I10 - ESSENTIAL (PRIMARY) HYPERTENSION Qualifiers: Hypertension type: essential hypertension Qualified Code(s): I10 - Essential (primary) hypertension Assessment/Plan - Problems (1) Fever Assessment/Plan: elevated CRP ID on case iv negro continues to have fever CT abdomen done given the patients pain ( off the pain meds) to r/0 pancreatic abscess--results pending Code(s): R50.9 - FEVER, UNSPECIFIED (2) Hypokalemia Assessment/Plan: follow labs and correct Code(s): E87.6 - HYPOKALEMIA (3) Alcoholic pancreatitis Assessment/Plan: Enteral tube endoscopically guided into 3rd portion duodenum ivf rate now 100cc /hr ct of the abdomen -d/w pt Code(s): K85.20 - ALCOHOL INDUCED ACUTE PANCREATITIS WITHOUT NECROSIS OR INFCT Qualifiers: Chronicity: acute Acute pancreatitis complication: unspecified Qualified Code(s): K85.20 - Alcohol induced acute pancreatitis without necrosis or infection (4) HLD (hyperlipidemia) Assessment/Plan: statin and fenofibrate resumed Code(s): E78.5 - HYPERLIPIDEMIA, UNSPECIFIED (5) HTN (hypertension) Assessment/Plan: diovan increased resume propanolol Code(s): I10 - ESSENTIAL (PRIMARY) HYPERTENSION Qualifiers: Hypertension type: essential hypertension Qualified Code(s): I10 - Essential (primary) hypertension (6) ETOH abuse Assessment/Plan: librium protocol Code(s): F10.10 - ALCOHOL ABUSE, UNCOMPLICATED (7) Thrombocytopenia Assessment/Plan: platelet count improving heme eval noted Code(s): D69.6 - THROMBOCYTOPENIA, UNSPECIFIED (8) Tremor Assessment/Plan: hand tremor currently on librium propanolol resumed Code(s): R25.1 - TREMOR, UNSPECIFIED
[2017-02-28] MEDS ORDERED: PT OWN MED DRAWER 7, Y5N ONE ×2 (09:24→15:33)
[2017-02-28] MEDS: VALSARTAN 80 MG TABLET (UD) PO SCH (09:38)
[2017-02-28] MEDS: FOLIC ACID 1 MG TABLET (FP) PO SCH (09:38)
[2017-02-28] MEDS: POTASSIUM CHLORIDE TABS 20 MEQ TABLET.ER (FP) PO SCH (09:38)
[2017-02-28] MEDS: FENOFIBRIC ACID 135 MG CAP PO SCH (09:38)
[2017-02-28] MEDS: THIAMINE HCL 100 MG TABLET (FP) PO SCH (09:38)
[2017-02-28] MEDS: HEPARIN NA (PORCINE) 5,000 UNITS/ML 1ML VIAL SQ SCH ×2 (09:39→21:23)
[2017-02-28] MEDS: amLODIPine BESYLATE 5 MG TABLET (FP) PO SCH (09:39)
[2017-02-28 09:49] LABS: BASOPHIL 0.7 % (0-2.0); EOSINOPHIL 4.9 % (0-4.5); MCH 30.3 pg (25.7-33.7); MCHC 33.5 g/dl (32.0-35.9); MEAN CELL VOLUME 90.5 fl (80-96); MEAN PLT VOLUME 8.6 fl (7.5-11.1); PLATELET COUNT 244 K/MM3 (134-434); RDW 14.5 % (11.9-15.9); WHITE BLOOD COUNT 4.4 K/mm3 (4.0-10.0)
[2017-02-28 10:27] LABS: ALBUMIN 2.4 g/dl (3.4-5.0); ANION GAP 9 (8-16); CO2 25 mmol/L (21-32); GLUCOSE,RANDOM 120 mg/dL (74-106)
[2017-02-28 10:31] LABS: ALK PHOS 62 U/L (45-117); BILIRUBIN,TOTAL 0.4 mg/dL (0.2-1.0); CREATININE 0.8 mg/dL (0.7-1.3); SGOT/AST 18 U/L (15-37); SGPT/ALT 19 U/L (12-78); TOT PROT 5.3 g/dl (6.4-8.2)
--- NOTE | 2017-02-28 10:55 | PN ---
Progress Note (short form) - Note Progress Note: ID Placement of tube as noted Feels better Imipenem and metronidazole Selected Entries 02/28/17 06:00 Temperature 97.6 F Pulse Rate 62 Respiratory 18 Rate Blood Pressure 140/81 Abd distended soft tender Laboratory Tests 02/26/17 02/28/17 06:00 09:19 WBC 4.4 Hgb 10.7 L Plt Count 244 D C-Reactive Protein 16.2 H D Assessment Alcoholic pancreatitis Plan Continue Imipenem 500mg IVPB q 6H
--- NOTE | 2017-02-28 11:18 | PN ---
Progress Note, Physician Chief Complaint: Currently has feeding tube inserted History of Present Illness: Patient was seen and examined. Awake and alert. Chart was reviewed Denies chest pain, SOB or palpitations As outlined above - Current Medication List Current Medications: Active Medications Acetaminophen (Tylenol -) 650 mg PO Q6H PRN PRN Reason: FEVER Last Admin: 02/28/17 02:43 Dose: 650 mg Amlodipine Besylate (Norvasc -) 5 mg PO DAILY [facility] Last Admin: 02/28/17 09:39 Dose: 5 mg Benzocaine/Menthol (Cepacol Lozenge -) 1 each MM Q6H PRN PRN Reason: SORE THROAT Last Admin: 02/27/17 17:18 Dose: 1 each Fenofibric Acid (Trilipix -) 135 mg PO DAILY [facility] Last Admin: 02/28/17 09:38 Dose: 135 mg Folic Acid (Folic Acid -) 1 mg PO DAILY [facility] Last Admin: 02/28/17 09:38 Dose: 1 mg Heparin Sodium (Porcine) (Heparin -) 5,000 unit SQ BID [facility] Last Admin: 02/28/17 09:39 Dose: 5,000 unit Hydromorphone HCl (Dilaudid Injection -) 1 mg IVPB Q4H PRN PRN Reason: PAIN Pantoprazole Sodium 40 mg/ (Sodium Chloride) 100 mls @ 200 mls/hr IVPB DAILY [facility] Last Admin: 02/27/17 09:20 Dose: 200 mls/hr Sodium Chloride (Normal Saline -) 1,000 mls @ 150 mls/hr IV ASDIR [facility] Last Admin: 02/28/17 02:57 Dose: 150 mls/hr Imipenem/Cilastatin Sodium 500 (mg/ Sodium Chloride) 100 mls @ 200 mls/hr IVPB Q6H-IV [facility] PRN Reason: Protocol Last Admin: 02/28/17 11:06 Dose: 200 mls/hr Potassium Chloride (K-Dur -) 40 meq PO DAILY [facility] Last Admin: 02/28/17 09:38 Dose: 40 meq Propranolol HCl (Inderal La -) 80 mg PO DAILY [facility] Last Admin: 02/28/17 09:37 Dose: 80 mg Rosuvastatin Calcium (Crestor -) 5 mg PO HS [facility] Last Admin: 02/27/17 22:01 Dose: 5 mg Thiamine HCl (Vitamin B1 -) 100 mg PO DAILY [facility] Last Admin: 02/28/17 09:38 Dose: 100 mg Valsartan (Diovan -) 160 mg PO DAILY [facility] Last Admin: 02/28/17 09:38 Dose: 160 mg - Objective Vital Signs: Vital Signs Temperature 97.6 F 02/28/17 06:00 Pulse Rate 62 02/28/17 06:00 Respiratory Rate 18 02/28/17 06:00 Blood Pressure 140/81 02/28/17 06:00 O2 Sat by Pulse Oximetry (%) 97 02/27/17 21:00 Neck: Yes: Supple Cardiovascular: Yes: Regular Rate and Rhythm, S1, S2 Respiratory: Yes: CTA Bilaterally Gastrointestinal: Yes: Normal Bowel Sounds, Soft. No: Tenderness Edema: No Additional Findings/Remarks: - Review of Systems Constitutional: denies: Chills, Fever Cardiovascular: denies: Chest Pain, Palpitations, Shortness of Breath Respiratory: denies: Cough, Hemoptysis, Orthopnea, PND, SOB, SOB on Exertion Gastrointestinal: reports: Abdominal Pain. denies: Constipation, Diarrhea, Melena, Nausea, Rectal Bleeding, Vomiting Musculoskeletal: denies: Joint Pain Neurological: denies: Dizziness, Headache, Seizure, Syncope Labs: CBC, BMP 02/28/17 09:19 02/28/17 09:19 Problem List - Problems (1) Alcoholic pancreatitis Code(s): K85.20 - ALCOHOL INDUCED ACUTE PANCREATITIS WITHOUT NECROSIS OR INFCT Qualifiers: Chronicity: acute Acute pancreatitis complication: unspecified Qualified Code(s): K85.20 - Alcohol induced acute pancreatitis without necrosis or infection (2) ETOH abuse Code(s): F10.10 - ALCOHOL ABUSE, UNCOMPLICATED (3) Bradycardia Code(s): R00.1 - BRADYCARDIA, UNSPECIFIED (4) HLD (hyperlipidemia) Code(s): E78.5 - HYPERLIPIDEMIA, UNSPECIFIED Qualifiers: Hyperlipidemia type: mixed hyperlipidemia Qualified Code(s): E78.2 - Mixed hyperlipidemia (5) HTN (hypertension) Code(s): I10 - ESSENTIAL (PRIMARY) HYPERTENSION Qualifiers: Hypertension type: essential hypertension Qualified Code(s): I10 - Essential (primary) hypertension Assessment/Plan 1. Acute pancreatitis secondary to ETOH dependency now with probable abscess and fluid collection - post feeding tube insertion 2. Hypertension 3. Hypercholesterolemia PLAN: 1. GI input noted. Continue feeds 2. Continue Valsartan and Amlodipine (uptitrate as needed) 3. Continue Propranolol - monitor HR 4. Currently patient is on Crestor. 5. Analgesics PRN 6. Continue antibiotic coverage Further plans are to follow Urbano Perez MD
[2017-02-28] MEDS: HYDROmorphone HCL CARPU-JECT 1 MG/1 ML DISP.SYRIN IVPB PRN ×3 (11:19→21:22)
[2017-02-28] MEDS: PANTOPRAZOLE SODIUM 40 MG in SODIUM CHLORIDE 100 ML IVPB SCH (12:22)
--- NOTE | 2017-02-28 13:40 | PN ---
GI Progress Note Subjective: No pain med requests until about an hour ago Afebrile overnight Overall states feeling well. Possibly somewhat better today Tolerating tube feeds. Feeds do not seem to be making his pain worse - Objective Vital Signs: Vital Signs Temperature 97.6 F 02/28/17 06:00 Pulse Rate 62 02/28/17 06:00 Respiratory Rate 18 02/28/17 06:00 Blood Pressure 140/81 02/28/17 06:00 O2 Sat by Pulse Oximetry (%) 97 02/27/17 21:00 Constitutional: Calm Eyes: No: Sclera Icterus Cardiovascular: Yes: Bradycardia Respiratory: Yes: CTA Bilaterally Gastrointestinal Inspection: No: Distention ...Auscultate: Yes: Normoactive Bowel Sounds ...Palpate: Yes: Soft, Tenderness (Improved TTP epigastrium). No: Tenderness, Rebound ...Percussion: No: Tympanitic Edema: No Neurological: Yes: Alert, Oriented Labs: CBC, BMP 02/28/17 09:19 02/28/17 09:19 INR, PTT INR 1.26 (0.82-1.09) H 02/21/17 06:00 Problem List - Problems (1) Alcoholic pancreatitis Assessment/Plan: I think Mr. Burdick's abdominal exam is improved from previous Continuing tube feeds decrease IV fluids then D/C. water through enteral tube will need to be adjusted accordingly as per note from joinery setter out For repeat CT scan of abdomen and pelvis with pancreatic protocol tomorrow ( ordered) Code(s): K85.20 - ALCOHOL INDUCED ACUTE PANCREATITIS WITHOUT NECROSIS OR INFCT Qualifiers: Chronicity: acute Acute pancreatitis complication: unspecified Qualified Code(s): K85.20 - Alcohol induced acute pancreatitis without necrosis or infection
[2017-02-28] MEDS ORDERED: ARTIFICIAL TEARS (POLYVINYL ALCOHOL 1.4%) OPTH DROPS OS PRN (16:50)
[2017-02-28] MEDS: ROSUVASTATIN CA 5 MG TABLET (FP) PO SCH (21:24)
[2017-02-28] MEDS: ZOLPIDEM TARTRATE 5 MG TABLET PO PRN (21:29)
[2017-03-01] MEDS ORDERED: PT OWN MED DRAWER 7, Y5N ONE ×3 (01:44→21:17)
[2017-03-01] MEDS: IMIPENEM/CILASTATIN SODIUM 500 MG in SODIUM CHLORIDE 100 ML IVPB SCH ×2 (02:04→11:41)
[2017-03-01] MEDS: HYDROmorphone HCL CARPU-JECT 1 MG/1 ML DISP.SYRIN IVPB PRN ×2 (05:21→21:23)
[2017-03-01] MEDS: BENZOCAINE/MENTH/CETYLPYRD CL 1 EACH LOZENGE MM PRN (05:23)
--- NOTE | 2017-03-01 08:02 | PN ---
Progress Note, Physician History of Present Illness: INTERMITTENT PAIN NO CP OR SOB - Current Medication List Current Medications: Active Medications Acetaminophen (Tylenol -) 650 mg PO Q6H PRN PRN Reason: FEVER Last Admin: 02/28/17 02:43 Dose: 650 mg Amlodipine Besylate (Norvasc -) 5 mg PO DAILY [facility] Last Admin: 02/28/17 09:39 Dose: 5 mg Artificial Tears (Artificial Tears) 1 drop OS Q4H PRN PRN Reason: DRY EYES Last Admin: 02/28/17 17:21 Dose: 1 drop Benzocaine/Menthol (Cepacol Lozenge -) 1 each MM Q6H PRN PRN Reason: SORE THROAT Last Admin: 03/01/17 05:23 Dose: 1 each Fenofibric Acid (Trilipix -) 135 mg PO DAILY [facility] Last Admin: 02/28/17 09:38 Dose: 135 mg Folic Acid (Folic Acid -) 1 mg PO DAILY [facility] Last Admin: 02/28/17 09:38 Dose: 1 mg Heparin Sodium (Porcine) (Heparin -) 5,000 unit SQ BID [facility] Last Admin: 02/28/17 21:23 Dose: 5,000 unit Hydromorphone HCl (Dilaudid Injection -) 1 mg IVPB Q4H PRN PRN Reason: PAIN Last Admin: 03/01/17 05:21 Dose: 1 mg Pantoprazole Sodium 40 mg/ (Sodium Chloride) 100 mls @ 200 mls/hr IVPB DAILY [facility] Last Admin: 02/28/17 12:22 Dose: 200 mls/hr Sodium Chloride (Normal Saline -) 1,000 mls @ 150 mls/hr IV ASDIR [facility] Last Admin: 02/28/17 15:42 Dose: 150 mls/hr Imipenem/Cilastatin Sodium 500 (mg/ Sodium Chloride) 100 mls @ 200 mls/hr IVPB Q6H-IV [facility] PRN Reason: Protocol Last Admin: 03/01/17 02:04 Dose: 200 mls/hr Potassium Chloride (K-Dur -) 40 meq PO DAILY [facility] Last Admin: 02/28/17 09:38 Dose: 40 meq Propranolol HCl (Inderal La -) 80 mg PO DAILY [facility] Last Admin: 02/28/17 09:37 Dose: 80 mg Rosuvastatin Calcium (Crestor -) 5 mg PO HS [facility] Last Admin: 02/28/17 21:24 Dose: 5 mg Thiamine HCl (Vitamin B1 -) 100 mg PO DAILY [facility] Last Admin: 02/28/17 09:38 Dose: 100 mg Valsartan (Diovan -) 160 mg PO DAILY [facility] Last Admin: 02/28/17 09:38 Dose: 160 mg Zolpidem Tartrate (Ambien -) 5 mg PO HS PRN Last Admin: 02/28/17 21:29 Dose: 5 mg - Objective Vital Signs: Vital Signs Temperature 97.6 F 03/01/17 00:52 Pulse Rate 64 03/01/17 00:52 Respiratory Rate 18 03/01/17 00:52 Blood Pressure 148/91 03/01/17 00:52 O2 Sat by Pulse Oximetry (%) 99 02/28/17 21:00 Cardiovascular: Yes: Regular Rate and Rhythm Respiratory: Yes: Regular, CTA Bilaterally Gastrointestinal: Yes: Normal Bowel Sounds, Soft. No: Tenderness Labs: CBC, BMP 02/28/17 09:19 02/28/17 09:19 INR, PTT INR 1.26 (0.82-1.09) H 02/21/17 06:00 Problem List - Problems (1) Alcoholic pancreatitis Assessment/Plan: NPO--- CT SCAN D/W RADIOLOGIST--NO ABSCESS--FLUID AROUND PANCREAS IVF/AV ABX GI ON BOARD with unorganized fluid collection on recent CT scan. No obvious necrosis noted While CRP is alma trending in a downward direction and WBC remains normal, Mr. Burdick still complains of epigastric pain that worsened after clear liquids. As I explained to him last week, given the prolonged nature of continued pain, development of pain after clear liquid diet and worsened CT scan findings, endoscopically placed post-pyloric feeding tube should be considered as a means of Mr. Burdick obtaining the necessary nutrition while resting the pancreas. I explained that nutrition is a palumbo element to continued recovery from pancreatitis MONITOR LABS CT SCAN TODAY Code(s): K85.20 - ALCOHOL INDUCED ACUTE PANCREATITIS WITHOUT NECROSIS OR INFCT Qualifiers: Chronicity: acute Acute pancreatitis complication: unspecified Qualified Code(s): K85.20 - Alcohol induced acute pancreatitis without necrosis or infection (2) ETOH abuse Assessment/Plan: MONITOR ABSTINENCE DISCUSSED Code(s): F10.10 - ALCOHOL ABUSE, UNCOMPLICATED (3) Fatty (change of) liver, not elsewhere classified Assessment/Plan: AVOID ETOH COMPLIANCE Code(s): K76.0 - FATTY (CHANGE OF) LIVER, NOT ELSEWHERE CLASSIFIED (4) Bradycardia Assessment/Plan: CARDIO ON BOARD Code(s): R00.1 - BRADYCARDIA, UNSPECIFIED (5) HLD (hyperlipidemia) Assessment/Plan: AWAIT LIPIDS Laboratory Tests 02/23/17 06:00 Triglycerides 524 H D Cholesterol 231 H Total LDL Cholesterol 137 H HDL Cholesterol 8 L D Code(s): E78.5 - HYPERLIPIDEMIA, UNSPECIFIED Qualifiers: Hyperlipidemia type: mixed hyperlipidemia Qualified Code(s): E78.2 - Mixed hyperlipidemia (6) HTN (hypertension) Assessment/Plan: MONITOR ON CURRENT MEDS NORVASC ADDED Vital Signs Period Temp Pulse Resp BP Sys/Ojeda Pulse Ox Last 24 Hr 97.6 F-99.1 F 61-64 18-20 148-148/86-91 99 Code(s): I10 - ESSENTIAL (PRIMARY) HYPERTENSION Qualifiers: Hypertension type: essential hypertension Qualified Code(s): I10 - Essential (primary) hypertension
[2017-03-01 08:43] LABS: MCH 30.3 pg (25.7-33.7); MCHC 33.5 g/dl (32.0-35.9); MEAN CELL VOLUME 90.4 fl (80-96); MEAN PLT VOLUME 8.5 fl (7.5-11.1); PLATELET COUNT 327 K/MM3 (134-434); RDW 14.9 % (11.9-15.9); WHITE BLOOD COUNT 6.3 K/mm3 (4.0-10.0)
[2017-03-01 09:13] LABS: ALBUMIN 2.8 g/dl (3.4-5.0); ANION GAP 10 (8-16); CALCIUM 8.2 mg/dL (8.5-10.1); CO2 25 mmol/L (21-32); CREATININE 0.8 mg/dL (0.7-1.3); GLUCOSE,RANDOM 98 mg/dL (74-106); SGOT/AST 17 U/L (15-37); SGPT/ALT 19 U/L (12-78)
[2017-03-01 09:16] LABS: ALK PHOS 67 U/L (45-117); BILIRUBIN,TOTAL 0.4 mg/dL (0.2-1.0); TOT PROT 5.8 g/dl (6.4-8.2)
[2017-03-01] MEDS: HEPARIN NA (PORCINE) 5,000 UNITS/ML 1ML VIAL SQ SCH ×2 (09:31→21:24)
[2017-03-01] MEDS: THIAMINE HCL 100 MG TABLET (FP) PO SCH (09:32)
[2017-03-01] MEDS: FOLIC ACID 1 MG TABLET (FP) PO SCH (09:32)
[2017-03-01] MEDS: PANTOPRAZOLE SODIUM 40 MG in SODIUM CHLORIDE 100 ML IVPB SCH (09:32)
[2017-03-01] MEDS: POTASSIUM CHLORIDE TABS 20 MEQ TABLET.ER (FP) PO SCH (09:32)
[2017-03-01] MEDS: amLODIPine BESYLATE 5 MG TABLET (FP) PO SCH (09:32)
[2017-03-01] MEDS: VALSARTAN 80 MG TABLET (UD) PO SCH (09:32)
[2017-03-01] MEDS: SODIUM CHLORIDE 1,000 ML IV SCH (09:33)
[2017-03-01] MEDS: FENOFIBRIC ACID 135 MG CAP PO SCH (09:34)
--- NOTE | 2017-03-01 11:55 | PN ---
Progress Note (short form) - Note Progress Note: now with feeding tube, still intermittent pain requiring dilaudid afebrile Vital Signs Period Temp Pulse Resp BP Sys/Ojeda Pulse Ox Last 24 Hr 97.6 F-99.1 F 61-65 18-20 142-148/86-92 99 cor-rrr lungs clear abd soft,nt ext no edema CBC, BMP 03/01/17 08:35 03/01/17 08:35 ct scan- pseudocyst formation Microbiology 02/22/17 10:50 Blood - Peripheral Venous Blood Culture - Final NO GROWTH AFTER 5 DAYS INCUBATION 02/22/17 10:45 Blood - Peripheral Venous Blood Culture - Final NO GROWTH AFTER 5 DAYS INCUBATION 02/19/17 16:20 Blood - Peripheral Venous Blood Culture - Final NO GROWTH AFTER 5 DAYS INCUBATION 02/19/17 16:48 Blood - Peripheral Venous Blood Culture - Final NO GROWTH AFTER 5 DAYS INCUBATION 02/22/17 15:00 Urine - Urine Clean Catch Urine Culture - Final NO GROWTH OBTAINED 02/19/17 19:05 Urine - Urine Clean Catch Urine Culture - Final NO GROWTH OBTAINED a/p pancreatitis- suspect improving with decreasing crp and resolved thrombocytopenia d/c imipenem nutrition per GI etoh use Problem List - Problems (1) Alcoholic pancreatitis Code(s): K85.20 - ALCOHOL INDUCED ACUTE PANCREATITIS WITHOUT NECROSIS OR INFCT Qualifiers: Chronicity: acute Acute pancreatitis complication: unspecified Qualified Code(s): K85.20 - Alcohol induced acute pancreatitis without necrosis or infection (2) Fever Code(s): R50.9 - FEVER, UNSPECIFIED
--- NOTE | 2017-03-01 12:23 | PN ---
Progress Note, Physician History of Present Illness: Epigastric pain slowly improving with post-pyloric feeds. - Current Medication List Current Medications: Active Medications Acetaminophen (Tylenol -) 650 mg PO Q6H PRN PRN Reason: FEVER Last Admin: 02/28/17 02:43 Dose: 650 mg Amlodipine Besylate (Norvasc -) 5 mg PO DAILY [facility] Last Admin: 03/01/17 09:32 Dose: 5 mg Artificial Tears (Artificial Tears) 1 drop OS Q4H PRN PRN Reason: DRY EYES Last Admin: 02/28/17 17:21 Dose: 1 drop Benzocaine/Menthol (Cepacol Lozenge -) 1 each MM Q6H PRN PRN Reason: SORE THROAT Last Admin: 03/01/17 05:23 Dose: 1 each Fenofibric Acid (Trilipix -) 135 mg PO DAILY [facility] Last Admin: 03/01/17 09:34 Dose: 135 mg Folic Acid (Folic Acid -) 1 mg PO DAILY [facility] Last Admin: 03/01/17 09:32 Dose: 1 mg Heparin Sodium (Porcine) (Heparin -) 5,000 unit SQ BID [facility] Last Admin: 03/01/17 09:31 Dose: 5,000 unit Hydromorphone HCl (Dilaudid Injection -) 1 mg IVPB Q4H PRN PRN Reason: PAIN Last Admin: 03/01/17 05:21 Dose: 1 mg Pantoprazole Sodium 40 mg/ (Sodium Chloride) 100 mls @ 200 mls/hr IVPB DAILY [facility] Last Admin: 03/01/17 09:32 Dose: 200 mls/hr Sodium Chloride (Normal Saline -) 1,000 mls @ 150 mls/hr IV ASDIR [facility] Last Admin: 03/01/17 09:33 Dose: 150 mls/hr Potassium Chloride (K-Dur -) 40 meq PO DAILY [facility] Last Admin: 03/01/17 09:32 Dose: 40 meq Propranolol HCl (Inderal La -) 80 mg PO DAILY [facility] Last Admin: 03/01/17 09:32 Dose: 80 mg Rosuvastatin Calcium (Crestor -) 5 mg PO HS [facility] Last Admin: 02/28/17 21:24 Dose: 5 mg Thiamine HCl (Vitamin B1 -) 100 mg PO DAILY [facility] Last Admin: 03/01/17 09:32 Dose: 100 mg Valsartan (Diovan -) 160 mg PO DAILY [facility] Last Admin: 03/01/17 09:32 Dose: 160 mg Zolpidem Tartrate (Ambien -) 5 mg PO HS PRN Last Admin: 02/28/17 21:29 Dose: 5 mg - Objective Vital Signs: Vital Signs Temperature 97.6 F 03/01/17 00:52 Pulse Rate 65 03/01/17 10:00 Respiratory Rate 18 03/01/17 10:00 Blood Pressure 142/92 03/01/17 10:00 O2 Sat by Pulse Oximetry (%) 99 02/28/17 21:00 Constitutional: Yes: No Distress, Calm Neck: Yes: Supple Cardiovascular: Yes: Regular Rate and Rhythm Respiratory: Yes: Regular, Diminished Gastrointestinal: Yes: Soft, Hypoactive Bowel Sounds, Tenderness, Epigastrium Edema: No Labs: CBC, BMP 03/01/17 08:35 03/01/17 08:35 INR, PTT INR 1.26 (0.82-1.09) H 02/21/17 06:00 - ....Imaging Cat Scan: Report Reviewed (Early pseudocysts in body and tail of pancreas) Problem List - Problems (1) Alcoholic pancreatitis Code(s): K85.20 - ALCOHOL INDUCED ACUTE PANCREATITIS WITHOUT NECROSIS OR INFCT Qualifiers: Chronicity: acute Acute pancreatitis complication: unspecified Qualified Code(s): K85.20 - Alcohol induced acute pancreatitis without necrosis or infection (2) Fluid collection of pancreas Code(s): K86.89 - OTHER SPECIFIED DISEASES OF PANCREAS (3) Chronic alcoholism Code(s): F10.20 - ALCOHOL DEPENDENCE, UNCOMPLICATED (4) HLD (hyperlipidemia) Code(s): E78.5 - HYPERLIPIDEMIA, UNSPECIFIED Qualifiers: Hyperlipidemia type: mixed hyperlipidemia Qualified Code(s): E78.2 - Mixed hyperlipidemia (5) HTN (hypertension) Code(s): I10 - ESSENTIAL (PRIMARY) HYPERTENSION Qualifiers: Hypertension type: essential hypertension Qualified Code(s): I10 - Essential (primary) hypertension Assessment/Plan 1. Acute pancreatitis secondary to ETOH abuse/dependency (history of recurrent pancreatitis), with early pseudocyst formation 2. Hypertension 3. Mixed Hyperlipidemia PLAN: 1. Continue Valsartan 160 qd and Norvasc 5 qd 2. Continue Propranolol 80 qd (as outlined in prior notes history of asymptomatic sinus bradycardia) 3. Continue Crestor 5 qhs and Trilipix 135 qd 4. Analgesics and diet as per the primary team 5. Abx course completed 6. DVT and GI prophylaxis
[2017-03-01 12:39] LABS: TOTAL CELLS COUNTED 100
--- NOTE | 2017-03-01 14:59 | PN ---
GI Progress Note Subjective: No acute events Explains that he had pain 3am requiring analgesia, none today. Per his nurse Mr. Burdick was telling her that he overall felt better. No fevers overnight reported - Objective Vital Signs: Vital Signs Temperature 97.8 F 03/01/17 13:37 Pulse Rate 63 03/01/17 13:37 Respiratory Rate 18 03/01/17 13:37 Blood Pressure 139/87 03/01/17 13:37 O2 Sat by Pulse Oximetry (%) 99 02/28/17 21:00 Constitutional: Calm Eyes: No: Sclera Icterus Cardiovascular: Yes: Regular Rate and Rhythm Respiratory: Yes: CTA Bilaterally ...Auscultate: Yes: Normoactive Bowel Sounds ...Palpate: No: Hepatomegaly, Tenderness (Much improved from previous exam) ...Percussion: No: Tympanitic Edema: No Neurological: Yes: Alert, Oriented Labs: CBC, BMP 03/01/17 08:35 03/01/17 08:35 INR, PTT INR 1.26 (0.82-1.09) H 02/21/17 06:00 - ....Imaging Cat Scan: Report Reviewed, Image Reviewed Problem List - Problems (1) Alcoholic pancreatitis Assessment/Plan: Overall, Mr. Burdick appears to be improved clinically with CRP trending downwards as well. Repeat CT scan of the abdomen does reveal unorganized fluid collection and this will need to be followed closely to see if this progresses to pseudocyst. Pancreatic necrosis not mentioned in the study. Will discuss with radiologist Continue tube feeds as these seem to be tolerated. He is at goal rate Decrease IV fluids Code(s): K85.20 - ALCOHOL INDUCED ACUTE PANCREATITIS WITHOUT NECROSIS OR INFCT Qualifiers: Chronicity: acute Acute pancreatitis complication: unspecified Qualified Code(s): K85.20 - Alcohol induced acute pancreatitis without necrosis or infection
--- NOTE | 2017-03-01 16:54 | PN ---
Progress Note (short form) - Note Progress Note: reviewed CT scan with Dr. Angel. tip if enteral tube in duodenal bulb/1st portion. No significant worsening changes in pancreatic findings Problem List - Problems (1) Alcoholic pancreatitis Code(s): K85.20 - ALCOHOL INDUCED ACUTE PANCREATITIS WITHOUT NECROSIS OR INFCT Qualifiers: Chronicity: acute Acute pancreatitis complication: unspecified Qualified Code(s): K85.20 - Alcohol induced acute pancreatitis without necrosis or infection
--- NOTE | 2017-03-01 17:44 | PN ---
Progress Note (short form) - Note Progress Note: discussed CT scan findings with Mr. Burdick after reviewed with Dr. Angel. he requested that I clarify with his nurse that he has an ambien order as needed and pain medication order as needed. I explained that Dr. bower manages those medications for him and let his nurse know about his medication concerns. He was also irate because of the time it took for me to discuss things with him re : my review with the radiologist. I had explained this to his nurse earlier who in turn advised me that she had explained this to him as well. Dr. Raymundo covering from to saturday morning Problem List - Problems (1) Alcoholic pancreatitis Code(s): K85.20 - ALCOHOL INDUCED ACUTE PANCREATITIS WITHOUT NECROSIS OR INFCT Qualifiers: Chronicity: acute Acute pancreatitis complication: unspecified Qualified Code(s): K85.20 - Alcohol induced acute pancreatitis without necrosis or infection
[2017-03-01] MEDS: ZOLPIDEM TARTRATE 5 MG TABLET PO PRN (21:24)
[2017-03-01] MEDS: ROSUVASTATIN CA 5 MG TABLET (FP) PO SCH (21:35)
[2017-03-02 07:41] LABS: BASOPHIL 0.7 % (0-2.0); MCH 30.4 pg (25.7-33.7); MCHC 33.6 g/dl (32.0-35.9); MEAN CELL VOLUME 90.6 fl (80-96); MEAN PLT VOLUME 8.3 fl (7.5-11.1); NEUTROPHILS 64.5 % (42.8-82.8); PLATELET COUNT 288 K/MM3 (134-434); WHITE BLOOD COUNT 5.8 K/mm3 (4.0-10.0)
[2017-03-02 07:56] LABS: ALBUMIN 2.7 g/dl (3.4-5.0); ALK PHOS 61 U/L (45-117); ANION GAP 10 (8-16); BILIRUBIN,TOTAL 0.4 mg/dL (0.2-1.0); CALCIUM 8.7 mg/dL (8.5-10.1); CO2 27 mmol/L (21-32); CREATININE 0.9 mg/dL (0.7-1.3); GLUCOSE,RANDOM 106 mg/dL (74-106); SGOT/AST 16 U/L (15-37); SGPT/ALT 17 U/L (12-78); TOT PROT 5.7 g/dl (6.4-8.2)
[2017-03-02] MEDS ORDERED: hydrOXYzine HCL 25 MG TABLET (FP) PO PRN ×2 (08:48→08:53)
--- NOTE | 2017-03-02 08:52 | PN ---
Progress Note, Physician Chief Complaint: AWAKE ALERT NGT IN PLACE FEEDS STOPPED B/C OF NAUSEA - Current Medication List Current Medications: Active Medications Acetaminophen (Tylenol -) 650 mg PO Q6H PRN PRN Reason: FEVER Last Admin: 02/28/17 02:43 Dose: 650 mg Amlodipine Besylate (Norvasc -) 5 mg PO DAILY [facility] Last Admin: 03/01/17 09:32 Dose: 5 mg Artificial Tears (Artificial Tears) 1 drop OS Q4H PRN PRN Reason: DRY EYES Last Admin: 02/28/17 17:21 Dose: 1 drop Benzocaine/Menthol (Cepacol Lozenge -) 1 each MM Q6H PRN PRN Reason: SORE THROAT Last Admin: 03/01/17 05:23 Dose: 1 each Fenofibric Acid (Trilipix -) 135 mg PO DAILY [facility] Last Admin: 03/01/17 09:34 Dose: 135 mg Folic Acid (Folic Acid -) 1 mg PO DAILY [facility] Last Admin: 03/01/17 09:32 Dose: 1 mg Heparin Sodium (Porcine) (Heparin -) 5,000 unit SQ BID [facility] Last Admin: 03/01/17 21:24 Dose: 5,000 unit Hydromorphone HCl (Dilaudid Injection -) 1 mg IVPB Q4H PRN PRN Reason: PAIN Last Admin: 03/01/17 21:23 Dose: 1 mg Hydroxyzine HCl (Atarax -) 25 mg PO TID PRN PRN Reason: FOR ITCHING Pantoprazole Sodium 40 mg/ (Sodium Chloride) 100 mls @ 200 mls/hr IVPB DAILY [facility] Last Admin: 03/01/17 09:32 Dose: 200 mls/hr Potassium Chloride (K-Dur -) 40 meq PO DAILY [facility] Last Admin: 03/01/17 09:32 Dose: 40 meq Propranolol HCl (Inderal La -) 80 mg PO DAILY [facility] Last Admin: 03/01/17 09:32 Dose: 80 mg Rosuvastatin Calcium (Crestor -) 5 mg PO HS [facility] Last Admin: 03/01/17 21:35 Dose: 5 mg Thiamine HCl (Vitamin B1 -) 100 mg PO DAILY [facility] Last Admin: 03/01/17 09:32 Dose: 100 mg Valsartan (Diovan -) 160 mg PO DAILY [facility] Last Admin: 03/01/17 09:32 Dose: 160 mg - Objective Vital Signs: Vital Signs Temperature 98.1 F 03/02/17 06:00 Pulse Rate 74 03/02/17 06:00 Respiratory Rate 20 03/02/17 06:00 Blood Pressure 166/94 03/02/17 06:00 O2 Sat by Pulse Oximetry (%) 99 03/01/17 21:00 Constitutional: Yes: Mild Distress Eyes: Yes: WNL HENT: Yes: WNL Neck: Yes: WNL Cardiovascular: Yes: WNL Respiratory: Yes: WNL Gastrointestinal: Yes: Tenderness Musculoskeletal: Yes: WNL Extremities: Yes: WNL Edema: No Peripheral Pulses WNL: Yes Integumentary: Yes: WNL Wound/Incision: Yes: Clean/Dry Neurological: Yes: WNL ...Motor Strength: WNL Psychiatric: Yes: WNL Labs: CBC, BMP 03/02/17 06:30 03/02/17 06:30 INR, PTT INR 1.26 (0.82-1.09) H 02/21/17 06:00 Problem List - Problems (1) Alcoholic pancreatitis Code(s): K85.20 - ALCOHOL INDUCED ACUTE PANCREATITIS WITHOUT NECROSIS OR INFCT Qualifiers: Chronicity: acute Acute pancreatitis complication: unspecified Qualified Code(s): K85.20 - Alcohol induced acute pancreatitis without necrosis or infection (2) ETOH abuse Code(s): F10.10 - ALCOHOL ABUSE, UNCOMPLICATED (3) Fatty (change of) liver, not elsewhere classified Code(s): K76.0 - FATTY (CHANGE OF) LIVER, NOT ELSEWHERE CLASSIFIED (4) Fluid collection of pancreas Code(s): K86.89 - OTHER SPECIFIED DISEASES OF PANCREAS (5) HLD (hyperlipidemia) Code(s): E78.5 - HYPERLIPIDEMIA, UNSPECIFIED Qualifiers: Hyperlipidemia type: mixed hyperlipidemia Qualified Code(s): E78.2 - Mixed hyperlipidemia (6) HTN (hypertension) Code(s): I10 - ESSENTIAL (PRIMARY) HYPERTENSION Qualifiers: Hypertension type: essential hypertension Qualified Code(s): I10 - Essential (primary) hypertension Assessment/Plan START CLEAR LIQUIDS IF TOLERATED WILL ADVANCE TO FULL LIQUID FOR DINNER ATARAX 3 X DAY FOR ANXIETY AND SLEEP PRN PER [facility] GUIDELINES. STOP AMBIEN. PAIN CONTROL OOB TO CHAIR
[2017-03-02 08:53] LABS: CHOLESTEROL 229 mg/dL (50-200)
[2017-03-02] MEDS ORDERED: PT OWN MED DRAWER 7, Y5N ONE (10:40)
[2017-03-02] MEDS: VALSARTAN 80 MG TABLET (UD) PO SCH (10:54)
[2017-03-02] MEDS: FOLIC ACID 1 MG TABLET (FP) PO SCH (10:55)
[2017-03-02] MEDS: HEPARIN NA (PORCINE) 5,000 UNITS/ML 1ML VIAL SQ SCH ×2 (10:55→21:22)
[2017-03-02] MEDS: PANTOPRAZOLE SODIUM 40 MG in SODIUM CHLORIDE 100 ML IVPB SCH (10:55)
[2017-03-02] MEDS: amLODIPine BESYLATE 5 MG TABLET (FP) PO SCH (10:55)
[2017-03-02] MEDS: THIAMINE HCL 100 MG TABLET (FP) PO SCH (10:56)
[2017-03-02] MEDS: FENOFIBRIC ACID 135 MG CAP PO SCH (10:56)
[2017-03-02] MEDS: POTASSIUM CHLORIDE TABS 20 MEQ TABLET.ER (FP) PO SCH (10:56)
--- NOTE | 2017-03-02 13:06 | PN ---
Progress Note (short form) - Note Progress Note: now with feeding tube, still intermittent pain requiring dilaudid afebrile Vital Signs Period Temp Pulse Resp BP Sys/Ojeda Pulse Ox Last 24 Hr 97.8 F-98.7 F 59-74 18-20 139-166/87-102 99 cor-rrr lungs clear abd firm, nt ext no edema CBC, BMP 03/02/17 06:30 03/02/17 06:30 Microbiology 02/22/17 10:50 Blood - Peripheral Venous Blood Culture - Final NO GROWTH AFTER 5 DAYS INCUBATION 02/22/17 10:45 Blood - Peripheral Venous Blood Culture - Final NO GROWTH AFTER 5 DAYS INCUBATION 02/19/17 16:20 Blood - Peripheral Venous Blood Culture - Final NO GROWTH AFTER 5 DAYS INCUBATION 02/19/17 16:48 Blood - Peripheral Venous Blood Culture - Final NO GROWTH AFTER 5 DAYS INCUBATION 02/22/17 15:00 Urine - Urine Clean Catch Urine Culture - Final NO GROWTH OBTAINED 02/19/17 19:05 Urine - Urine Clean Catch Urine Culture - Final NO GROWTH OBTAINED Laboratory Tests 02/19/17 02/20/17 02/21/17 06:00 06:00 06:00 C-Reactive Protein 12.5 H 25.2 H D 31.8 H D 02/22/17 02/23/17 02/25/17 06:00 06:00 07:15 C-Reactive Protein 25.8 H D 22.7 H D 17.9 H D 02/26/17 03/02/17 06:00 06:30 C-Reactive Protein 16.2 H D 4.[address] scan- pseudocyst formation, no necrosis Microbiology 02/22/17 10:50 Blood - Peripheral Venous Blood Culture - Final NO GROWTH AFTER 5 DAYS INCUBATION 02/22/17 10:45 Blood - Peripheral Venous Blood Culture - Final NO GROWTH AFTER 5 DAYS INCUBATION 02/19/17 16:20 Blood - Peripheral Venous Blood Culture - Final NO GROWTH AFTER 5 DAYS INCUBATION 02/19/17 16:48 Blood - Peripheral Venous Blood Culture - Final NO GROWTH AFTER 5 DAYS INCUBATION 02/22/17 15:00 Urine - Urine Clean Catch Urine Culture - Final NO GROWTH OBTAINED 02/19/17 19:05 Urine - Urine Clean Catch Urine Culture - Final NO GROWTH OBTAINED a/p pancreatitis- suspect improving with decreasing crp and resolved thrombocytopenia-crp 4! stable off antibiotics nutrition per GI etoh use please call back if needed Problem List - Problems (1) Alcoholic pancreatitis Code(s): K85.20 - ALCOHOL INDUCED ACUTE PANCREATITIS WITHOUT NECROSIS OR INFCT Qualifiers: Chronicity: acute Acute pancreatitis complication: unspecified Qualified Code(s): K85.20 - Alcohol induced acute pancreatitis without necrosis or infection (2) Fever Code(s): R50.9 - FEVER, UNSPECIFIED
[2017-03-02] MEDS: BENZOCAINE/MENTH/CETYLPYRD CL 1 EACH LOZENGE MM PRN (18:31)
[2017-03-02] MEDS: ROSUVASTATIN CA 5 MG TABLET (FP) PO SCH (21:23)
[2017-03-03] MEDS: THIAMINE HCL 100 MG TABLET (FP) PO SCH (10:16)
[2017-03-03] MEDS: FOLIC ACID 1 MG TABLET (FP) PO SCH (10:16)
[2017-03-03] MEDS: amLODIPine BESYLATE 5 MG TABLET (FP) PO SCH (10:16)
[2017-03-03] MEDS: VALSARTAN 80 MG TABLET (UD) PO SCH (10:16)
[2017-03-03] MEDS: HEPARIN NA (PORCINE) 5,000 UNITS/ML 1ML VIAL SQ SCH ×2 (10:17→22:11)
[2017-03-03] MEDS: POTASSIUM CHLORIDE TABS 20 MEQ TABLET.ER (FP) PO SCH (10:17)
[2017-03-03] MEDS: PANTOPRAZOLE SODIUM 40 MG in SODIUM CHLORIDE 100 ML IVPB SCH (10:17)
[2017-03-03] MEDS: FENOFIBRIC ACID 135 MG CAP PO SCH (10:18)
--- NOTE | 2017-03-03 10:35 | PN ---
Progress Note, Physician Chief Complaint: AWAKE ALERT TOLERATING CLEAR LIQUID DIET DENIES PAIN OR NAUSEA/VOMITING - Current Medication List Current Medications: Active Medications Acetaminophen (Tylenol -) 650 mg PO Q6H PRN PRN Reason: FEVER Last Admin: 02/28/17 02:43 Dose: 650 mg Amlodipine Besylate (Norvasc -) 5 mg PO DAILY [facility] Last Admin: 03/03/17 10:16 Dose: 5 mg Artificial Tears (Artificial Tears) 1 drop OS Q4H PRN PRN Reason: DRY EYES Last Admin: 02/28/17 17:21 Dose: 1 drop Benzocaine/Menthol (Cepacol Lozenge -) 1 each MM Q6H PRN PRN Reason: SORE THROAT Last Admin: 03/02/17 18:31 Dose: 1 each Fenofibric Acid (Trilipix -) 135 mg PO DAILY [facility] Last Admin: 03/03/17 10:18 Dose: 135 mg Folic Acid (Folic Acid -) 1 mg PO DAILY [facility] Last Admin: 03/03/17 10:16 Dose: 1 mg Heparin Sodium (Porcine) (Heparin -) 5,000 unit SQ BID [facility] Last Admin: 03/03/17 10:17 Dose: 5,000 unit Hydromorphone HCl (Dilaudid Injection -) 1 mg IVPB Q4H PRN PRN Reason: PAIN Last Admin: 03/01/17 21:23 Dose: 1 mg Hydroxyzine HCl (Atarax -) 25 mg PO TID PRN PRN Reason: ANXIETY Pantoprazole Sodium 40 mg/ (Sodium Chloride) 100 mls @ 200 mls/hr IVPB DAILY [facility] Last Admin: 03/03/17 10:17 Dose: 200 mls/hr Potassium Chloride (K-Dur -) 40 meq PO DAILY [facility] Last Admin: 03/03/17 10:17 Dose: 40 meq Propranolol HCl (Inderal La -) 80 mg PO DAILY [facility] Last Admin: 03/03/17 10:17 Dose: 80 mg Rosuvastatin Calcium (Crestor -) 5 mg PO HS [facility] Last Admin: 03/02/17 21:23 Dose: 5 mg Thiamine HCl (Vitamin B1 -) 100 mg PO DAILY [facility] Last Admin: 03/03/17 10:16 Dose: 100 mg Valsartan (Diovan -) 160 mg PO DAILY [facility] Last Admin: 03/03/17 10:16 Dose: 160 mg - Objective Vital Signs: Vital Signs Temperature 98.1 F 03/03/17 06:00 Pulse Rate 58 L 03/03/17 06:00 Respiratory Rate 18 03/03/17 06:00 Blood Pressure 155/102 03/03/17 06:00 O2 Sat by Pulse Oximetry (%) 99 03/02/17 21:00 Constitutional: Yes: No Distress Eyes: Yes: WNL HENT: Yes: WNL Neck: Yes: WNL Cardiovascular: Yes: WNL Respiratory: Yes: WNL Gastrointestinal: Yes: WNL Genitourinary: Yes: WNL Musculoskeletal: Yes: WNL Extremities: Yes: WNL Edema: No Peripheral Pulses WNL: Yes Integumentary: Yes: WNL Wound/Incision: Yes: Clean/Dry Neurological: Yes: WNL ...Motor Strength: WNL Psychiatric: Yes: WNL Labs: CBC, BMP 03/02/17 06:30 03/02/17 06:30 INR, PTT INR 1.26 (0.82-1.09) H 02/21/17 06:00 Problem List - Problems (1) Alcoholic pancreatitis Code(s): K85.20 - ALCOHOL INDUCED ACUTE PANCREATITIS WITHOUT NECROSIS OR INFCT Qualifiers: Chronicity: acute Acute pancreatitis complication: unspecified Qualified Code(s): K85.20 - Alcohol induced acute pancreatitis without necrosis or infection (2) ETOH abuse Code(s): F10.10 - ALCOHOL ABUSE, UNCOMPLICATED (3) Fatty (change of) liver, not elsewhere classified Code(s): K76.0 - FATTY (CHANGE OF) LIVER, NOT ELSEWHERE CLASSIFIED (4) Fluid collection of pancreas Code(s): K86.89 - OTHER SPECIFIED DISEASES OF PANCREAS (5) HLD (hyperlipidemia) Code(s): E78.5 - HYPERLIPIDEMIA, UNSPECIFIED Qualifiers: Hyperlipidemia type: mixed hyperlipidemia Qualified Code(s): E78.2 - Mixed hyperlipidemia (6) HTN (hypertension) Code(s): I10 - ESSENTIAL (PRIMARY) HYPERTENSION Qualifiers: Hypertension type: essential hypertension Qualified Code(s): I10 - Essential (primary) hypertension Assessment/Plan ADVANCE DIET TO FULL LIQUIDS IV ABX IF DIET TOLERATED WILL DC NGT OOB TO CHAIR ETOH SUPPORT GROUP OUT PATIENT
--- NOTE | 2017-03-03 10:53 | PN ---
Progress Note, Physician History of Present Illness: Epigastric pain improved with post-pyloric feeds. - Current Medication List Current Medications: Active Medications Acetaminophen (Tylenol -) 650 mg PO Q6H PRN PRN Reason: FEVER Last Admin: 02/28/17 02:43 Dose: 650 mg Amlodipine Besylate (Norvasc -) 5 mg PO DAILY [facility] Last Admin: 03/03/17 10:16 Dose: 5 mg Artificial Tears (Artificial Tears) 1 drop OS Q4H PRN PRN Reason: DRY EYES Last Admin: 02/28/17 17:21 Dose: 1 drop Benzocaine/Menthol (Cepacol Lozenge -) 1 each MM Q6H PRN PRN Reason: SORE THROAT Last Admin: 03/02/17 18:31 Dose: 1 each Fenofibric Acid (Trilipix -) 135 mg PO DAILY [facility] Last Admin: 03/03/17 10:18 Dose: 135 mg Folic Acid (Folic Acid -) 1 mg PO DAILY [facility] Last Admin: 03/03/17 10:16 Dose: 1 mg Heparin Sodium (Porcine) (Heparin -) 5,000 unit SQ BID [facility] Last Admin: 03/03/17 10:17 Dose: 5,000 unit Hydromorphone HCl (Dilaudid Injection -) 1 mg IVPB Q4H PRN PRN Reason: PAIN Last Admin: 03/01/17 21:23 Dose: 1 mg Hydroxyzine HCl (Atarax -) 25 mg PO TID PRN PRN Reason: ANXIETY Pantoprazole Sodium 40 mg/ (Sodium Chloride) 100 mls @ 200 mls/hr IVPB DAILY [facility] Last Admin: 03/03/17 10:17 Dose: 200 mls/hr Potassium Chloride (K-Dur -) 40 meq PO DAILY [facility] Last Admin: 03/03/17 10:17 Dose: 40 meq Propranolol HCl (Inderal La -) 80 mg PO DAILY [facility] Last Admin: 03/03/17 10:17 Dose: 80 mg Rosuvastatin Calcium (Crestor -) 5 mg PO HS [facility] Last Admin: 03/02/17 21:23 Dose: 5 mg Thiamine HCl (Vitamin B1 -) 100 mg PO DAILY [facility] Last Admin: 03/03/17 10:16 Dose: 100 mg Valsartan (Diovan -) 160 mg PO DAILY [facility] Last Admin: 03/03/17 10:16 Dose: 160 mg - Objective Vital Signs: Vital Signs Temperature 98.1 F 03/03/17 06:00 Pulse Rate 58 L 03/03/17 06:00 Respiratory Rate 18 03/03/17 06:00 Blood Pressure 155/102 03/03/17 06:00 O2 Sat by Pulse Oximetry (%) 99 03/02/17 21:00 Constitutional: Yes: No Distress, Calm Neck: Yes: Supple Cardiovascular: Yes: Regular Rate and Rhythm Respiratory: Yes: Regular, Diminished Gastrointestinal: Yes: Soft, Hypoactive Bowel Sounds Edema: No Labs: CBC, BMP 03/02/17 06:30 03/02/17 06:30 INR, PTT INR 1.26 (0.82-1.09) H 02/21/17 06:00 Problem List - Problems (1) Alcoholic pancreatitis Code(s): K85.20 - ALCOHOL INDUCED ACUTE PANCREATITIS WITHOUT NECROSIS OR INFCT Qualifiers: Chronicity: acute Acute pancreatitis complication: unspecified Qualified Code(s): K85.20 - Alcohol induced acute pancreatitis without necrosis or infection (2) Fluid collection of pancreas Code(s): K86.89 - OTHER SPECIFIED DISEASES OF PANCREAS (3) Chronic alcoholism Code(s): F10.20 - ALCOHOL DEPENDENCE, UNCOMPLICATED (4) HLD (hyperlipidemia) Code(s): E78.5 - HYPERLIPIDEMIA, UNSPECIFIED Qualifiers: Hyperlipidemia type: mixed hyperlipidemia Qualified Code(s): E78.2 - Mixed hyperlipidemia (5) HTN (hypertension) Code(s): I10 - ESSENTIAL (PRIMARY) HYPERTENSION Qualifiers: Hypertension type: essential hypertension Qualified Code(s): I10 - Essential (primary) hypertension Assessment/Plan 1. Acute pancreatitis secondary to ETOH abuse/dependency (history of recurrent pancreatitis), with early pseudocyst formation resolving 2. Hypertension 3. Mixed Hyperlipidemia PLAN: 1. Continue Valsartan 160 qd and Norvasc 5 qd 2. Continue Propranolol 80 qd (as outlined in prior notes history of asymptomatic sinus bradycardia) 3. Continue Crestor 5 qhs and Trilipix 135 qd 4. Analgesics and diet as per the primary team 5. Abx course completed 6. DVT and GI prophylaxis
--- NOTE | 2017-03-03 13:45 | PN ---
GI Progress Note Subjective: GI F/U NO COPMPLAINTS TOLERATING SOLID FOOD NO N/V/F/C/S NOABD PAIN - Objective Vital Signs: Vital Signs Temperature 98.1 F 03/03/17 06:00 Pulse Rate 58 L 03/03/17 06:00 Respiratory Rate 18 03/03/17 06:00 Blood Pressure 155/102 03/03/17 06:00 O2 Sat by Pulse Oximetry (%) 99 03/02/17 21:00 Constitutional: Well Nourished, No Distress, Calm Eyes: Yes: WNL HENT: Yes: WNL (+BS/ SOFT/NT TO MASSES OR REBOUND) Labs: CBC, BMP 03/02/17 06:30 03/02/17 06:30 INR, PTT INR 1.26 (0.82-1.09) H 02/21/17 06:00 Assessment/Plan PANCREATITIS--CLINICAL AND BIOCHENMICAL IMPROVEMENT HAVE REMOVED NGT TOLERATING SOLID FOOD THUS FAR ADVANCE DIET SLOWLY AND OBSERVE MD EVERARDO
[2017-03-03] MEDS ORDERED: PT OWN MED DRAWER 7, Y5N ONE (22:13)
[2017-03-03] MEDS: ROSUVASTATIN CA 5 MG TABLET (FP) PO SCH (22:13)
--- NOTE | 2017-03-04 10:15 | PN ---
Progress Note, Physician Chief Complaint: Not in distress Feels better History of Present Illness: Patient was seen and examined. Awake and alert. Chart was reviewed Denies chest pain, SOB or palpitations As outlined above - Current Medication List Current Medications: Active Medications Acetaminophen (Tylenol -) 650 mg PO Q6H PRN PRN Reason: FEVER Last Admin: 02/28/17 02:43 Dose: 650 mg Amlodipine Besylate (Norvasc -) 5 mg PO DAILY [facility] Last Admin: 03/03/17 10:16 Dose: 5 mg Artificial Tears (Artificial Tears) 1 drop OS Q4H PRN PRN Reason: DRY EYES Last Admin: 02/28/17 17:21 Dose: 1 drop Benzocaine/Menthol (Cepacol Lozenge -) 1 each MM Q6H PRN PRN Reason: SORE THROAT Last Admin: 03/02/17 18:31 Dose: 1 each Fenofibric Acid (Trilipix -) 135 mg PO DAILY [facility] Last Admin: 03/03/17 10:18 Dose: 135 mg Folic Acid (Folic Acid -) 1 mg PO DAILY [facility] Last Admin: 03/03/17 10:16 Dose: 1 mg Heparin Sodium (Porcine) (Heparin -) 5,000 unit SQ BID [facility] Last Admin: 03/03/17 22:11 Dose: 5,000 unit Hydromorphone HCl (Dilaudid Injection -) 1 mg IVPB Q4H PRN PRN Reason: PAIN Last Admin: 03/01/17 21:23 Dose: 1 mg Hydroxyzine HCl (Atarax -) 25 mg PO TID PRN PRN Reason: ANXIETY Pantoprazole Sodium 40 mg/ (Sodium Chloride) 100 mls @ 200 mls/hr IVPB DAILY [facility] Last Admin: 03/03/17 10:17 Dose: 200 mls/hr Potassium Chloride (K-Dur -) 40 meq PO DAILY [facility] Last Admin: 03/03/17 10:17 Dose: 40 meq Propranolol HCl (Inderal La -) 80 mg PO DAILY [facility] Last Admin: 03/03/17 10:17 Dose: 80 mg Rosuvastatin Calcium (Crestor -) 5 mg PO HS [facility] Last Admin: 03/03/17 22:13 Dose: 5 mg Thiamine HCl (Vitamin B1 -) 100 mg PO DAILY [facility] Last Admin: 03/03/17 10:16 Dose: 100 mg Valsartan (Diovan -) 160 mg PO DAILY [facility] Last Admin: 03/03/17 10:16 Dose: 160 mg - Objective Vital Signs: Vital Signs Temperature 98.1 F 03/04/17 07:17 Pulse Rate 48 L 03/04/17 07:17 Respiratory Rate 20 03/04/17 07:17 Blood Pressure 140/101 03/04/17 07:17 O2 Sat by Pulse Oximetry (%) 94 L 03/03/17 21:00 Neck: Yes: Supple Cardiovascular: Yes: Regular Rate and Rhythm, S1, S2 Respiratory: Yes: CTA Bilaterally Gastrointestinal: Yes: Normal Bowel Sounds, Soft. No: Tenderness Edema: No Labs: Problem List - Problems (1) Alcoholic pancreatitis Code(s): K85.20 - ALCOHOL INDUCED ACUTE PANCREATITIS WITHOUT NECROSIS OR INFCT Qualifiers: Chronicity: acute Acute pancreatitis complication: unspecified Qualified Code(s): K85.20 - Alcohol induced acute pancreatitis without necrosis or infection (2) ETOH abuse Code(s): F10.10 - ALCOHOL ABUSE, UNCOMPLICATED (3) Bradycardia Code(s): R00.1 - BRADYCARDIA, UNSPECIFIED (4) HLD (hyperlipidemia) Code(s): E78.5 - HYPERLIPIDEMIA, UNSPECIFIED Qualifiers: Hyperlipidemia type: mixed hyperlipidemia Qualified Code(s): E78.2 - Mixed hyperlipidemia (5) HTN (hypertension) Code(s): I10 - ESSENTIAL (PRIMARY) HYPERTENSION Qualifiers: Hypertension type: essential hypertension Qualified Code(s): I10 - Essential (primary) hypertension Assessment/Plan 1. Acute pancreatitis secondary to ETOH dependency now with probable abscess and fluid collection - clinically improved 2. Hypertension 3. Hypercholesterolemia PLAN: 1. Continue Valsartan and Amlodipine (uptitrate as needed) 2. Continue Propranolol - monitor HR 3. Currently patient is on Crestor and trilipix. Monitor LFT closely 4. Analgesics PRN 5. Continue antibiotic coverage Further plans are to follow Urbano Perez MD
--- NOTE | 2017-03-04 11:12 | PN ---
GI Progress Note Subjective: No acute events States vomiting on saturday when receiving tube feeds Started on PO yesterday. Toleraitng well and states feeling well - Objective Vital Signs: Vital Signs Temperature 98.1 F 03/04/17 07:17 Pulse Rate 48 L 03/04/17 07:17 Respiratory Rate 20 03/04/17 07:17 Blood Pressure 140/101 03/04/17 07:17 O2 Sat by Pulse Oximetry (%) 94 L 03/03/17 21:00 Constitutional: Calm Eyes: No: Sclera Icterus Cardiovascular: Yes: Regular Rate and Rhythm Gastrointestinal Inspection: No: Distention ...Auscultate: Yes: Normoactive Bowel Sounds ...Palpate: No: Hepatomegaly, Splenomegaly, Tenderness Edema: No Neurological: Yes: Tremors Labs: CBC, BMP 03/02/17 06:30 03/02/17 06:30 INR, PTT INR 1.26 (0.82-1.09) H 02/21/17 06:00 Problem List - Problems (1) Alcoholic pancreatitis Assessment/Plan: Clinically much improved and tolerating PO From GI standpoint no objection to D/C home Advised: Continued low fat diet Complete avoidance of alcohol. I explained that continued bouts of pancreatitis can lead to debilitating / life threatening sequelae. Remainder of care per PMD Follow-up with Dr. Bingham as outpatient. I advised Mr. Burdick to call the office to arrange this Will sign off. Recall as needed Code(s): K85.20 - ALCOHOL INDUCED ACUTE PANCREATITIS WITHOUT NECROSIS OR INFCT Qualifiers: Chronicity: acute Acute pancreatitis complication: unspecified Qualified Code(s): K85.20 - Alcohol induced acute pancreatitis without necrosis or infection
[2017-03-04] MEDS ORDERED: PT OWN MED DRAWER 7, Y5N ONE ×3 (11:17→20:49)
[2017-03-04] MEDS: amLODIPine BESYLATE 5 MG TABLET (FP) PO SCH (11:23)
[2017-03-04] MEDS: POTASSIUM CHLORIDE TABS 20 MEQ TABLET.ER (FP) PO SCH (11:23)
[2017-03-04] MEDS: VALSARTAN 80 MG TABLET (UD) PO SCH (11:23)
[2017-03-04] MEDS: FENOFIBRIC ACID 135 MG CAP PO SCH (11:24)
[2017-03-04] MEDS: HEPARIN NA (PORCINE) 5,000 UNITS/ML 1ML VIAL SQ SCH ×2 (11:24→21:39)
[2017-03-04] MEDS: FOLIC ACID 1 MG TABLET (FP) PO SCH (11:28)
[2017-03-04] MEDS: PANTOPRAZOLE SODIUM 40 MG in SODIUM CHLORIDE 100 ML IVPB SCH (11:28)
[2017-03-04] MEDS: THIAMINE HCL 100 MG TABLET (FP) PO SCH (11:29)
--- NOTE | 2017-03-04 16:09 | PN ---
Progress Note, Physician Chief Complaint: Abdominal pain, acute pancreatitis, pancreatic abscess? History of Present Illness: NAD, OOB Pain improved, only on deep palpation No N/V, loose stools 2-3 x day -tolerating solid foods -seen by GI -NGT discontinued yesterday - Current Medication List Current Medications: Active Medications Acetaminophen (Tylenol -) 650 mg PO Q6H PRN PRN Reason: FEVER Last Admin: 02/28/17 02:43 Dose: 650 mg Amlodipine Besylate (Norvasc -) 5 mg PO DAILY [facility] Last Admin: 03/04/17 11:23 Dose: 5 mg Artificial Tears (Artificial Tears) 1 drop OS Q4H PRN PRN Reason: DRY EYES Last Admin: 02/28/17 17:21 Dose: 1 drop Benzocaine/Menthol (Cepacol Lozenge -) 1 each MM Q6H PRN PRN Reason: SORE THROAT Last Admin: 03/02/17 18:31 Dose: 1 each Fenofibric Acid (Trilipix -) 135 mg PO DAILY [facility] Last Admin: 03/04/17 11:24 Dose: 135 mg Heparin Sodium (Porcine) (Heparin -) 5,000 unit SQ BID [facility] Last Admin: 03/04/17 11:24 Dose: 5,000 unit Hydromorphone HCl (Dilaudid Injection -) 1 mg IVPB Q4H PRN PRN Reason: PAIN Last Admin: 03/01/17 21:23 Dose: 1 mg Hydroxyzine HCl (Atarax -) 25 mg PO TID PRN PRN Reason: ANXIETY Multivitamins/Minerals/Vitamin C (Tab-A-Vit -) 1 tab PO DAILY [facility] Potassium Chloride (K-Dur -) 40 meq PO DAILY [facility] Last Admin: 03/04/17 11:23 Dose: 40 meq Propranolol HCl (Inderal La -) 80 mg PO DAILY [facility] Last Admin: 03/04/17 12:40 Dose: 80 mg Rosuvastatin Calcium (Crestor -) 5 mg PO HS [facility] Last Admin: 03/03/17 22:13 Dose: 5 mg Valsartan (Diovan -) 160 mg PO DAILY [facility] Last Admin: 03/04/17 11:23 Dose: 160 mg - Objective Vital Signs: Vital Signs Temperature 98.3 F 03/04/17 15:00 Pulse Rate 60 03/04/17 15:00 Respiratory Rate 20 03/04/17 15:00 Blood Pressure 144/99 03/04/17 15:00 O2 Sat by Pulse Oximetry (%) 94 L 03/03/17 21:00 Constitutional: Yes: Well Nourished, No Distress, Calm Cardiovascular: Yes: Regular Rate and Rhythm Respiratory: Yes: Regular Musculoskeletal: Yes: WNL Extremities: Yes: WNL Edema: No Peripheral Pulses WNL: Yes Neurological: Yes: Alert, Oriented Psychiatric: Yes: Alert, Oriented Labs: CBC, BMP 03/02/17 06:30 03/02/17 06:30 INR, PTT INR 1.26 (0.82-1.09) H 02/21/17 06:00 Problem List - Problems (1) ETOH abuse Code(s): F10.10 - ALCOHOL ABUSE, UNCOMPLICATED (2) Fatty (change of) liver, not elsewhere classified Code(s): K76.0 - FATTY (CHANGE OF) LIVER, NOT ELSEWHERE CLASSIFIED (3) Bradycardia Code(s): R00.1 - BRADYCARDIA, UNSPECIFIED (4) HTN (hypertension) Code(s): I10 - ESSENTIAL (PRIMARY) HYPERTENSION Qualifiers: Qualified Code(s): I10 - Essential (primary) hypertension (5) Alcoholic pancreatitis Code(s): K85.20 - ALCOHOL INDUCED ACUTE PANCREATITIS WITHOUT NECROSIS OR INFCT Qualifiers: Qualified Code(s): K85.20 - Alcohol induced acute pancreatitis without necrosis or infection (6) Pancreatic abscess Code(s): K85.90 - ACUTE PANCREATITIS WITHOUT NECROSIS OR INFECTION, UNSP Assessment/Plan -cleared by GI to be discharged home in AM -DVT prophylaxis -reinforced abstinence from alcohol -will see GI outpatient, needs repeat CT abdomen to follow up on pancreatic abscess.
[2017-03-04] MEDS: ROSUVASTATIN CA 5 MG TABLET (FP) PO SCH (21:39)
--- NOTE | 2017-03-05 08:51 | DS ---
Physical Examination Vital Signs: Vital Signs Temperature 98.2 F 03/05/17 06:00 Pulse Rate 59 L 03/05/17 06:00 Respiratory Rate 20 03/05/17 06:00 Blood Pressure 144/93 03/05/17 06:00 O2 Sat by Pulse Oximetry (%) 97 03/04/17 21:00 Cardiovascular: Yes: Regular Rate and Rhythm Respiratory: Yes: Regular, CTA Bilaterally Gastrointestinal: Yes: Normal Bowel Sounds, Soft. No: Tenderness Labs: CBC, BMP 03/02/17 06:30 03/02/17 06:30 Discharge Summary Reason For Visit: ALCOHOL ABUSE,BRADYCARDIA,PANCREATITIS Current Active Problems Alcoholic pancreatitis (Acute) ETOH abuse (Acute) Fatty (change of) liver, not elsewhere classified (Acute) Fever (Acute) Fluid collection of pancreas (Acute) Hypokalemia (Acute) Pancreatic abscess (Acute) Pancreatitis (Acute) Thrombocytopenia (Acute) Chronic alcoholism (Chronic) Tremor (Chronic) Hospital Course: 56 yo M with hx of HTN, HLD, and recurrent alcohol induced pancreatitis presented to [facility] emergency department with epigastric pain similar to his previous bouts of pancreatitis. Patient admits that he has been drinking again , "a few a day" and had 4-5 beers yesterday. Patient denies any nausea, vomiting, diarrhea, rectal bleeding, fever, shortness of breath, or chest pain. Patient also reports a baseline HR "in the 40s. Patient is known to non compliant, has not followed up with GI outpatient as recommended and doesn't abstain from drinking alcohol everyday. 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 No obvious necrosis noted While CRP is alma trending in a downward direction and WBC remains normal, Mr. Burdick still complains of epigastric pain that worsened after clear liquids. As I explained to him last week, given the prolonged nature of continued pain, development of pain after clear liquid diet and worsened CT scan findings, endoscopically placed post-pyloric feeding tube should be considered as a means of Mr. Burdick obtaining the necessary nutrition while resting the pancreas. I explained that nutrition is a palumbo element to continued recovery from pancreatitis PT OFF NGT FEEDS--TOLERATING DIET--- MONITOR LABS CT SCAN TODAY Code(s): K85.20 - ALCOHOL INDUCED ACUTE PANCREATITIS WITHOUT NECROSIS OR INFCT Qualifiers: Chronicity: acute Acute pancreatitis complication: unspecified Qualified Code(s): K85.20 - Alcohol induced acute pancreatitis without necrosis or infection (2) ETOH abuse Assessment/Plan: MONITOR ABSTINENCE DISCUSSED Code(s): F10.10 - ALCOHOL ABUSE, UNCOMPLICATED (3) Fatty (change of) liver, not elsewhere classified Assessment/Plan: AVOID ETOH--PT UNDERSTANDS--STATES WILL BE HARD COMPLIANCE Code(s): K76.0 - FATTY (CHANGE OF) LIVER, NOT ELSEWHERE CLASSIFIED (4) Bradycardia Assessment/Plan: CARDIO ON BOARD Code(s): R00.1 - BRADYCARDIA, UNSPECIFIED (5) HLD (hyperlipidemia) Assessment/Plan: AWAIT LIPIDS Laboratory Tests 02/23/17 06:00 Triglycerides 524 H D Cholesterol 231 H Total LDL Cholesterol 137 H HDL Cholesterol 8 L D Code(s): E78.5 - HYPERLIPIDEMIA, UNSPECIFIED Qualifiers: Hyperlipidemia type: mixed hyperlipidemia Qualified Code(s): E78.2 - Mixed hyperlipidemia (6) HTN (hypertension) Assessment/Plan: MONITOR ON CURRENT MEDS NORVASC ADDED Vital Signs Period Temp Pulse Resp BP Sys/Ojeda Pulse Ox Last 24 Hr 97.6 F-99.1 F 61-64 18-20 148-148/86-91 99 Code(s): I10 - ESSENTIAL (PRIMARY) HYPERTENSION Qualifiers: Hypertension type: essential hypertension Qualified Code(s): I10 - Essential (primary) hypertension - Instructions Referrals: Sharmila Levy MD [Primary Care Provider] - 1 Week Abelardo Bingham MD [Staff Physician] - - Home Medications Comprehensive Discharge Medication List: Ambulatory Orders Acetaminophen [Tylenol .Extra-Strength -] 500 mg PO Q6H PRN 02/18/17 Alprazolam [Xanax] 0.25 mg PO DAILY PRN 02/18/17 Fenofibric Acid (Choline) [Trilipix] 135 mg PO DAILY 02/18/17 Propranolol HCl 80 mg PO DAILY 02/18/17 Ranitidine HCl [Zantac] 300 mg PO DAILY 02/18/17 Rosuvastatin Calcium [Crestor] mg PO HS 02/18/17 Amlodipine Besylate [Norvasc -] 5 mg PO DAILY #30 tablet 03/05/17 Multivitamins [Multivit ([facility] Formulary)] 1 tab PO DAILY tab 03/05/17 Pantoprazole Sodium [Protonix -] 40 mg PO DAILY #30 tablet.ec 03/05/17 Valsartan [Diovan] 160 mg PO DAILY #30 tablet 03/05/17
[2017-03-05] MEDS: amLODIPine BESYLATE 5 MG TABLET (FP) PO SCH (09:46)
[2017-03-05] MEDS: POTASSIUM CHLORIDE TABS 20 MEQ TABLET.ER (FP) PO SCH (09:46)
[2017-03-05] MEDS: VALSARTAN 80 MG TABLET (UD) PO SCH (09:46)
[2017-03-05] MEDS: FENOFIBRIC ACID 135 MG CAP PO SCH (09:47)
[2017-03-05 09:51] LABS: ANION GAP 10 (8-16); CALCIUM 9.3 mg/dL (8.5-10.1); CO2 26 mmol/L (21-32); CREATININE 1.1 mg/dL (0.7-1.3); GLUCOSE,RANDOM 101 mg/dL (74-106); MAGNESIUM 2.5 mg/dL (1.8-2.4)
[2017-03-05] MEDS ORDERED: MULTIVITAMINS (DAILY MVI) TABLET (FP) PO SCH (10:00)
--- NOTE | 2017-03-05 12:04 | PN ---
Progress Note (short form) - Note Progress Note: Chief Complaint: Events noted, notes reviewed, reports minimal abdominal/ epigastric pain, denies any chest pain or dyspnea History of Present Illness: Seen and examined. Events noted, notes reviewed, reports minimal abdominal/ epigastric pain, denies any chest pain or dyspnea - Current Medication List Current Medications Acetaminophen (Tylenol -) 650 mg PO Q6H PRN PRN Reason: FEVER Last Admin: 02/28/17 02:43 Dose: 650 mg Amlodipine Besylate (Norvasc -) 5 mg PO DAILY [facility] Last Admin: 03/05/17 09:46 Dose: 5 mg Artificial Tears (Artificial Tears) 1 drop OS Q4H PRN PRN Reason: DRY EYES Last Admin: 02/28/17 17:21 Dose: 1 drop Benzocaine/Menthol (Cepacol Lozenge -) 1 each MM Q6H PRN PRN Reason: SORE THROAT Last Admin: 03/02/17 18:31 Dose: 1 each Fenofibric Acid (Trilipix -) 135 mg PO DAILY [facility] Last Admin: 03/05/17 09:47 Dose: 135 mg Hydroxyzine HCl (Atarax -) 25 mg PO TID PRN PRN Reason: ANXIETY Multivitamins/Minerals/Vitamin C (Tab-A-Vit -) 1 tab PO DAILY [facility] Last Admin: 03/05/17 09:47 Dose: 1 tab Potassium Chloride (K-Dur -) 40 meq PO DAILY [facility] Last Admin: 03/05/17 09:46 Dose: 40 meq Propranolol HCl (Inderal La -) 80 mg PO DAILY [facility] Last Admin: 03/05/17 09:46 Dose: 80 mg Rosuvastatin Calcium (Crestor -) 5 mg PO HS [facility] Last Admin: 03/04/17 21:39 Dose: 5 mg Valsartan (Diovan -) 160 mg PO DAILY [facility] Last Admin: 03/05/17 09:46 Dose: 160 mg - Objective Vital Signs: Last Vital Signs Temp Pulse Resp BP Pulse Ox 98.2 F 59 L 20 144/93 97 03/05/17 06:00 03/05/17 06:00 03/05/17 06:00 03/05/17 06:00 03/04/17 21:00 Intake & Output 03/02/17 03/03/17 03/04/17 03/05/17 23:59 23:59 23:59 23:59 Intake Total 900 1080 800 120 Balance 900 1080 800 120 Neck: Supple Negative JVD No Bruit Cardiovascular: S1 S2 Regular Rate and Rhythm Respiratory: Clear to A&P Bilaterally Gastrointestinal: Soft Normal Bowel Sounds Ext: No Edema Labs: CBC, BMP 03/02/17 06:30 03/05/17 09:21 INR, PTT INR 1.26 (0.82-1.09) H 02/21/17 06:00 Assessment/Plan ASSESSMENT: 1. Acute pancreatitis secondary to ETOH abuse/dependency (history of recurrent pancreatitis), resolved 2. Asymptomatic sinus bradycardia 3. Hypertension 4. Hypercholesterolemia PLAN: 1. Continue Valsartan and titrate as needed and as tolerated 2. Continue Propranolol (as outlined in prior notes history of asymptomatic sinus bradycardia) 3. Continue Norvasc 4. Continue Crestor 5. D/C home as per the primary team and F/U in the office as scheduled Davina Fields MD
[2017-03-05 12:31] VITALS: BP 132/99; PULSE 62; TEMP 97.5
== END 2017-03-05 12:55 | disposition home or self-care (01) | DRG 439 ==
LOC: JER 04:40 → JERBED 07:03 → J8W 10:56
PROVIDERS: ADMIT Family Medicine; ATTEND Family Medicine
PROC: 0DH98UZ Insertion of Feeding Device into Duodenum, Via Natural or Artificial Opening Endoscopic (ICD-10-PCS; 2017-02-27)
PROC: HZ2ZZZZ Detoxification Services for Substance Abuse Treatment (ICD-10-PCS; principal; 2017-02-27 12:00)
DX: K85.20 Alcohol induced acute pancreatitis without necrosis or infection (principal); J98.11 Atelectasis; I10 Essential (primary) hypertension; E78.5 Hyperlipidemia, unspecified; G43.809 Other migraine, not intractable, without status migrainosus; K29.60 Other gastritis without bleeding; K21.9 Gastro-esophageal reflux disease without esophagitis; K76.0 Fatty (change of) liver, not elsewhere classified; Z87.891 Personal history of nicotine dependence; F10.20 Alcohol dependence, uncomplicated; R00.1 Bradycardia, unspecified; R50.9 Fever, unspecified; D69.6 Thrombocytopenia, unspecified; E87.6 Hypokalemia; R25.1 Tremor, unspecified; K86.89 Other specified diseases of pancreas
CPT/HCPCS: 36415; 71010-TC; 74000-TC; 74177-TC; 74178-TC; 74183-TC; 80048; 80053; 80061; 80307; 81003; 81015; 82150; 82172; 82247; 82465; 82607; 82746; 82784; 82947; 82977; 83010; 83615; 83690; 83721; 83735; 83883; 84100; 84155; 84165; 84450; 84460; 84478; 85025; 85027; 85044; 85610; 85730; 86140; 86334; 86880; 87040; 87086; 93005; 93010; 99284-25; J1644; Q9967

== ENCOUNTER 2017-06-15 15:45 | Emergency (ER) | payer BC ==
[2017-06-15 16:03] VITALS: BP 146/90; PULSE 48; TEMP 97.7; BMI 21.1
[2017-06-15] MEDS ORDERED: NAPROXEN 500 MG TABLET (FP) PO ONE (16:08)
[2017-06-15] MEDS ORDERED: NAPROXEN 500 MG TABLET (FP) ONE (16:16)
--- NOTE | 2017-06-15 16:19 | PDOC ---
History of Present Illness - General History Source: Patient Exam Limitations: No Limitations <David Doll - Last Filed: 06/15/17 17:33> - General History Source: Patient Exam Limitations: No Limitations - History of Present Illness Initial Comments: 06/15/17 16:55 The patient is a 56 year old female, with a significant PMH of HTN and hyperlipidemia who presents to the emergency department with right elbow pain and swelling s/p fall approximately 2 hours ago. He notes some radiation of his pain to the right wrist. The patient reports significant swelling in his right elbow, describing it as feeling like a baseball. He notes limited ROM secondary to pain. The patient reports walking in [employer] and losing his balance, falling and landing directly on his right elbow. He denies hitting his head or LOC. The patient denies chest pain, shortness of breath, headache and dizziness. Denies fever, chills, nausea, vomit, diarrhea and constipation. Denies dysuria, frequency, urgency and hematuria. Allergies: NKA Past surgical history: None reported. Social history: Alcohol use. No reported cigarette and drug use. PCP: None reported. <David Guerrero - Last Filed: 06/15/17 17:39> - General Chief Complaint: Injury Stated Complaint: SLIP AND FALL Time Seen by Provider: 06/15/17 16:04 Past History - Past Medical History Anemia: No Asthma: No Cancer: No Cardiac Disorders: No CVA: No COPD: No CHF: No Dementia: No Diabetes: No GI Disorders: Yes (pancreatitis) Disorders: No HTN: Yes Hypercholesterolemia: Yes Liver Disease: No Seizures: No Thyroid Disease: No - Surgical History Abdominal Surgery: No Appendectomy: No Cardiac Surgery: No Cholecystectomy: No Lung Surgery: No Neurologic Surgery: No Orthopedic Surgery: No - Immunization History Td Vaccination: Yes Immunization Up to Date: No - Suicide/Smoking/Psychosocial Hx Smoking Status: No Smoking History: Never smoked Have you smoked in the past 12 months: No Number of Cigarettes Smoked Daily: 0 If you are a former smoker, when did you quit?: LONG TIME AGO Information on smoking cessation initiated: No Hx Alcohol Use: No Drug/Substance Use Hx: No Substance Use Type: None Hx Substance Use Treatment: No <David Doll - Last Filed: 06/15/17 17:33> <David Guerrero - Last Filed: 06/15/17 17:39> - Past Medical History Allergies/Adverse Reactions: Allergies Allergy/AdvReac Type Severity Reaction Status Date / Time No Known Allergies Allergy Verified 06/15/17 16:01 Home Medications: Ambulatory Orders Acetaminophen [Tylenol .Extra-Strength -] 500 mg PO Q6H PRN 02/18/17 Alprazolam [Xanax] 0.25 mg PO DAILY PRN 02/18/17 Fenofibric Acid (Choline) [Trilipix] 135 mg PO DAILY 02/18/17 Propranolol HCl 80 mg PO DAILY 02/18/17 Ranitidine HCl [Zantac] 300 mg PO DAILY 02/18/17 Rosuvastatin Calcium [Crestor] mg PO HS 02/18/17 Amlodipine Besylate [Norvasc -] 5 mg PO DAILY #30 tablet 03/05/17 Multivitamins [Multivit ([facility] Formulary)] 1 tab PO DAILY tab 03/05/17 Pantoprazole Sodium [Protonix -] 40 mg PO DAILY #30 tablet.ec 03/05/17 Valsartan [Diovan] 160 mg PO DAILY #30 tablet 03/05/17 Naproxen 500 mg PO BID PRN #20 tablet. 06/15/17 Oxycodone HCl/Acetaminophen [Percocet 5-325 mg Tablet] 1 tab PO Q6H PRN #20 tablet MDD 4 06/15/17 Review of Systems - Review of Systems Able to Perform ROS?: Yes Comments:: 06/15/17 16:55 GENERAL/CONSTITUTIONAL: No fever or chills. No weakness. HEAD, EYES, EARS, NOSE AND THROAT: No change in vision. No ear pain or discharge. No sore throat. CARDIOVASCULAR: No chest pain or shortness of breath. RESPIRATORY: No cough, wheezing, or hemoptysis. GASTROINTESTINAL: No nausea, vomiting, diarrhea or constipation. GENITOURINARY: No dysuria, frequency, or change in urination. MUSCULOSKELETAL: (+) Right elbow pain and swelling. (+) Right wrist pain. No joint or muscle swelling or pain. No neck or back pain. SKIN: No rash NEUROLOGIC: No headache, vertigo, loss of consciousness, or change in strength/ sensation. ENDOCRINE: No increased thirst. No abnormal weight change. HEMATOLOGIC/LYMPHATIC: No anemia, easy bleeding, or history of blood clots. ALLERGIC/IMMUNOLOGIC: No hives or skin allergy. <David Guerrero - Last Filed: 06/15/17 17:39> *Physical Exam - Vital Signs Last Vital Signs Temp Pulse Resp BP Pulse Ox 97.7 F 48 L 18 146/90 97 06/15/17 15:56 06/15/17 15:56 06/15/17 15:56 06/15/17 15:56 06/15/17 15:56 <David Doll - Last Filed: 06/15/17 17:33> - Vital Signs Last Vital Signs Temp Pulse Resp BP Pulse Ox 97.7 F 48 L 18 146/90 97 06/15/17 15:56 06/15/17 15:56 06/15/17 15:56 06/15/17 15:56 06/15/17 15:56 - Physical Exam Comments: 06/15/17 16:55 GENERAL: Awake, alert, and fully oriented, in no acute distress HEAD: No signs of trauma EYES: PERRLA, EOMI, sclera anicteric, conjunctiva clear ENT: Auricles normal inspection, hearing grossly normal, nares patent, oropharynx clear without exudates. Moist mucosa NECK: Normal ROM, supple, no lymphadenopathy, JVD, or masses LUNGS: Breath sounds equal, clear to auscultation bilaterally. No wheezes, and no crackles HEART: Regular rate and rhythm, normal S1 and S2, no murmurs, rubs or gallops ABDOMEN: Soft, nontender, normoactive bowel sounds. No guarding, no rebound. No masses EXTREMITIES: (+) Right elbow deformity and swelling. (+) RUE ROM limited secondary to pain. 2+ radial pulses. No tenderness to wrist. No clubbing or cyanosis. No cords, erythema, or tenderness NEUROLOGICAL: Cranial nerves II through XII grossly intact. Median, radial, ulnar, neuro sensation intact. Normal speech, normal gait SKIN: Warm, Dry, normal turgor, no rashes or lesions noted. <David Guerrero - Last Filed: 06/15/17 17:39> Procedures - Splinting Splint Location: Right: Elbow Pre-Proc Neuro Vasc Exam: normal Hand-Made Type: orthoglass Splint Type: Yes: Posterior Post-Proc Neuro Vasc Exam: normal Dmitriy Bandage: 4" Sling: Yes Complications: No <David Doll - Last Filed: 06/15/17 17:33> ED Treatment Course - RADIOLOGY Radiology Studies Ordered: Category Date Time Status ELBOW-RIGHT [RAD] Stat Radiology 06/15/17 16:08 Ordered WRIST- RIGHT [RAD] Stat Radiology 06/15/17 16:08 Ordered <aDvid Doll - Last Filed: 06/15/17 17:33> - Medications Given in the ED: ED Medications Discontinued Medications Generic Name Dose Route Start Last Admin Trade Name Freq PRN Reason Stop Dose Admin Naproxen 500 mg 06/15/17 16:08 06/15/17 16:20 Naprosyn - PO 06/15/17 16:09 500 mg ONCE ONE Administration - Consult/PCP Time Called: 17:05 Case discussed with personal care physician: Rk Lacy (Tried calling, didn 't receive callback) <David Guerrero - Last Filed: 06/15/17 17:39> Medical Decision Making - Medical Decision Making 06/15/17 16:19 A portion of this note was documented by scribe services under my direction. I have reviewed the details of the note, within reason, and agree with the documentation with the following case summary and management plan written by me. Patient treated in the ED. Nursing notes are reviewed and incorporated into the medical decision-making. Vital signs reviewed. Vital Signs Temp Pulse Resp BP Pulse Ox 97.7 F 48 L 18 146/90 97 06/15/17 15:56 06/15/17 15:56 06/15/17 15:56 06/15/17 15:56 06/15/17 15:56 56-year-old male with past medical history of hypertension presents with mechanical fall onto right elbow. Patient tripped and fell and landed on his right elbow. Denies any numbness or weakness. Patient reported most pain at the right elbow and some right wrist discomfort that appears secondary to right elbow pain. Patient is right-hand dominant. He is neurovascular intact. Right wrist x-ray reviewed by me, awaiting official read. No acute fractures. Right elbow xray reviewed by me, pending official read. Displaced olecranon fracture. Will place patient in posterior elbow splint and sling. We will touch base with orthopedics and have patient follow up with ortho. Pain control. Elevation 06/15/17 17:33 Pt is requesting for outpatient follow up with Dr. Layc. Dr. Lacy's office paged. However, will have patient d/c'd while awaiting phone call back as pt needs to get back home I discussed the physical exam findings, ancillary test results and final diagnoses with the patient. I answered all of the patient's questions. The patient was satisfied with the care received and felt comfortable with the discharge plan and treatment plan. The patient will call their primary care physician within 24 hours to arrange follow-up and will return to the Emergency Department with any new, persistant or worsening symptoms. <David Doll - Last Filed: 06/15/17 17:33> *DC/Admit/Observation/Transfer - Discharge Dispostion Admit: No <David Doll - Last Filed: 06/15/17 17:33> - Attestations Scribe Attestion: 06/15/17 16:56 Documentation prepared by David Guerrero, acting as medical technologist hematology for David Doll MD. <David Guerrero - Last Filed: 06/15/17 17:39> Diagnosis at time of Disposition: Elbow fracture, right Qualifiers: Encounter type: initial encounter Fracture type: closed Qualified Code(s): S42.401A - Unspecified fracture of lower end of right humerus, initial encounter for closed fracture - Discharge Dispostion Disposition: HOME Condition at time of disposition: Stable - Prescriptions Prescriptions: Naproxen 500 mg PO BID PRN #20 tablet. PRN Reason: Pain Oxycodone HCl/Acetaminophen [Percocet 5-325 mg Tablet] 1 tab PO Q6H PRN #20 tablet MDD 4 PRN Reason: Severe Pain - Referrals Referrals: Rk Lacy MD [Staff Physician] - - Patient Instructions Printed Discharge Instructions: How to Use a Sling, DI for Elbow Fracture Additional Instructions: Take 500 mg naproxen every 12 hours as needed for pain. For additional relief, take a tablet of percocet every 6 hours as needed for severe pain. Elevate the arm to decrease swelling. Ice as needed. Please call and make an appointment with an orthopedist this week. Do not take off the splint.
== END 2017-06-15 17:52 | disposition home or self-care (01) ==
LOC: JER 15:45
PROC: 2W38X1Z Immobilization of Right Upper Extremity using Splint (ICD-10-PCS; principal; 2017-06-15)
DX: S42.401A Unspecified fracture of lower end of right humerus, initial encounter for closed fracture (principal); W01.0XXA Fall on same level from slipping, tripping and stumbling without subsequent striking against object, initial encounter; Y93.89 Activity, other specified; Y92.59 Other trade areas as the place of occurrence of the external cause; Y99.8 Other external cause status
CPT/HCPCS: 73070-TC-RT; 73110-TC-RT; 99282-25

== ENCOUNTER 2017-06-19 10:00 | Day surgery (SDC) | payer BC ==
[2017-06-18 16:10] VITALS: BMI 22.4
--- NOTE | 2017-06-19 08:20 | HP ---
Satellite 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 - Current Medications Current Medications: Home Medications Medication Instructions Recorded Acetaminophen [Tylenol 500 mg PO Q6H PRN 02/18/17 .Extra-Strength -] Alprazolam [Xanax] 0.25 mg PO DAILY PRN 02/18/17 Fenofibric Acid (Choline) 135 mg PO DAILY 02/18/17 [Trilipix] Propranolol HCl 80 mg PO DAILY 02/18/17 Ranitidine HCl [Zantac] 300 mg PO DAILY 02/18/17 Multivitamins [Multivit ([facility] 1 tab PO DAILY tab 03/05/17 Formulary)] Naproxen 500 mg PO BID PRN #20 tablet. 06/15/17 Oxycodone HCl/Acetaminophen 1 tab PO Q6H PRN #20 tablet MDD 4 06/15/17 [Percocet 5-325 mg Tablet] Rosuvastatin Calcium [Crestor] 20 mg PO DAILY 06/18/17 Valsartan [Diovan] 80 mg PO DAILY 06/18/17 Satellite Physical Exam - Physical Examination General Appearance: Well Nourished ENT: Clear Lung: Clear to auscultation Heart: Regular rate & rhythm Breasts: Soft Abdomen: Soft Extremities: No edema Satellite Impression/Plan - Impression/Plan Impression: right elbow displaced olecranon fracture Operative Procedure: ORIF right elbow olecranon Date to be Performed: 06/19/17
[2017-06-19] MEDS ORDERED: ROPIVACAINE HCL 0.5% 30ML VIAL ONE (12:06)
[2017-06-19] MEDS ORDERED: DEXAMETHASONE SOD PHOSPHATE/PF 10 MG/ML SDV ONE (12:06)
[2017-06-19] MEDS ORDERED: MIDAZOLAM HCL 2 MG/2 ML SINGLE DOSE VIAL ONE ×2 (12:11)
[2017-06-19] MEDS ORDERED: MIDAZOLAM HCL 2 MG/2 ML SINGLE DOSE VIAL IVPUSH ONE (12:41)
[2017-06-19] MEDS ORDERED: PROPOFOL 20 ML ONE (13:03)
[2017-06-19] MEDS ORDERED: SODIUM CHLORIDE 0.9% P/F 10 ML VIAL IJ ONE (13:42)
[2017-06-19] MEDS ORDERED: ceFAZolin SODIUM 1 GM VIAL ONE (13:42)
[2017-06-19] MEDS ORDERED: GLYCOPYRROLATE 0.2 MG/1 ML VIAL ONE ×2 (13:51→15:06)
[2017-06-19] MEDS ORDERED: ceFAZolin SODIUM 1 GM VIAL IVPB ONE (13:52)
[2017-06-19] MEDS ORDERED: ONDANSETRON 4 MG/2 ML VIAL ONE (13:52)
[2017-06-19] MEDS ORDERED: DEXAMETHASONE SOD PHOSPHATE 4 MG/1 ML VIAL ONE (13:52)
--- NOTE | 2017-06-19 15:11 | OP ---
Operative Note - Note: Operative Date: 06/19/17 ([facility]) Pre-Operative Diagnosis: right olecranon fx Operation: right olecranon ORIF Implants: gume cable pins Post-Operative Diagnosis: Same as Pre-op Surgeon: Rk Lacy Driller Multiple Spindle: Rob Gregg Anesthesia: General, Local Estimated Blood Loss (mls): 5 (tourniquet) Operative Report Dictated: Yes
[2017-06-19] MEDS ORDERED: ONDANSETRON 4 MG/2 ML VIAL IVPUSH PRN (15:58)
[2017-06-19] MEDS ORDERED: oxyCODONE HCL 5 MG TABLET PO PRN ×2 (15:58)
[2017-06-19] MEDS ORDERED: LACTATED RINGERS SOLUTION 1,000 ML IV SCH (16:00)
[2017-06-19] MEDS ORDERED: oxyCODONE HCL 5 MG TABLET ONE (16:37)
[2017-06-19 18:40] VITALS: BP 130/80; PULSE 70
[2017-06-19 19:44] VITALS: TEMP 98
--- NOTE | 2017-06-19 20:40 | OP ---
DATE OF OPERATION: 06/19/2017 PREOPERATIVE DIAGNOSIS: Displaced right olecranon fracture. POSTOPERATIVE DIAGNOSIS: Displaced right olecranon fracture. PROCEDURE: Right olecranon open reduction internal fixation. SURGEON: Trina Leone M.D. PERFORMANCE MAKEUP ARTIST: Amberly Flores ANESTHESIOLOGIST: Joaquín Aguilar M.D. ANESTHESIA: Right interscalene block. DRAINS: None. COMPLICATIONS: None. SPECIMEN: None. BLOOD LOSS: None. BLOOD GIVEN: None. FLUID REPLACEMENT: 1000 mL. INDICATION: This patient is a 56-year-old right hand dominant male with a preoperative diagnosis of displaced right olecranon fracture. After understanding the potential risks, complications, alternatives, benefits to surgery versus nonsurgical treatment, the patient elected to pursue this procedure. DESCRIPTION OF PROCEDURE: Patient brought to operating room, peripheral IV placed, IV sedation given, 1 g of IV Ancef was given. The right upper extremity was prepped and draped in sterile fashion, elevated, exsanguinated with an Esmarch bandage. Tourniquet inflated to 250 mmHg. A mini C-arm was brought in for a C-arm fluoroscopy documenting a displaced interarticular mildly comminuted right olecranon fracture. Next, a slightly curvilinear incision was marked out and then made with a number 15 scalpel blade over the posterolateral aspect of the right elbow. After subcutaneous hemostasis was achieved with the Bovie cautery, dissection done down through the superficial fascia down to the fracture site. Organized hematoma was removed with sterile saline and suctioned curet. This revealed an olecranon fracture, intraarticular displaced. Mostly it was 2 large pieces. The proximal fragment was smaller than what appeared on x-ray. That being said, using a large bone tenaculum it came together quite nicely. X-rays were taken of the AP, lateral and multiple planes documenting excellent basically anatomic reduction of the fracture fragment including of the articular surface. Next, I cauterized down through this distal triceps insertion in longitudinal fashion down to the bone in the standard fashion, drilled in two 45-mm partially threaded lag table pins, Corky. They compressed quite nicely. I hand tightened them in the end. There were no prominent components. X-rays were taken, overall looked quite good. Next, I used a 2.5-mm drill bit, drilled in a transverse fashion across the distal fragment, then fed one of the cable pins through this and brought it over the top in [id number] fashion, then used the standard crimper and credit card clerk turning the [id number] cables into the compression mode. It all came together quite nicely. We got excellent compression. The cable pins were quite tight. X-rays were taken and all look quite good. The crimper was used as mentioned, and the cables were cut at the level of the crimper. Next I used a small mallet trying to tamp down any sharp edges and tamp down the crimper and bone a bit. It all came together well. Patient had full flexion and extension. Next I used 0 Vicryl to close the periosteum and olecranon and distal triceps over the hardware as much as possible. I then used 2-0 Vicryl in the deep dermal layer, and final skin reapproximation was done with barbie. The area was then washed and dried, covered with Xeroform, 4x4 gauze, Webril, and a 6-inch posterior Ortho-Glass splint was applied with the elbow in 90 degrees with the forearm in neutral. This was wrapped with Dmitriy bandage. The tourniquet was taken down after a total tourniquet time of 50 minutes. There were no complications during the case. The patient tolerated the procedure quite well, was brought to the ambulatory recovery in stable condition. TRINA LEONE M.D. [id number]
== END 2017-06-19 18:30 | disposition home or self-care (01) ==
LOC: JASU-SURG 10:00
PROVIDERS: ATTEND Orthopaedic Surgery
PROC: 0PSK04Z Reposition Right Ulna with Internal Fixation Device, Open Approach (ICD-10-PCS; principal; 2017-06-19 11:30)
DX: S52.021A Displaced fracture of olecranon process without intraarticular extension of right ulna, initial encounter for closed fracture (principal); X58.XXXA Exposure to other specified factors, initial encounter; Y93.9 Activity, unspecified; Y92.9 Unspecified place or not applicable; Y99.9 Unspecified external cause status
CPT/HCPCS: 76000-TC; 94760

== ENCOUNTER 2018-05-02 10:11 | Inpatient (IN) | payer BC ==
[2018-05-02 10:22] VITALS: BMI 22.4
[2018-05-02] MEDS ORDERED: SODIUM CHLORIDE 1,000 ML IV STA ×2 (10:33→12:05)
--- NOTE | 2018-05-02 10:48 | PDOC ---
History of Present Illness <Ameena Gaffney - Last Filed: 05/02/18 13:39> - History of Present Illness Initial Comments: 05/02/18 11:34 The patient is a 57-year-old male with past medical history significant for HTN , HLD, GERD, Pancreatitis (dx 3 years ago due to etoh abuse, multiple admissions in the last 3 years, last admission Feb 18-2016), cardiac cath x2 with no stents presents to the emergency department with abdominal and back pain. The patient reports hes presenting today secondary to a pancreatitis flare up 2 days ago. The patient reports hes been having a sharp , constant mid-epigastric pain that radiates bilaterally to the lower back, states the back pain is a muscular spasm in quality. The patient reports the pain varies in severity, with the worse at the 9/10, currently at 8/10, thats worse at night with exacerbation after eating or when exerting himself, denies having difficulty eating or swallowing. The patient reports his last bowel movement was a day prior, denies green stool, melena or hematochezia. Denies any recent etoh use, states he quit drinking 1 year ago. Pt reports that he follows with Dr. Kj Fields every 6 months as his father from an [place] at age 51. Denies chest pain, shortness of breath, fever, nausea, vomiting, diarrhea, constipation, recent sickness, hx of chronic back pain, urinary symptoms. Allergies: NKA Social history: Former alcohol user, quit Feb 2017, used to drink 6 packs of beer a day. No past or present use of tobacco or recreational drugs. Surgical history: Right Olecranon ORIF by Dr. Lacy. PCP: Dr. Levy. <Delmi John - Last Filed: 05/02/18 14:29> - General Chief Complaint: Pain, Acute Stated Complaint: EPIGASTRIC PAIN Time Seen by Provider: 05/02/18 10:27 Past History <Ameena Gaffney - Last Filed: 05/02/18 13:39> - Past Medical History Anemia: No Asthma: No Cancer: No Cardiac Disorders: No CVA: No COPD: No CHF: No Dementia: No Diabetes: No GI Disorders: Yes (pancreatitis) Disorders: No HTN: Yes Hypercholesterolemia: Yes Liver Disease: No Seizures: No Thyroid Disease: No - Surgical History Abdominal Surgery: No Appendectomy: No Cardiac Surgery: No Cholecystectomy: No Lung Surgery: No Neurologic Surgery: No Orthopedic Surgery: No - Immunization History Td Vaccination: Yes Immunization Up to Date: No - Suicide/Smoking/Psychosocial Hx Smoking Status: No Smoking History: Never smoked Have you smoked in the past 12 months: No Number of Cigarettes Smoked Daily: 0 If you are a former smoker, when did you quit?: LONG TIME AGO Information on smoking cessation initiated: No Hx Alcohol Use: No Drug/Substance Use Hx: No Substance Use Type: None Hx Substance Use Treatment: No <Delmi John - Last Filed: 05/02/18 14:29> - Past Medical History Allergies/Adverse Reactions: Allergies Allergy/AdvReac Type Severity Reaction Status Date / Time No Known Allergies Allergy Verified 05/02/18 10:18 Home Medications: Ambulatory Orders Fenofibric Acid (Choline) [Trilipix] 135 mg PO DAILY 02/18/17 Propranolol HCl 80 mg PO DAILY 02/18/17 Ranitidine HCl [Zantac] 300 mg PO DAILY 02/18/17 Rosuvastatin Calcium [Crestor] 20 mg PO DAILY 06/18/17 Review of Systems - Review of Systems Comments:: 05/02/18 11:38 GENERAL/CONSTITUTIONAL: No fever or chills. No weakness. HEAD, EYES, EARS, NOSE AND THROAT: No change in vision. No ear pain or discharge. No sore throat. GASTROINTESTINAL: +epigastric pain. No nausea, vomiting, diarrhea or constipation. Denies hematochezia or green stool. GENITOURINARY: No dysuria, frequency, or change in urination. CARDIOVASCULAR: No chest pain or shortness of breath. RESPIRATORY: No cough, wheezing, or hemoptysis. MUSCULOSKELETAL: +Lower back muscular pain. No joint or muscle swelling or pain. No neck pain. SKIN: No rash NEUROLOGIC: No headache, vertigo, loss of consciousness, or change in strength/ sensation. ENDOCRINE: No increased thirst. No abnormal weight change. HEMATOLOGIC/LYMPHATIC: No anemia, easy bleeding, or history of blood clots. ALLERGIC/IMMUNOLOGIC: No hives or skin allergy. <Delmi John - Last Filed: 05/02/18 14:29> *Physical Exam - Vital Signs Last Vital Signs Temp Pulse Resp BP Pulse Ox 98.2 F 79 16 147/64 97 11/16/18 12:49 05/02/18 12:49 05/02/18 12:49 05/02/18 12:49 05/02/18 12:49 <Ameena Gaffney - Last Filed: 05/02/18 13:39> - Vital Signs Last Vital Signs Temp Pulse Resp BP Pulse Ox 97.7 F 52 L 18 130/75 99 05/02/18 10:18 05/02/18 10:18 05/02/18 10:18 05/02/18 10:18 05/02/18 10:18 - Physical Exam Comments: 05/02/18 11:38 GENERAL: Awake, alert, and fully oriented, in no acute distress EYES: PERRLA, EOMI, sclera anicteric, conjunctiva clear ENT: Oropharynx clear without exudates. Moist mucosa NECK: Normal ROM, supple, no lymphadenopathy, JVD, or masses LUNGS: Breath sounds equal, clear to auscultation bilaterally. No wheezes, and no crackles HEART: Regular rate and rhythm, normal S1 and S2, no murmurs, rubs or gallops ABDOMEN: Soft, Diffuse abd ttp, worse in epigastric region. No guarding, no rebound. No masses EXTREMITIES: Normal range of motion, no edema. No cords, erythema, or tenderness BACK: No midline spinal tenderness in cervical/thoracic/lumbar region NEUROLOGICAL: Normal speech, cranial nerves intact, 5/5 strength in all 4 extremities, normal sensation to light touch in all 4 extremities, normal cerebellar exam, normal gait, normal tone SKIN: Warm, Dry, normal turgor, no rashes or lesions noted. <Delmi John - Last Filed: 05/02/18 14:29> Heart Score/ECG Review #1 05/02/18 11:39 Twelve-lead EKG was performed and reviewed by me. Sinus bradycardia, rate 54. Normal axis. No ST elevations. Slightly peaked T waves in V2-V5, TWF in lead III. <Delmi John - Last Filed: 05/02/18 14:29> ED Treatment Course - LABORATORY CBC & Chemistry Diagram: 05/02/18 11:15 05/02/18 11:15 - ADDITIONAL ORDERS Additional order review: Laboratory Results 05/02/18 05/02/18 05/02/18 12:35 11:15 11:15 PT with INR INR PTT (Actin FS) Sodium 137 Potassium 3.9 Chloride 104 Carbon Dioxide 24 Anion Gap 9 BUN 23 H Creatinine 1.2 Creat Clearance w eGFR > 60 Random Glucose 79 Calcium 8.6 Total Bilirubin 0.7 AST 30 ALT 30 Alkaline Phosphatase 45 Troponin I 0.10 H Total Protein 7.0 Albumin 4.3 Lipase > 82178 H Urine Color Yellow Urine Appearance Clear Urine pH 5.0 Ur Specific [place] 1.030 Urine Protein 1+ H Urine Glucose (UA) Negative Urine Ketones Trace H Urine Blood 1+ H Urine Nitrite Negative Urine Bilirubin Negative Urine Urobilinogen Negative Ur Leukocyte Esterase Negative Urine WBC (Auto) 2 Urine RBC (Auto) 10 Urine Mucus Rare Blood Type A NEGATIVE Antibody Screen Negative 05/02/18 11:15 PT with INR 12.50 INR 1.06 PTT (Actin FS) 33.3 Sodium Potassium Chloride Carbon Dioxide Anion Gap BUN Creatinine Creat Clearance w eGFR Random Glucose Calcium Total Bilirubin AST ALT Alkaline Phosphatase Troponin I Total Protein Albumin Lipase Urine Color Urine Appearance Urine pH Ur Specific [place] Urine Protein Urine Glucose (UA) Urine Ketones Urine Blood Urine Nitrite Urine Bilirubin Urine Urobilinogen Ur Leukocyte Esterase Urine WBC (Auto) Urine RBC (Auto) Urine Mucus Blood Type Antibody Screen 05/02/18 11:15 RBC 4.21 MCV 86.7 MCHC 33.4 RDW 13.9 MPV 9.6 Neutrophils % 78.2 Lymphocytes % 12.7 D Monocytes % 7.4 Eosinophils % 1.4 Basophils % 0.3 - Medications Given in the ED: ED Medications Discontinued Medications Generic Name Dose Route Start Last Admin Trade Name Ang PRN Reason Stop Dose Admin Acetaminophen 1,000 mg 05/02/18 12:10 05/02/18 12:11 Ofirmev Injection - IVPB 05/02/18 12:11 1,000 mg ONCE ONE Administration Sodium Chloride 1,000 mls @ 1,000 mls/hr 05/02/18 10:33 05/02/18 11:06 Normal Saline - IV 05/02/18 11:32 1,000 mls/hr ASDIR STA Administration Sodium Chloride 1,000 mls @ 1,000 mls/hr 05/02/18 12:05 05/02/18 12:11 Normal Saline - IV 05/02/18 13:04 1,000 mls/hr ASDIR STA Administration Morphine Sulfate 4 mg 05/02/18 12:36 05/02/18 12:41 Morphine Injection - IVPUSH 05/02/18 12:37 4 mg ONCE ONE Administration <Ameena Gaffney - Last Filed: 05/02/18 13:39> - LABORATORY CBC & Chemistry Diagram: 05/02/18 11:15 05/02/18 11:15 - RADIOLOGY Radiology Studies Ordered: Category Date Time Status CHEST X-RAY PORTABLE* [RAD] Stat Radiology 05/02/18 10:32 Ordered <Kishor Johndeandre - Last Filed: 05/02/18 14:29> Medical Decision Making - Medical Decision Making 05/02/18 13:[address] Justus Fields (cardiology) at 12:08. Case discussed with the doctor on 12:16. Dr. Robins over head paged at 12:19, case discussed with Dr. Robins 12:20. Call placed to Dr. Bingham at 12:19, case discussed with Dr. Bingham at 12:21. Call placed to Dr. Perez at 12:23. 05/02/18 13:39 Second call placed to Dr. Perez at 1:27. Spoke with the secretary specialist, who states the patients information was already taken during the first call and shell relay the information to the doctor when hes done doing a procedure. <Ameena Gaffney - Last Filed: 05/02/18 13:39> - Medical Decision Making 05/02/18 11:41 57yo M hx HTN, HL, pancreatitis presents to the ED with 2 days of epigastric pain that feels like his previous pancreatitis. Vitals unremarkable. Exam with diffuse abd ttp. DDx is wide and includes but not limited to pancreatitis ( although pt states he no longer drinks) vs cholecystitis vs ACS vs gastritis. Aortic dissection is also a thought but pulses and BP are equal in both arms. Pt is comfortable at this time. Plan -labs -CXR -CTAP -pain control -IVF -reassess 05/02/18 12:19 Lipase >30K, trop elevated to 0.1 likely demand. Given pt is followed by Dr. Justus Carpenter as an outpt, case discussed with him Dr. Carpenter states this is not cardiac in nature and that it is demand due to pancreatitis He recommends we hold off on ASA and to call his partner Dr. Robins Case discussed with Dr. Robins who will see pt Case discussed with Dr. Bingham, requests we call Dr. Tammy Munoz called, doing procedure, awaiting call back 05/02/18 14:20 Dr. Robins at bedside Case discussed with Dr. Levy, pt accepted for admission Case discussed in detail with admitting physician including history, physical exam and ancillary studies. Admitting physician has assumed care for the patient, will follow all pending diagnostics and will complete the evaluation and treatment. <Delmi John - Last Filed: 05/02/18 14:29> *DC/Admit/Observation/Transfer <Ameena Gaffney - Last Filed: 05/02/18 13:39> - Discharge Dispostion Decision to Admit order: Yes - Attestations Physician Attestion: 05/02/18 14:26 I, Dr. Delmi John MD, attest that this document has been prepared under my direction and personally reviewed by me in its entirety. I further attest, that it accurately reflects all work, treatment, procedures and medical decision -making performed by me. <Delmi John - Last Filed: 05/02/18 14:29> Diagnosis at time of Disposition: Acute pancreatitis Qualifiers: Pancreatitis type: alcohol induced Qualified Code(s): K85.2 - - Discharge Dispostion Condition at time of disposition: Stable - Referrals Referrals: Sharmila Levy MD [Primary Care Provider] -
[2018-05-02 11:29] LABS: BASO % 0.3 % (0-2.0); EOS % 1.4 % (0-4.5); HEMATOCRIT 36.5 % (35.4-49); HEMOGLOBIN 12.2 GM/dL (11.7-16.9); LYMPH % 12.7 % (8-40); MCHC 33.4 g/dl (32.0-35.9); MEAN CELL VOLUME 86.7 fl (80-96); MEAN PLT VOLUME 9.6 fl (7.5-11.1); MONO % 7.4 % (3.8-10.2); NEUT % 78.2 % (42.8-82.8); PLATELET COUNT 122 K/MM3 (134-434); RBC 4.21 M/mm3 (4.00-5.60); RDW 13.9 % (11.9-15.9); WHITE BLOOD COUNT 6.8 K/mm3 (4.0-10.0)
[2018-05-02 11:36] LABS: INR 1.06 (0.83-1.09); PROTHROMBIN TIME (PATIENT) 12.5 SEC (9.7-13.0)
[2018-05-02 11:39] LABS: ACTIVATED PTT 33.3 SECONDS (25.2-36.5)
[2018-05-02 11:57] LABS: ALBUMIN 4.3 g/dl (3.4-5.0); ALK PHOS 45 U/L (45-117); ANION GAP 9 MMOL/L (8-16); BILIRUBIN,TOTAL 0.7 mg/dL (0.2-1); BLOOD UREA NITROGEN 23 mg/dL (7-18); CALCIUM 8.6 mg/dL (8.5-10.1); CHLORIDE 104 mmol/L (98-107); CO2 24 mmol/L (21-32); CREATININE 1.2 mg/dL (0.55-1.3); GLUCOSE,RANDOM 79 mg/dL (74-106); POTASSIUM 3.9 mmol/L (3.5-5.1); SGOT/AST 30 U/L (15-37); SGPT/ALT 30 U/L (13-61); SODIUM 137 mmol/L (136-145)
[2018-05-02] MEDS ORDERED: ACETAMINOPHEN INJECTION 100 ML IVPB ONE (12:09)
[2018-05-02] MEDS ORDERED: ACETAMINOPHEN 1000 MG/100 ML VIAL (NON FORMULARY) IVPB ONE (12:10)
[2018-05-02] MEDS ORDERED: morphine CARPU-JECT 4 MG/1 ML DISP.SYRIN IVPUSH ONE ×2 (12:36→15:42)
[2018-05-02] MEDS ORDERED: morphine SULFATE 4 MG/ML VIAL ONE (12:38)
--- NOTE | 2018-05-02 12:45 | CON.CARD ---
Consult Consult Specialty:: Cardiology Referred by:: ER Reason for Consultation:: Demand ischemia - History of Present Illness Chief Complaint: Epigastric discomfort History of Present Illness: Patient is a 57 year old male who was previously seen in the Hospital with underlying history of hypertension, mixed dyslipidemia and chroic pancreatitis with previous ETOH dependency last use 14 months ago presented with 2 days of epigastric pain radiating to back. He has had cardiac evaluation including cardiac catheterization/coronary angiography which was unremarkable. He denies chest pain, shortness of breath or palpitations. He denies paroxysmal nocturnal dyspnea or orthopnea. He denies fever or chills. He denies headache or lightheadedness. Denies nausea, vomiting or diarrhea at this time. CT scan shows acute on chronic pancreatitis. 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 History of Recent Travel: No Home Medications - Allergies Allergies/Adverse Reactions: Allergies Allergy/AdvReac Type Severity Reaction Status Date / Time No Known Allergies Allergy Verified 05/02/18 10:18 - Home Medications Home Medications: Ambulatory Orders Fenofibric Acid (Choline) [Trilipix] 135 mg PO DAILY 02/18/17 Propranolol HCl 80 mg PO DAILY 02/18/17 Ranitidine HCl [Zantac] 300 mg PO DAILY 02/18/17 Rosuvastatin Calcium [Crestor] 20 mg PO DAILY 06/18/17 Family Disease History - Family Disease History Family Disease History: Heart Disease: Father ( age 49 of [place]), Other: Mother (alive 85 with OMS) Review of Systems - Review of Systems Gastrointestinal: reports: Abdominal Pain Vital Signs: Vital Signs Temperature 97.7 F 05/02/18 10:18 Pulse Rate 52 L 05/02/18 10:18 Respiratory Rate 18 05/02/18 10:18 Blood Pressure 130/75 05/02/18 10:18 O2 Sat by Pulse Oximetry (%) 99 05/02/18 10:18 Constitutional: Yes: No Distress, Calm Neck: Yes: Supple Respiratory: Yes: Regular, CTA Bilaterally Gastrointestinal: Yes: Soft, Hypoactive Bowel Sounds, Tenderness, Epigastrium Cardiovascular: Yes: Regular Rate and Rhythm JVD: No Carotid Bruit: No Heart Sounds: Yes: S1, S2 Edema: No - Other Data Labs, Other Data: CBC, BMP 05/02/18 11:15 05/02/18 11:15 INR, PTT INR 1.06 (0.83-1.09) 05/02/18 11:15 Troponin, BNP 05/02/18 11:15 Troponin I 0.10 H Troponin, BNP 05/02/18 11:15 Troponin I 0.10 H Imaging - Results Chest X-ray: Report Reviewed (NAD) Cat Scan: Report Reviewed (Acute on chronic pancreatits involving pancreatic head) Problem List - Problems (1) HLD (hyperlipidemia) Code(s): E78.5 - HYPERLIPIDEMIA, UNSPECIFIED Qualifiers: Hyperlipidemia type: mixed hyperlipidemia Qualified Code(s): E78.2 - Mixed hyperlipidemia (2) HTN (hypertension) Code(s): I10 - ESSENTIAL (PRIMARY) HYPERTENSION Qualifiers: Hypertension type: essential hypertension Qualified Code(s): I10 - Essential (primary) hypertension (3) Acute pancreatitis Code(s): K85.9 - ACUTE PANCREATITIS, UNSPECIFIED * DO NOT USE * Qualifiers: Pancreatitis type: unspecified pancreatitis type Assessment/Plan 10/22/2016 C: Normal coronary angiogram, normal LVEF>50% with notmal LVEDP 09/17/2016 Stress echo: Apical septal and inferoapical ischemia, resting echo shows normal LV size and fxn LVEF 65%, mild LAE, tr MR 1. Acute on chronic pancreatitis previous h/o ETOH dependency 2. Hypertension 3. Mixed hyperlipidemia PLAN: 1. Continue Valsartan 80 qd and titrate as needed and as tolerated 2. Continue Propranolol LA 80 qd and resume Crestor 20 qd 3. RUQ U/S pending 4. IVF, analgesia as needed, bowel rest 5. Thank you for consultative opportunity
[2018-05-02 12:53] LABS: URINE APPEARANCE CLEAR; URINE BILIRUBIN NEGATIVE (<2.0 mg/dL); URINE COLOR YELLOW; URINE GLUCOSE (UA) NEGATIVE (NEGATIVE); URINE KETONE TRACE (NEGATIVE); URINE LEUK ESTERASE NEGATIVE (NEGATIVE); URINE NITRITE NEGATIVE (NEGATIVE); URINE PROTEIN 1+ (NEGATIVE); URINE UROBILINOGEN NEGATIVE mg/dL (0.2-1.0)
[2018-05-02 13:07] LABS: URINE MUCUS RARE
[2018-05-02 13:35] LABS: LIPASE 34840 U/L (73-393)
[2018-05-02] MEDS ORDERED: LACTATED RINGERS SOLUTION 1000 ML INFUS.BAG IV ONE (15:42)
[2018-05-02 15:55] LABS: CHOLESTEROL 204 mg/dL (50-200); HDL CHOLESTEROL 32 mg/dL (40-60); TRIGLYCERIDES 164 mg/dL (0-150)
--- NOTE | 2018-05-02 16:55 | CON.GI ---
Consult Consult Specialty:: Gastroenterology Referred by:: Dr Levy Reason for Consultation:: pancreatitis - History of Present Illness Chief Complaint: Abdominal pain radiating into the back History of Present Illness: 57M had worsening of epigastric pain yesterday which was associated with vomiting. He tells me that the pain that he had with his last bout with pancreatitis 14 months ago never completely resolved. He had a 1.3cm cyst in the uncinate process at one time which resolved, HIs 03/01/17 CT scan suggested that a pseudocyst was forming so he was referred referred to Dr Fofana to assess and drain as a pseudocyst. He tells me that nothing requiring intervention was found at her EUS or at a subsequent MRI. He reports that he has not had a drop of alcohol since that bout. He denies weight loss. His current CT reveals pancreatitis but no cyst. Pancreatic calcifications are evident. 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 Place of : [facility] History of Recent Travel: No Home Medications - Allergies Allergies/Adverse Reactions: Allergies Allergy/AdvReac Type Severity Reaction Status Date / Time No Known Allergies Allergy Verified 05/02/18 10:18 - Home Medications Home Medications: Ambulatory Orders Fenofibric Acid (Choline) [Trilipix] 135 mg PO DAILY 02/18/17 Propranolol HCl 80 mg PO DAILY 02/18/17 Ranitidine HCl [Zantac] 300 mg PO DAILY 02/18/17 Rosuvastatin Calcium [Crestor] 20 mg PO DAILY 06/18/17 Family Disease History - Family Disease History Family Disease History: Heart Disease: Father ( age 49 of [place]), Other: Mother (alive 85 with OMS) Review of Systems - Review of Systems Constitutional: reports: No Symptoms Eyes: reports: No Symptoms HENT: reports: No Symptoms Neck: reports: No Symptoms Cardiovascular: reports: No Symptoms Gastrointestinal: reports: Abdominal Pain Physical Exam-GI Vital Signs: Vital Signs Temperature 98.2 F 05/02/18 12:49 Pulse Rate 63 05/02/18 16:06 Respiratory Rate 16 05/02/18 16:06 Blood Pressure 144/81 05/02/18 16:06 O2 Sat by Pulse Oximetry (%) 98 05/02/18 16:06 CBC,CMP WBC 6.8 K/mm3 (4.0-10.0) 05/02/18 11:15 RBC 4.21 M/mm3 (4.00-5.60) 05/02/18 11:15 Hgb 12.2 GM/dL (11.7-16.9) 05/02/18 11:15 Hct 36.5 % (35.4-49) 05/02/18 11:15 MCV 86.7 fl (80-96) 05/02/18 11:15 MCH 29.0 pg (25.7-33.7) 05/02/18 11:15 MCHC 33.4 g/dl (32.0-35.9) 05/02/18 11:15 RDW 13.9 % (11.9-15.9) 05/02/18 11:15 Plt Count 122 K/MM3 (134-434) L 05/02/18 11:15 MPV 9.6 fl (7.5-11.1) 05/02/18 11:15 Absolute Neuts (auto) 5.3 K/mm3 (1.5-8.0) 05/02/18 11:15 Neutrophils % 78.2 % (42.8-82.8) 05/02/18 11:15 Lymphocytes % 12.7 % (8-40) D 05/02/18 11:15 Monocytes % 7.4 % (3.8-10.2) 05/02/18 11:15 Eosinophils % 1.4 % (0-4.5) 05/02/18 11:15 Basophils % 0.3 % (0-2.0) 05/02/18 11:15 Nucleated RBC % 0 % (0-0) 05/02/18 11:15 Sodium 137 mmol/L (136-145) 05/02/18 11:15 Potassium 3.9 mmol/L (3.5-5.1) 05/02/18 11:15 Chloride 104 mmol/L (98-107) 05/02/18 11:15 Carbon Dioxide 24 mmol/L (21-32) 05/02/18 11:15 Anion Gap 9 MMOL/L (8-16) 05/02/18 11:15 BUN 23 mg/dL (7-18) H 05/02/18 11:15 Creatinine 1.2 mg/dL (0.55-1.3) 05/02/18 11:15 Creat Clearance w eGFR > 60 (>60) 05/02/18 11:15 Random Glucose 79 mg/dL (74-106) 05/02/18 11:15 Calcium 8.6 mg/dL (8.5-10.1) 05/02/18 11:15 Total Bilirubin 0.7 mg/dL (0.2-1) 05/02/18 11:15 AST 30 U/L (15-37) 05/02/18 11:15 ALT 30 U/L (13-61) 05/02/18 11:15 Alkaline Phosphatase 45 U/L (45-117) 05/02/18 11:15 Troponin I 0.10 ng/ml (0.00-0.05) H 05/02/18 11:15 Total Protein 7.0 g/dl (6.4-8.2) 05/02/18 11:15 Albumin 4.3 g/dl (3.4-5.0) 05/02/18 11:15 Triglycerides 164 mg/dL (0-150) H 05/02/18 11:15 Cholesterol 204 mg/dL (50-200) H 05/02/18 11:15 Total LDL Cholesterol 152 mg/dL (5-100) H 05/02/18 11:15 HDL Cholesterol 32 mg/dL (40-60) L 05/02/18 11:15 Lipase 93448 U/L (73-393) H 05/02/18 11:15 Constitutional: Yes: Calm Eyes: Yes: Conjunctiva Clear HENT: Yes: Atraumatic Neck: Yes: Supple Cardiovascular: Yes: Regular Rate and Rhythm Respiratory: Yes: CTA Bilaterally Gastrointestinal Inspection: Yes: WNL ...Auscultate: Yes: Normoactive Bowel Sounds ...Palpate: Yes: Soft, Other (nontender) ...Rectal Exam: Yes: Guaiac Negative (1+ prostate, brown guaiac negative stool) Edema: No Neurological: Yes: Alert, Oriented Labs: CBC, BMP 05/02/18 11:15 05/02/18 11:15 INR, PTT INR 1.06 (0.83-1.09) 05/02/18 11:15 Imaging - Results Cat Scan: Report Reviewed ([place] Name: JE[facility] PEGU[facility] DEPARTMENT OF RADIOLOGY Phys: Delmi John MD : 1960 Age: 57 Sex: M [facility] Acct: [id number] Loc: [address] Exam Date: 05/02/18 Status: [facility] [place] [address] Unit Number: [id number] EXAM#: TYPE/EXAM: RESULT: [id number] CT/ABDOMEN PELVIS CT WITH CONTR Clinical history: History of pancreatitis. Now with severe abdominal pain. Comparison: 03/01/2017. Contiguous transaxial images were obtained from the diaphragmatic domes and pubic symphysis after the administration of IV contrast. Sagittal and coronal reconstructions were performed. Lung bases: Mild atelectatic changes. Bone: Scoliosis, mild degenerative changes and occasional bone islands. Liver: Negative. Gallbladder: Distended fluid-filled gallbladder without calcified stones seen. Biliary tree: Negative. Spleen: Mild splenomegaly. Pancreas: The pancreatic duct is dilated and there are multiple calcifications in the pancreatic head consistent with chronic pancreatitis. Additionally, there is moderate stranding in the soft tissues around the pancreatic head consistent with acute pancreatitis. There is mild inflammatory change in the soft tissues posterior to the stomach and anterior to both kidneys. There is mild dilatation and edema of the duodenal sweep. No evidence of pseudocyst or pancreatic necrosis seen. Adrenals: Negative. Kidneys: Normal right kidney. Calcified left renal stones. No hydronephrosis. Pelvis: Negative. Normal size prostate with calcifications. Bowel: Colonic diverticulosis. Appendix probably seen and, if so normal. Other: Small hiatal hernia. Bilateral inguinal hernias with fat. Impression: Findings consistent with chronic pancreatitis and superimposed acute pancreatitis involving the head. No pseudocyst or pancreatic necrosis seen. Some air-filled dilatation and mural edema of the duodenal sweep. No evidence of dilatation of the biliary tree or calcified gallstones. Left renal stones. Other findings as above. Clinical correlation advised. Reported By: Bg Yeager MD 05/02/18 8933 DELMI JOHN Technologist: Abraham Alcala Transcribed Date/Time: 05/02/18 1344 [employer]ounge Receptionist: Bg Yeager Printed Date/Time: By: Signed by: Bg Yeager Signed on: 02-May-2018 13:45) Ultrasound: Image Reviewed (preliminarily no GB stones) Assessment/Plan Chronic recurrent alcoholic panceatitis Brisk IV fluid resuscitation with RL Antibiotics if fever ensues Despite ETOH denial watch for DTs Analgesics prn Dr Bingham will be covering this weekend.
[2018-05-02] MEDS ORDERED: MORPHINE SULFATE 2 MG/ML VIAL ONE (16:57)
[2018-05-02] MEDS ORDERED: LACTATED RINGERS SOLUTION 1,000 ML/1,000 ML INFUS.BAG IV SCH ×2 (17:30→23:30)
[2018-05-03] MEDS ORDERED: LACTATED RINGERS SOLUTION 1,000 ML/1,000 ML INFUS.BAG IV SCH ×2 (05:30→12:30)
[2018-05-03 06:56] LABS: BASO % 0.3 % (0-2.0); EOS % 1.5 % (0-4.5); HEMATOCRIT 30.6 % (35.4-49); HEMOGLOBIN 10.2 GM/dL (11.7-16.9); LYMPH % 26.6 % (8-40); MCH 29.2 pg (25.7-33.7); MCHC 33.3 g/dl (32.0-35.9); MEAN CELL VOLUME 87.7 fl (80-96); MEAN PLT VOLUME 10.1 fl (7.5-11.1); MONO % 10.2 % (3.8-10.2); NEUT % 61.4 % (42.8-82.8); PLATELET COUNT 96 K/MM3 (134-434); RBC 3.49 M/mm3 (4.00-5.60); RDW 13.7 % (11.9-15.9); WHITE BLOOD COUNT 4.9 K/mm3 (4.0-10.0)
--- NOTE | 2018-05-03 10:04 | PN ---
Progress Note, Physician History of Present Illness: Epigastric pain improved, denies chest pain or dyspnea. - Current Medication List Current Medications: Active Medications Lactated Ringer's (Lactated Ringers Solution) 1,000 ml in 1,000 mls @ 175 mls/ hr IV ASDIR MARIA ISABEL Stop: 05/03/18 12:30 Last Admin: 05/03/18 08:32 Dose: 175 mls/hr Lactated Ringer's (Lactated Ringers Solution) 1,000 ml in 1,000 mls @ 150 mls/ hr IV ASDIR MARIA ISABEL - Objective Vital Signs: Vital Signs Temperature 98.6 F 05/03/18 06:00 Pulse Rate 69 05/03/18 06:00 Respiratory Rate 19 05/03/18 06:00 Blood Pressure 127/61 05/03/18 06:00 O2 Sat by Pulse Oximetry (%) 99 05/02/18 21:00 Constitutional: Yes: No Distress, Calm Neck: Yes: Supple Cardiovascular: Yes: Regular Rate and Rhythm Respiratory: Yes: Regular, CTA Bilaterally Gastrointestinal: Yes: Soft, Hypoactive Bowel Sounds, Tenderness, Epigastrium Edema: No Labs: CBC, BMP 05/03/18 05:30 INR, PTT INR 1.06 (0.83-1.09) 05/02/18 11:15 - ....Imaging Ultrasound: Report Reviewed (RUQ U/S: No stones or biliary ductal dilatation) EKG: Report Reviewed (Tele: NSR) Problem List - Problems (1) HLD (hyperlipidemia) Code(s): E78.5 - HYPERLIPIDEMIA, UNSPECIFIED Qualifiers: Hyperlipidemia type: mixed hyperlipidemia Qualified Code(s): E78.2 - Mixed hyperlipidemia (2) HTN (hypertension) Code(s): I10 - ESSENTIAL (PRIMARY) HYPERTENSION Qualifiers: Hypertension type: essential hypertension Qualified Code(s): I10 - Essential (primary) hypertension (3) Acute pancreatitis Code(s): K85.9 - ACUTE PANCREATITIS, UNSPECIFIED * DO NOT USE * Qualifiers: Pancreatitis type: unspecified pancreatitis type Assessment/Plan 10/22/2016 LHC: Normal coronary angiogram, normal LVEF>50% with notmal LVEDP 09/17/2016 Stress echo: Apical septal and inferoapical ischemia, resting echo shows normal LV size and fxn LVEF 65%, mild LAE, tr MR 1. Acute on chronic pancreatitis previous h/o ETOH dependency 2. Hypertension 3. Mixed hyperlipidemia PLAN: 1. IVF, analgesia as needed, bowel rest 2. Resume Valsartan 80 qd, Propranolol LA 80 qd and Crestor 20 qd once oral intake re-established 3. Antibiotics if fever ensues
[2018-05-03 10:22] LABS: BLOOD UREA NITROGEN 12 mg/dL (7-18); GLUCOSE,RANDOM 57 mg/dL (74-106)
[2018-05-03 10:23] LABS: ANION GAP 16 MMOL/L (8-16); CHLORIDE 109 mmol/L (98-107); CO2 19 mmol/L (21-32); CREATININE 1.1 mg/dL (0.55-1.3); POTASSIUM 3.6 mmol/L (3.5-5.1); SODIUM 144 mmol/L (136-145)
[2018-05-03 10:24] LABS: ALBUMIN 3.2 g/dl (3.4-5.0); CALCIUM 7.9 mg/dL (8.5-10.1); LIPASE 3932 U/L (73-393); MAGNESIUM 1.9 mg/dL (1.8-2.4); PHOSPHOROUS 2.6 mg/dL (2.5-4.9); SGOT/AST 24 U/L (15-37); TOT PROT 5.3 g/dl (6.4-8.2)
[2018-05-03 10:25] LABS: ALK PHOS 37 U/L (45-117); AMYLASE 1145 U/L (25-115); SGPT/ALT 24 U/L (13-61)
--- NOTE | 2018-05-03 12:18 | HP ---
Admitting History and Physical - Primary Care Physician PCP: Nikhil Fernandez - Admission Chief Complaint: ABD PAIN ACUTE ON CHRONIC PANCREATITIS History of Present Illness: The patient is a 57-year-old male with past medical history significant for HTN , HLD, GERD, Pancreatitis (dx 3 years ago due to etoh abuse, multiple admissions in the last 3 years, last admission Feb 18-2016), cardiac cath x2 with no stents presents to the emergency department with abdominal and back pain. The patient reports hes presenting today secondary to a pancreatitis flare up 2 days ago. The patient reports hes been having a sharp , constant mid-epigastric pain that radiates bilaterally to the lower back, states the back pain is a muscular spasm in quality. The patient reports the pain varies in severity, with the worse at the 9/10, currently at 8/10, thats worse at night with exacerbation after eating or when exerting himself, denies having difficulty eating or swallowing. The patient reports his last bowel movement was a day prior, denies green stool, melena or hematochezia. Denies any recent etoh use, states he quit drinking 1 year ago. Pt reports that he follows with Dr. Kj Fields every 6 months as his father from an [place] at age 49. History Source: Medical Record Limitations to Obtaining History: Clinical Condition - Past Medical History COMPRESSED GAS TESTER: Yes: Migraine Cardiovascular: Yes: HTN, Hyperlipdemia Gastrointestinal: Yes: Gastritis, GERD, Pancreatitis (recurring alcohol pancreatitis), Other (resolved cyst of the pancreas ) Hepatobiliary: Yes: Other (fatty liver) - Past Surgical History Past Surgical History: Yes: None, Colonoscopy, Upper Endoscopy - Smoking History Smoking history: Never smoked Have you smoked in the past 12 months: No Aproximately how many cigarettes per day: 0 If you are a former smoker, when did you quit?: LONG TIME AGO - Alcohol/Substance Use Hx Alcohol Use: No History of Substance Use: reports: None - Social History ADL: Independent 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 History of Recent Travel: No Home Medications - Allergies Allergies/Adverse Reactions: Allergies Allergy/AdvReac Type Severity Reaction Status Date / Time No Known Allergies Allergy Verified 05/02/18 10:18 - Home Medications Home Medications: Ambulatory Orders Fenofibric Acid (Choline) [Trilipix] 135 mg PO DAILY 02/18/17 Propranolol HCl 80 mg PO DAILY 02/18/17 Ranitidine HCl [Zantac] 300 mg PO DAILY 02/18/17 Rosuvastatin Calcium [Crestor] 20 mg PO DAILY 06/18/17 Family Disease History - Family Disease History Family Disease History: Heart Disease: Father ( age 49 of [place]), Other: Mother (alive 85 with OMS) Review of Systems - Review of Systems Constitutional: reports: Loss of Appetite Eyes: reports: No Symptoms HENT: reports: No Symptoms Neck: reports: No Symptoms Cardiovascular: reports: No Symptoms Respiratory: reports: No Symptoms Gastrointestinal: reports: Abdominal Pain Musculoskeletal: reports: No Symptoms Integumentary: reports: No Symptoms Neurological: reports: No Symptoms Endocrine: reports: No Symptoms Hematology/Lymphatic: reports: No Symptoms Psychiatric: reports: No Symptoms Physical Examination Vital Signs: Vital Signs Temperature 98.6 F 05/03/18 06:00 Pulse Rate 69 05/03/18 06:00 Respiratory Rate 19 05/03/18 06:00 Blood Pressure 127/61 05/03/18 06:00 O2 Sat by Pulse Oximetry (%) 99 05/03/18 09:00 Constitutional: Yes: Mild Distress Eyes: Yes: WNL HENT: Yes: WNL Neck: Yes: WNL Cardiovascular: Yes: WNL Respiratory: Yes: WNL Gastrointestinal: Yes: Soft, Tenderness Renal/: Yes: WNL Musculoskeletal: Yes: WNL Extremities: Yes: WNL Edema: No Peripheral Pulses WNL: Yes Integumentary: Yes: WNL Wound/Incision: Yes: Clean/Dry Neurological: Yes: WNL ...Motor Strength: WNL Psychiatric: Yes: WNL Labs: CBC, BMP 05/03/18 05:30 05/03/18 05:30 Imaging - Results Cat Scan: Report Reviewed Problem List - Problems (1) Acute pancreatitis Code(s): K85.9 - ACUTE PANCREATITIS, UNSPECIFIED * DO NOT USE * Qualifiers: Pancreatitis type: unspecified pancreatitis type (2) Alcoholic pancreatitis Code(s): K85.20 - ALCOHOL INDUCED ACUTE PANCREATITIS WITHOUT NECROSIS OR INFCT Qualifiers: Chronicity: acute Acute pancreatitis complication: unspecified Qualified Code(s): K85.20 - Alcohol induced acute pancreatitis without necrosis or infection (3) HLD (hyperlipidemia) Code(s): E78.5 - HYPERLIPIDEMIA, UNSPECIFIED Qualifiers: Hyperlipidemia type: mixed hyperlipidemia Qualified Code(s): E78.2 - Mixed hyperlipidemia Assessment/Plan DENIES ALCOHOL USE, HOWEVER KEEP ON TELEMETRY FOR DT MONITORING PAIN CONTROL IVF GI F/U APPRECIATED OOB TO CHAIR
[2018-05-03] MEDS: PANTOPRAZOLE SODIUM 40 MG VIAL IVPUSH SCH (13:17)
--- NOTE | 2018-05-03 14:34 | PN ---
Progress Note (short form) - Note Progress Note: Pt feels much improved. His labs also support the clinical improvement, with a drop in lipase from over 34,000 to approximately 4000. Lab Results WBC 4.9 K/mm3 (4.0-10.0) 05/03/18 05:30 RBC 3.49 M/mm3 (4.00-5.60) L 05/03/18 05:30 Hgb 10.2 GM/dL (11.7-16.9) L 05/03/18 05:30 Hct 30.6 % (35.4-49) L D 05/03/18 05:30 MCV 87.7 fl (80-96) 05/03/18 05:30 MCHC 33.3 g/dl (32.0-35.9) 05/03/18 05:30 RDW 13.7 % (11.9-15.9) 05/03/18 05:30 Plt Count 96 K/MM3 (134-434) L D 05/03/18 05:30 Sodium 144 mmol/L (136-145) 05/03/18 05:30 Potassium 3.6 mmol/L (3.5-5.1) 05/03/18 05:30 Chloride 109 mmol/L (98-107) H 05/03/18 05:30 Carbon Dioxide 19 mmol/L (21-32) L 05/03/18 05:30 Anion Gap 16 MMOL/L (8-16) 05/03/18 05:30 BUN 12 mg/dL (7-18) 05/03/18 05:30 Creatinine 1.1 mg/dL (0.55-1.3) 05/03/18 05:30 Random Glucose 57 mg/dL (74-106) L 05/03/18 05:30 Calcium 7.9 mg/dL (8.5-10.1) L 05/03/18 05:30 Blood Type A NEGATIVE 05/02/18 17:06 Antibody Screen Negative 05/02/18 11:15 INR 1.06 (0.83-1.09) 05/02/18 11:15 : CMP Sodium 144 mmol/L (136-145) 05/03/18 05:30 Potassium 3.6 mmol/L (3.5-5.1) 05/03/18 05:30 Chloride 109 mmol/L (98-107) H 05/03/18 05:30 Carbon Dioxide 19 mmol/L (21-32) L 05/03/18 05:30 Anion Gap 16 MMOL/L (8-16) 05/03/18 05:30 BUN 12 mg/dL (7-18) 05/03/18 05:30 Creatinine 1.1 mg/dL (0.55-1.3) 05/03/18 05:30 Creat Clearance w eGFR > 60 (>60) 05/03/18 05:30 Random Glucose 57 mg/dL (74-106) L 05/03/18 05:30 Calcium 7.9 mg/dL (8.5-10.1) L 05/03/18 05:30 Total Bilirubin 1.0 mg/dL (0.2-1) 05/03/18 05:30 AST 24 U/L (15-37) 05/03/18 05:30 ALT 24 U/L (13-61) 05/03/18 05:30 Alkaline Phosphatase 37 U/L (45-117) L 05/03/18 05:30 Total Protein 5.3 g/dl (6.4-8.2) L 05/03/18 05:30 Albumin 3.2 g/dl (3.4-5.0) L 05/03/18 05:30 Abdomen now soft, nontender. Of note, he was begun on olmesartan about a month ago. Angiotensin receptor blockers (as well as JAYESH inhibitors) have been shown to be occasional causes of pancreatitis. Would recommend an alternate choice of drug class on discharge for management of his hypertension. Should he get another attack of pancreatitis without known alcohol ingestion, we could consider pancreatic endotherapy (pancreatic sphincterotomy with temporary stent placement.)
[2018-05-04 07:36] LABS: ALBUMIN 3.2 g/dl (3.4-5.0); ALK PHOS 48 U/L (45-117); ANION GAP 10 MMOL/L (8-16); BILIRUBIN,TOTAL 0.6 mg/dL (0.2-1); BLOOD UREA NITROGEN 8 mg/dL (7-18); CALCIUM 8.3 mg/dL (8.5-10.1); CHLORIDE 108 mmol/L (98-107); CO2 25 mmol/L (21-32); GLUCOSE,RANDOM 65 mg/dL (74-106); LIPASE 512 U/L (73-393); POTASSIUM 3.8 mmol/L (3.5-5.1); SGOT/AST 28 U/L (15-37); SGPT/ALT 23 U/L (13-61); SODIUM 142 mmol/L (136-145); TOT PROT 5.6 g/dl (6.4-8.2)
[2018-05-04] MEDS: PANTOPRAZOLE SODIUM 40 MG VIAL IVPUSH SCH (09:45)
--- NOTE | 2018-05-04 10:56 | DS ---
Physical Examination Vital Signs: Vital Signs Temperature 98.6 F 05/04/18 02:00 Pulse Rate 66 05/04/18 05:55 Respiratory Rate 18 05/04/18 05:55 Blood Pressure 130/79 05/04/18 05:55 O2 Sat by Pulse Oximetry (%) 99 05/03/18 21:00 Constitutional: Yes: No Distress Eyes: Yes: WNL HENT: Yes: WNL Neck: Yes: WNL Cardiovascular: Yes: WNL Respiratory: Yes: WNL Gastrointestinal: Yes: WNL Renal/: Yes: WNL Musculoskeletal: Yes: WNL Extremities: Yes: WNL Edema: No Peripheral Pulses WNL: Yes Integumentary: Yes: WNL Wound/Incision: Yes: Clean/Dry Neurological: Yes: WNL ...Motor Strength: WNL Psychiatric: Yes: WNL Labs: CBC, BMP 05/03/18 05:30 05/04/18 05:30 Discharge Summary Reason For Visit: PANCREATITIS Current Active Problems Acute pancreatitis (Acute) Procedures: Principal: CT ABD Hospital Course: ADMITTED FOR IVF, PAIN CONTROL, PATIENT WAS ON BOWEL REST NOW FEELING BETTER Condition: Stable - Instructions Diet, Activity, Other Instructions: SEE YOUR DOCTOR IN 1-2 WEEKS ABSTAIN FROM ALCOHOL USE LOW FAT DIET Referrals: Sharmila Levy MD [Primary Care Provider] - Disposition: HOME - Home Medications Comprehensive Discharge Medication List: Ambulatory Orders Fenofibric Acid (Choline) [Trilipix] 135 mg PO DAILY 02/18/17 Propranolol HCl 80 mg PO DAILY 02/18/17 Ranitidine HCl [Zantac] 300 mg PO DAILY 02/18/17 Rosuvastatin Calcium [Crestor] 20 mg PO DAILY 06/18/17
[2018-05-04 11:28] VITALS: BP 136/76; PULSE 69; TEMP 99.2
--- NOTE | 2018-05-05 23:49 | EKG ---
Test Reason : Blood Pressure : / mmHG Vent. Rate : 054 BPM Atrial Rate : 054 BPM P-R Int : 182 ms QRS Dur : 100 ms QT Int : 432 ms P-R-T Axes : 060 038 034 degrees QTc Int : 409 ms SINUS BRADYCARDIA OTHERWISE NORMAL ECG WHEN COMPARED WITH ECG OF 18-FEB-2017 05:07, NO SIGNIFICANT CHANGE WAS FOUND Confirmed by TIRSO SIFUENTES MD ([id number]) on 05/05/2018 11:49:06 PM Referred By: Confirmed By:TIRSO SIFUENTES MD
== END 2018-05-04 12:32 | disposition home or self-care (01) | DRG 440 ==
LOC: JER 10:11 → JERBED 14:29 → J4W 18:15
PROVIDERS: ADMIT Family Medicine; ATTEND Family Medicine
DX: K85.90 Acute pancreatitis without necrosis or infection, unspecified (principal); I10 Essential (primary) hypertension; E78.5 Hyperlipidemia, unspecified; K21.9 Gastro-esophageal reflux disease without esophagitis; K29.70 Gastritis, unspecified, without bleeding; K76.0 Fatty (change of) liver, not elsewhere classified; G43.909 Migraine, unspecified, not intractable, without status migrainosus; K85.20 Alcohol induced acute pancreatitis without necrosis or infection
CPT/HCPCS: 36415; 71045-TC-FY; 74177-TC; 76705-TC; 80053; 80061; 81003; 81015; 82150; 83690; 83721; 83735; 84100; 84484; 85025; 85610; 85730; 86140; 86850; 86900; 86901; 87086; 93005; 93010; 99284-25; J0131; J7030

== ENCOUNTER 2019-01-13 12:23 | Inpatient (IN) | payer BC ==
[2019-01-13] MEDS ORDERED: morphine CARPU-JECT 4 MG/1 ML DISP.SYRIN IVPUSH ONE ×2 (12:33→14:27)
[2019-01-13] MEDS ORDERED: SODIUM CHLORIDE 1,000 ML IV STA (12:33)
--- NOTE | 2019-01-13 12:33 | PDOC ---
Rapid Medical Evaluation Time Seen by Provider: 01/13/19 12:31 Medical Evaluation: Allergies Allergy/AdvReac Type Severity Reaction Status Date / Time No Known Allergies Allergy Verified 05/02/18 10:18 01/13/19 12:31 I have performed a brief in-person evaluation of this patient. The patient presents with a chief complaint of: "I have pancreatitis." Pertinent physical exam findings: upper abdomen tenderness. (-)Hayley I have ordered the following: labs, urine, sonogram The patient will proceed to the ED for further evaluation. Discharge Disposition - Diagnosis Abdominal pain - Referrals - Patient Instructions - Post Discharge Activity
[2019-01-13] MEDS ORDERED: morphine SULFATE 4 MG/ML VIAL ONE (13:10)
--- NOTE | 2019-01-13 13:13 | PDOC ---
History of Present Illness - General Chief Complaint: Pain, Acute Stated Complaint: PANCREATITIS Time Seen by Provider: 01/13/19 12:31 History Source: Patient Exam Limitations: No Limitations - History of Present Illness Initial Comments: 01/13/19 13:55 Patient is a 58M with history of chronic pancreatitis 2/2 alcohol abuse, pseudocyst, HTN, HLD here today complaining of epigastric abdominal pain. Patient states that the pain has been more of an issue for the past several weeks, but states that it acutely worsened this morning. Denies fevers, chills, nausea, vomiting. Denies chest pain, shortness of breath. Patient states that this feels like his prior issues with pancreatitis. Denies dysuria. Patient states that his last drink was years ago. Past History - Past Medical History Allergies/Adverse Reactions: Allergies Allergy/AdvReac Type Severity Reaction Status Date / Time No Known Allergies Allergy Verified 01/13/19 12:31 Home Medications: Ambulatory Orders Fenofibric Acid (Choline) [Trilipix] 135 mg PO DAILY 02/18/17 Propranolol HCl 80 mg PO DAILY 02/18/17 Ranitidine HCl [Zantac] 300 mg PO DAILY 02/18/17 Rosuvastatin Calcium [Crestor] 20 mg PO DAILY 06/18/17 Amlodipine Besylate [Norvasc -] 5 mg PO DAILY 01/13/19 Ezetimibe [Zetia] 10 mg PO DAILY 01/13/19 Anemia: No Asthma: No Cancer: No Cardiac Disorders: No CVA: No COPD: No CHF: No Dementia: No Diabetes: No GI Disorders: Yes (pancreatitis/ GERD) Disorders: No HTN: Yes Hypercholesterolemia: Yes Liver Disease: No Seizures: No Thyroid Disease: No - Surgical History Abdominal Surgery: No Appendectomy: No Cardiac Surgery: No Cholecystectomy: No Lung Surgery: No Neurologic Surgery: No Orthopedic Surgery: No - Immunization History Td Vaccination: Yes Immunization Up to Date: No - Suicide/Smoking/Psychosocial Hx Smoking Status: No Smoking History: Never smoked Have you smoked in the past 12 months: No Number of Cigarettes Smoked Daily: 0 If you are a former smoker, when did you quit?: LONG TIME AGO Hx Alcohol Use: No Drug/Substance Use Hx: No Substance Use Type: None Hx Substance Use Treatment: No Review of Systems - Review of Systems Able to Perform ROS?: Yes Comments:: 01/13/19 13:57 GENERAL/CONSTITUTIONAL: No fever or chills. No weakness. HEAD, EYES, EARS, NOSE AND THROAT: No change in vision. No sore throat. CARDIOVASCULAR: No chest pain or shortness of breath RESPIRATORY: No cough, wheezing, or hemoptysis. GASTROINTESTINAL: No nausea, vomiting, diarrhea or constipation. +pain GENITOURINARY: No dysuria, frequency, or change in urination. MUSCULOSKELETAL: No joint or muscle swelling or pain. No neck or back pain. SKIN: No rash NEUROLOGIC: No headache, vertigo, loss of consciousness, or change in strength/ sensation. ENDOCRINE: No increased thirst. No abnormal weight change HEMATOLOGIC/LYMPHATIC: No anemia, easy bleeding, or history of blood clots. ALLERGIC/IMMUNOLOGIC: No hives or skin allergy. *Physical Exam - Vital Signs Last Vital Signs Temp Pulse Resp BP Pulse Ox 97.8 F 42 L 18 161/90 100 01/13/19 12:32 01/13/19 12:32 01/13/19 12:32 01/13/19 12:32 01/13/19 12:32 - Physical Exam Comments: 01/13/19 13:58 GENERAL: Awake, alert, and fully oriented, in no acute distress HEAD: No signs of trauma, normocephalic, atraumatic EYES: PERRLA, EOMI, sclera anicteric, conjunctiva clear ENT: Auricles normal inspection, hearing grossly normal, nares patent, oropharynx clear without exudates. Moist mucosa NECK: Normal ROM, supple, no lymphadenopathy, JVD, or masses LUNGS: No distress, speaks full sentences, clear to auscultation bilaterally HEART: Regular rate and rhythm, normal S1 and S2, no murmurs, rubs or gallops, peripheral pulses normal and equal bilaterally. ABDOMEN: Epigastric pain with voluntary guarding. no rebound. No masses EXTREMITIES: Normal inspection, Normal range of motion, no edema. No clubbing or cyanosis. NEUROLOGICAL: Cranial nerves II through XII grossly intact. Normal speech, no focal sensorimotor deficits SKIN: Warm, Dry, normal turgor, no rashes or lesions noted. ED Treatment Course - LABORATORY CBC & Chemistry Diagram: 01/13/19 13:16 01/13/19 13:09 Medical Decision Making - Medical Decision Making 01/13/19 13:58 Patient is a 58M with history of chronic pancreatitis, etoh abuse, htn, hld here today with epigastric pain. Vitals notable for bradycardia, patient on propranolol and is asymptomatic. DDx includes, but is not limited to: pancreatitis, cholecystitis, pyelonephritis. Will evaluate with abdominal labs, ct. Will treat with fluids and morphine. 01/13/19 14:50 CBC, CMP normal. Lipase 6.6k Patient's pain continued to require second dose of morphine, now improved. Vitals remain stable. Bedside US by Dr Agosto and Dr Villeda Fluids changed to LR. Dr Levy contacted for admission, accepted. 01/13/19 18:57 CT shows acute on chronic pancreatitis. *DC/Admit/Observation/Transfer Diagnosis at time of Disposition: Abdominal pain - Discharge Dispostion Condition at time of disposition: Stable Decision to Admit order: Yes - Referrals - Patient Instructions - Post Discharge Activity
[2019-01-13 13:38] LABS: BASO % 0.7 % (0-2.0); EOS % 2.2 % (0-4.5); EPI CELLS 1.1 /HPF (0-5/HPF); HEMATOCRIT 38.1 % (35.4-49); HEMOGLOBIN 13.1 GM/dL (11.7-16.9); HYALINE CASTS 6 /lpf (0-8); LYMPH % 21.9 % (8-40); MCH 29.1 pg (25.7-33.7); MCHC 34.3 g/dl (32.0-35.9); MEAN PLT VOLUME 9.2 fl (7.5-11.1); MONO % 7.4 % (3.8-10.2); NEUT % 67.8 % (42.8-82.8); PH,URINE 6.5 (5.0-8.0); PLATELET COUNT 154 K/MM3 (134-434); RBC 4.48 M/mm3 (4.00-5.60); URINE APPEARANCE CLEAR; URINE BACTERIA 0.3 /hpf (NEGATIVE); URINE BILIRUBIN NEGATIVE (NEGATIVE); URINE COLOR YELLOW; URINE GLUCOSE (UA) NEGATIVE (NEGATIVE); URINE KETONE NEGATIVE (NEGATIVE); URINE LEUK ESTERASE TRACE (NEGATIVE); URINE NITRITE NEGATIVE (NEGATIVE); URINE PROTEIN NEGATIVE (NEGATIVE); URINE RBC 1 /hpf (0-4); URINE UROBILINOGEN 0.2 mg/dL (0.2-1.0); URINE WBC 4 /hpf (0-5); WHITE BLOOD COUNT 7.8 K/mm3 (4.0-10.0)
[2019-01-13 14:06] LABS: ALBUMIN 4.4 g/dl (3.4-5.0); BILIRUBIN,TOTAL 0.7 mg/dL (0.2-1); CALCIUM 9.1 mg/dL (8.5-10.1); CREATININE 1.4 mg/dL (0.55-1.3); TOT PROT 7.3 g/dl (6.4-8.2)
[2019-01-13] MEDS ORDERED: HYDROmorphone HCL CARPU-JECT 2 MG/1 ML DISP.SYRIN IVPUSH ONE (14:08)
--- NOTE | 2019-01-13 14:09 | PDOC ---
Documentation entered by Jessica Black SCRIBE, acting as scribe for Mandeep Muro MD. Mandeep Muro MD: This documentation has been prepared by the scribe, Jessica Black SCRIBE, under my direction and personally reviewed by me in its entirety. I confirm that the documentation accurately reflects all work, treatment, procedures, and medical decision making performed by me. Attending Attestation - Resident Resident Name: KeraSharan - ED Attending Attestation I have performed the following: I have examined & evaluated the patient, The case was reviewed & discussed with the resident, I agree w/resident's findings & plan, Exceptions are as noted - HPI HPI: 01/13/19 13:18 The patient is a 58-year-old male, with a past medical history of HTN, HLD, chronic pancreatitis complicated by a pseudocyst, and alcohol abuse, who presents to the ED with progressively worsening epigastric pain. Patient states that the pain is typical for him due to his pancreatitis, but the pain has progressively worsened yesterday and in the last few hours. He describes the pain as constant and exacerbated when eating fatty foods. He reports taking Tylenol 500mg 2-3x a day with no relief and recently started taking Advil with mild relief of his symptoms. The patient denies fevers, chills, nausea, vomiting, diarrhea, or constipation. Denies any chest pain, palpitations or shortness of breath. Denies any weakness , dizziness, or changes in strength or sensation. Allergies: NKA Social History: Reports hx of alcohol abuse. Surgical History: None reported. - Physicial Exam PE: 01/13/19 13:20 GENERAL: The patient is awake, alert, and fully oriented, Nontoxic - in no acute distress. HEAD: Normocephalic, atraumatic. EYES: extraocular movements intact, sclera anicteric, conjunctiva clear. ENT: Normal voice, Moist mucous membranes. NECK: Normal range of motion, supple LUNGS: Breath sounds equal, clear to auscultation bilaterally. No wheezes, no rhonchi, no rales. HEART: Regular rate and rhythm, without murmur, rub or gallop. ABDOMEN: Soft, nontender, No guarding, no rebound.No CVA tenderness EXTREMITIES: Normal range of motion, no edema. No cyanosis. No erythema, or tenderness. NEUROLOGICAL: No facial assymetry, Normal speech, PSYCH: Normal mood, normal affect. SKIN: Warm, Dry, normal turgor, - Medical Decision Making 01/13/19 13:33 hx of chronic pancreatitis presents with worsening epigastric pain the past few days cw prior pancreaitits denies n/v, f/c, dysuria, sob, cp, fluids, morphine for supportive care 01/13/19 15:33 labs cw pancreatitis will admit for further management
[2019-01-13] MEDS ORDERED: LACTATED RINGERS SOLUTION 1000 ML INFUS.BAG IV ONE (14:32)
[2019-01-13] MEDS ORDERED: HYDROmorphone HCl 2 MG/ML VIAL ONE (14:32)
[2019-01-13] MEDS ORDERED: HYDROmorphone HCl 2 MG/ML VIAL IVPUSH PRN (16:57)
[2019-01-13] MEDS ORDERED: ONDANSETRON 4 MG/2 ML VIAL IVPUSH PRN (16:57)
[2019-01-13] MEDS ORDERED: D5-1/2NS+20 MEQ KCL - 20 MEQ/1,000 ML INFUS.BAG IV SCH (17:00)
[2019-01-13 17:43] VITALS: BMI 24.0
--- NOTE | 2019-01-13 21:01 | CON.GI ---
Consult Consult Specialty:: Gastroenterology Referred by:: Dr Levy Reason for Consultation:: Abdominal pain - History of Present Illness Chief Complaint: Flare of recurring pain History of Present Illness: 58M had worsening of epigastric pain yesterday but denies vomiting. He tells me that the pain that he has been having what he recognizes as his chonirc pancreatitits pain on a cyclical basis despite stopping the ARBs and JAYESH inhibitors about 4 months ago. He has not had any alcohol since 03/03. His current CT reveals acute superimposed on chronic calcific pancreatitis with a prominent pancreatic duct but no cyst. Pancreatic calcifications are evident. He had an EGD with Dr. Payton on 02/15/[address] an enteral tube. No abnormalities were found. 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 Place of : [facility] History of Recent Travel: No Home Medications - Allergies Allergies/Adverse Reactions: Allergies Allergy/AdvReac Type Severity Reaction Status Date / Time No Known Allergies Allergy Verified 01/13/19 12:31 - Home Medications Home Medications: Ambulatory Orders Fenofibric Acid (Choline) [Trilipix] 135 mg PO DAILY 02/18/17 Propranolol HCl 80 mg PO DAILY 02/18/17 Ranitidine HCl [Zantac] 300 mg PO DAILY 02/18/17 Rosuvastatin Calcium [Crestor] 20 mg PO DAILY 06/18/17 Amlodipine Besylate [Norvasc -] 5 mg PO DAILY 01/13/19 Ezetimibe [Zetia] 10 mg PO DAILY 01/13/19 Family Disease History - Family Disease History Family Disease History: Heart Disease: Father ( age 49 of [place]), Other: Mother (alive 85 with OMS) Review of Systems - Review of Systems Constitutional: reports: Unintentional Wgt. Loss (avoid eating when pancreatitis flares) HENT: reports: No Symptoms Neck: reports: No Symptoms Cardiovascular: reports: No Symptoms Respiratory: reports: No Symptoms Gastrointestinal: reports: Abdominal Pain Genitourinary: reports: Other (nocturia) Physical Exam-GI Vital Signs: Vital Signs Temperature 97.7 F 01/13/19 17:12 Pulse Rate 48 L 01/13/19 17:12 Respiratory Rate 20 01/13/19 17:12 Blood Pressure 149/76 01/13/19 17:12 O2 Sat by Pulse Oximetry (%) 99 01/13/19 17:12 CBC,CMP WBC 7.8 K/mm3 (4.0-10.0) 01/13/19 13:16 RBC 4.48 M/mm3 (4.00-5.60) 01/13/19 13:16 Hgb 13.1 GM/dL (11.7-16.9) 01/13/19 13:16 Hct 38.1 % (35.4-49) D 01/13/19 13:16 MCV 85.0 fl (80-96) 01/13/19 13:16 MCH 29.1 pg (25.7-33.7) 01/13/19 13:16 MCHC 34.3 g/dl (32.0-35.9) 01/13/19 13:16 RDW 14.0 % (11.9-15.9) 01/13/19 13:16 Plt Count 154 K/MM3 (134-434) D 01/13/19 13:16 MPV 9.2 fl (7.5-11.1) 01/13/19 13:16 Absolute Neuts (auto) 5.3 K/mm3 (1.5-8.0) 01/13/19 13:16 Neutrophils % 67.8 % (42.8-82.8) 01/13/19 13:16 Lymphocytes % 21.9 % (8-40) 01/13/19 13:16 Monocytes % 7.4 % (3.8-10.2) 01/13/19 13:16 Eosinophils % 2.2 % (0-4.5) 01/13/19 13:16 Basophils % 0.7 % (0-2.0) 01/13/19 13:16 Nucleated RBC % 0 % (0-0) 01/13/19 13:16 Sodium 140 mmol/L (136-145) 01/13/19 13:09 Potassium 4.0 mmol/L (3.5-5.1) 01/13/19 13:09 Chloride 107 mmol/L (98-107) 01/13/19 13:09 Carbon Dioxide 25 mmol/L (21-32) 01/13/19 13:09 Anion Gap 9 MMOL/L (8-16) 01/13/19 13:09 BUN 16.0 mg/dL (7-18) 01/13/19 13:09 Creatinine 1.4 mg/dL (0.55-1.3) H 01/13/19 13:09 Est GFR (CKD-EPI)AfAm 64.63 01/13/19 13:09 Est GFR (CKD-EPI)NonAf 55.77 01/13/19 13:09 Random Glucose 89 mg/dL (74-106) 01/13/19 13:09 Calcium 9.1 mg/dL (8.5-10.1) 01/13/19 13:09 Total Bilirubin 0.7 mg/dL (0.2-1) 01/13/19 13:09 AST 15 U/L (15-37) 01/13/19 13:09 ALT 23 U/L (13-61) 01/13/19 13:09 Alkaline Phosphatase 60 U/L (45-117) 01/13/19 13:09 Creatine Kinase 124 U/L (26-308) 01/13/19 13:16 Troponin I 0.05 ng/ml (0.00-0.05) 01/13/19 13:16 Total Protein 7.3 g/dl (6.4-8.2) 01/13/19 13:09 Albumin 4.4 g/dl (3.4-5.0) 01/13/19 13:09 Lipase 6640 U/L (73-393) H 01/13/19 13:16 Current Medications Generic Name Dose Route Start Last Admin Trade Name Freq PRN Reason Stop Dose Admin Heparin Sodium (Porcine) 5,000 unit 01/13/19 22:00 Heparin - SQ BID MARIA ISABEL Hydromorphone HCl 1 mg 01/13/19 16:57 Dilaudid Vial - IVPUSH Q4H PRN PAIN LEVEL 6-10 Potassium Chloride/Dextrose/Sod Cl 20 meq in 1,000 mls @ 125 mls/hr 01/13/19 17:00 01/13/19 18:06 D5-1/2ns+20 Meq Kcl - IV 125 mls/hr ASDIR MARIA ISABEL Administration Ondansetron HCl 4 mg 01/13/19 16:57 Zofran Injection IVPUSH Q6H PRN NAUSEA Propranolol HCl 80 mg 01/14/19 10:00 Inderal - PO DAILY MARIA ISABEL Constitutional: Yes: Anxious Eyes: Yes: Conjunctiva Clear HENT: Yes: Atraumatic Neck: Yes: Supple Cardiovascular: Yes: Regular Rate and Rhythm Respiratory: Yes: CTA Bilaterally Gastrointestinal Inspection: Yes: WNL ...Auscultate: Yes: Hypoactive Bowel Sounds ...Palpate: Yes: Soft, Tenderness (mild epigastric tenderness) ...Rectal Exam: Yes: Guaiac Negative (1+ prostate, brown guaiac negative stool) Edema: No Neurological: Yes: Alert, Oriented Labs: CBC, BMP 01/13/19 13:16 01/13/19 13:09 Imaging - Results Cat Scan: Report Reviewed ( Final Report CT ABDOMEN & PELVIS CT WITH CONTR Show Printer-Friendly Version Patient Name: Pancho Burdicksujey Correa : 1960 ID: [id number] Study Date: 13-Jan-2019 16:12 Rosa Pavililorrie Name: LEÓN BURDICK DEPARTMENT OF RADIOLOGY Phys: Sharan Cote RESIDENT : 1960 Age: 58 Sex: M [facility] Acct: [id number] Loc: J [address] [facility] Exam Date: 01/13/19 Status: [place] [address] Unit Number: [id number] EXAM#: TYPE/EXAM: RESULT: [id number] CT/ABDOMEN PELVIS CT WITH CONTR Abdomen and pelvis CT with contrast Clinical information: epigastric pain; history of chronic pancreatitis Multiplanar imaging was performed following intravenous administration of nonionic contrast. Enteric contrast was not administered. Mild peripancreatic edema and a very small amount of fluid is seen adjacent to the pancreatic head consistent with recurrent acute pancreatitis. As on the prior study pancreatic head calcifications are noted consistent with chronic calcific pancreatitis. No CT evidence of pancreatic necrosis. Note is again made of mild dilatation involving the main pancreatic duct. There is no definite biliary tract dilatation. The gallbladder demonstrates no definite CT pathology. No obvious radiopaque biliary calculus is visualized. As on prior study there is minimal stable splenomegaly. The splenic vein appears patent. The liver, adrenal glands and kidneys demonstrate no definite CT abnormality. There is no aortic aneurysm. No evidence of pneumoperitoneum, free intraperitoneal fluid, abscess or bowel obstruction. The appendix is not definitely visualized however there are no indirect CT signs of acute appendicitis. No CT evidence of acute diverticulitis. There is no gross noncontrast small bowel dramatic. Impression: Acute pancreatitis is seen superimposed upon chronic calcific pancreatitis as noted above. Mild dilatation of the main pancreatic duct is again visualized. Reported By: Wero Zuniga MD 01/13/191749 Technologist: Yung Gonsalez Transcribed Date/Time: 01/13/191749 Solar Sales Consultant: Wero Zuniga Printed Date/Time: By: Signed by: Wero Zuniga Signed on: 13-Jan-2019 17:52) Problem List - Problems (1) Chronic calcific pancreatitis Assessment/Plan: Acute pancreatitis superimposed on chronic calcific pancreatititis related to alcohol usage is without any obvious inciting agent. His pancreatic duct prominence suggests that there may be a component of obstruction that may benefit from a pancreatic stent Code(s): K86.1 - OTHER CHRONIC PANCREATITIS (2) Chronic alcoholic pancreatitis Code(s): K86.0 - ALCOHOL-INDUCED CHRONIC PANCREATITIS (3) Recovering alcoholic in remission Code(s): F10.21 - ALCOHOL DEPENDENCE, IN REMISSION (4) Acute pancreatitis Code(s): K85.9 - ACUTE PANCREATITIS, UNSPECIFIED * DO NOT USE * Qualifiers: Pancreatitis type: unspecified pancreatitis type (5) Fatty (change of) liver, not elsewhere classified Code(s): K76.0 - FATTY (CHANGE OF) LIVER, NOT ELSEWHERE CLASSIFIED (6) Pancreatic cyst Code(s): K86.2 - CYST OF PANCREAS (7) HLD (hyperlipidemia) Code(s): E78.5 - HYPERLIPIDEMIA, UNSPECIFIED Qualifiers: Hyperlipidemia type: mixed hyperlipidemia Qualified Code(s): E78.2 - Mixed hyperlipidemia (8) HTN (hypertension) Code(s): I10 - ESSENTIAL (PRIMARY) HYPERTENSION Qualifiers: Hypertension type: essential hypertension Qualified Code(s): I10 - Essential (primary) hypertension (9) Tremor Code(s): R25.1 - TREMOR, UNSPECIFIED Assessment/Plan Assessment: - Acute pancreatitis superimposed on chronic calcific pancreatititis related to alcohol usage is without any obvious inciting agent. His pancreatic duct prominence suggests that there may be a component of obstruction that may benefit from a pancreatic stent. I discussed ERCP for this purpose and informed Jv of the potential for such complication as perforation, hemorrhage and triggering even worse pancreatitis. He is reluctant. I offered to try to transfer him to [facility] where Dr Aldair Rodriguez has more expertise but he remains reluctant. - Recovering alcoholic Plan: -- IGG4 to exclude autoimmune pancreatitis -- Ca 19.9 as a neoplasm cannot be excluded -- IV hydration -- Analgesics -- Will attempt feedings as soon as possible, start with clear liquids in AM -- Watch for pseudocyst and abscess formation -- Pancreatic enzymes with solid food feeding
[2019-01-13] MEDS ORDERED: LACTATED RINGERS SOLUTION 1,000 ML/1,000 ML INFUS.BAG IV SCH (21:30)
[2019-01-13] MEDS: HEPARIN NA (PORCINE) 5,000 UNITS/ML 1ML VIAL SQ SCH (21:35)
[2019-01-13] MEDS: PANTOPRAZOLE SODIUM 40 MG VIAL IVPUSH SCH (22:38)
[2019-01-14] MEDS ORDERED: LACTATED RINGERS SOLUTION 1,000 ML/1,000 ML INFUS.BAG IV SCH (04:00)
[2019-01-14 07:42] LABS: BASO % 0.4 % (0-2.0); EOS % 2.2 % (0-4.5); HEMATOCRIT 36.4 % (35.4-49); HEMOGLOBIN 12.4 GM/dL (11.7-16.9); LYMPH % 28.1 % (8-40); MCH 29.3 pg (25.7-33.7); MCHC 34.1 g/dl (32.0-35.9); MEAN PLT VOLUME 9.2 fl (7.5-11.1); MONO % 6.3 % (3.8-10.2); PLATELET COUNT 116 K/MM3 (134-434); RBC 4.23 M/mm3 (4.00-5.60); WHITE BLOOD COUNT 3.9 K/mm3 (4.0-10.0)
[2019-01-14] MEDS: LACTATED RINGERS SOLUTION 1,000 ML/1,000 ML INFUS.BAG IV SCH ×3 (07:43→18:44)
[2019-01-14 08:38] LABS: ALBUMIN 3.8 g/dl (3.4-5.0); BILIRUBIN,TOTAL 0.5 mg/dL (0.2-1); BLOOD UREA NITROGEN 10.1 mg/dL (7-18); CALCIUM 8.5 mg/dL (8.5-10.1); CREATININE 1.2 mg/dL (0.55-1.3); MAGNESIUM 1.9 mg/dL (1.8-2.4); PHOSPHOROUS 3.2 mg/dL (2.5-4.9); POTASSIUM 3.8 mmol/L (3.5-5.1); TOT PROT 6.4 g/dl (6.4-8.2)
--- NOTE | 2019-01-14 09:22 | PN ---
Progress Note, Physician - Current Medication List Current Medications: Active Medications Heparin Sodium (Porcine) (Heparin -) 5,000 unit SQ BID [facility] Last Admin: 01/13/19 21:35 Dose: 5,000 unit Hydromorphone HCl (Dilaudid Vial -) 1 mg IVPUSH Q4H PRN PRN Reason: PAIN LEVEL 6-10 Last Admin: 01/13/19 21:32 Dose: 1 mg Lactated Ringer's (Lactated Ringers Solution) 1,000 ml in 1,000 mls @ 200 mls/ hr IV ASDIR [facility] Stop: 01/14/19 12:00 Last Admin: 01/14/19 02:59 Dose: 200 mls/hr Lactated Ringer's (Lactated Ringers Solution) 1,000 ml in 1,000 mls @ 175 mls/ hr IV ASDIR MARIA ISABEL Last Admin: 01/14/19 07:43 Dose: 175 mls/hr Ondansetron HCl (Zofran Injection) 4 mg IVPUSH Q6H PRN PRN Reason: NAUSEA Pantoprazole Sodium (Protonix Iv) 40 mg IVPUSH BID [facility] Last Admin: 01/13/19 22:38 Dose: 40 mg Propranolol HCl (Inderal -) 80 mg PO DAILY [facility] - Objective Vital Signs: Vital Signs Temperature 98.7 F 01/14/19 07:05 Pulse Rate 42 L 01/14/19 07:05 Respiratory Rate 21 H 01/14/19 07:05 Blood Pressure 133/76 01/14/19 07:05 O2 Sat by Pulse Oximetry (%) 99 01/13/19 21:00 Labs: CBC, BMP 01/14/19 07:06 01/14/19 07:06
[2019-01-14] MEDS ORDERED: PT OWN MED DRAWER 7, Y5N ONE (10:14)
[2019-01-14] MEDS: PANTOPRAZOLE SODIUM 40 MG VIAL IVPUSH SCH ×2 (10:15→21:43)
[2019-01-14] MEDS: HEPARIN NA (PORCINE) 5,000 UNITS/ML 1ML VIAL SQ SCH ×2 (10:15→21:43)
--- NOTE | 2019-01-14 11:56 | HP ---
Admitting History and Physical - Admission History of Present Illness: 58-year-old male, with a past medical history of HTN, HLD, chronic pancreatitis complicated by a pseudocyst, and alcohol abuse, who presents to the ED with progressively worsening epigastric pain. Patient states that the pain is typical for him due to his pancreatitis, but the pain has progressively worsened yesterday and in the last few hours. He describes the pain as constant and exacerbated when eating fatty foods. He reports taking Tylenol 500mg 2-3x a day with no relief and recently started taking Advil with mild relief of his symptoms. 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 Cardiovascular: Yes: HTN, Hyperlipdemia Gastrointestinal: Yes: Gastritis, GERD, Pancreatitis (recurring alcoholic pancreatitis), Other (resolved cyst of the pancreas ) Hepatobiliary: Yes: Other (fatty liver) Psych: Yes: Addictions (recovering alcoholic since 03/03) - Past Surgical History Past Surgical History: Yes: None, Colonoscopy, Upper Endoscopy - Smoking History Smoking history: Former smoker Have you smoked in the past 12 months: No Aproximately how many cigarettes per day: 0 If you are a former smoker, when did you quit?: 1998 - Alcohol/Substance Use Hx Alcohol Use: No (quit 03/03 recovering alcoholic) History of Substance Use: reports: None - Social History ADL: Independent 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 History of Recent Travel: No Home Medications - Allergies Allergies/Adverse Reactions: Allergies Allergy/AdvReac Type Severity Reaction Status Date / Time No Known Allergies Allergy Verified 01/13/19 12:31 - Home Medications Home Medications: Ambulatory Orders Fenofibric Acid (Choline) [Trilipix] 135 mg PO DAILY 02/18/17 Propranolol HCl 80 mg PO DAILY 02/18/17 Ranitidine HCl [Zantac] 300 mg PO DAILY 02/18/17 Rosuvastatin Calcium [Crestor] 20 mg PO DAILY 06/18/17 Amlodipine Besylate [Norvasc -] 5 mg PO DAILY 01/13/19 Ezetimibe [Zetia] 10 mg PO DAILY 01/13/19 Family Disease History - Family Disease History Family Disease History: Heart Disease: Father ( age 49 of [place]), Other: Mother (alive 85 with OMS) Review of Systems - Review of Systems Cardiovascular: denies: Chest Pain Respiratory: denies: SOB Gastrointestinal: reports: Abdominal Pain Genitourinary: reports: No Symptoms Physical Examination Vital Signs: Vital Signs Temperature 98.5 F 01/14/19 10:12 Pulse Rate 42 L 01/14/19 10:12 Respiratory Rate 19 01/14/19 10:12 Blood Pressure 136/82 01/14/19 10:12 O2 Sat by Pulse Oximetry (%) 99 01/13/19 21:00 Cardiovascular: Yes: Regular Rate and Rhythm Respiratory: Yes: Regular, CTA Bilaterally Gastrointestinal: Yes: Normal Bowel Sounds, Soft. No: Tenderness Labs: CBC, BMP 01/14/19 07:06 01/14/19 07:06 Imaging - Results Cat Scan: Report Reviewed Problem List - Problems (1) Acute pancreatitis Assessment/Plan: NPO IVF GI ON CASE AWAIT LABS Code(s): K85.9 - ACUTE PANCREATITIS, UNSPECIFIED * DO NOT USE * Qualifiers: Pancreatitis type: unspecified pancreatitis type (2) HLD (hyperlipidemia) Assessment/Plan: RESUME MEDS Code(s): E78.5 - HYPERLIPIDEMIA, UNSPECIFIED Qualifiers: Hyperlipidemia type: mixed hyperlipidemia Qualified Code(s): E78.2 - Mixed hyperlipidemia (3) HTN (hypertension) Assessment/Plan: MONITOR ON CURRENT MEDS Vital Signs Period Temp Pulse Resp BP Sys/Ojeda Pulse Ox Last 24 Hr 97.7 F-98.7 F 41-65 16-21 128-161/76-90 98-100 Code(s): I10 - ESSENTIAL (PRIMARY) HYPERTENSION Qualifiers: Hypertension type: essential hypertension Qualified Code(s): I10 - Essential (primary) hypertension
--- NOTE | 2019-01-14 14:32 | EKG ---
Test Reason : Blood Pressure : / mmHG Vent. Rate : 040 BPM Atrial Rate : 040 BPM P-R Int : 156 ms QRS Dur : 098 ms QT Int : 454 ms P-R-T Axes : 016 054 057 degrees QTc Int : 370 ms MARKED SINUS BRADYCARDIA ABNORMAL ECG WHEN COMPARED WITH ECG OF 02-MAY-2018 10:49, NO SIGNIFICANT CHANGE WAS FOUND Confirmed by DRISS CAPELLAN MD ([id number]) on 01/14/2019 2:32:02 PM Referred By: Confirmed By:DRISS CAPELLAN MD
[2019-01-14] MEDS ORDERED: ROSUVASTATIN CA 20 MG TABLET (FP) PO SCH (22:00)
[2019-01-15] MEDS: LACTATED RINGERS SOLUTION 1,000 ML/1,000 ML INFUS.BAG IV SCH ×3 (00:33→11:18)
[2019-01-15] MEDS: PANTOPRAZOLE SODIUM 40 MG VIAL IVPUSH SCH (10:00)
[2019-01-15] MEDS: HEPARIN NA (PORCINE) 5,000 UNITS/ML 1ML VIAL SQ SCH (10:01)
[2019-01-15] MEDS ORDERED: PT OWN MED DRAWER 7, Y5N ONE ×2 (10:03)
[2019-01-15 13:54] VITALS: BP 133/109; PULSE 66; TEMP 98.1
--- NOTE | 2019-01-15 15:05 | DS ---
Physical Examination Vital Signs: Vital Signs Temperature 98.1 F 01/15/19 13:51 Pulse Rate 66 01/15/19 13:51 Respiratory Rate 18 01/15/19 13:51 Blood Pressure 133/109 H 01/15/19 13:51 O2 Sat by Pulse Oximetry (%) 99 01/14/19 21:00 Constitutional: Yes: Calm Cardiovascular: Yes: Regular Rate and Rhythm, S1, S2 Respiratory: Yes: CTA Bilaterally Gastrointestinal: Yes: Normal Bowel Sounds, Soft Edema: No Neurological: Yes: Alert, Oriented Labs: CBC, BMP 01/14/19 07:06 01/14/19 07:06 Discharge Summary Reason For Visit: ACUTE PANCREATITIS Current Active Problems Abdominal pain (Acute) Chronic alcoholic pancreatitis (Acute) Chronic calcific pancreatitis (Acute) Recovering alcoholic in remission (Acute) Other Procedures: ct scan- acute on chronic panceatitis Hospital Course: 58-year-old male, with a past medical history of HTN, HLD, chronic pancreatitis complicated by a pseudocyst, and alcohol abuse, who presents to the ED with progressively worsening epigastric pain. Patient states that the pain is typical for him due to his pancreatitis, but the pain has progressively worsened yesterday and in the last few hours. He describes the pain as constant and exacerbated when eating fatty foods. He reports taking Tylenol 500mg 2-3x a day with no relief and recently started taking Advil with mild relief of his symptoms. patient got ct scan was on clear liquid diet started on creon tolerated regullar diet now feeling better Condition: Stable - Instructions Diet, Activity, Other Instructions: january 22 at 1;45pm at [facility]- see dr bower for repeat blood work Referrals: Shreyas Perez MD [Staff Physician] - 1 Week Sharmila Bower MD [Primary Care Provider] - 1 Week (to get blood work) Disposition: HOME - Home Medications Comprehensive Discharge Medication List: Ambulatory Orders Fenofibric Acid (Choline) [Trilipix] 135 mg PO DAILY 02/18/17 Propranolol HCl 80 mg PO DAILY 02/18/17 Ranitidine HCl [Zantac] 300 mg PO DAILY 02/18/17 Rosuvastatin Calcium [Crestor] 20 mg PO DAILY 06/18/17 Amlodipine Besylate [Norvasc -] 5 mg PO DAILY 01/13/19 Ezetimibe [Zetia] 10 mg PO DAILY 01/13/19 Lipase/Protease/Amylase [Alberto Goetz 6,000 Units Capsule] 1 cap PO TIDCM #30 capsule. 01/15/19
[2019-01-15] MEDS ORDERED: LIPASE/PROTEASE/AMYLASE 6,000 UNIT CAPSULE PO SCH (17:30)
== END 2019-01-15 15:45 | disposition home or self-care (01) | DRG 439 ==
LOC: JER 12:23 → JERBED 15:00 → J6S 16:55
PROVIDERS: ADMIT Family Medicine; ATTEND Family Medicine
DX: K85.20 Alcohol induced acute pancreatitis without necrosis or infection (principal); K86.3 Pseudocyst of pancreas; K86.0 Alcohol-induced chronic pancreatitis; F10.21 Alcohol dependence, in remission; I10 Essential (primary) hypertension; E78.5 Hyperlipidemia, unspecified; Z87.891 Personal history of nicotine dependence; R63.4 Abnormal weight loss; Z68.24 Body mass index [BMI] 24.0-24.9, adult; K76.0 Fatty (change of) liver, not elsewhere classified
CPT/HCPCS: 36415; 74177-TC; 80053; 80061; 81003; 82150; 82550; 82787; 83519; 83690; 83721; 83735; 84100; 84436; 84443; 84484; 85025; 86140; 86301; 87086; 93005; 93010; 99282-25; J1644; J7030

== ENCOUNTER 2019-02-17 06:12 | Inpatient (IN) | payer BC ==
--- NOTE | 2019-02-17 07:35 | PDOC ---
Attending Attestation - Resident Resident Name: Jaiden Zarate - ED Attending Attestation I have performed the following: I have examined & evaluated the patient, The case was reviewed & discussed with the resident, I agree w/resident's findings & plan, Exceptions are as noted - HPI HPI: 02/17/19 07:39 Mr. Srivastava is a 58 yo M h/o chronic pancreatitis, alcoholism (stopped drinking 2 years ago), HTN, HLD, GERD who presents to the ED with severe epigastric pain which began 4 days ago. He has been trying to manage his symptoms on his own - NPO, drinking only water. No vomiting or diarrhea. No history of CAD No fevers or chills - Physicial Exam PE: 02/17/19 07:34 GENERAL: The patient is in no acute distress. ENT: Dry mucous membranes NECK: Normal range of motion, supple LUNGS: Breath sounds equal, clear to auscultation bilaterally. No wheezes, and no crackles. HEART:Regular rate and rhythm, normal S1 and S2 ABDOMEN: Soft, RUQ tenderness, epigastric tenderness to palpation, (+) Jacobo' s sign EXTREMITIES: Normal range of motion, no edema. NEUROLOGICAL: Cranial nerves II through XII grossly intact. Normal speech. No focal neurological deficits. SKIN: Warm, Dry, normal turgor, no rashes or lesions noted. 02/17/19 07:43 - Medical Decision Making 02/17/19 07:44 58 yo M h/o chronic pancreatitis who presents with epigastric pain consistent with pancreatitis DD: Pancreatitis, Biliary colic, GERD/Gastritis Will do: Labs, Pepcid, Maalox, RUQ U/S 02/17/19 08:33 EKG - Twelve-lead EKG was performed and reviewed by me. There is normal sinus rhythm with a bradycardiac rate of 48 bpm. The axis is normal. The intervals are normal. There are no ST or T wave abnormalities. Impression: Sinus bradycardia Laboratory Tests 02/17/19 02/17/19 08:56 08:56 WBC 7.3 Hgb 12.1 Hct 35.6 Plt Count 112 L BUN 15.3 Creatinine 1.2 Lipase [id number] H U/S demonstrates GB filled with sludge, possible wall thickening Consult surgery Zosyn Admit consult GI Clinical impression: pancreatitis, initial presentation possible cholecystitis, initial presentation
[2019-02-17] MEDS ORDERED: FAMOTIDINE 20 MG/50 ML IVPB 20 MG/50 ML MG IVPB ONE ×2 (07:44→08:49)
[2019-02-17] MEDS ORDERED: SODIUM CHLORIDE 0.9% 500 ML INFUS.BAG IV ONE (07:44)
--- NOTE | 2019-02-17 08:00 | PDOC ---
History of Present Illness - General Chief Complaint: Pain Stated Complaint: PANCREATITIS Time Seen by Provider: 02/17/19 07:22 History Source: Patient Exam Limitations: No Limitations - History of Present Illness Initial Comments: 02/17/19 07:53 León Burdick is a 58M with H chronic pancreatitis presenting with epigastric abdominal pain consistent with his prior acute pancreatitis episodes. 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 Was recently in ED on 02/05/19 as well as the month before for the same issue. Was started on Creon and takes regularly but it is not helping to prevent flares. Tried to self-treat with NPO except water for 3 days and ibuprofen, but pain has persisted, which is unusual since it normally disappears after 2 days with conservative management. Denies fever/chills, N/V, C/D, headache, dizziness, weakness, urinary sx. Denies cardiac history but says he has baseline bradycardia that is known, denies chest pain/palpitations. Is celebrating 2 year anniversary of quitting all alcohol tomorrow, pancreatitis thought to be due to his alcohol use but he says that his doctors think that continued flares suggest fatty foods vs. HLD. Past History - Past Medical History Allergies/Adverse Reactions: Allergies Allergy/AdvReac Type Severity Reaction Status Date / Time No Known Allergies Allergy Verified 02/17/19 06:23 Home Medications: Ambulatory Orders Fenofibric Acid (Choline) [Trilipix] 135 mg PO DAILY 02/18/17 Propranolol HCl 80 mg PO DAILY 02/18/17 Ranitidine HCl [Zantac] 300 mg PO DAILY 02/18/17 Rosuvastatin Calcium [Crestor] 20 mg PO DAILY 06/18/17 Amlodipine Besylate [Norvasc -] 5 mg PO DAILY 01/13/19 Ezetimibe [Zetia] 10 mg PO DAILY 01/13/19 Lipase/Protease/Amylase [Alberto Dr 6,000 Units Capsule] 1 cap PO TIDCM #30 capsule. 01/15/19 Anemia: No Asthma: No Cancer: No Cardiac Disorders: No CVA: No COPD: No CHF: No Dementia: No Diabetes: No GI Disorders: Yes (pancreatitis/ GERD) Disorders: No HTN: Yes Hypercholesterolemia: Yes Liver Disease: No Seizures: No Thyroid Disease: No - Surgical History Abdominal Surgery: No Appendectomy: No Cardiac Surgery: No Cholecystectomy: No Lung Surgery: No Neurologic Surgery: No Orthopedic Surgery: Yes (RIGHT ELBOW SURGERY) - Family Disease History Family Disease History: Heart Disease: Father ([place]), [place]: Mother (breast Ca) - Immunization History Td Vaccination: Yes Immunization Up to Date: No - Suicide/Smoking/Psychosocial Hx Smoking Status: No Smoking History: Never smoked Have you smoked in the past 12 months: No Number of Cigarettes Smoked Daily: 0 If you are a former smoker, when did you quit?: 1998 Information on smoking cessation initiated: No Hx Alcohol Use: No Drug/Substance Use Hx: No Substance Use Type: None Hx Substance Use Treatment: No Review of Systems - Review of Systems Able to Perform ROS?: Yes Is the patient limited Japanese proficient: No Constitutional: No: Chills, Fever, Weakness HEENTM: No: Blurred Vision, Tinnitus, Hearing Loss, Throat Pain, Throat Swelling , Mouth Pain Respiratory: No: Cough, Shortness of Breath, Wheezing Cardiac (ROS): Yes: Irregular Heart Rate (slow heart rate at baseline). No: Chest Pain, Palpitations, Syncope ABD/GI: Yes: Poor Appetite. No: Constipated, Diarrhea, Nausea, Vomiting, Indigestion : No: Burning, Dysuria, Discharge, Frequency, Flank Pain, Hematuria, Incontinence, Pain Musculoskeletal: Yes: Back Pain (abd pain radiating to back). No: Muscle Pain, Muscle Weakness, Neck Pain Integumentary: No: Bruising, Change in Color, Rash Neurological: No: Headache, Numbness, Paresthesia, Weakness, Ataxia Endocrine: No: Symptoms Reported Hematologic/Lymphatic: No: Symptoms Reported All Other Systems: Reviewed and Negative *Physical Exam - Vital Signs Last Vital Signs Temp Pulse Resp BP Pulse Ox 98.4 F 57 L 19 122/88 99 02/17/19 06:24 02/17/19 06:24 02/17/19 06:24 02/17/19 06:24 02/17/19 06:24 - Physical Exam General Appearance: Yes: Nourished, Appropriately Dressed. No: Apparent Distress HEENT: positive: EOMI, LOI, Normal Voice, Symmetrical. negative: Pale Conjunctivae, Photophobia, Scleral Icterus (R), Scleral Icterus (L), Pharyngeal Erythema, Tonsillar Exudate, Tonsillar Erythema Neck: positive: Trachea midline, Normal Thyroid, Supple. negative: Tender, Lymphadenopathy (R), Lymphadenopathy (L) Respiratory/Chest: positive: Lungs Clear, Normal Breath Sounds, Respiratory Distress. negative: Crackles, Rales, Rhonchi Cardiovascular: positive: Regular Rhythm, Regular Rate, Bradycardia. negative: Murmur Gastrointestinal/Abdominal: positive: Normal Bowel Sounds, Tender (epigastric tenderness sharpest subxiphoid, as well as positive Jacobo's sign. Non-tender to rest of abdomen, no obvious signs of injury,), Flat, Soft. negative: Organomegaly, Pulsatile Mass Musculoskeletal: positive: Normal Inspection. negative: CVA Tenderness Extremity: positive: Normal Capillary Refill, Normal Inspection, Normal Range of Motion. negative: Tender Integumentary: positive: Normal Color, Dry, Warm. negative: Jaundice, Cold, Clammy, Diaphoresis Neurologic: positive: Fully Oriented, Alert, Normal Mood/Affect, Normal Response ED Treatment Course - LABORATORY CBC & Chemistry Diagram: 02/17/19 08:56 02/17/19 08:56 - RADIOLOGY Radiology Studies Ordered: Category Date Time Status ABDOMEN US -LIMITED [US] Stat Ultrasound 02/17/19 07:50 Ordered Medical Decision Making - Medical Decision Making 02/17/19 07:53 León Burdick is a 58M with PMH chronic pancreatitis presenting with epigastric abdominal pain consistent with his prior acute pancreatitis episodes. Presentation is consistent with acute pancreatitis given epigastric pain radiating to back that patient knows is identical to normal pancreatitis pain. Ddx includes AAA rupture, [place], as well as other abdominal pathologies such as choledocholithiasis/cholecystitis/cholangitis, appendicitis. However, afebrile, no unstable VS, no chest pain, no SOB. Will evaluate via: CMP CBC Lipase ECG RUQ US for r/o gallstones Giving 1L NS bolus Pepcid Maalox 02/17/19 09:27 US Read: IMPRESSION: Large gallbladder sludge with borderline thickening of its wall and without evidence of gallstones or pericholecystic free fluid. Correlate clinically to determine further evaluation. Dilated common bile duct measuring 6.7 mm in diameter for which further evaluation is needed. Top limits of normal is 6 mm. Questionable mild fatty infiltration of the liver. Read concerning for an acalculous cholecystitis vs. cholangitis vs. expected changes during pancreatitis. Will continue to evaluate via labs. 02/17/19 11:20 Lipase 77597 consistent with pancreatitis. Last GB UD CBD 0.5, now acutely enlarged with sludge that is likely cause of pancreatitis. Discussed case with surgery Dr. Moreira, will be admitted for HIDA/GI consult and will remove GB if negative. Discussed admission to Dr. Levy with MANAGER ZONE juan Bowles for Med-Surg and GI +surgery consult. *DC/Admit/Observation/Transfer Diagnosis at time of Disposition: Acute cholecystitis Acute pancreatitis Qualifiers: Pancreatitis type: biliary Acute pancreatitis complication: unspecified Qualified Code(s): K85.10 - Biliary acute pancreatitis without necrosis or infection - Referrals Referrals: Sharmila Levy MD [Primary Care Provider] - - Patient Instructions - Post Discharge Activity
[2019-02-17 09:06] LABS: BASO % 0.3 % (0-2.0); EOS % 3.4 % (0-4.5); HEMATOCRIT 35.6 % (35.4-49); HEMOGLOBIN 12.1 GM/dL (11.7-16.9); LYMPH % 13.8 % (8-40); MCH 28.9 pg (25.7-33.7); MCHC 33.9 g/dl (32.0-35.9); MEAN CELL VOLUME 85.2 fl (80-96); MEAN PLT VOLUME 9.9 fl (7.5-11.1); MONO % 10.3 % (3.8-10.2); NEUT % 72.2 % (42.8-82.8); PLATELET COUNT 112 K/MM3 (134-434); RBC 4.18 M/mm3 (4.00-5.60); RDW 14.1 % (11.9-15.9); WHITE BLOOD COUNT 7.3 K/mm3 (4.0-10.0)
[2019-02-17 09:34] LABS: ALBUMIN 3.8 g/dl (3.4-5.0); BILIRUBIN,TOTAL 1.1 mg/dL (0.2-1); BLOOD UREA NITROGEN 15.3 mg/dL (7-18); CALCIUM 8.7 mg/dL (8.5-10.1); CREATININE 1.2 mg/dL (0.55-1.3); POTASSIUM 3.7 mmol/L (3.5-5.1); TOT PROT 6.6 g/dl (6.4-8.2)
--- NOTE | 2019-02-17 11:34 | CONSULT ---
- Consultation REQUESTING PROVIDER: CONSULT REQUEST: We have been asked to surgically evaluate this patient for Gallbladder sludge/pancreatitis PCP: HISTORY OF PRESENT ILLNESS: 58yo M h/o chronic pancreatitis and alcoholism (quit 2 years ago) presented to the ED with complaints of Epigastric pain x 3 days. Pt denies any n/v, fever, chills. Pt was last in the hospital about a week ago for pancreatitis and then 1 month before that. Pt states pain feels like his typical pancreatitis flair ups. Pt see Dr. Bingham with GI for his pancreatitis. Pt denies any history of gallbladder stones or issues. Pt was found to have sludge and borderline CBD dilatation on RUQ US. PMHx: HLD, HTN, Chronic pancreatitis, Alcoholism (last drink 2 years ago) PSHx: Denies abd surgery Home Medications Medication Instructions Recorded Fenofibric Acid (Choline) 135 mg PO DAILY 02/18/17 [Trilipix] Propranolol HCl 80 mg PO DAILY 02/18/17 Ranitidine HCl [Zantac] 300 mg PO DAILY 02/18/17 Rosuvastatin Calcium [Crestor] 20 mg PO DAILY 06/18/17 Amlodipine Besylate [Norvasc -] 5 mg PO DAILY 01/13/19 Ezetimibe [Zetia] 10 mg PO DAILY 01/13/19 Lipase/Protease/Amylase [Alberto Goetz 1 cap PO TIDCM #30 capsule. 01/15/19 6,000 Units Capsule] Allergies Allergy/AdvReac Type Severity Reaction Status Date / Time No Known Allergies Allergy Verified 02/17/19 06:23 REVIEW OF SYSTEMS: CONSTITUTIONAL: Absent: fever, chills, diaphoresis, generalized weakness, malaise, loss of appetite, weight change CARDIOVASCULAR: Absent: chest pain, syncope, palpitations, irregular heart rate, lightheadedness , peripheral edema RESPIRATORY: Absent: cough, shortness of breath, dyspnea with exertion, wheezing, stridor, hemoptysis GASTROINTESTINAL: Absent: nausea, vomiting, diarrhea, constipation, melena, hematochezia GENITOURINARY: Absent: dysuria, frequency, urgency, hesitancy, hematuria, flank pain, genital pain PHYSICAL EXAM: GENERAL: Awake, alert, and fully oriented, in no acute distress. HEAD: Normal with no signs of trauma. EYES: PERRL, sclera anicteric, conjunctiva clear. NECK: Normal ROM LUNGS: Clear to auscultation bilat anteriorly. No wheezes, and no crackles. No accessory muscle use. HEART: Regular rate and rhythm. No murmurs ABDOMEN: Soft, mild epigastric tenderness, not distended, no guarding, no rebound, no masses. No organomegaly. MUSCULOSKELETAL: Normal ROM at all joints. No bony deformities or tenderness. No CVA tenderness. LOWER EXTREMITIES: warm, well-perfused. No calf tenderness. No peripheral edema. NEUROLOGICAL: Normal speech, gait not observed. PSYCH: Cooperative. Good eye contact. Appropriate mood and affect. SKIN: Warm, dry, normal turgor, no rashes or lesions noted. Vital Signs Temperature 98.4 F 02/17/19 06:24 Pulse Rate 57 L 02/17/19 06:24 Respiratory Rate 02/17/19 06:24 Blood Pressure 122/88 02/17/19 06:24 O2 Sat by Pulse Oximetry (%) 99 02/17/19 06:24 Lab Results WBC 7.3 K/mm3 (4.0-10.0) 02/17/19 08:56 RBC 4.18 M/mm3 (4.00-5.60) 02/17/19 08:56 Hgb 12.1 GM/dL (11.7-16.9) 02/17/19 08:56 Hct 35.6 % (35.4-49) 02/17/19 08:56 MCV 85.2 fl (80-96) 02/17/19 08:56 MCHC 33.9 g/dl (32.0-35.9) 02/17/19 08:56 RDW 14.1 % (11.9-15.9) 02/17/19 08:56 Plt Count 112 K/MM3 (134-434) L 02/17/19 08:56 Sodium 138 mmol/L (136-145) 02/17/19 08:56 Potassium 3.7 mmol/L (3.5-5.1) 02/17/19 08:56 Chloride 103 mmol/L (98-107) 02/17/19 08:56 Carbon Dioxide 25 mmol/L (21-32) 02/17/19 08:56 Anion Gap 11 MMOL/L (8-16) 02/17/19 08:56 BUN 15.3 mg/dL (7-18) 02/17/19 08:56 Creatinine 1.2 mg/dL (0.55-1.3) 02/17/19 08:56 Random Glucose 71 mg/dL (74-106) L 02/17/19 08:56 Calcium 8.7 mg/dL (8.5-10.1) 02/17/19 08:56 Problem List - Problems (1) Acute pancreatitis Assessment/Plan: Plan -at this point pt appears to be having another episode of pancreatitis, Abd US findings are borderline with no clinical evidence of acute cholecystitis. -recommend CT abd/pel with IV contrast evaluate further for pancreatitis -recommend GI consult with Dr. Bingham and treat for presumed pancreatitis, IV fluids, NPO -pt may follow up with Dr. Cotton/ Venkata as an outpatient for possible outpatient cholecystectomy if issues continue. -no indication for acute surgical intervention, if any changes please contact surgical team. Case discussed with Dr. Cotton who agrees with plan. Code(s): K85.9 - ACUTE PANCREATITIS, UNSPECIFIED * DO NOT USE * Qualifiers: Pancreatitis type: unspecified pancreatitis type Acute pancreatitis complication: unspecified Qualified Code(s): K85.90 - Acute pancreatitis without necrosis or infection, unspecified
--- NOTE | 2019-02-17 12:42 | EKG ---
Test Reason : Blood Pressure : / mmHG Vent. Rate : 048 BPM Atrial Rate : 048 BPM P-R Int : 180 ms QRS Dur : 104 ms QT Int : 444 ms P-R-T Axes : 064 051 035 degrees QTc Int : 396 ms SINUS BRADYCARDIA INCOMPLETE RIGHT BUNDLE BRANCH BLOCK BORDERLINE ECG WHEN COMPARED WITH ECG OF 05-FEB-2019 04:41, NO SIGNIFICANT CHANGE WAS FOUND Confirmed by Tramaine Matamoros MD ([id number]) on 02/17/2019 12:42:22 PM Referred By: Confirmed By:Tramaine Matamoros MD
[2019-02-17] MEDS ORDERED: PIPERACILLIN/TAZOB 3.375 GM 3.375 GM in DEXTROSE 5%-WATER - 50 ML IVPB ONE (12:44)
[2019-02-17] MEDS ORDERED: ONDANSETRON 4 MG/2 ML VIAL IVPUSH PRN (13:17)
[2019-02-17 13:20] VITALS: BMI 23.8
[2019-02-17] MEDS ORDERED: DEXTROSE 5%-NORMAL SALINE 1,000 ML IV SCH (13:30)
--- NOTE | 2019-02-17 13:58 | HP ---
Admitting History and Physical - Primary Care Physician PCP: Sharmila Levy - Admission Chief Complaint: Epigastric Pain History of Present Illness: Patient is a 58 y/o male with past medical history of chronic pancreatitis and alcoholism (no drinking in 2 years). Patient presented to ER with complaints of epigastric pain since Saturday. Patient states that on Saturday night he began experiencing sharp epigastric pain that radiates to his back, not accompanied with nausea, vomiting, diarrhea. He believed it was another pancreatitis flare up so he tried gut rest at home and increase hydration but felt it was getting progressively worse. In ER noted with elevated lipase and abnormal US. 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: Yes: Migraine Cardiovascular: Yes: HTN, Hyperlipdemia Gastrointestinal: Yes: Gastritis, GERD, Pancreatitis (recurring alcoholic pancreatitis), Other (resolved cyst of the pancreas ) Hepatobiliary: Yes: Other (fatty liver) Psych: Yes: Addictions (recovering alcoholic since 03/03) - Past Surgical History Past Surgical History: Yes: None, Colonoscopy, Upper Endoscopy - Smoking History Smoking history: Never smoked Have you smoked in the past 12 months: No Aproximately how many cigarettes per day: 0 If you are a former smoker, when did you quit?: 1998 - Alcohol/Substance Use Hx Alcohol Use: No History of Substance Use: reports: None - Social History Usual Living Arrangement: Yes: Alone ADL: Independent 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 History of Recent Travel: No Home Medications - Allergies Allergies/Adverse Reactions: Allergies Allergy/AdvReac Type Severity Reaction Status Date / Time No Known Allergies Allergy Verified 02/17/19 06:23 - Home Medications Home Medications: Ambulatory Orders Fenofibric Acid (Choline) [Trilipix] 135 mg PO DAILY 02/18/17 Propranolol HCl 80 mg PO DAILY 02/18/17 Ranitidine HCl [Zantac] 300 mg PO DAILY 02/18/17 Rosuvastatin Calcium [Crestor] 20 mg PO DAILY 06/18/17 Amlodipine Besylate [Norvasc -] 5 mg PO DAILY 01/13/19 Ezetimibe [Zetia] 10 mg PO DAILY 01/13/19 Lipase/Protease/Amylase [Alberto Goetz 6,000 Units Capsule] 1 cap PO TIDCM #30 capsule. 01/15/19 Family Disease History - Family Disease History Family Disease History: Heart Disease: Father ( age 49 of [place]), Other: Mother (alive 85 with OMS) Review of Systems - Review of Systems Constitutional: reports: No Symptoms Eyes: reports: No Symptoms HENT: reports: No Symptoms Neck: reports: No Symptoms Cardiovascular: reports: No Symptoms Respiratory: reports: No Symptoms Gastrointestinal: reports: Abdominal Pain Genitourinary: reports: No Symptoms Breasts: reports: No Symptoms Reported Musculoskeletal: reports: No Symptoms Integumentary: reports: No Symptoms Neurological: reports: Dizziness, Headache Endocrine: reports: No Symptoms Hematology/Lymphatic: reports: No Symptoms Psychiatric: reports: No Symptoms Physical Examination Vital Signs: Vital Signs Temperature 98.6 F 02/17/19 12:55 Pulse Rate 52 L 02/17/19 12:55 Respiratory Rate 18 02/17/19 12:55 Blood Pressure 140/75 02/17/19 12:55 O2 Sat by Pulse Oximetry (%) 98 02/17/19 12:55 Constitutional: Yes: No Distress, Calm Eyes: Yes: Conjunctiva Clear HENT: Yes: Atraumatic Neck: Yes: Supple Cardiovascular: Yes: Regular Rate and Rhythm Respiratory: Yes: Regular, CTA Bilaterally Gastrointestinal: Yes: Normal Bowel Sounds, Soft, Tenderness (RUQ and LUQ), Tenderness, Epigastrium Musculoskeletal: Yes: WNL Extremities: Yes: WNL Edema: No Neurological: Yes: Alert, Oriented Psychiatric: Yes: Alert, Oriented Labs: CBC, BMP 02/17/19 08:56 02/17/19 08:56 Imaging - Results Ultrasound: Report Reviewed Problem List - Problems (1) Acute pancreatitis Assessment/Plan: -Lipase 20908 -Abdominal US shows large gallbladder sludge with borderline thickening of its wall and without evidence of gallstones or pericholecystic free fluid, dilated CBD 6.7mm -Abdomen/Pelvic CT scan -GI consult -IV hydration -pain control Code(s): K85.9 - ACUTE PANCREATITIS, UNSPECIFIED * DO NOT USE * Qualifiers: Pancreatitis type: unspecified pancreatitis type Acute pancreatitis complication: unspecified Qualified Code(s): K85.90 - Acute pancreatitis without necrosis or infection, unspecified (2) Abdominal pain Assessment/Plan: -Lipase 01578 -Abdominal US shows large gallbladder sludge with borderline thickening of its wall and without evidence of gallstones or pericholecystic free fluid, dilated CBD 6.7mm -Abdomen/Pelvic CT scan ordered -NPO -surgery on board -GI consult -IV hydration -pain control Code(s): R10.9 - UNSPECIFIED ABDOMINAL PAIN (3) HLD (hyperlipidemia) Assessment/Plan: -atorvastatin when resume PO intake Code(s): E78.5 - HYPERLIPIDEMIA, UNSPECIFIED Qualifiers: Hyperlipidemia type: mixed hyperlipidemia Qualified Code(s): E78.2 - Mixed hyperlipidemia (4) HTN (hypertension) Assessment/Plan: -Amlodipine when resume PO intake Code(s): I10 - ESSENTIAL (PRIMARY) HYPERTENSION Qualifiers: Hypertension type: essential hypertension Qualified Code(s): I10 - Essential (primary) hypertension Assessment/Plan see problem list dvt ppx
[2019-02-17] MEDS ORDERED: PIPERACILLIN/TAZOBACTAM 3.375 GM VIAL IVPB ONE (14:20)
[2019-02-17] MEDS ORDERED: DEXTROSE 5%-WATER - 50 ML IVPB ONE (14:20)
[2019-02-17] MEDS: KETOROLAC TROMETHAMINE 30 MG/1 ML VIAL IVPUSH PRN (15:43)
--- NOTE | 2019-02-17 20:16 | CON.GI ---
Consult Consult Specialty:: Gastroenterology Referred by:: Alexandria Carracso NP Reason for Consultation:: Pancreatitis - History of Present Illness Chief Complaint: Epigastric pain since 02/13 AM got worse yesterday History of Present Illness: 58M is now admitted with his 3rd attack of pancreatitis within the past 5 weeks. He tried to treat it by food abstinence but the pain becames too severe yesterday. This time he feels it was triggered by having a cheeseburger and admits to failing to follow a strict low fat diet and to failing to take his Trilipix regularly ( he has had TGYs in the 500s in the past). 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 On this admission his common bile duct has dilated to 65mm and his gallbladder is distended with sludge. No stones have ever been found. He has had pseudocysts in the uncinate past in the past which resolved on their own. His IgG4 was 21 on 01/14/19 and no imaging has shown pancreas divisum. He stopped his JAYESH inhibitors and ARBs and despite this has had this recurrence. No FH of pancreatitis. He had a colonoscopy with Dr Raymundo about 5 years ago and an EGD with Dr Payton in [address] an enteral feeding tube, Neither revealed significant abnormalities. 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 Place of : [facility] History of Recent Travel: No Home Medications - Allergies Allergies/Adverse Reactions: Allergies Allergy/AdvReac Type Severity Reaction Status Date / Time No Known Allergies Allergy Verified 02/17/19 06:23 - Home Medications Home Medications: Ambulatory Orders Fenofibric Acid (Choline) [Trilipix] 135 mg PO DAILY 02/18/17 Propranolol HCl 80 mg PO DAILY 02/18/17 Ranitidine HCl [Zantac] 300 mg PO DAILY 02/18/17 Rosuvastatin Calcium [Crestor] 20 mg PO DAILY 06/18/17 Amlodipine Besylate [Norvasc -] 5 mg PO DAILY 01/13/19 Ezetimibe [Zetia] 10 mg PO DAILY 01/13/19 Lipase/Protease/Amylase [Alberto Goetz 6,000 Units Capsule] 1 cap PO TIDCM #30 capsule. 01/15/19 Family Disease History - Family Disease History Family Disease History: Heart Disease: Father ( age 49 of [place]), Other: Mother (alive 86 with OMS), Brother (x 2) Review of Systems - Review of Systems Constitutional: reports: Unintentional Wgt. Loss (3 recent bouts with pancreatitis) Eyes: reports: No Symptoms HENT: reports: No Symptoms Neck: reports: No Symptoms Cardiovascular: reports: No Symptoms Respiratory: reports: No Symptoms Gastrointestinal: reports: Abdominal Pain, Other (heartburn) Genitourinary: reports: No Symptoms Musculoskeletal: reports: No Symptoms Neurological: reports: No Symptoms Endocrine: reports: No Symptoms Physical Exam-GI Vital Signs: Vital Signs Temperature 98.4 F 02/17/19 18:00 Pulse Rate 52 L 02/17/19 18:00 Respiratory Rate 20 02/17/19 18:00 Blood Pressure 125/69 02/17/19 18:00 O2 Sat by Pulse Oximetry (%) 98 02/17/19 12:55 CBC,CMP WBC 7.3 K/mm3 (4.0-10.0) 02/17/19 08:56 RBC 4.18 M/mm3 (4.00-5.60) 02/17/19 08:56 Hgb 12.1 GM/dL (11.7-16.9) 02/17/19 08:56 Hct 35.6 % (35.4-49) 02/17/19 08:56 MCV 85.2 fl (80-96) 02/17/19 08:56 MCH 28.9 pg (25.7-33.7) 02/17/19 08:56 MCHC 33.9 g/dl (32.0-35.9) 02/17/19 08:56 RDW 14.1 % (11.9-15.9) 02/17/19 08:56 Plt Count 112 K/MM3 (134-434) L 02/17/19 08:56 MPV 9.9 fl (7.5-11.1) 02/17/19 08:56 Absolute Neuts (auto) 5.3 K/mm3 (1.5-8.0) 02/17/19 08:56 Neutrophils % 72.2 % (42.8-82.8) D 02/17/19 08:56 Lymphocytes % 13.8 % (8-40) D 02/17/19 08:56 Monocytes % 10.3 % (3.8-10.2) H 02/17/19 08:56 Eosinophils % 3.4 % (0-4.5) 02/17/19 08:56 Basophils % 0.3 % (0-2.0) 02/17/19 08:56 Nucleated RBC % 0 % (0-0) 02/17/19 08:56 Sodium 138 mmol/L (136-145) 02/17/19 08:56 Potassium 3.7 mmol/L (3.5-5.1) 02/17/19 08:56 Chloride 103 mmol/L (98-107) 02/17/19 08:56 Carbon Dioxide 25 mmol/L (21-32) 02/17/19 08:56 Anion Gap 11 MMOL/L (8-16) 02/17/19 08:56 BUN 15.3 mg/dL (7-18) 02/17/19 08:56 Creatinine 1.2 mg/dL (0.55-1.3) 02/17/19 08:56 Est GFR (CKD-EPI)AfAm 77.88 02/17/19 08:56 Est GFR (CKD-EPI)NonAf 67.19 02/17/19 08:56 POC Glucometer 73 UNITS (80-120) 02/17/19 17:15 Random Glucose 71 mg/dL (74-106) L 02/17/19 08:56 Calcium 8.7 mg/dL (8.5-10.1) 02/17/19 08:56 Total Bilirubin 1.1 mg/dL (0.2-1) H 02/17/19 08:56 AST 18 U/L (15-37) 02/17/19 08:56 ALT 21 U/L (13-61) 02/17/19 08:56 Alkaline Phosphatase 58 U/L (45-117) 02/17/19 08:56 Creatine Kinase 91 U/L (26-308) 02/17/19 08:56 Troponin I 0.03 ng/ml (0.00-0.05) 02/17/19 08:56 Total Protein 6.6 g/dl (6.4-8.2) 02/17/19 08:56 Albumin 3.8 g/dl (3.4-5.0) 02/17/19 08:56 Lipase 17969 U/L (73-393) H 02/17/19 08:56 Current Medications Generic Name Dose Route Start Last Admin Trade Name Freq PRN Reason Stop Dose Admin Heparin Sodium (Porcine) 5,000 unit 02/17/19 22:00 Heparin - SQ BID MARIA ISABEL Dextrose/Sodium Chloride 1,000 mls @ 75 mls/hr 02/17/19 13:30 02/17/19 14:24 D5-Ns - IV 75 mls/hr ASDIR MARIA ISABEL Administration Ketorolac Tromethamine 30 mg 02/17/19 15:06 02/17/19 15:43 Toradol Injection - IVPUSH 02/22/19 15:05 30 mg Q6H PRN Administration PAIN LEVEL 6-10 Ondansetron HCl 4 mg 02/17/19 13:17 Zofran Injection IVPUSH Q6H PRN NAUSEA Pantoprazole Sodium 40 mg 02/18/19 10:00 Protonix Iv IVPUSH DAILY [facility] Laboratory Tests 08/15/14 02/19/17 01/14/19 06:00 06:00 07:06 Liver Fibrosis Score 0.48 H Total Amylase 997 H CA 19-9 Antigen Pancreatic Polypeptide U Ethyl Glucuronide Hep Bs Antigen Negative Hepatitis C Ab (EIA) <0.1 07/31/19 08/23/19 07:06 12:00 Liver Fibrosis Score Total Amylase CA 19-9 Antigen 10 Pancreatic Polypeptide 197.6 U Ethyl Glucuronide Negative Hep Bs Antigen Hepatitis C Ab (EIA) Constitutional: Yes: Anxious Eyes: Yes: Conjunctiva Clear HENT: Yes: Atraumatic Neck: Yes: Trachea Midline Cardiovascular: Yes: Regular Rate and Rhythm Respiratory: Yes: CTA Bilaterally Gastrointestinal Inspection: Yes: WNL ...Auscultate: Yes: Hypoactive Bowel Sounds ...Palpate: Yes: Tenderness (mild epigastric tenderness) ...Percussion: Yes: Tympanitic ...Rectal Exam: Yes: Deferred (done 01/14/19 was g negative) Edema: No Neurological: Yes: Alert, Oriented Labs: CBC, BMP 02/17/19 08:56 02/17/19 08:56 Imaging - Results Cat Scan: Image Reviewed (pending) Ultrasound: Report Reviewed ( Final Report US ABDOMEN US -LIMITED Show Printer-Friendly Version with Image (1 of 1) Show Printer-Friendly Version without images Patient Name: León Burdick : 1960 ID: [id number] Study Date: 17-Feb-2019 08:35 [facility] Name: LEÓN BURDICK DEPARTMENT OF RADIOLOGY Phys: Jaiden Zarate RESIDENT : 1960 Age: 58 Sex: M [facility] Acct: [id number] Loc: [address] Exam Date: 02/17/19 Status: [place] [address] Unit Number: [id number] EXAM#: TYPE/EXAM: RESULT: [id number] US/ABDOMEN US -LIMITED History of pancreatitis. Rule out obstructing gallstones. Right upper abdomen ultrasound. The liver is within normal limits in size measuring 15.6 cm in sagittal length with a slightly coarse echotexture. The gallbladder is adequately distended with a large sludge layering posteriorly and borderline thickening of its wall. No gross stones or pericholecystic free fluid are identified. No intrahepatic bile duct dilatation seen. Common bile duct measures 6.7 mm The right kidney measures 12 cm sagittal length and appears unremarkable. Limited visualization of the pancreas likely due to overlying bowel gas. Visualized portion of the pancreatic body is within normal limits in size. Visualized portion of the proximal abdominal aorta and inferior vena cava appear unremarkable. Normal flow in the main portal vein. IMPRESSION: Large gallbladder sludge with borderline thickening of its wall and without evidence of gallstones or pericholecystic free fluid. Correlate clinically to determine further evaluation. Dilated common bile duct measuring 6.7 mm in diameter for which further evaluation is needed. Top limits of normal is 6 mm. Questionable mild fatty infiltration of the liver. Reported By: Mendoza Magallon MD 02/17/19916 Jaiden Zarate RESIDENT Technologist: Juana Medina Transcribed Date/Time: 02/17/19916 Last Remodeler Repairer: Mendoza Magallon Printed Date /Time: By: Signed by: Mendoza Magallon Signed on: 17-Feb-2019 09:17) Problem List - Problems (1) Acute pancreatitis Assessment/Plan: Now that suspected drugs such as JAYESH and ARBs have been removed, the rapidly recurring attacks mandate further intervention which for chronic calcific pancreatitis would be exchanging a series of pancreatitic stents over the course of a year after creating a pancreatic sphincterotomy.Before doing so I will repeat an MRCP to look for stones in the midst of the sludge and he now has CBD dilation. I have emphasized shae tijerinaed to controll al other factors by adopting a stricter low fat diet and to be compliant with his medications. I have provided him with the names of several GIs at the [facility] to seek their opinion and interventions Code(s): K85.9 - ACUTE PANCREATITIS, UNSPECIFIED * DO NOT USE * Qualifiers: Pancreatitis type: alcohol induced Acute pancreatitis complication: no infection or necrosis Qualified Code(s): K85.20 - Alcohol induced acute pancreatitis without necrosis or infection (2) Chronic alcoholic pancreatitis Code(s): K86.0 - ALCOHOL-INDUCED CHRONIC PANCREATITIS (3) Chronic calcific pancreatitis Code(s): K86.1 - OTHER CHRONIC PANCREATITIS (4) Fatty (change of) liver, not elsewhere classified Assessment/Plan: HPL and alcohol Code(s): K76.0 - FATTY (CHANGE OF) LIVER, NOT ELSEWHERE CLASSIFIED (5) Pancreatic cyst Assessment/Plan: resolved Code(s): K86.2 - CYST OF PANCREAS (6) Recovering alcoholic in remission Code(s): F10.21 - ALCOHOL DEPENDENCE, IN REMISSION (7) HLD (hyperlipidemia) Code(s): E78.5 - HYPERLIPIDEMIA, UNSPECIFIED Qualifiers: Hyperlipidemia type: mixed hyperlipidemia Qualified Code(s): E78.2 - Mixed hyperlipidemia (8) HTN (hypertension) Code(s): I10 - ESSENTIAL (PRIMARY) HYPERTENSION Qualifiers: Hypertension type: essential hypertension Qualified Code(s): I10 - Essential (primary) hypertension (9) Tremor Code(s): R25.1 - TREMOR, UNSPECIFIED Assessment/Plan Assessment: - Now that suspected drugs such as JAYESH and ARBs have been removed, the rapidly recurring attacks mandate further intervention which for chronic calcific pancreatitis would be exchanging a series of pancreatic stents over the course of a year after creating a pancreatic sphincterotomy. - Recovering alcoholic with a fatty liver Plan: -- Trial of clear liquids -- MRCP to look for stones in the midst of the sludge and now that he has CBD dilation. He has hiowever not had the expected LFTs fluctuations that are associated with stone passage -- I have emphasized that he needs to control all other factors by adopting a stricter low fat diet and to be compliant with his medications. -- I have provided him with the names of several GIs at the [facility] to seek their opinion and ERCP interventions
[2019-02-17] MEDS ORDERED: LACTATED RINGERS SOLUTION 1,000 ML/1,000 ML INFUS.BAG IV SCH ×2 (21:00)
[2019-02-17] MEDS: HEPARIN NA (PORCINE) 5,000 UNITS/ML 1ML VIAL SQ SCH (21:24)
[2019-02-18] MEDS ORDERED: LACTATED RINGERS SOLUTION 1,000 ML/1,000 ML INFUS.BAG IV SCH ×2 (03:00→11:00)
[2019-02-18 08:25] LABS: BASO % 0.8 % (0-2.0); EOS % 4.5 % (0-4.5); HEMATOCRIT 30.9 % (35.4-49); HEMOGLOBIN 10.7 GM/dL (11.7-16.9); LYMPH % 25.7 % (8-40); MCH 29.1 pg (25.7-33.7); MCHC 34.5 g/dl (32.0-35.9); MEAN CELL VOLUME 84.3 fl (80-96); MEAN PLT VOLUME 9.4 fl (7.5-11.1); MONO % 8.3 % (3.8-10.2); NEUT % 60.7 % (42.8-82.8); PLATELET COUNT 110 K/MM3 (134-434); RBC 3.67 M/mm3 (4.00-5.60); RDW 13.9 % (11.9-15.9); WHITE BLOOD COUNT 3.6 K/mm3 (4.0-10.0)
[2019-02-18 08:34] LABS: URIC ACID 4.4 mg/dL (2.6-7.2)
[2019-02-18 08:39] LABS: ALBUMIN 3.1 g/dl (3.4-5.0); BILIRUBIN,TOTAL 0.8 mg/dL (0.2-1); BLOOD UREA NITROGEN 9.1 mg/dL (7-18); CALCIUM 8.5 mg/dL (8.5-10.1); MAGNESIUM 2.1 mg/dL (1.8-2.4); PHOSPHOROUS 2.2 mg/dL (2.5-4.9); POTASSIUM 3.9 mmol/L (3.5-5.1); TOT PROT 5.6 g/dl (6.4-8.2)
[2019-02-18] MEDS ORDERED: PT OWN MED DRAWER 7, Y5N ONE ×3 (09:00→18:53)
--- NOTE | 2019-02-18 09:13 | PN ---
Progress Note, Physician - Current Medication List Current Medications: Active Medications Heparin Sodium (Porcine) (Heparin -) 5,000 unit SQ BID MARIA ISABEL Last Admin: 02/17/19 21:24 Dose: 5,000 unit Lactated Ringer's (Lactated Ringers Solution) 1,000 ml in 1,000 mls @ 200 mls/ hr IV ASDIR MARIA ISABEL Stop: 02/18/19 11:00 Last Admin: 02/18/19 02:24 Dose: 200 mls/hr Lactated Ringer's (Lactated Ringers Solution) 1,000 ml in 1,000 mls @ 175 mls/ hr IV ASDIR MARIA ISABEL Stop: 02/18/19 19:00 Lactated Ringer's (Lactated Ringers Solution) 1,000 ml in 1,000 mls @ 150 mls/ hr IV ASDIR MARIA ISABEL Ketorolac Tromethamine (Toradol Injection -) 30 mg IVPUSH Q6H PRN PRN Reason: PAIN LEVEL 6-10 Stop: 02/22/19 15:05 Last Admin: 02/17/19 15:43 Dose: 30 mg Ondansetron HCl (Zofran Injection) 4 mg IVPUSH Q6H PRN PRN Reason: NAUSEA Pancrelipase (Creon Dr 36,000 Units Capsule) 1 cap PO TIDCM MARIA ISABEL Pantoprazole Sodium (Protonix Iv) 40 mg IVPUSH DAILY [facility] - Objective Vital Signs: Vital Signs Temperature 98 F 02/18/19 05:38 Pulse Rate 56 L 02/18/19 05:38 Respiratory Rate 18 02/18/19 05:38 Blood Pressure 138/79 02/18/19 05:38 O2 Sat by Pulse Oximetry (%) 96 02/17/19 21:00 Cardiovascular: Yes: Regular Rate and Rhythm Respiratory: Yes: Regular, CTA Bilaterally Gastrointestinal: Yes: Normal Bowel Sounds, Soft, Tenderness (minmial) Labs: CBC, BMP 02/18/19 07:38 02/18/19 07:38 Assessment/Plan - Problems (1) Acute pancreatitis Assessment/Plan: -Lipase 21145 -Abdominal US shows large gallbladder sludge with borderline thickening of its wall and without evidence of gallstones or pericholecystic free fluid, dilated CBD 6.7mm -Abdomen/Pelvic CT scan -GI consult noted may need mrcp and referral to pancreatic center -IV hydration -pain control Code(s): K85.9 - ACUTE PANCREATITIS, UNSPECIFIED * DO NOT USE * Qualifiers: Pancreatitis type: unspecified pancreatitis type Acute pancreatitis complication: unspecified Qualified Code(s): K85.90 - Acute pancreatitis without necrosis or infection, unspecified (2) Abdominal pain Assessment/Plan: -Lipase 88205 -Abdominal US shows large gallbladder sludge with borderline thickening of its wall and without evidence of gallstones or pericholecystic free fluid, dilated CBD 6.7mm -Abdomen/Pelvic CT scan ordered -NPO -surgery on board -GI consult -IV hydration -pain control Code(s): R10.9 - UNSPECIFIED ABDOMINAL PAIN (3) HLD (hyperlipidemia) Assessment/Plan: -atorvastatin when resume PO intake Code(s): E78.5 - HYPERLIPIDEMIA, UNSPECIFIED Qualifiers: Hyperlipidemia type: mixed hyperlipidemia Qualified Code(s): E78.2 - Mixed hyperlipidemia (4) HTN (hypertension) Assessment/Plan: -Amlodipine when resume PO intake Code(s): I10 - ESSENTIAL (PRIMARY) HYPERTENSION Qualifiers: Hypertension type: essential hypertension Qualified Code(s): I10 - Essential (primary) hypertension
[2019-02-18] MEDS: HEPARIN NA (PORCINE) 5,000 UNITS/ML 1ML VIAL SQ SCH ×2 (09:51→21:35)
[2019-02-18] MEDS: PANTOPRAZOLE SODIUM 40 MG VIAL IVPUSH SCH (09:51)
[2019-02-18] MEDS: LIPASE/PROTEASE/AMYLASE 36,000 UNIT CAPSULE PO SCH ×3 (11:23→17:57)
--- NOTE | 2019-02-18 12:06 | PN.GI ---
GI Progress Note Subjective: GI Note: Tolerating full lilquids. Amylase dropping but CRP still 14. MRCP ordered. Will try low fat diet - Objective Vital Signs: Vital Signs Temperature 98.1 F 02/18/19 09:17 Pulse Rate 72 02/18/19 09:17 Respiratory Rate 20 02/18/19 09:17 Blood Pressure 136/79 02/18/19 09:17 O2 Sat by Pulse Oximetry (%) 96 02/17/19 21:00 Laboratory Tests 02/17/19 02/17/19 02/18/19 08:56 08:56 07:38 WBC 7.3 3.6 L Total Bilirubin AST ALT Alkaline Phosphatase C-Reactive Protein Triglycerides Cholesterol Lipase 99258 H 02/18/19 02/18/19 07:38 07:38 WBC Total Bilirubin 0.8 AST 20 ALT 19 Alkaline Phosphatase 53 C-Reactive Protein 14.8 H Triglycerides 181 H Cholesterol 219 H Lipase 550 H Constitutional: Calm ...Auscultate: Yes: Normoactive Bowel Sounds ...Palpate: Yes: Soft, Other (nontender) Labs: CBC, BMP 02/18/19 07:38 02/18/19 07:38 Assessment/Plan Assessment: - Papidly recurring attacks of pancreatitis mandate further intervention which for chronic calcific pancreatitis would be exchanging a series of pancreatic stents over the course of a year after creating a pancreatic sphincterotomy. - Recovering alcoholic with a fatty liver Plan: -- Trial of low fat diet -- MRCP to look for stones in the midst of the sludge and now that he has CBD dilation. He has hiowever not had the expected LFTs fluctuations that are associated with stone passage -- I have emphasized that he needs to control all other factors by adopting a stricter low fat diet and to be compliant with his medications. -- I have provided him with the names of several GIs at the [facility] to seek their opinion and ERCP interventions Problem List - Problems (1) Acute pancreatitis Code(s): K85.9 - ACUTE PANCREATITIS, UNSPECIFIED * DO NOT USE * Qualifiers: Pancreatitis type: alcohol induced Acute pancreatitis complication: no infection or necrosis Qualified Code(s): K85.20 - Alcohol induced acute pancreatitis without necrosis or infection (2) Chronic alcoholic pancreatitis Code(s): K86.0 - ALCOHOL-INDUCED CHRONIC PANCREATITIS (3) Chronic calcific pancreatitis Code(s): K86.1 - OTHER CHRONIC PANCREATITIS (4) Fatty (change of) liver, not elsewhere classified Code(s): K76.0 - FATTY (CHANGE OF) LIVER, NOT ELSEWHERE CLASSIFIED (5) Pancreatic cyst Code(s): K86.2 - CYST OF PANCREAS (6) Recovering alcoholic in remission Code(s): F10.21 - ALCOHOL DEPENDENCE, IN REMISSION (7) HLD (hyperlipidemia) Code(s): E78.5 - HYPERLIPIDEMIA, UNSPECIFIED Qualifiers: Hyperlipidemia type: mixed hyperlipidemia Qualified Code(s): E78.2 - Mixed hyperlipidemia (8) HTN (hypertension) Code(s): I10 - ESSENTIAL (PRIMARY) HYPERTENSION Qualifiers: Hypertension type: essential hypertension Qualified Code(s): I10 - Essential (primary) hypertension (9) Tremor Code(s): R25.1 - TREMOR, UNSPECIFIED
[2019-02-18 14:00] LABS: BASO % 0.9 % (0-2.0); EOS % 4.8 % (0-4.5); HEMATOCRIT 34.5 % (35.4-49); HEMOGLOBIN 11.7 GM/dL (11.7-16.9); LYMPH % 26.2 % (8-40); MCH 28.9 pg (25.7-33.7); MCHC 34.1 g/dl (32.0-35.9); MEAN CELL VOLUME 84.9 fl (80-96); MEAN PLT VOLUME 9.2 fl (7.5-11.1); MONO % 7.4 % (3.8-10.2); NEUT % 60.7 % (42.8-82.8); PLATELET COUNT 145 K/MM3 (134-434); RBC 4.06 M/mm3 (4.00-5.60); RDW 14.7 % (11.9-15.9)
[2019-02-18] MEDS: KETOROLAC TROMETHAMINE 30 MG/1 ML VIAL IVPUSH PRN ×2 (14:54→21:35)
[2019-02-18] MEDS ORDERED: ACETAMINOPHEN 1000 MG/100 ML VIAL (NON FORMULARY) IVPB ONE (17:47)
[2019-02-18] MEDS: LACTATED RINGERS SOLUTION 1,000 ML/1,000 ML INFUS.BAG IV SCH (18:13)
[2019-02-19] MEDS: LACTATED RINGERS SOLUTION 1,000 ML/1,000 ML INFUS.BAG IV SCH ×4 (00:03→21:31)
[2019-02-19 08:19] LABS: EOS % 4.7 % (0-4.5); HEMATOCRIT 30.2 % (35.4-49); HEMOGLOBIN 10.5 GM/dL (11.7-16.9); LYMPH % 29.8 % (8-40); MCH 29.2 pg (25.7-33.7); MCHC 34.7 g/dl (32.0-35.9); MEAN CELL VOLUME 84.2 fl (80-96); MEAN PLT VOLUME 9.3 fl (7.5-11.1); MONO % 8.9 % (3.8-10.2); NEUT % 55.6 % (42.8-82.8); PLATELET COUNT 132 K/MM3 (134-434); RBC 3.59 M/mm3 (4.00-5.60); RDW 14.4 % (11.9-15.9); WHITE BLOOD COUNT 2.8 K/mm3 (4.0-10.0)
[2019-02-19 08:34] LABS: ALBUMIN 2.9 g/dl (3.4-5.0); BILIRUBIN,TOTAL 1.3 mg/dL (0.2-1); TOT PROT 5.5 g/dl (6.4-8.2)
[2019-02-19] MEDS ORDERED: PT OWN MED DRAWER 7, Y5N ONE ×3 (08:42→17:15)
[2019-02-19] MEDS: LIPASE/PROTEASE/AMYLASE 36,000 UNIT CAPSULE PO SCH ×3 (08:59→17:41)
[2019-02-19] MEDS: PANTOPRAZOLE SODIUM 40 MG VIAL IVPUSH SCH (10:49)
[2019-02-19] MEDS: HEPARIN NA (PORCINE) 5,000 UNITS/ML 1ML VIAL SQ SCH ×2 (10:49→23:15)
--- NOTE | 2019-02-19 13:25 | PN ---
Progress Note, Physician Chief Complaint: Pancreatitis History of Present Illness: Previous notes and events reviewed awake and alert NAD continue with abdominal pain uptrend noted in LFTs - Current Medication List Current Medications: Active Medications Heparin Sodium (Porcine) (Heparin -) 5,000 unit SQ BID [facility] Last Admin: 02/19/19 10:49 Dose: 5,000 unit Lactated Ringer's (Lactated Ringers Solution) 1,000 ml in 1,000 mls @ 150 mls/ hr IV ASDIR [facility] Last Admin: 02/19/19 00:03 Dose: 150 mls/hr Ketorolac Tromethamine (Toradol Injection -) 30 mg IVPUSH Q6H PRN PRN Reason: PAIN LEVEL 6-10 Stop: 02/22/19 15:05 Last Admin: 02/18/19 21:35 Dose: 30 mg Ondansetron HCl (Zofran Injection) 4 mg IVPUSH Q6H PRN PRN Reason: NAUSEA Pancrelipase (Creon Dr 36,000 Units Capsule) 1 cap PO TIDCM [facility] Last Admin: 02/19/19 12:40 Dose: 1 cap Pantoprazole Sodium (Protonix Iv) 40 mg IVPUSH DAILY [facility] Last Admin: 02/19/19 10:49 Dose: 40 mg - Objective Vital Signs: Vital Signs Temperature 98.6 F 02/19/19 10:44 Pulse Rate 58 L 02/19/19 10:44 Respiratory Rate 20 02/19/19 10:44 Blood Pressure 142/85 02/19/19 10:44 O2 Sat by Pulse Oximetry (%) 97 02/18/19 21:00 Constitutional: Yes: No Distress, Calm Eyes: Yes: Conjunctiva Clear HENT: Yes: Atraumatic Cardiovascular: Yes: Regular Rate and Rhythm Respiratory: Yes: Regular, CTA Bilaterally Gastrointestinal: Yes: Normal Bowel Sounds, Soft Musculoskeletal: Yes: WNL Extremities: Yes: WNL Edema: No Neurological: Yes: Alert, Oriented Psychiatric: Yes: Alert, Oriented Labs: CBC, BMP 02/19/19 06:50 02/18/19 07:38 Problem List - Problems (1) Acute pancreatitis Assessment/Plan: -Lipase 383 -Abdominal US shows large gallbladder sludge with borderline thickening of its wall and without evidence of gallstones or pericholecystic free fluid, dilated CBD 6.7mm -Abdomen/Pelvic CT scan reviewed -GI on board -IV hydration -pain control Code(s): K85.9 - ACUTE PANCREATITIS, UNSPECIFIED * DO NOT USE * Qualifiers: Pancreatitis type: alcohol induced Acute pancreatitis complication: no infection or necrosis Qualified Code(s): K85.20 - Alcohol induced acute pancreatitis without necrosis or infection (2) Abdominal pain Assessment/Plan: -Lipase 383 -Abdominal US shows large gallbladder sludge with borderline thickening of its wall and without evidence of gallstones or pericholecystic free fluid, dilated CBD 6.7mm -Abdomen/Pelvic CT scan reviewed -clear liquids -surgery on board -GI on board -IV hydration -pain control -AST 328, ALT 120, Alk Phos 319 -pending MRCP Code(s): R10.9 - UNSPECIFIED ABDOMINAL PAIN (3) HLD (hyperlipidemia) Assessment/Plan: -atorvastatin on hold, LFTs elevated Code(s): E78.5 - HYPERLIPIDEMIA, UNSPECIFIED Qualifiers: Hyperlipidemia type: mixed hyperlipidemia Qualified Code(s): E78.2 - Mixed hyperlipidemia (4) HTN (hypertension) Assessment/Plan: -Amlodipine when resume PO intake Code(s): I10 - ESSENTIAL (PRIMARY) HYPERTENSION Qualifiers: Hypertension type: essential hypertension Qualified Code(s): I10 - Essential (primary) hypertension Assessment/Plan see problem list dvt ppx
[2019-02-19] MEDS ORDERED: LORazepam 1 MG TABLET PO ONE (18:30)
[2019-02-20 07:42] LABS: EOS % 6.3 % (0-4.5); HEMATOCRIT 33.6 % (35.4-49); HEMOGLOBIN 11.4 GM/dL (11.7-16.9); LYMPH % 39.6 % (8-40); MCHC 33.9 g/dl (32.0-35.9); MEAN CELL VOLUME 85.6 fl (80-96); MEAN PLT VOLUME 9.2 fl (7.5-11.1); MONO % 7.2 % (3.8-10.2); NEUT % 45.9 % (42.8-82.8); PLATELET COUNT 154 K/MM3 (134-434); RBC 3.93 M/mm3 (4.00-5.60); RDW 14.3 % (11.9-15.9); WHITE BLOOD COUNT 2.9 K/mm3 (4.0-10.0)
[2019-02-20 07:59] LABS: ALBUMIN 3.6 g/dl (3.4-5.0); BILIRUBIN,DIRECT 0.3 mg/dL (0.0-0.2); BILIRUBIN,TOTAL 0.7 mg/dL (0.2-1); BLOOD UREA NITROGEN 4.4 mg/dL (7-18); CALCIUM 9.3 mg/dL (8.5-10.1); CREATININE 1.2 mg/dL (0.55-1.3); POTASSIUM 3.7 mmol/L (3.5-5.1); TOT PROT 6.5 g/dl (6.4-8.2)
[2019-02-20 08:06] LABS: INR 1.13 (0.83-1.09); PROTHROMBIN TIME (PATIENT) 13.4 SEC (9.7-13.0)
[2019-02-20] MEDS: LIPASE/PROTEASE/AMYLASE 36,000 UNIT CAPSULE PO SCH ×3 (08:18→19:06)
[2019-02-20] MEDS: LACTATED RINGERS SOLUTION 1,000 ML/1,000 ML INFUS.BAG IV SCH ×2 (09:00→16:17)
[2019-02-20] MEDS ORDERED: PATIENT'S OWN MEDICATION (NON-FORMULARY) (Ranitidine Hcl [Zantac] 300 MG) PO SCH (10:00)
[2019-02-20] MEDS ORDERED: PT OWN MED DRAWER 7, Y5N ONE (10:59)
[2019-02-20] MEDS: HEPARIN NA (PORCINE) 5,000 UNITS/ML 1ML VIAL SQ SCH ×2 (11:06→23:59)
[2019-02-20] MEDS: amLODIPine BESYLATE 5 MG TABLET (FP) PO SCH (11:06)
[2019-02-20] MEDS: PANTOPRAZOLE SODIUM 40 MG VIAL IVPUSH SCH (11:14)
--- NOTE | 2019-02-20 12:57 | PN ---
Progress Note, Physician Chief Complaint: MRCP done awaiting official read patient was told by staff that MRCP negative so ERCP was cancelled for today - Current Medication List Current Medications: Active Medications Amlodipine Besylate (Norvasc -) 5 mg PO DAILY [facility] Last Admin: 02/20/19 11:06 Dose: 5 mg Heparin Sodium (Porcine) (Heparin -) 5,000 unit SQ BID [facility] Last Admin: 02/20/19 11:06 Dose: 5,000 unit Lactated Ringer's (Lactated Ringers Solution) 1,000 ml in 1,000 mls @ 150 mls/ hr IV ASDIR [facility] Last Admin: 02/20/19 09:00 Dose: 150 mls/hr Ketorolac Tromethamine (Toradol Injection -) 30 mg IVPUSH Q6H PRN PRN Reason: PAIN LEVEL 6-10 Stop: 02/22/19 15:05 Last Admin: 02/18/19 21:35 Dose: 30 mg Non-Formulary Medication (Ranitidine Hcl [Zantac]) 300 mg PO DAILY [facility] Ondansetron HCl (Zofran Injection) 4 mg IVPUSH Q6H PRN PRN Reason: NAUSEA Pancrelipase (Creon Dr 36,000 Units Capsule) 1 cap PO TIDCM [facility] Last Admin: 02/20/19 12:35 Dose: 1 cap Pantoprazole Sodium (Protonix Iv) 40 mg IVPUSH DAILY [facility] Last Admin: 02/20/19 11:14 Dose: 40 mg Propranolol HCl (Inderal La -) 80 mg PO DAILY [facility] Last Admin: 02/20/19 11:14 Dose: Not Given - Objective Vital Signs: Vital Signs Temperature 98.2 F 02/20/19 11:00 Pulse Rate 50 L 02/20/19 11:00 Respiratory Rate 20 02/20/19 11:00 Blood Pressure 132/97 02/20/19 11:00 O2 Sat by Pulse Oximetry (%) 97 02/19/19 21:00 Constitutional: Yes: Calm Cardiovascular: Yes: Regular Rate and Rhythm, S1, S2 Respiratory: Yes: CTA Bilaterally Gastrointestinal: Yes: Normal Bowel Sounds, Soft Edema: No Neurological: Yes: Alert Labs: CBC, BMP 02/20/19 06:35 02/20/19 06:35 INR, PTT INR 1.13 (0.83-1.09) H 02/20/19 06:35 Problem List - Problems (1) Abdominal pain Assessment/Plan: lipase trending down will give trial of low fat low fibre diet awaiting MRCP result ERCP cancelled GI to see patient later tonight pancreatic enzymes bilirubin elevated but trending down Code(s): R10.9 - UNSPECIFIED ABDOMINAL PAIN
--- NOTE | 2019-02-20 19:54 | PN.GI ---
GI Progress Note Subjective: GI NOte: [facility] no GB or CBD stones. The CBD appears to be impinged upon by swelling in the pancreatic head. ERCP was cancelled given this and his decrease in LFTs. He wants to leave tonight as his mother fell at the assisted living center and have been hospitalized. I convinced him of the need to stay to confirm continued resolution of pancreatitis and his LFTs. He tells me that he tolerated chicken , rice and vegetables for dinner tonight. His CRP is decreasing - Objective Vital Signs: Vital Signs Temperature 98.8 F 02/20/19 18:00 Pulse Rate 45 L 02/20/19 18:00 Respiratory Rate 20 02/20/19 18:00 Blood Pressure 135/90 02/20/19 18:00 O2 Sat by Pulse Oximetry (%) 97 02/19/19 21:00 Laboratory Tests 02/18/19 02/19/19 02/20/19 07:38 06:50 06:35 Total Bilirubin 0.8 1.3 H 0.7 Direct Bilirubin 1.0 H 0.3 H AST 20 328 H 102 H ALT 19 120 H 93 H Alkaline Phosphatase 53 319 H 273 H C-Reactive Protein 14.8 H 8.0 H Total Amylase 119 H Lipase 383 Constitutional: Anxious ...Auscultate: Yes: Normoactive Bowel Sounds ...Palpate: Yes: Soft, Other (nontender) Labs: CBC, BMP 02/20/19 06:35 02/20/19 06:35 INR, PTT INR 1.13 (0.83-1.09) H 02/20/19 06:35 Assessment/Plan Assessment: - Rapidly recurring attacks of pancreatitis mandate further intervention which for chronic calcific pancreatitis would be exchanging a series of pancreatic stents over the course of a year after creating a pancreatic sphincterotomy. - Recovering alcoholic with a fatty liver Plan: -- Trial of low fat diet -- Repeat LFTs in AM. If they contiue to normalizee and Jv is pain and fever free he can be discharged in the AM -- I have emphasized that he needs to control all other factors by adopting a stricter low fat diet and to be compliant with his medications. -- I provided him with the names of several GIs at the [facility] to seek their opinion and ERCP interventions earlier and have reiterated the need to establish care at that center Problem List - Problems (1) Abnormal liver function test Code(s): R94.5 - ABNORMAL RESULTS OF LIVER FUNCTION STUDIES (2) Acute pancreatitis Code(s): K85.9 - ACUTE PANCREATITIS, UNSPECIFIED * DO NOT USE * Qualifiers: Pancreatitis type: alcohol induced Acute pancreatitis complication: no infection or necrosis Qualified Code(s): K85.20 - Alcohol induced acute pancreatitis without necrosis or infection (3) Chronic alcoholic pancreatitis Code(s): K86.0 - ALCOHOL-INDUCED CHRONIC PANCREATITIS (4) Chronic calcific pancreatitis Code(s): K86.1 - OTHER CHRONIC PANCREATITIS (5) Fatty (change of) liver, not elsewhere classified Code(s): K76.0 - FATTY (CHANGE OF) LIVER, NOT ELSEWHERE CLASSIFIED (6) Pancreatic cyst Code(s): K86.2 - CYST OF PANCREAS (7) Recovering alcoholic in remission Code(s): F10.21 - ALCOHOL DEPENDENCE, IN REMISSION (8) HLD (hyperlipidemia) Code(s): E78.5 - HYPERLIPIDEMIA, UNSPECIFIED Qualifiers: Hyperlipidemia type: mixed hyperlipidemia Qualified Code(s): E78.2 - Mixed hyperlipidemia (9) HTN (hypertension) Code(s): I10 - ESSENTIAL (PRIMARY) HYPERTENSION Qualifiers: Hypertension type: essential hypertension Qualified Code(s): I10 - Essential (primary) hypertension (10) Tremor Code(s): R25.1 - TREMOR, UNSPECIFIED
[2019-02-20] MEDS: RANITIDINE HCL 150 MG TABLET (FP) PO SCH (23:57)
[2019-02-21] MEDS: LACTATED RINGERS SOLUTION 1,000 ML/1,000 ML INFUS.BAG IV SCH (02:15)
[2019-02-21] MEDS ORDERED: PT OWN MED DRAWER 7, Y5N ONE ×2 (09:16→09:55)
[2019-02-21] MEDS: amLODIPine BESYLATE 5 MG TABLET (FP) PO SCH (09:20)
[2019-02-21] MEDS: RANITIDINE HCL 150 MG TABLET (FP) PO SCH (09:20)
[2019-02-21] MEDS: LIPASE/PROTEASE/AMYLASE 36,000 UNIT CAPSULE PO SCH (09:21)
[2019-02-21] MEDS: HEPARIN NA (PORCINE) 5,000 UNITS/ML 1ML VIAL SQ SCH (09:22)
[2019-02-21 09:32] VITALS: BP 147/98; PULSE 49; TEMP 97.9
[2019-02-21 09:33] LABS: ALBUMIN 3.6 g/dl (3.4-5.0); BILIRUBIN,TOTAL 0.5 mg/dL (0.2-1); BLOOD UREA NITROGEN 6.1 mg/dL (7-18); CREATININE 1.1 mg/dL (0.55-1.3); POTASSIUM 4.1 mmol/L (3.5-5.1); TOT PROT 6.5 g/dl (6.4-8.2)
--- NOTE | 2019-02-21 11:28 | DS ---
Physical Examination Vital Signs: Vital Signs Temperature 97.9 F 02/21/19 09:30 Pulse Rate 49 L 02/21/19 09:30 Respiratory Rate 20 02/21/19 09:30 Blood Pressure 147/98 02/21/19 09:30 O2 Sat by Pulse Oximetry (%) 97 02/21/19 09:00 Cardiovascular: Yes: Regular Rate and Rhythm Respiratory: Yes: Regular, CTA Bilaterally Gastrointestinal: Yes: Normal Bowel Sounds, Soft. No: Tenderness Labs: CBC, BMP 02/20/19 06:35 02/21/19 07:35 Discharge Summary Reason For Visit: CHOLECYSTITIS Current Active Problems Abnormal liver function test (Acute) Acute pancreatitis (Acute) Hospital Course: - Problems (1) Acute pancreatitis Assessment/Plan: -Improved -Abdominal US shows large gallbladder sludge with borderline thickening of its wall and without evidence of gallstones or pericholecystic free fluid, dilated CBD 6.7mm -Abdomen/Pelvic CT scan noted -GI consult noted may need mrcp and referral to pancreatic center l Code(s): K85.9 - ACUTE PANCREATITIS, UNSPECIFIED * DO NOT USE * Qualifiers: Pancreatitis type: unspecified pancreatitis type Acute pancreatitis complication: unspecified Qualified Code(s): K85.90 - Acute pancreatitis without necrosis or infection, unspecified (2) Abdominal pain Assessment/Plan: -REsolved -Lipase [id number] on admision -Abdominal US shows large gallbladder sludge with borderline thickening of its wall and without evidence of gallstones or pericholecystic free fluid, dilated CBD 6.7mm -Abdomen/Pelvic CT scan ordered -GI consult -pain control Code(s): R10.9 - UNSPECIFIED ABDOMINAL PAIN (3) HLD (hyperlipidemia) Assessment/Plan: -atorvastatin when resume PO intake Code(s): E78.5 - HYPERLIPIDEMIA, UNSPECIFIED Qualifiers: Hyperlipidemia type: mixed hyperlipidemia Qualified Code(s): E78.2 - Mixed hyperlipidemia (4) HTN (hypertension) Assessment/Plan: -Amlodipine when resume PO intake Code(s): I10 - ESSENTIAL (PRIMARY) HYPERTENSION Qualifiers: Hypertension type: essential hypertension Qualified Code(s): I10 - Essential (primary) hypertension - Instructions Disposition: HOME - Home Medications Comprehensive Discharge Medication List: Ambulatory Orders Fenofibric Acid (Choline) [Trilipix] 135 mg PO DAILY 02/18/17 Propranolol HCl 80 mg PO DAILY 02/18/17 Ranitidine HCl [Zantac] 300 mg PO DAILY 02/18/17 Rosuvastatin Calcium [Crestor] 20 mg PO DAILY 06/18/17 Amlodipine Besylate [Norvasc -] 5 mg PO DAILY 01/13/19 Ezetimibe [Zetia] 10 mg PO DAILY 01/13/19 Lipase/Protease/Amylase [Alberto Goetz 6,000 Units Capsule] 1 cap PO TIDCM #30 capsule. 01/15/19
== END 2019-02-21 12:36 | disposition home or self-care (01) | DRG 439 ==
LOC: JER 06:12 → JERBED 10:43 → J5S 12:45
PROVIDERS: ADMIT Family Medicine; ATTEND Family Medicine
DX: K85.90 Acute pancreatitis without necrosis or infection, unspecified (principal); K86.2 Cyst of pancreas; I10 Essential (primary) hypertension; E78.5 Hyperlipidemia, unspecified; K21.9 Gastro-esophageal reflux disease without esophagitis; F10.20 Alcohol dependence, uncomplicated; Z87.891 Personal history of nicotine dependence; K76.0 Fatty (change of) liver, not elsewhere classified; R25.1 Tremor, unspecified
CPT/HCPCS: 36415; 74177-TC; 74182-TC; 76705-TC; 80053; 80061; 80076; 82150; 82248; 82550; 82962; 83036; 83690; 83721; 83735; 84100; 84436; 84443; 84484; 84550; 85025; 85610; 86140; 93005; 93010; 99282-25; A9579; J0131; J1644; Q9967

== ENCOUNTER 2024-01-20 04:18 | Day surgery (SDC) | payer BC ==
[2024-01-17 10:13] VITALS: BMI 23.7
[2024-01-20] MEDS ORDERED: ONDANSETRON 4 MG/2 ML VIAL ONE (13:05)
[2024-01-20] MEDS ORDERED: MIDAZOLAM HCL 2 MG/2 ML SINGLE DOSE VIAL ONE (13:06)
[2024-01-20] MEDS ORDERED: PROPOFOL 20 ML ONE (13:36)
[2024-01-20] MEDS ORDERED: SUCCINYLCHOLINE CHLORIDE 200 MG/10 ML SYRINGE ONE (13:36)
[2024-01-20] MEDS ORDERED: ACETAMINOPHEN 325 MG TABLET (FP) ONE (15:25)
[2024-01-20] MEDS: ACETAMINOPHEN 325 MG TABLET (FP) PO ONE (15:27)
[2024-01-20 21:55] VITALS: RESP 18
[2024-01-21 01:57] VITALS: PULSE 50
[2024-01-21 07:23] VITALS: BP 125/77; TEMP 97.9
== END 2024-01-21 10:44 | disposition home or self-care (01) ==
LOC: JASUSAT 04:18 → J8W 16:36 → JASUSAT 01-21 10:44
PROVIDERS: ATTEND Urology
PROC: 0TF4XZZ Fragmentation in Left Kidney Pelvis, External Approach (ICD-10-PCS; principal; 2024-01-20 13:30)
DX: N20.0 Calculus of kidney (principal)